=== PATIENT | female | born 1950 | race American Indian/Alaskan Native ===

== ENCOUNTER 2021-02-22 23:23 | Observation (INO) | payer MEDICARE ==
--- NOTE | 2021-02-23 00:13 | Emergency Department Report ---
ED General Adult HPI - General Chief complaint: Altered Mental Status Stated complaint: FREQUENT URINATION PUI?: No Time Seen by Provider: 02/23/21 00:01 Source: patient Mode of arrival: Stretcher Limitations: Altered Mental Status, Physical Limitation - History of Present Illness Initial comments: Patient is a 70-year-old female that presents emergency room with increased urinary frequency, altered mental status. Patient states she has a history of a stroke. Patient states her stroke left her with left-sided weakness. Patient states she not had any change in her weakness. Patient states her right side feels normal. Patient states she is having difficulties getting around due to the stroke. Patient has had multiple falls trying to get to the bathroom. Patient states for the last week she has had increased urinary frequency. Patient states she also lost her appetite and she has not eaten anything for 7 days. Patient denies pain. Patient denies chest pain. Patient denies shortness of breath. Patient denies abdominal pain. I discussed with the patient's son. Patient states his son states that she has been altered and increased urination. Patient's son states she is not eating as well. Patient denies recent travel. Patient denies recent international travel. Patient denies exposure to the novel coronavirus. Patient denies sick contacts. Patient denies fever and chills. Patient denies cough. Patient denies diarrhea. Patient denies coming in contact with anybody with symptoms of the novel coronavirus. -: Sudden - Related Data Allergies Allergy/AdvReac Type Severity Reaction Status Date / Time No Known Allergies Allergy Unverified 02/23/21 01:10 ED Review of Systems ROS: Stated complaint: FREQUENT URINATION Other details as noted in HPI Constitutional: denies: chills, fever Eyes: denies: eye pain, eye discharge, vision change ENT: denies: ear pain, throat pain Respiratory: denies: cough, shortness of breath, wheezing Cardiovascular: denies: chest pain, palpitations Endocrine: no symptoms reported Gastrointestinal: denies: abdominal pain, nausea, diarrhea Genitourinary: as per HPI, urgency, frequency. denies: dysuria, discharge Musculoskeletal: denies: back pain, joint swelling, arthralgia Skin: denies: rash, lesions Neurological: as per HPI. denies: headache, weakness, paresthesias Psychiatric: denies: anxiety, depression Hematological/Lymphatic: denies: easy bleeding, easy bruising ED Past Medical Hx - Past Medical History Previous Medical History?: Yes Hx Hypertension: Yes Hx CVA: Yes (Left-sided weakness) Hx Congestive Heart Failure: No - Surgical History Past Surgical History?: No - Family History Family history: no significant - Social History Smoking Status: Never Smoker Substance Use Type: None ED Physical Exam - General Limitations: Altered Mental Status, Physical Limitation General appearance: alert, in no apparent distress - Head Head exam: Present: atraumatic, normocephalic - Eye Eye exam: Present: normal appearance, PERRL Pupils: Present: normal accommodation - ENT ENT exam: Present: mucous membranes dry - Neck Neck exam: Present: normal inspection - Respiratory Respiratory exam: Present: normal lung sounds bilaterally. Absent: respiratory distress - Cardiovascular Cardiovascular Exam: Present: regular rate, normal rhythm. Absent: systolic murmur, diastolic murmur, rubs, gallop - GI/Abdominal GI/Abdominal exam: Present: soft, normal bowel sounds - Extremities Exam Extremities exam: Present: normal inspection - Back Exam Back exam: Present: normal inspection - Neurological Exam Neurological exam: Present: alert, altered (Patient is alert and oriented x2. Patient is oriented to self and place.) - Psychiatric Psychiatric exam: Present: normal affect, normal mood - Skin Skin exam: Present: warm, dry, intact, normal color. Absent: rash ED Course Vital Signs 02/23/21 02/23/21 01:05 02:12 Temperature 97.5 F L Pulse Rate 78 Respiratory 17 Rate Blood Pressure 194/117 [Right] O2 Sat by Pulse 99 100 Oximetry - Reevaluation(s) Reevaluation #1: I discussed all results with patient. I discussed plan of care with patient. Patient agrees with plan of care and admission. Patient to be admitted to the hospitalist service. 02/23/21 02:44 - Consultations Consultation #1: Hospitalist consulted for admission. Hospitalist to admit patient. 02/23/21 02:44 ED Medical Decision Making - Lab Data Result diagrams: 02/23/21 01:03 02/23/21 01:03 - EKG Data -: EKG Interpreted by Me EKG shows normal: sinus rhythm, axis, intervals, QRS complexes, ST-T waves Rate: normal - Radiology Data Radiology results: report reviewed, image reviewed interpreted by me: Chest x-ray: No pneumonia, no pneumothorax, no foreign body, no osseous findings, pulmonary edema noted. Cardiomegaly CHEST 1 VIEW 02/23/2021 12:16 AM INDICATION / CLINICAL INFORMATION: Altered Mental Status. COMPARISON: None available. FINDINGS: SUPPORT DEVICES: None. HEART / MEDIASTINUM: Moderate enlargement of the cardiac silhouette. LUNGS / PLEURA: There are generalized bilateral pulmonary opacities. No significant pleural effusion. No pneumothorax. ADDITIONAL FINDINGS: Moderate degenerative changes are noted along the spine and the left shoulder. IMPRESSION: Moderate cardiomegaly with probable bilateral atelectasis/edema. CT HEAD WITHOUT CONTRAST INDICATION : Altered Mental Status. TECHNIQUE: Axial, coronal and sagittal CT imaging was performed from the skull apex through the skull base without contrast. All CT scans at this location are performed using CT dose reduction for [employer] by means of automated exposure control. COMPARISON: None available. FINDINGS: Motion artifact limits portions of this study. PARENCHYMA: No mass, midline shift, hemorrhage, extraaxial collection or acute territorial infarction. There is mild generalized atrophy. Encephalomalacia is seen along the left cerebellar hemisphere. Areas of low-attenuation throughout the periventricular white matter likely represent chronic microvascular ischemic changes. VENTRICLES: Enlarged secondary to atrophy. No acute abnormality. SOFT TISSUES: No significant abnormality of the included soft tissues/orbits. BONES: No acute osseous abnormality. SINUSES: No significant abnormality. ADDITIONAL FINDINGS: None. IMPRESSION: 1. No acute intracranial abnormality. 2. Additional findings as above. - Medical Decision Making Patient is a 70-year-old female presents emergency room with complaints of urinary frequency and falls. Patient found to be altered. I discussed with the son the son confirms that the patient is altered and having urinary frequency. Patient answers most questions appropriately. Patient had a head CT which was negative for acute finding. Patient had a chest x-ray show cardiomegaly with pulmonary edema. Patient had labs done which showed renal insufficiency and a UTI. Patient given IV antibiotics. Patient admitted to the hospital service for further evaluation and treatment. Critical care time documented due to the multiple reassessments, prolonged time at the bedside, interpretation of diagnostics and labs. - Differential Diagnosis Altered mental status, dehydration, UTI, urinary frequency, Critical Care Time: Yes Critical care time in (mins) excluding proc time.: 35 Critical care attestation.: If time is entered above; I have spent that time in minutes in the direct care of this critically ill patient, excluding procedure time. Critical Care Time: 35 minutes ED Disposition Clinical Impression: Urinary frequency, Renal insufficiency, Pulmonary edema cardiac cause Altered mental state Qualifiers: Altered mental status type: unspecified Qualified Code(s): R41.82 - Altered mental status, unspecified UTI (urinary tract infection) Qualifiers: Urinary tract infection type: acute cystitis Hematuria presence: with hematuria Qualified Code(s): N30.01 - Acute cystitis with hematuria Disposition: OP ADMIT IP TO THIS HOSP Is pt being admited?: Yes Does the pt Need Aspirin: No Condition: Critical Instructions: Abdominal Pain (ED), Pulmonary Edema (ED) Time of Disposition: 03:40
--- NOTE | 2021-02-23 01:27 | XRay Report ---
CHEST 1 VIEW 02/23/2021 12:16 AM INDICATION / CLINICAL INFORMATION: Altered Mental Status. COMPARISON: None available. FINDINGS: SUPPORT DEVICES: None. HEART / MEDIASTINUM: Moderate enlargement of the cardiac silhouette. LUNGS / PLEURA: There are generalized bilateral pulmonary opacities. No significant pleural effusion. No pneumothorax. ADDITIONAL FINDINGS: Moderate degenerative changes are noted along the spine and the left shoulder. IMPRESSION: Moderate cardiomegaly with probable bilateral atelectasis/edema. Signer Name: Jabari Hernandez MD Signed: 02/23/2021 1:23 AM Workstation Name: [id number]
[2021-02-23 01:31] LABS: Hematocrit 33.6 % (30.3-42.9); Hemoglobin 11.1 gm/dl (10.1-14.3); Mean Corpuscular HGB Conc 33 % (30-34); Mean Corpuscular Volume 81 fl (79-97); Platelet Count 237 K/mm3 (140-440); Red Blood Count 4.18 M/mm3 (3.65-5.03); Red Cell Distribution Width 19.5 % (13.2-15.2)
[2021-02-23 01:35] LABS: INR 1.06 (0.87-1.13)
[2021-02-23 01:46] LABS: Albumin 3.7 g/dL (3.9-5); Calcium 9.1 mg/dL (8.4-10.2)
[2021-02-23 02:04] LABS: Band Neutrophils # (Manual) 0.2 K/mm3; Total Cells Counted 100
[2021-02-23 02:05] LABS: Anisocytosis 1+; Large Platelets Few; Platelet Estimate Consistent w Auto; Poikilocytosis 1+; Target Cells 1+
[2021-02-23 02:30] LABS: Bacteria,Urine 2+ /HPF (Negative); Bilirubin,Urine NEG (Negative); Blood,Urine LG (Negative); Color,Urine Yellow (Yellow); Mucus,Urine FEW /HPF
[2021-02-23 02:32] LABS: RBC,Urine > 182.0 /HPF (0.0-6.0)
--- NOTE | 2021-02-23 02:39 | Cat Scan Report ---
CT HEAD WITHOUT CONTRAST INDICATION : Altered Mental Status. TECHNIQUE: Axial, coronal and sagittal CT imaging was performed from the skull apex through the skul l base without contrast. All CT scans at this location are performed using CT dose reduction for ALA RA by means of automated exposure control. COMPARISON: None available. FINDINGS: Motion artifact limits portions of this study. PARENCHYMA: No mass, midline shift, hemorrhage, extraaxial collection or acute territorial infarctio n. There is mild generalized atrophy. Encephalomalacia is seen along the left cerebellar hemisphere. Areas of low-attenuation throughout the periventricular white matter likely represent chronic microv ascular ischemic changes. VENTRICLES: Enlarged secondary to atrophy. No acute abnormality. SOFT TISSUES: No significant abnormality of the included soft tissues/orbits. BONES: No acute osseous abnormality. SINUSES: No significant abnormality. ADDITIONAL FINDINGS: None. IMPRESSION: 1. No acute intracranial abnormality. 2. Additional findings as above. Signer Name: Jabari Hernandez MD Signed: 02/23/2021 2:34 AM Workstation Name: [id number]
[2021-02-23] MEDS ORDERED: cefTRIAXone/NS 2 GM/100 ML 2 GM/100 ML BAG IV ONE (02:44)
--- NOTE | 2021-02-23 07:50 | History and Physical Report ---
History of Present Illness Date of examination: 02/23/21 Date of admission: 02/23/21 03:35 Chief complaint: Could not urinate History of present illness: 70-year-old female with past medical history significant for stroke with residual left-sided weakness, hypertension, hyperlipidemia, left lymphedema presented to the emergency department with complaints of kidney infection. Patient stated she could not urinate, pain on the suprapubic area and could not characterize much. Patient denied any fever, chills, but admitted for runny nose that subsided. Patient denied any shortness of breath, orthopnea or PND. Patient denied any abdominal pain. Patient states she lives with her son and uses a walker but said her movement is limited because of the left-sided weakness. Patient said she never been to a doctor did not take any medications. It was stated that patient was confused per the chart which was reported by her son to ER physician. Patient was alert and oriented and she says she did not have any confusion. Her son was not in the room and he did not have his name or contact in the chart and I could not get in touch. In the emergency department blood pressure was very high 230/135, labs only significant for UTI. Patient started on IV Rocephin. The patient onhydralazine, clonidine and monitor her blood pressure. Patient will be admitted to the floor for further evaluation and management. REVIEW OF SYSTEMS: GENERAL: no weight change, no fatigue, no fever HEAD: no head ache EYES: no blurry vision, no acute visual loss EARS: no hearing loss, no discharge, no earache NOSE: no stuffiness, no sneezing, no discharge MOUTH, THROAT AND NECK: no bleeding gums, no sore throat, no swollen neck CARDIAC: no palpitations, no dyspnea on exertion, no orthopnea, no PND, no edema, no chest pain RESPIRATORY: no shortness of breath, no wheeze, no cough, no sputum, no hemoptysis, no asthma GI: no decreased appetite, no nausea, no vomiting, no dysphagia, no diarrhea, no constipation, no abdominal pain URINARY: As stated in the HPI MUSCULOSKELETAL: no muscle weakness, no pain, no joint stiffness NEUROLOGIC: no loss of sensation/numbness, no tingling, no tremors, no weakness/paralysis HEMATOLOGIC: no anemia, no easy bruising SKIN: no rashes ENDOCRINE: no heat/cold intolerance, no polyuria, no polydipsia, no thyroid problems, no diabetes PSYCHIATRIC: no anxiety, no depression, no suicidal ideations Past History Past Medical History: hypertension, hyperlipidemia, stroke Past Surgical History: thyroidectomy Social history: full code. denies: smoking, alcohol abuse, prescription drug abuse, IV drug use Family history: stroke (runs in the family) Medications and Allergies Allergies Allergy/AdvReac Type Severity Reaction Status Date / Time No Known Allergies Allergy Verified 02/23/21 07:42 Active Meds: Active Medications Hydralazine HCl (Hydralazine 20 Mg/1 Ml Inj) 20 mg IV Q4HR PRN PRN Reason: Hypertension Ceftriaxone Sodium (Rocephin/Ns 2 Gm/100 Ml) 2 gm in 100 mls @ 200 mls/hr IV Q24H ALEX; Protocol Sodium Chloride (Nacl 0.9% 1000 Ml) 1,000 mls @ 75 mls/hr IV DIRECT ALEX Exam - Physical Exam Narrative exam: Not in cardiopulmonary distress. The patient is morbidly obese. Vital signs as documented. Head exam is unremarkable. No scleral icterus . Neck is without jugular venous distension, thyromegaly, or carotid bruits. Lungs are clear to auscultation. Cardiac exam reveals regular rate and Rhythm. Abdominal exam reveals normal bowel sounds, nontender, no organomegaly. Extremities +2 nonpitting edema of the left lower extremity. 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 Left-sided weakness. - Constitutional Vitals: Temp Pulse Resp BP Pulse Ox 97.5 F L 78 17 194/117 100 02/23/21 02:12 02/23/21 02:12 02/23/21 02:12 02/23/21 02:12 02/23/21 02:12 HEART Score - HEART Score Troponin: Troponin T 0.018 ng/mL (0.00-0.029) 02/23/21 01:03 Results - Labs CBC & Chem 7: 02/23/21 01:03 02/23/21 01:03 Labs: Laboratory Last Values WBC 7.7 K/mm3 (4.5-11.0) 02/23/21 01:03 RBC 4.18 M/mm3 (3.65-5.03) 02/23/21 01:03 Hgb 11.1 gm/dl (10.1-14.3) 02/23/21 01:03 Hct 33.6 % (30.3-42.9) 02/23/21 01:03 MCV 81 fl (79-97) 02/23/21 01:03 MCH 27 pg (28-32) L 02/23/21 01:03 MCHC 33 % (30-34) 02/23/21 01:03 RDW 19.5 % (13.2-15.2) H 02/23/21 01:03 Plt Count 237 K/mm3 (140-440) 02/23/21 01:03 Add Manual Diff Complete 02/23/21 01:03 Total Counted 100 02/23/21 01:03 Seg Neuts % (Manual) 70.0 % (40.0-70.0) 02/23/21 01:03 Band Neutrophils % 2.0 % 02/23/21 01:03 Lymphocytes % (Manual) 19.0 % (13.4-35.0) 02/23/21 01:03 Monocytes % (Manual) 6.0 % (0.0-7.3) 02/23/21 01:03 Eosinophils % (Manual) 2.0 % (0.0-4.3) 02/23/21 01:03 Metamyelocytes % 1.0 % 02/23/21 01:03 Nucleated RBC % Not Reportable 02/23/21 01:03 Seg Neutrophils # Man 5.4 K/mm3 (1.8-7.7) 02/23/21 01:03 Band Neutrophils # 0.2 K/mm3 02/23/21 01:03 Lymphocytes # (Manual) 1.5 K/mm3 (1.2-5.4) 02/23/21 01:03 Abs React Lymphs (Man) 0.0 K/mm3 02/23/21 01:03 Monocytes # (Manual) 0.5 K/mm3 (0.0-0.8) 02/23/21 01:03 Eosinophils # (Manual) 0.2 K/mm3 (0.0-0.4) 02/23/21 01:03 Basophils # (Manual) 0.0 K/mm3 (0.0-0.1) 02/23/21 01:03 Metamyelocytes # 0.1 K/mm3 02/23/21 01:03 Myelocytes # 0.0 K/mm3 02/23/21 01:03 Promyelocytes # 0.0 K/mm3 02/23/21 01:03 Blast Cells # 0.0 K/mm3 02/23/21 01:03 WBC Morphology Not Reportable 02/23/21 01:03 Hypersegmented Neuts Not Reportable 02/23/21 01:03 Hyposegmented Neuts Not Reportable 02/23/21 01:03 Hypogranular Neuts Not Reportable 02/23/21 01:03 Smudge Cells Not Reportable 02/23/21 01:03 Toxic Granulation Not Reportable 02/23/21 01:03 Toxic Vacuolation Not Reportable 02/23/21 01:03 Dohle Bodies Not Reportable 02/23/21 01:03 Pelger-Huet Anomaly Not Reportable 02/23/21 01:03 Christiano Rods Not Reportable 02/23/21 01:03 Platelet Estimate Consistent w auto 02/23/21 01:03 Clumped Platelets Not Reportable 02/23/21 01:03 Plt Clumps, EDTA Not Reportable 02/23/21 01:03 Large Platelets Few 02/23/21 01:03 Giant Platelets Not Reportable 02/23/21 01:03 Platelet Satelliting Not Reportable 02/23/21 01:03 Plt Morphology Comment Not Reportable 02/23/21 01:03 RBC Morphology Not Reportable 02/23/21 01:03 Dimorphic RBCs Not Reportable 02/23/21 01:03 Polychromasia Not Reportable 02/23/21 01:03 Hypochromasia Not Reportable 02/23/21 01:03 Poikilocytosis 1+ 02/23/21 01:03 Anisocytosis 1+ 02/23/21 01:03 Microcytosis Not Reportable 02/23/21 01:03 Macrocytosis Not Reportable 02/23/21 01:03 Spherocytes Not Reportable 02/23/21 01:03 Pappenheimer Bodies Not Reportable 02/23/21 01:03 Sickle Cells Not Reportable 02/23/21 01:03 Target Cells 1+ 02/23/21 01:03 Tear Drop Cells Not Reportable 02/23/21 01:03 Ovalocytes Not Reportable 02/23/21 01:03 Helmet Cells Not Reportable 02/23/21 01:03 [place] Bodies Not Reportable 02/23/21 01:03 [place] Rings Not Reportable 02/23/21 01:03 [place] Cells Not Reportable 02/23/21 01:03 Bite Cells Not Reportable 02/23/21 01:03 Crenated Cell Not Reportable 02/23/21 01:03 Elliptocytes Not Reportable 02/23/21 01:03 Acanthocytes (Spur) Not Reportable 02/23/21 01:03 Rouleaux Not Reportable 02/23/21 01:03 Hemoglobin C Crystals Not Reportable 02/23/21 01:03 Schistocytes Not Reportable 02/23/21 01:03 Malaria parasites Not Reportable 02/23/21 01:03 Ruddy Bodies Not Reportable 02/23/21 01:03 Hem Pathologist Commnt No 02/23/21 01:03 PT 14.4 Sec. (12.2-14.9) 02/23/21 01:03 INR 1.06 (0.87-1.13) 02/23/21 01:03 APTT 36.0 Sec. (24.2-36.6) 02/23/21 01:03 Sodium 143 mmol/L (137-145) 02/23/21 01:03 Potassium 3.6 mmol/L (3.6-5.0) 02/23/21 01:03 Chloride 101.8 mmol/L (98-107) 02/23/21 01:03 Carbon Dioxide 27 mmol/L (22-30) 02/23/21 01:03 Anion Gap 18 mmol/L 02/23/21 01:03 BUN 32 mg/dL (7-17) H 02/23/21 01:03 Creatinine 1.4 mg/dL (0.6-1.2) H 02/23/21 01:03 Estimated GFR 37 ml/min 02/23/21 01:03 BUN/Creatinine Ratio 23 % 02/23/21 01:03 Glucose 120 mg/dL (65-100) H 02/23/21 01:03 Lactic Acid 1.30 mmol/L (0.7-2.0) 02/23/21 01:03 Calcium 9.1 mg/dL (8.4-10.2) 02/23/21 01:03 Total Bilirubin 0.80 mg/dL (0.1-1.2) 02/23/21 01:03 AST 16 units/L (5-40) 02/23/21 01:03 ALT 18 units/L (7-56) 02/23/21 01:03 Alkaline Phosphatase 87 units/L (35-129) 02/23/21 01:03 Total Creatine Kinase 59 units/L (30-135) 02/23/21 01:03 Troponin T 0.018 ng/mL (0.00-0.029) 02/23/21 01:03 Total Protein 7.3 g/dL (6.3-8.2) 02/23/21 01:03 Albumin 3.7 g/dL (3.9-5) L 02/23/21 01:03 Albumin/Globulin Ratio 1.0 % 02/23/21 01:03 Urine Color Yellow (Yellow) 02/23/21 02:12 Urine Turbidity Slightly-cloudy (Clear) 02/23/21 02:12 Urine pH 7.0 (5.0-7.0) 02/23/21 02:12 Ur Specific [place] 1.012 (1.003-1.030) 02/23/21 02:12 Urine Protein 100 mg/dl mg/dL (Negative) 02/23/21 02:12 Urine Glucose (UA) Neg mg/dL (Negative) 02/23/21 02:12 Urine Ketones Neg mg/dL (Negative) 02/23/21 02:12 Urine Blood Lg (Negative) 02/23/21 02:12 Urine Nitrite Neg (Negative) 02/23/21 02:12 Urine Bilirubin Neg (Negative) 02/23/21 02:12 Urine Urobilinogen 2.0 mg/dL (<2.0) 02/23/21 02:12 Ur Leukocyte Esterase Tr (Negative) 02/23/21 02:12 Urine WBC (Auto) 25.0 /HPF (0.0-6.0) H 02/23/21 02:12 Urine RBC (Auto) > 182.0 /HPF (0.0-6.0) 02/23/21 02:12 U Epithel Cells (Auto) 4.0 /HPF (0-13.0) 02/23/21 02:12 Urine Bacteria (Auto) 2+ /HPF (Negative) 02/23/21 02:12 Urine Mucus Few /HPF 02/23/21 02:12 Assessment and Plan Assessment and plan: UTI -On IV Rocephin -We will follow urine culture Altered mental status -Resolved at the time I evaluated her Hypertensive emergency -Blood pressure was 235 x 140 -There is JOZEF -Hydralazine, clonidine monitor and adjust as needed History of stroke with residual left-sided weakness -PT/OT evaluation -I put the patient on aspirin and statin Hyperlipidemia -Lipid panel, put her on atorvastatin JOZEF -Due to hypotension and poor oral intake -IV fluid, monitor BMP in the morning DVT prophylaxis; on heparin CODE STATUS; full Disposition; admit to medical floor Management plan was discussed with the patient. Advance Directives: Yes VTE prophylaxis?: Chemical Plan of care discussed with patient/family: Yes
[2021-02-23] MEDS: SODIUM CHLORIDE 0.9% 1000 ML 1,000 ML IV SCH (07:59)
[2021-02-23] MEDS ORDERED: hydrALAZINE 20 MG/1 ML INJ IV PRN (08:00)
[2021-02-23] MEDS ORDERED: NS IV ONE (08:02)
[2021-02-23] MEDS ORDERED: CEFTRIAXONE IV ONE (08:02)
[2021-02-23] MEDS ORDERED: FUROSEMIDE 40 MG/4 ML INJ IV SCH (08:30)
[2021-02-23 09:52] LABS: Chol/HDL Ratio 14.66 %
[2021-02-23] MEDS: cloNIDine 0.2 MG TAB PO SCH (10:09)
[2021-02-23] MEDS: hydrALAZINE 100 MG TAB PO SCH ×3 (10:09→19:50)
[2021-02-23] MEDS: ASPIRIN 81 MG TAB CHEW PO SCH (10:10)
[2021-02-23] MEDS: HEPARIN 5,000 UNIT/1 ML VIAL SUB-Q SCH ×2 (10:10→14:59)
[2021-02-23] MEDS: NIFEdipine XL 60 MG TAB PO SCH (11:39)
[2021-02-24] MEDS: cloNIDine 0.2 MG TAB PO SCH ×3 (00:11→22:04)
[2021-02-24] MEDS: HEPARIN 5,000 UNIT/1 ML VIAL SUB-Q SCH ×4 (00:12→22:04)
[2021-02-24 05:27] LABS: Calcium 9.5 mg/dL (8.4-10.2)
[2021-02-24] MEDS: hydrALAZINE 100 MG TAB PO SCH ×3 (08:03→22:04)
[2021-02-24] MEDS: cefTRIAXone/NS 2 GM/100 ML 2 GM/100 ML BAG IV SCH (08:30)
--- NOTE | 2021-02-24 09:36 | Progress Note ---
Assessment and Plan Assessment and plan: UTI -On IV Rocephin -We will follow urine culture Altered mental status -Resolved at the time I evaluated her Hypertensive emergency -Blood pressure was 235 x 140 -There is JOZEF -Hydralazine, clonidine monitor and adjust as needed History of stroke with residual left-sided weakness -PT/OT evaluation -I put the patient on aspirin and statin Hyperlipidemia -Lipid panel, put her on atorvastatin JOZEF -Due to hypotension and poor oral intake -IV fluid, monitor BMP in the morning DVT prophylaxis; on heparin CODE STATUS; full Disposition; admit to medical floor Management plan was discussed with the patient. ; patient states she is feeling well. Continue with IV Rocephin. Will follow culture result. We will follow PT OT evaluation. History Interval history: Patient was seen and evaluated this morning Patient states she is feeling better Hospitalist Physical - Physical exam Narrative exam: Not in cardiopulmonary distress. The patient is morbidly obese. Vital signs as documented. Head exam is unremarkable. No scleral icterus . Neck is without jugular venous distension, thyromegaly, or carotid bruits. Lungs are clear to auscultation. Cardiac exam reveals regular rate and Rhythm. Abdominal exam reveals normal bowel sounds, nontender, no organomegaly. Extremities +2 nonpitting edema of the left lower extremity. 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 Left-sided weakness. - Constitutional Vitals: Temp Pulse Resp BP Pulse Ox 98.9 F 82 22 165/100 98 02/24/21 08:35 02/24/21 08:35 02/24/21 08:35 02/24/21 08:35 02/24/21 08:35 HEART Score - HEART Score Troponin: Troponin T 0.018 ng/mL (0.00-0.029) 02/23/21 01:03 Results - Labs CBC & Chem 7: 02/23/21 01:03 02/24/21 04:15 Labs: Laboratory Last Values WBC 7.7 K/mm3 (4.5-11.0) 02/23/21 01:03 RBC 4.18 M/mm3 (3.65-5.03) 02/23/21 01:03 Hgb 11.1 gm/dl (10.1-14.3) 02/23/21 01:03 Hct 33.6 % (30.3-42.9) 02/23/21 01:03 MCV 81 fl (79-97) 02/23/21 01:03 MCH 27 pg (28-32) L 02/23/21 01:03 MCHC 33 % (30-34) 02/23/21 01:03 RDW 19.5 % (13.2-15.2) H 02/23/21 01:03 Plt Count 237 K/mm3 (140-440) 02/23/21 01:03 Add Manual Diff Complete 02/23/21 01:03 Total Counted 100 02/23/21 01:03 Seg Neuts % (Manual) 70.0 % (40.0-70.0) 02/23/21 01:03 Band Neutrophils % 2.0 % 02/23/21 01:03 Lymphocytes % (Manual) 19.0 % (13.4-35.0) 02/23/21 01:03 Monocytes % (Manual) 6.0 % (0.0-7.3) 02/23/21 01:03 Eosinophils % (Manual) 2.0 % (0.0-4.3) 02/23/21 01:03 Metamyelocytes % 1.0 % 02/23/21 01:03 Nucleated RBC % Not Reportable 02/23/21 01:03 Seg Neutrophils # Man 5.4 K/mm3 (1.8-7.7) 02/23/21 01:03 Band Neutrophils # 0.2 K/mm3 02/23/21 01:03 Lymphocytes # (Manual) 1.5 K/mm3 (1.2-5.4) 02/23/21 01:03 Abs React Lymphs (Man) 0.0 K/mm3 02/23/21 01:03 Monocytes # (Manual) 0.5 K/mm3 (0.0-0.8) 02/23/21 01:03 Eosinophils # (Manual) 0.2 K/mm3 (0.0-0.4) 02/23/21 01:03 Basophils # (Manual) 0.0 K/mm3 (0.0-0.1) 02/23/21 01:03 Metamyelocytes # 0.1 K/mm3 02/23/21 01:03 Myelocytes # 0.0 K/mm3 02/23/21 01:03 Promyelocytes # 0.0 K/mm3 02/23/21 01:03 Blast Cells # 0.0 K/mm3 02/23/21 01:03 WBC Morphology Not Reportable 02/23/21 01:03 Hypersegmented Neuts Not Reportable 02/23/21 01:03 Hyposegmented Neuts Not Reportable 02/23/21 01:03 Hypogranular Neuts Not Reportable 02/23/21 01:03 Smudge Cells Not Reportable 02/23/21 01:03 Toxic Granulation Not Reportable 02/23/21 01:03 Toxic Vacuolation Not Reportable 02/23/21 01:03 Dohle Bodies Not Reportable 02/23/21 01:03 Pelger-Huet Anomaly Not Reportable 02/23/21 01:03 Christiano Rods Not Reportable 02/23/21 01:03 Platelet Estimate Consistent w auto 02/23/21 01:03 Clumped Platelets Not Reportable 02/23/21 01:03 Plt Clumps, EDTA Not Reportable 02/23/21 01:03 Large Platelets Few 02/23/21 01:03 Giant Platelets Not Reportable 02/23/21 01:03 Platelet Satelliting Not Reportable 02/23/21 01:03 Plt Morphology Comment Not Reportable 02/23/21 01:03 RBC Morphology Not Reportable 02/23/21 01:03 Dimorphic RBCs Not Reportable 02/23/21 01:03 Polychromasia Not Reportable 02/23/21 01:03 Hypochromasia Not Reportable 02/23/21 01:03 Poikilocytosis 1+ 02/23/21 01:03 Anisocytosis 1+ 02/23/21 01:03 Microcytosis Not Reportable 02/23/21 01:03 Macrocytosis Not Reportable 02/23/21 01:03 Spherocytes Not Reportable 02/23/21 01:03 Pappenheimer Bodies Not Reportable 02/23/21 01:03 Sickle Cells Not Reportable 02/23/21 01:03 Target Cells 1+ 02/23/21 01:03 Tear Drop Cells Not Reportable 02/23/21 01:03 Ovalocytes Not Reportable 02/23/21 01:03 Helmet Cells Not Reportable 02/23/21 01:03 [place] Bodies Not Reportable 02/23/21 01:03 [place] Rings Not Reportable 02/23/21 01:03 [place] Cells Not Reportable 02/23/21 01:03 Bite Cells Not Reportable 02/23/21 01:03 Crenated Cell Not Reportable 02/23/21 01:03 Elliptocytes Not Reportable 02/23/21 01:03 Acanthocytes (Spur) Not Reportable 02/23/21 01:03 Rouleaux Not Reportable 02/23/21 01:03 Hemoglobin C Crystals Not Reportable 02/23/21 01:03 Schistocytes Not Reportable 02/23/21 01:03 Malaria parasites Not Reportable 02/23/21 01:03 [place]dy Bodies Not Reportable 02/23/21 01:03 Hem Pathologist Commnt No 02/23/21 01:03 PT 14.4 Sec. (12.2-14.9) 02/23/21 01:03 INR 1.06 (0.87-1.13) 02/23/21 01:03 APTT 36.0 Sec. (24.2-36.6) 02/23/21 01:03 Sodium 142 mmol/L (137-145) 02/24/21 04:15 Potassium 3.5 mmol/L (3.6-5.0) L 02/24/21 04:15 Chloride 102.3 mmol/L (98-107) 02/24/21 04:15 Carbon Dioxide 24 mmol/L (22-30) 02/24/21 04:15 Anion Gap 19 mmol/L 02/24/21 04:15 BUN 32 mg/dL (7-17) H 02/24/21 04:15 Creatinine 1.4 mg/dL (0.6-1.2) H 02/24/21 04:15 Estimated GFR 45 ml/min 02/24/21 04:15 BUN/Creatinine Ratio 23 % 02/24/21 04:15 Glucose 124 mg/dL (65-100) H 02/24/21 04:15 Lactic Acid 1.30 mmol/L (0.7-2.0) 02/23/21 01:03 Calcium 9.5 mg/dL (8.4-10.2) 02/24/21 04:15 Total Bilirubin 0.80 mg/dL (0.1-1.2) 02/23/21 01:03 AST 16 units/L (5-40) 02/23/21 01:03 ALT 18 units/L (7-56) 02/23/21 01:03 Alkaline Phosphatase 87 units/L (35-129) 02/23/21 01:03 Total Creatine Kinase 59 units/L (30-135) 02/23/21 01:03 Troponin T 0.018 ng/mL (0.00-0.029) 02/23/21 01:03 Total Protein 7.3 g/dL (6.3-8.2) 02/23/21 01:03 Albumin 3.7 g/dL (3.9-5) L 02/23/21 01:03 Albumin/Globulin Ratio 1.0 % 02/23/21 01:03 Triglycerides 351 mg/dL (2-149) H 02/23/21 01:03 Cholesterol 308 mg/dL (50-199) H 02/23/21 01:03 LDL Cholesterol Direct 196 mg/dL (50-130) H 02/23/21 01:03 HDL Cholesterol 21 mg/dL (40-59) L 02/23/21 01:03 Cholesterol/HDL Ratio 14.66 % 02/23/21 01:03 Urine Color Yellow (Yellow) 02/23/21 02:12 Urine Turbidity Slightly-cloudy (Clear) 02/23/21 02:12 Urine pH 7.0 (5.0-7.0) 02/23/21 02:12 Ur Specific [place] 1.012 (1.003-1.030) 02/23/21 02:12 Urine Protein 100 mg/dl mg/dL (Negative) 02/23/21 02:12 Urine Glucose (UA) Neg mg/dL (Negative) 02/23/21 02:12 Urine Ketones Neg mg/dL (Negative) 02/23/21 02:12 Urine Blood Lg (Negative) 02/23/21 02:12 Urine Nitrite Neg (Negative) 02/23/21 02:12 Urine Bilirubin Neg (Negative) 02/23/21 02:12 Urine Urobilinogen 2.0 mg/dL (<2.0) 02/23/21 02:12 Ur Leukocyte Esterase Tr (Negative) 02/23/21 02:12 Urine WBC (Auto) 25.0 /HPF (0.0-6.0) H 02/23/21 02:12 Urine RBC (Auto) > 182.0 /HPF (0.0-6.0) 02/23/21 02:12 U Epithel Cells (Auto) 4.0 /HPF (0-13.0) 02/23/21 02:12 Urine Bacteria (Auto) 2+ /HPF (Negative) 02/23/21 02:12 Urine Mucus Few /HPF 02/23/21 02:12 Awad/IV: Voiding Method External Female Catheter Active Medications - Current Medications Current Medications: Generic Name Dose Route Start Last Admin Trade Name Freq PRN Reason Stop Dose Admin Aspirin 81 mg 02/23/21 10:00 02/23/21 10:10 Aspirin 81 Mg Tab Chew PO 81 mg QDAY ALEX Administration Atorvastatin Calcium 40 mg 02/23/21 22:00 02/24/21 00:11 Atorvastatin 40 Mg Tab PO 40 mg QHS ALEX Administration Clonidine HCl 0.2 mg 02/23/21 09:00 02/24/21 00:11 Clonidine 0.2 Mg Tab PO 0.2 mg Q12HR ALEX Administration Heparin Sodium (Porcine) 5,000 unit 02/23/21 09:00 02/24/21 06:02 Heparin 5,000 Unit/1 Ml Vial SUB-Q 5,000 unit Q8HR ALEX Administration Hydralazine HCl 20 mg 02/23/21 08:00 02/23/21 07:59 Hydralazine 20 Mg/1 Ml Inj IV 20 mg Q4H PRN Administration Hypertension Hydralazine HCl 100 mg 02/23/21 09:00 02/24/21 08:03 Hydralazine 100 Mg Tab PO 100 mg TID ALEX Administration Ceftriaxone Sodium 2 gm in 100 mls @ 200 mls/hr 02/24/21 08:00 02/24/21 08:30 Rocephin/Ns 2 Gm/100 Ml IV 200 mls/hr Q24H ALEX Administration Protocol Sodium Chloride 1,000 mls @ 75 mls/hr 02/23/21 08:00 02/23/21 07:59 Nacl 0.9% 1000 Ml IV 75 mls/hr DIRECT ALEX Administration Nifedipine 60 mg 02/23/21 09:00 02/23/21 11:39 Nifedipine Xl 60 Mg Tab PO 60 mg QDAY ALEX Administration
[2021-02-24] MEDS: SODIUM CHLORIDE 0.9% 1000 ML 1,000 ML IV SCH ×2 (10:03→23:50)
[2021-02-24] MEDS: ASPIRIN 81 MG TAB CHEW PO SCH (10:04)
[2021-02-24] MEDS: NIFEdipine XL 60 MG TAB PO SCH (10:04)
[2021-02-24] MEDS ORDERED: POTASSIUM CHLORIDE ER 10 MEQ TAB PO ONE (13:47)
--- NOTE | 2021-02-24 17:43 | Electrocardiograph Report ---
[facility] Test Date: 2021-02-23 Test Time: 02:00:13 Pat Name: SONIA LONG Department: Room: A460 Gender: F Plumber'S Helper: DIPPER FISH : 1950 Requested By: JAYLIN GARCIA III Order Number: [id number] Reading MD: Anand Soler Measurements Intervals [place] Rate: 69 P: 51 TN: 169 QRS: -54 QRSD: 103 T: 69 QT: 433 QTc: 463 Interpretive Statements Sinus rhythm Inferior infarct, old Probable anterior infarct, age indeterminate No previous ECG available for comparison Electronically Signed On 02-24-2021 17:43:18 EDT by Anand Soler
[2021-02-25] MEDS: HEPARIN 5,000 UNIT/1 ML VIAL SUB-Q SCH ×3 (05:11→21:57)
[2021-02-25] MEDS: cloNIDine 0.2 MG TAB PO SCH ×2 (08:59→21:57)
[2021-02-25] MEDS: NIFEdipine XL 60 MG TAB PO SCH (08:59)
[2021-02-25] MEDS: hydrALAZINE 100 MG TAB PO SCH ×3 (08:59→21:57)
[2021-02-25] MEDS: ASPIRIN 81 MG TAB CHEW PO SCH (08:59)
[2021-02-25] MEDS: cefTRIAXone/NS 2 GM/100 ML 2 GM/100 ML BAG IV SCH (09:00)
--- NOTE | 2021-02-25 12:10 | Progress Note ---
Assessment and Plan - Patient Problems (1) UTI (urinary tract infection) Current Visit: Yes Status: Acute Qualifiers: Urinary tract infection type: acute cystitis Hematuria presence: with hematuria Qualified Code(s): N30.01 - Acute cystitis with hematuria Plan to address problem: IV antibiotic therapy, CBC, supportive care (2) Obesity hypoventilation syndrome Current Visit: Yes Status: Acute Plan to address problem: Balanced diet, increase physical activity at discharge, outpatient pulmonary follow-up for sleep study, outpatient bariatric surgery consult. (3) Debility Current Visit: Yes Status: Acute Plan to address problem: Case management consulted for assistance with discharge planning/placement. (4) DVT prophylaxis Current Visit: Yes Status: Acute Plan to address problem: SCD to bilateral lower extremities while in bed, prophylactic anticoagulation History Interval history: 70 YO Female with Obesity Hypoventilation Syndrome, SMO, UTI, Debility. Patient resting comfortably overnight. No reported nursing events. Patient knowledges weakness. Case management consulted for assistance with discharge planning/placement. Hospitalist Physical - Constitutional Vitals: Temp Pulse Resp BP Pulse Ox 98.3 F 61 20 144/63 95 02/25/21 12:02 02/25/21 12:02 02/25/21 12:02 02/25/21 12:02 02/25/21 12:02 General appearance: Present: mild distress, obese - EENT Eyes: Present: PERRL ENT: hearing intact - Neck Neck: Present: supple - Respiratory Respiratory effort: normal Respiratory: bilateral: diminished - Cardiovascular Rhythm: regular Heart Sounds: Present: S1 & S2 - Extremities Extremity abnormal: edema - Abdominal General gastrointestinal: soft, non-tender, non-distended - Integumentary Integumentary: Present: clear, dry - Psychiatric Psychiatric: cooperative - Neurologic Neurologic: CNII-XII intact HEART Score - HEART Score Troponin: Troponin T 0.018 ng/mL (0.00-0.029) 02/23/21 01:03 Results - Labs CBC & Chem 7: 02/23/21 01:03 02/24/21 04:15 Labs: Laboratory Last Values WBC 7.7 K/mm3 (4.5-11.0) 02/23/21 01:03 RBC 4.18 M/mm3 (3.65-5.03) 02/23/21 01:03 Hgb 11.1 gm/dl (10.1-14.3) 02/23/21 01:03 Hct 33.6 % (30.3-42.9) 02/23/21 01:03 MCV 81 fl (79-97) 02/23/21 01:03 MCH 27 pg (28-32) L 02/23/21 01:03 MCHC 33 % (30-34) 02/23/21 01:03 RDW 19.5 % (13.2-15.2) H 02/23/21 01:03 Plt Count 237 K/mm3 (140-440) 02/23/21 01:03 Add Manual Diff Complete 02/23/21 01:03 Total Counted 100 02/23/21 01:03 Seg Neuts % (Manual) 70.0 % (40.0-70.0) 02/23/21 01:03 Band Neutrophils % 2.0 % 02/23/21 01:03 Lymphocytes % (Manual) 19.0 % (13.4-35.0) 02/23/21 01:03 Monocytes % (Manual) 6.0 % (0.0-7.3) 02/23/21 01:03 Eosinophils % (Manual) 2.0 % (0.0-4.3) 02/23/21 01:03 Metamyelocytes % 1.0 % 02/23/21 01:03 Nucleated RBC % Not Reportable 02/23/21 01:03 Seg Neutrophils # Man 5.4 K/mm3 (1.8-7.7) 02/23/21 01:03 Band Neutrophils # 0.2 K/mm3 02/23/21 01:03 Lymphocytes # (Manual) 1.5 K/mm3 (1.2-5.4) 02/23/21 01:03 Abs React Lymphs (Man) 0.0 K/mm3 02/23/21 01:03 Monocytes # (Manual) 0.5 K/mm3 (0.0-0.8) 02/23/21 01:03 Eosinophils # (Manual) 0.2 K/mm3 (0.0-0.4) 02/23/21 01:03 Basophils # (Manual) 0.0 K/mm3 (0.0-0.1) 02/23/21 01:03 Metamyelocytes # 0.1 K/mm3 02/23/21 01:03 Myelocytes # 0.0 K/mm3 02/23/21 01:03 Promyelocytes # 0.0 K/mm3 02/23/21 01:03 Blast Cells # 0.0 K/mm3 02/23/21 01:03 WBC Morphology Not Reportable 02/23/21 01:03 Hypersegmented Neuts Not Reportable 02/23/21 01:03 Hyposegmented Neuts Not Reportable 02/23/21 01:03 Hypogranular Neuts Not Reportable 02/23/21 01:03 Smudge Cells Not Reportable 02/23/21 01:03 Toxic Granulation Not Reportable 02/23/21 01:03 Toxic Vacuolation Not Reportable 02/23/21 01:03 Dohle Bodies Not Reportable 02/23/21 01:03 Pelger-Huet Anomaly Not Reportable 02/23/21 01:03 Christiano Rods Not Reportable 02/23/21 01:03 Platelet Estimate Consistent w auto 02/23/21 01:03 Clumped Platelets Not Reportable 02/23/21 01:03 Plt Clumps, EDTA Not Reportable 02/23/21 01:03 Large Platelets Few 02/23/21 01:03 Giant Platelets Not Reportable 02/23/21 01:03 Platelet Satelliting Not Reportable 02/23/21 01:03 Plt Morphology Comment Not Reportable 02/23/21 01:03 RBC Morphology Not Reportable 02/23/21 01:03 Dimorphic RBCs Not Reportable 02/23/21 01:03 Polychromasia Not Reportable 02/23/21 01:03 Hypochromasia Not Reportable 02/23/21 01:03 Poikilocytosis 1+ 02/23/21 01:03 Anisocytosis 1+ 02/23/21 01:03 Microcytosis Not Reportable 02/23/21 01:03 Macrocytosis Not Reportable 02/23/21 01:03 Spherocytes Not Reportable 02/23/21 01:03 Pappenheimer Bodies Not Reportable 02/23/21 01:03 Sickle Cells Not Reportable 02/23/21 01:03 Target Cells 1+ 02/23/21 01:03 Tear Drop Cells Not Reportable 02/23/21 01:03 Ovalocytes Not Reportable 02/23/21 01:03 Helmet Cells Not Reportable 02/23/21 01:03 [place] Bodies Not Reportable 02/23/21 01:03 [place] Rings Not Reportable 02/23/21 01:03 [place] Cells Not Reportable 02/23/21 01:03 Bite Cells Not Reportable 02/23/21 01:03 Crenated Cell Not Reportable 02/23/21 01:03 Elliptocytes Not Reportable 02/23/21 01:03 Acanthocytes (Spur) Not Reportable 02/23/21 01:03 Rouleaux Not Reportable 02/23/21 01:03 Hemoglobin C Crystals Not Reportable 02/23/21 01:03 Schistocytes Not Reportable 02/23/21 01:03 Malaria parasites Not Reportable 02/23/21 01:03 [place] Bodies Not Reportable 02/23/21 01:03 Hem Pathologist Commnt No 02/23/21 01:03 PT 14.4 Sec. (12.2-14.9) 02/23/21 01:03 INR 1.06 (0.87-1.13) 02/23/21 01:03 APTT 36.0 Sec. (24.2-36.6) 02/23/21 01:03 Sodium 142 mmol/L (137-145) 02/24/21 04:15 Potassium 3.5 mmol/L (3.6-5.0) L 02/24/21 04:15 Chloride 102.3 mmol/L (98-107) 02/24/21 04:15 Carbon Dioxide 24 mmol/L (22-30) 02/24/21 04:15 Anion Gap 19 mmol/L 02/24/21 04:15 BUN 32 mg/dL (7-17) H 02/24/21 04:15 Creatinine 1.4 mg/dL (0.6-1.2) H 02/24/21 04:15 Estimated GFR 45 ml/min 02/24/21 04:15 BUN/Creatinine Ratio 23 % 02/24/21 04:15 Glucose 124 mg/dL (65-100) H 02/24/21 04:15 Lactic Acid 1.30 mmol/L (0.7-2.0) 02/23/21 01:03 Calcium 9.5 mg/dL (8.4-10.2) 02/24/21 04:15 Total Bilirubin 0.80 mg/dL (0.1-1.2) 02/23/21 01:03 AST 16 units/L (5-40) 02/23/21 01:03 ALT 18 units/L (7-56) 02/23/21 01:03 Alkaline Phosphatase 87 units/L (35-129) 02/23/21 01:03 Total Creatine Kinase 59 units/L (30-135) 02/23/21 01:03 Troponin T 0.018 ng/mL (0.00-0.029) 02/23/21 01:03 Total Protein 7.3 g/dL (6.3-8.2) 02/23/21 01:03 Albumin 3.7 g/dL (3.9-5) L 02/23/21 01:03 Albumin/Globulin Ratio 1.0 % 02/23/21 01:03 Triglycerides 351 mg/dL (2-149) H 02/23/21 01:03 Cholesterol 308 mg/dL (50-199) H 02/23/21 01:03 LDL Cholesterol Direct 196 mg/dL (50-130) H 02/23/21 01:03 HDL Cholesterol 21 mg/dL (40-59) L 02/23/21 01:03 Cholesterol/HDL Ratio 14.66 % 02/23/21 01:03 Urine Color Yellow (Yellow) 02/23/21 02:12 Urine Turbidity Slightly-cloudy (Clear) 02/23/21 02:12 Urine pH 7.0 (5.0-7.0) 02/23/21 02:12 Ur Specific [place] 1.012 (1.003-1.030) 02/23/21 02:12 Urine Protein 100 mg/dl mg/dL (Negative) 02/23/21 02:12 Urine Glucose (UA) Neg mg/dL (Negative) 02/23/21 02:12 Urine Ketones Neg mg/dL (Negative) 02/23/21 02:12 Urine Blood Lg (Negative) 02/23/21 02:12 Urine Nitrite Neg (Negative) 02/23/21 02:12 Urine Bilirubin Neg (Negative) 02/23/21 02:12 Urine Urobilinogen 2.0 mg/dL (<2.0) 02/23/21 02:12 Ur Leukocyte Esterase Tr (Negative) 02/23/21 02:12 Urine WBC (Auto) 25.0 /HPF (0.0-6.0) H 02/23/21 02:12 Urine RBC (Auto) > 182.0 /HPF (0.0-6.0) 02/23/21 02:12 U Epithel Cells (Auto) 4.0 /HPF (0-13.0) 02/23/21 02:12 Urine Bacteria (Auto) 2+ /HPF (Negative) 02/23/21 02:12 Urine Mucus Few /HPF 02/23/21 02:12 Microbiology: Microbiology 02/23/21 02:12 Urine,Clean Catch Urine Culture - Preliminary Awad/IV: Voiding Method External Female Catheter Active Medications - Current Medications Current Medications: Generic Name Dose Route Start Last Admin Trade Name Freq PRN Reason Stop Dose Admin Aspirin 81 mg 02/23/21 10:00 02/25/21 08:59 Aspirin 81 Mg Tab Chew PO 81 mg QDAY ALEX Administration Atorvastatin Calcium 40 mg 02/23/21 22:00 02/24/21 22:04 Atorvastatin 40 Mg Tab PO 40 mg QHS ALEX Administration Clonidine HCl 0.2 mg 02/23/21 09:00 02/25/21 08:59 Clonidine 0.2 Mg Tab PO 0.2 mg Q12HR ALEX Administration Heparin Sodium (Porcine) 5,000 unit 02/23/21 09:00 02/25/21 05:11 Heparin 5,000 Unit/1 Ml Vial SUB-Q 5,000 unit Q8HR ALEX Administration Hydralazine HCl 20 mg 02/23/21 08:00 02/23/21 07:59 Hydralazine 20 Mg/1 Ml Inj IV 20 mg Q4H PRN Administration Hypertension Hydralazine HCl 100 mg 02/23/21 09:00 02/25/21 08:59 Hydralazine 100 Mg Tab PO 100 mg TID ALEX Administration Ceftriaxone Sodium 2 gm in 100 mls @ 200 mls/hr 02/24/21 08:00 02/25/21 09:00 Rocephin/Ns 2 Gm/100 Ml IV 200 mls/hr Q24H ALEX Administration Protocol Sodium Chloride 1,000 mls @ 75 mls/hr 02/23/21 08:00 02/24/21 23:50 Nacl 0.9% 1000 Ml IV 75 mls/hr DIRECT ALEX Administration Nifedipine 60 mg 02/23/21 09:00 02/25/21 08:59 Nifedipine Xl 60 Mg Tab PO 60 mg QDAY ALEX Administration
[2021-02-25] MEDS: SODIUM CHLORIDE 0.9% 1000 ML 1,000 ML IV SCH (22:18)
[2021-02-26] MEDS: HEPARIN 5,000 UNIT/1 ML VIAL SUB-Q SCH ×3 (05:01→22:55)
[2021-02-26] MEDS: hydrALAZINE 100 MG TAB PO SCH ×3 (08:24→22:55)
[2021-02-26] MEDS: cefTRIAXone/NS 2 GM/100 ML 2 GM/100 ML BAG IV SCH (08:24)
[2021-02-26] MEDS ORDERED: POLYETHYLENE GLYCOL 3350 17 GM POWDER PO PRN (08:54)
[2021-02-26] MEDS: ASPIRIN 81 MG TAB CHEW PO SCH (10:18)
[2021-02-26] MEDS: NIFEdipine XL 60 MG TAB PO SCH (10:18)
[2021-02-26] MEDS: cloNIDine 0.2 MG TAB PO SCH ×2 (10:18→22:55)
[2021-02-26] MEDS: SODIUM CHLORIDE 0.9% 1000 ML 1,000 ML IV SCH (10:19)
--- NOTE | 2021-02-26 13:57 | Progress Note ---
Assessment and Plan - Patient Problems (1) UTI (urinary tract infection) Current Visit: Yes Status: Acute Qualifiers: Urinary tract infection type: acute cystitis Hematuria presence: with hematuria Qualified Code(s): N30.01 - Acute cystitis with hematuria Plan to address problem: IV antibiotic therapy, CBC, supportive care (2) Obesity hypoventilation syndrome Current Visit: Yes Status: Acute Plan to address problem: Balanced diet, increase physical activity at discharge, outpatient pulmonary follow-up for sleep study, outpatient bariatric surgery consult. (3) Debility Current Visit: Yes Status: Acute Plan to address problem: Case management consulted for assistance with discharge planning/placement. (4) DVT prophylaxis Current Visit: Yes Status: Acute Plan to address problem: SCD to bilateral lower extremities while in bed, prophylactic anticoagulation History Interval history: 70 YO Female with Obesity Hypoventilation Syndrome, SMO, UTI, Debility. Patient resting comfortably overnight. No reported nursing events. Patient knowledges weakness. Case management consulted for assistance with discharge planning/placement. Hospitalist Physical - Constitutional Vitals: Temp Pulse Resp BP Pulse Ox 98.3 F 69 22 140/78 97 02/26/21 08:07 02/26/21 08:07 02/26/21 08:07 02/26/21 08:07 02/26/21 08:07 General appearance: Present: mild distress, obese - EENT Eyes: Present: PERRL ENT: hearing intact - Neck Neck: Present: supple - Respiratory Respiratory effort: normal Respiratory: bilateral: diminished - Cardiovascular Rhythm: regular Heart Sounds: Present: S1 & S2 - Extremities Extremities: no ischemia Extremity abnormal: edema Peripheral Pulses: within normal limits - Abdominal General gastrointestinal: soft, non-tender, non-distended - Integumentary Integumentary: Present: clear, dry - Psychiatric Psychiatric: cooperative - Neurologic Neurologic: CNII-XII intact HEART Score - HEART Score Troponin: Troponin T 0.018 ng/mL (0.00-0.029) 02/23/21 01:03 Results - Labs CBC & Chem 7: 02/23/21 01:03 02/24/21 04:15 Labs: Laboratory Last Values WBC 7.7 K/mm3 (4.5-11.0) 02/23/21 01:03 RBC 4.18 M/mm3 (3.65-5.03) 02/23/21 01:03 Hgb 11.1 gm/dl (10.1-14.3) 02/23/21 01:03 Hct 33.6 % (30.3-42.9) 02/23/21 01:03 MCV 81 fl (79-97) 02/23/21 01:03 MCH 27 pg (28-32) L 02/23/21 01:03 MCHC 33 % (30-34) 02/23/21 01:03 RDW 19.5 % (13.2-15.2) H 02/23/21 01:03 Plt Count 237 K/mm3 (140-440) 02/23/21 01:03 Add Manual Diff Complete 02/23/21 01:03 Total Counted 100 02/23/21 01:03 Seg Neuts % (Manual) 70.0 % (40.0-70.0) 02/23/21 01:03 Band Neutrophils % 2.0 % 02/23/21 01:03 Lymphocytes % (Manual) 19.0 % (13.4-35.0) 02/23/21 01:03 Monocytes % (Manual) 6.0 % (0.0-7.3) 02/23/21 01:03 Eosinophils % (Manual) 2.0 % (0.0-4.3) 02/23/21 01:03 Metamyelocytes % 1.0 % 02/23/21 01:03 Nucleated RBC % Not Reportable 02/23/21 01:03 Seg Neutrophils # Man 5.4 K/mm3 (1.8-7.7) 02/23/21 01:03 Band Neutrophils # 0.2 K/mm3 02/23/21 01:03 Lymphocytes # (Manual) 1.5 K/mm3 (1.2-5.4) 02/23/21 01:03 Abs React Lymphs (Man) 0.0 K/mm3 02/23/21 01:03 Monocytes # (Manual) 0.5 K/mm3 (0.0-0.8) 02/23/21 01:03 Eosinophils # (Manual) 0.2 K/mm3 (0.0-0.4) 02/23/21 01:03 Basophils # (Manual) 0.0 K/mm3 (0.0-0.1) 02/23/21 01:03 Metamyelocytes # 0.1 K/mm3 02/23/21 01:03 Myelocytes # 0.0 K/mm3 02/23/21 01:03 Promyelocytes # 0.0 K/mm3 02/23/21 01:03 Blast Cells # 0.0 K/mm3 02/23/21 01:03 WBC Morphology Not Reportable 02/23/21 01:03 Hypersegmented Neuts Not Reportable 02/23/21 01:03 Hyposegmented Neuts Not Reportable 02/23/21 01:03 Hypogranular Neuts Not Reportable 02/23/21 01:03 Smudge Cells Not Reportable 02/23/21 01:03 Toxic Granulation Not Reportable 02/23/21 01:03 Toxic Vacuolation Not Reportable 02/23/21 01:03 Dohle Bodies Not Reportable 02/23/21 01:03 Pelger-Huet Anomaly Not Reportable 02/23/21 01:03 Christiano Rods Not Reportable 02/23/21 01:03 Platelet Estimate Consistent w auto 02/23/21 01:03 Clumped Platelets Not Reportable 02/23/21 01:03 Plt Clumps, EDTA Not Reportable 02/23/21 01:03 Large Platelets Few 02/23/21 01:03 Giant Platelets Not Reportable 02/23/21 01:03 Platelet Satelliting Not Reportable 02/23/21 01:03 Plt Morphology Comment Not Reportable 02/23/21 01:03 RBC Morphology Not Reportable 02/23/21 01:03 Dimorphic RBCs Not Reportable 02/23/21 01:03 Polychromasia Not Reportable 02/23/21 01:03 Hypochromasia Not Reportable 02/23/21 01:03 Poikilocytosis 1+ 02/23/21 01:03 Anisocytosis 1+ 02/23/21 01:03 Microcytosis Not Reportable 02/23/21 01:03 Macrocytosis Not Reportable 02/23/21 01:03 Spherocytes Not Reportable 02/23/21 01:03 Pappenheimer Bodies Not Reportable 02/23/21 01:03 Sickle Cells Not Reportable 02/23/21 01:03 Target Cells 1+ 02/23/21 01:03 Tear Drop Cells Not Reportable 02/23/21 01:03 Ovalocytes Not Reportable 02/23/21 01:03 Helmet Cells Not Reportable 02/23/21 01:03 [place] Bodies Not Reportable 02/23/21 01:03 [place] Rings Not Reportable 02/23/21 01:03 [place] Cells Not Reportable 02/23/21 01:03 Bite Cells Not Reportable 02/23/21 01:03 Crenated Cell Not Reportable 02/23/21 01:03 Elliptocytes Not Reportable 02/23/21 01:03 Acanthocytes (Spur) Not Reportable 02/23/21 01:03 Rouleaux Not Reportable 02/23/21 01:03 Hemoglobin C Crystals Not Reportable 02/23/21 01:03 Schistocytes Not Reportable 02/23/21 01:03 Malaria parasites Not Reportable 02/23/21 01:03 [place] Bodies Not Reportable 02/23/21 01:03 Hem Pathologist Commnt No 02/23/21 01:03 PT 14.4 Sec. (12.2-14.9) 02/23/21 01:03 INR 1.06 (0.87-1.13) 02/23/21 01:03 APTT 36.0 Sec. (24.2-36.6) 02/23/21 01:03 Sodium 142 mmol/L (137-145) 02/24/21 04:15 Potassium 3.5 mmol/L (3.6-5.0) L 02/24/21 04:15 Chloride 102.3 mmol/L (98-107) 02/24/21 04:15 Carbon Dioxide 24 mmol/L (22-30) 02/24/21 04:15 Anion Gap 19 mmol/L 02/24/21 04:15 BUN 32 mg/dL (7-17) H 02/24/21 04:15 Creatinine 1.4 mg/dL (0.6-1.2) H 02/24/21 04:15 Estimated GFR 45 ml/min 02/24/21 04:15 BUN/Creatinine Ratio 23 % 02/24/21 04:15 Glucose 124 mg/dL (65-100) H 02/24/21 04:15 Lactic Acid 1.30 mmol/L (0.7-2.0) 02/23/21 01:03 Calcium 9.5 mg/dL (8.4-10.2) 02/24/21 04:15 Total Bilirubin 0.80 mg/dL (0.1-1.2) 02/23/21 01:03 AST 16 units/L (5-40) 02/23/21 01:03 ALT 18 units/L (7-56) 02/23/21 01:03 Alkaline Phosphatase 87 units/L (35-129) 02/23/21 01:03 Total Creatine Kinase 59 units/L (30-135) 02/23/21 01:03 Troponin T 0.018 ng/mL (0.00-0.029) 02/23/21 01:03 Total Protein 7.3 g/dL (6.3-8.2) 02/23/21 01:03 Albumin 3.7 g/dL (3.9-5) L 02/23/21 01:03 Albumin/Globulin Ratio 1.0 % 02/23/21 01:03 Triglycerides 351 mg/dL (2-149) H 02/23/21 01:03 Cholesterol 308 mg/dL (50-199) H 02/23/21 01:03 LDL Cholesterol Direct 196 mg/dL (50-130) H 02/23/21 01:03 HDL Cholesterol 21 mg/dL (40-59) L 02/23/21 01:03 Cholesterol/HDL Ratio 14.66 % 02/23/21 01:03 Urine Color Yellow (Yellow) 02/23/21 02:12 Urine Turbidity Slightly-cloudy (Clear) 02/23/21 02:12 Urine pH 7.0 (5.0-7.0) 02/23/21 02:12 Ur Specific [place] 1.012 (1.003-1.030) 02/23/21 02:12 Urine Protein 100 mg/dl mg/dL (Negative) 02/23/21 02:12 Urine Glucose (UA) Neg mg/dL (Negative) 02/23/21 02:12 Urine Ketones Neg mg/dL (Negative) 02/23/21 02:12 Urine Blood Lg (Negative) 02/23/21 02:12 Urine Nitrite Neg (Negative) 02/23/21 02:12 Urine Bilirubin Neg (Negative) 02/23/21 02:12 Urine Urobilinogen 2.0 mg/dL (<2.0) 02/23/21 02:12 Ur Leukocyte Esterase Tr (Negative) 02/23/21 02:12 Urine WBC (Auto) 25.0 /HPF (0.0-6.0) H 02/23/21 02:12 Urine RBC (Auto) > 182.0 /HPF (0.0-6.0) 02/23/21 02:12 U Epithel Cells (Auto) 4.0 /HPF (0-13.0) 02/23/21 02:12 Urine Bacteria (Auto) 2+ /HPF (Negative) 02/23/21 02:12 Urine Mucus Few /HPF 02/23/21 02:12 Microbiology: Microbiology 02/23/21 02:12 Urine,Clean Catch Urine Culture - Final Awad/IV: Voiding Method External Female Catheter Active Medications - Current Medications Current Medications: Generic Name Dose Route Start Last Admin Trade Name Freq PRN Reason Stop Dose Admin Aspirin 81 mg 02/23/21 10:00 02/26/21 10:18 Aspirin 81 Mg Tab Chew PO 81 mg QDAY ALEX Administration Atorvastatin Calcium 40 mg 02/23/21 22:00 02/25/21 21:57 Atorvastatin 40 Mg Tab PO 40 mg QHS ALEX Administration Clonidine HCl 0.2 mg 02/23/21 09:00 02/26/21 10:18 Clonidine 0.2 Mg Tab PO 0.2 mg Q12HR ALEX Administration Heparin Sodium (Porcine) 5,000 unit 02/23/21 09:00 02/26/21 05:01 Heparin 5,000 Unit/1 Ml Vial SUB-Q 5,000 unit Q8HR ALEX Administration Hydralazine HCl 20 mg 02/23/21 08:00 02/23/21 07:59 Hydralazine 20 Mg/1 Ml Inj IV 20 mg Q4H PRN Administration Hypertension Hydralazine HCl 100 mg 02/23/21 09:00 02/26/21 08:24 Hydralazine 100 Mg Tab PO 100 mg TID ALEX Administration Ceftriaxone Sodium 2 gm in 100 mls @ 200 mls/hr 02/24/21 08:00 02/26/21 08:24 Rocephin/Ns 2 Gm/100 Ml IV 200 mls/hr Q24H ALEX Administration Protocol Sodium Chloride 1,000 mls @ 75 mls/hr 02/23/21 08:00 02/26/21 10:19 Nacl 0.9% 1000 Ml IV 75 mls/hr DIRECT ALEX Administration Nifedipine 60 mg 02/23/21 09:00 02/26/21 10:18 Nifedipine Xl 60 Mg Tab PO 60 mg QDAY ALEX Administration Polyethylene Glycol 17 gm 02/26/21 08:54 02/26/21 10:18 Polyethylene Glycol 3350 17 Gm Powder PO 17 gm QDAY PRN Administration Constipation
[2021-02-27] MEDS: HEPARIN 5,000 UNIT/1 ML VIAL SUB-Q SCH ×3 (06:06→22:45)
[2021-02-27] MEDS: SODIUM CHLORIDE 0.9% 1000 ML 1,000 ML IV SCH ×2 (06:07→16:05)
[2021-02-27] MEDS: cefTRIAXone/NS 2 GM/100 ML 2 GM/100 ML BAG IV SCH (08:47)
[2021-02-27] MEDS: hydrALAZINE 100 MG TAB PO SCH ×3 (08:51→21:30)
[2021-02-27] MEDS: cloNIDine 0.2 MG TAB PO SCH ×2 (09:00→22:45)
[2021-02-27] MEDS: ASPIRIN 81 MG TAB CHEW PO SCH (09:00)
[2021-02-27] MEDS: NIFEdipine XL 60 MG TAB PO SCH (09:00)
--- NOTE | 2021-02-27 10:47 | Progress Note ---
Assessment and Plan Assessment and plan: (1) UTI (urinary tract infection) IV antibiotic therapy, CBC, supportive care (2) Obesity hypoventilation syndrome Balanced diet, increase physical activity at discharge, outpatient pulmonary follow-up for sleep study, outpatient bariatric surgery consult. (3) Debility Case management consulted for assistance with discharge planning/placement. Await physical therapy recommendations with discharge planning (4) DVT prophylaxis SCD to bilateral lower extremities while in bed, prophylactic anticoagulation History Interval history: No new issues overnight. Hospitalist Physical - Constitutional Vitals: Temp Pulse Resp BP Pulse Ox 96.2 F L 86 17 121/89 96 02/27/21 08:47 02/27/21 09:00 02/27/21 08:47 02/27/21 09:00 02/27/21 08:47 General appearance: Present: mild distress, obese - EENT Eyes: Present: PERRL, EOM intact ENT: hearing intact, clear oral mucosa, dentition normal - Neck Neck: Present: supple, normal ROM - Respiratory Respiratory effort: normal Respiratory: bilateral: CTA - Cardiovascular Rhythm: regular Heart Sounds: Present: S1 & S2. Absent: gallop, rub - Extremities Extremities: no ischemia, No edema, Full ROM - Abdominal General gastrointestinal: soft, non-tender, non-distended, normal bowel sounds - Integumentary Integumentary: Present: clear, warm, dry - Neurologic Neurologic: CNII-XII intact, moves all extremities HEART Score - HEART Score Troponin: Troponin T 0.018 ng/mL (0.00-0.029) 02/23/21 01:03 Results - Labs CBC & Chem 7: 02/23/21 01:03 02/24/21 04:15 Labs: Laboratory Last Values WBC 7.7 K/mm3 (4.5-11.0) 02/23/21 01:03 RBC 4.18 M/mm3 (3.65-5.03) 02/23/21 01:03 Hgb 11.1 gm/dl (10.1-14.3) 02/23/21 01:03 Hct 33.6 % (30.3-42.9) 02/23/21 01:03 MCV 81 fl (79-97) 02/23/21 01:03 MCH 27 pg (28-32) L 02/23/21 01:03 MCHC 33 % (30-34) 02/23/21 01:03 RDW 19.5 % (13.2-15.2) H 02/23/21 01:03 Plt Count 237 K/mm3 (140-440) 02/23/21 01:03 Add Manual Diff Complete 02/23/21 01:03 Total Counted 100 02/23/21 01:03 Seg Neuts % (Manual) 70.0 % (40.0-70.0) 02/23/21 01:03 Band Neutrophils % 2.0 % 02/23/21 01:03 Lymphocytes % (Manual) 19.0 % (13.4-35.0) 02/23/21 01:03 Monocytes % (Manual) 6.0 % (0.0-7.3) 02/23/21 01:03 Eosinophils % (Manual) 2.0 % (0.0-4.3) 02/23/21 01:03 Metamyelocytes % 1.0 % 02/23/21 01:03 Nucleated RBC % Not Reportable 02/23/21 01:03 Seg Neutrophils # Man 5.4 K/mm3 (1.8-7.7) 02/23/21 01:03 Band Neutrophils # 0.2 K/mm3 02/23/21 01:03 Lymphocytes # (Manual) 1.5 K/mm3 (1.2-5.4) 02/23/21 01:03 Abs React Lymphs (Man) 0.0 K/mm3 02/23/21 01:03 Monocytes # (Manual) 0.5 K/mm3 (0.0-0.8) 02/23/21 01:03 Eosinophils # (Manual) 0.2 K/mm3 (0.0-0.4) 02/23/21 01:03 Basophils # (Manual) 0.0 K/mm3 (0.0-0.1) 02/23/21 01:03 Metamyelocytes # 0.1 K/mm3 02/23/21 01:03 Myelocytes # 0.0 K/mm3 02/23/21 01:03 Promyelocytes # 0.0 K/mm3 02/23/21 01:03 Blast Cells # 0.0 K/mm3 02/23/21 01:03 WBC Morphology Not Reportable 02/23/21 01:03 Hypersegmented Neuts Not Reportable 02/23/21 01:03 Hyposegmented Neuts Not Reportable 02/23/21 01:03 Hypogranular Neuts Not Reportable 02/23/21 01:03 Smudge Cells Not Reportable 02/23/21 01:03 Toxic Granulation Not Reportable 02/23/21 01:03 Toxic Vacuolation Not Reportable 02/23/21 01:03 Dohle Bodies Not Reportable 02/23/21 01:03 Pelger-Huet Anomaly Not Reportable 02/23/21 01:03 Christiano Rods Not Reportable 02/23/21 01:03 Platelet Estimate Consistent w auto 02/23/21 01:03 Clumped Platelets Not Reportable 02/23/21 01:03 Plt Clumps, EDTA Not Reportable 02/23/21 01:03 Large Platelets Few 02/23/21 01:03 Giant Platelets Not Reportable 02/23/21 01:03 Platelet Satelliting Not Reportable 02/23/21 01:03 Plt Morphology Comment Not Reportable 02/23/21 01:03 RBC Morphology Not Reportable 02/23/21 01:03 Dimorphic RBCs Not Reportable 02/23/21 01:03 Polychromasia Not Reportable 02/23/21 01:03 Hypochromasia Not Reportable 02/23/21 01:03 Poikilocytosis 1+ 02/23/21 01:03 Anisocytosis 1+ 02/23/21 01:03 Microcytosis Not Reportable 02/23/21 01:03 Macrocytosis Not Reportable 02/23/21 01:03 Spherocytes Not Reportable 02/23/21 01:03 Pappenheimer Bodies Not Reportable 02/23/21 01:03 Sickle Cells Not Reportable 02/23/21 01:03 Target Cells 1+ 02/23/21 01:03 Tear Drop Cells Not Reportable 02/23/21 01:03 Ovalocytes Not Reportable 02/23/21 01:03 Helmet Cells Not Reportable 02/23/21 01:03 [place] Bodies Not Reportable 02/23/21 01:03 [place] Rings Not Reportable 02/23/21 01:03 [place] Cells Not Reportable 02/23/21 01:03 Bite Cells Not Reportable 02/23/21 01:03 Crenated Cell Not Reportable 02/23/21 01:03 Elliptocytes Not Reportable 02/23/21 01:03 Acanthocytes (Spur) Not Reportable 02/23/21 01:03 Rouleaux Not Reportable 02/23/21 01:03 Hemoglobin C Crystals Not Reportable 02/23/21 01:03 Schistocytes Not Reportable 02/23/21 01:03 Malaria parasites Not Reportable 02/23/21 01:03 [place] Bodies Not Reportable 02/23/21 01:03 Hem Pathologist Commnt No 02/23/21 01:03 PT 14.4 Sec. (12.2-14.9) 02/23/21 01:03 INR 1.06 (0.87-1.13) 02/23/21 01:03 APTT 36.0 Sec. (24.2-36.6) 02/23/21 01:03 Sodium 142 mmol/L (137-145) 02/24/21 04:15 Potassium 3.5 mmol/L (3.6-5.0) L 02/24/21 04:15 Chloride 102.3 mmol/L (98-107) 02/24/21 04:15 Carbon Dioxide 24 mmol/L (22-30) 02/24/21 04:15 Anion Gap 19 mmol/L 02/24/21 04:15 BUN 32 mg/dL (7-17) H 02/24/21 04:15 Creatinine 1.4 mg/dL (0.6-1.2) H 02/24/21 04:15 Estimated GFR 45 ml/min 02/24/21 04:15 BUN/Creatinine Ratio 23 % 02/24/21 04:15 Glucose 124 mg/dL (65-100) H 02/24/21 04:15 Lactic Acid 1.30 mmol/L (0.7-2.0) 02/23/21 01:03 Calcium 9.5 mg/dL (8.4-10.2) 02/24/21 04:15 Total Bilirubin 0.80 mg/dL (0.1-1.2) 02/23/21 01:03 AST 16 units/L (5-40) 02/23/21 01:03 ALT 18 units/L (7-56) 02/23/21 01:03 Alkaline Phosphatase 87 units/L (35-129) 02/23/21 01:03 Total Creatine Kinase 59 units/L (30-135) 02/23/21 01:03 Troponin T 0.018 ng/mL (0.00-0.029) 02/23/21 01:03 Total Protein 7.3 g/dL (6.3-8.2) 02/23/21 01:03 Albumin 3.7 g/dL (3.9-5) L 02/23/21 01:03 Albumin/Globulin Ratio 1.0 % 02/23/21 01:03 Triglycerides 351 mg/dL (2-149) H 02/23/21 01:03 Cholesterol 308 mg/dL (50-199) H 02/23/21 01:03 LDL Cholesterol Direct 196 mg/dL (50-130) H 02/23/21 01:03 HDL Cholesterol 21 mg/dL (40-59) L 02/23/21 01:03 Cholesterol/HDL Ratio 14.66 % 02/23/21 01:03 Urine Color Yellow (Yellow) 02/23/21 02:12 Urine Turbidity Slightly-cloudy (Clear) 02/23/21 02:12 Urine pH 7.0 (5.0-7.0) 02/23/21 02:12 Ur Specific [place] 1.012 (1.003-1.030) 02/23/21 02:12 Urine Protein 100 mg/dl mg/dL (Negative) 02/23/21 02:12 Urine Glucose (UA) Neg mg/dL (Negative) 02/23/21 02:12 Urine Ketones Neg mg/dL (Negative) 02/23/21 02:12 Urine Blood Lg (Negative) 02/23/21 02:12 Urine Nitrite Neg (Negative) 02/23/21 02:12 Urine Bilirubin Neg (Negative) 02/23/21 02:12 Urine Urobilinogen 2.0 mg/dL (<2.0) 02/23/21 02:12 Ur Leukocyte Esterase Tr (Negative) 02/23/21 02:12 Urine WBC (Auto) 25.0 /HPF (0.0-6.0) H 02/23/21 02:12 Urine RBC (Auto) > 182.0 /HPF (0.0-6.0) 02/23/21 02:12 U Epithel Cells (Auto) 4.0 /HPF (0-13.0) 02/23/21 02:12 Urine Bacteria (Auto) 2+ /HPF (Negative) 02/23/21 02:12 Urine Mucus Few /HPF 02/23/21 02:12 Awad/IV: Voiding Method External Female Catheter Active Medications - Current Medications Current Medications: Generic Name Dose Route Start Last Admin Trade Name Freq PRN Reason Stop Dose Admin Aspirin 81 mg 02/23/21 10:00 02/27/21 09:00 Aspirin 81 Mg Tab Chew PO 81 mg QDAY ALEX Administration Atorvastatin Calcium 40 mg 02/23/21 22:00 02/26/21 22:55 Atorvastatin 40 Mg Tab PO 40 mg QHS ALEX Administration Clonidine HCl 0.2 mg 02/23/21 09:00 02/27/21 09:00 Clonidine 0.2 Mg Tab PO 0.2 mg Q12HR ALEX Administration Heparin Sodium (Porcine) 5,000 unit 02/23/21 09:00 02/27/21 06:06 Heparin 5,000 Unit/1 Ml Vial SUB-Q 5,000 unit Q8HR ALEX Administration Hydralazine HCl 20 mg 02/23/21 08:00 02/23/21 07:59 Hydralazine 20 Mg/1 Ml Inj IV 20 mg Q4H PRN Administration Hypertension Hydralazine HCl 100 mg 02/23/21 09:00 02/27/21 08:51 Hydralazine 100 Mg Tab PO 100 mg TID ALEX Administration Ceftriaxone Sodium 2 gm in 100 mls @ 200 mls/hr 02/24/21 08:00 02/27/21 08:47 Rocephin/Ns 2 Gm/100 Ml IV 200 mls/hr Q24H ALEX Administration Protocol Sodium Chloride 1,000 mls @ 75 mls/hr 02/23/21 08:00 02/27/21 06:07 Nacl 0.9% 1000 Ml IV 75 mls/hr DIRECT ALEX Administration Nifedipine 60 mg 02/23/21 09:00 02/27/21 09:00 Nifedipine Xl 60 Mg Tab PO 60 mg QDAY ALEX Administration Polyethylene Glycol 17 gm 02/26/21 08:54 02/26/21 10:18 Polyethylene Glycol 3350 17 Gm Powder PO 17 gm QDAY PRN Administration Constipation
[2021-02-28 05:57] LABS: Hematocrit 35.8 % (30.3-42.9); Hemoglobin 11.3 gm/dl (10.1-14.3); Mean Corpuscular HGB Conc 32 % (30-34); Mean Corpuscular Volume 85 fl (79-97); Platelet Count 255 K/mm3 (140-440); Red Blood Count 4.22 M/mm3 (3.65-5.03)
[2021-02-28 06:10] LABS: Calcium 9.2 mg/dL (8.4-10.2)
[2021-02-28] MEDS: HEPARIN 5,000 UNIT/1 ML VIAL SUB-Q SCH ×2 (06:50→13:47)
[2021-02-28] MEDS: cefTRIAXone/NS 2 GM/100 ML 2 GM/100 ML BAG IV SCH (08:40)
[2021-02-28] MEDS: hydrALAZINE 100 MG TAB PO SCH ×2 (08:40→13:49)
[2021-02-28] MEDS: ASPIRIN 81 MG TAB CHEW PO SCH (09:00)
[2021-02-28] MEDS: NIFEdipine XL 60 MG TAB PO SCH (09:00)
[2021-02-28] MEDS: cloNIDine 0.2 MG TAB PO SCH (09:00)
--- NOTE | 2021-02-28 13:28 | Discharge Summary ---
Providers - Providers Date of Admission: 02/23/21 03:35 Date of discharge: 02/28/21 Attending physician: NAIDA PANDEY 02/23/21 07:47 Speech Therapy Evaluation and Treat [CONS] Routine Reason For Exam: AMS 02/23/21 07:48 Physical Therapy Evaluation and Treat [CONS] Routine Comment: Reason For Exam: Evaluate and treat 02/24/21 11:27 Consult to PICC Line RN [CONS] Urgent Reason For Exam: Difficult IV access Type Line:: Midline 02/26/21 13:54 Consult to Case Management [CONS] Routine Services Needed at Discharge: Other Notified:: in am Additional Physician Instructions: Discharge planning to snf facility/assisted living facility. 02/27/21 07:24 Consult to Dietitian/Nutrition [CONS] Routine Physician Instructions: Reason For Exam: Reason for Consult: Poor oral intake Primary care physician: [facility]HANGER APPRENTICE Hospitalization Condition: Critical Hospital course: UTI -Patient with Rocephin afebrile will discharge home on 3 more days of Levaquin p.o. -Urine cultures were unremarkable. Altered mental status-secondary to UTI has since resolved patient alert oriented back at baseline. Hypertensive emergency -Blood pressure was 235 x 140 -Blood pressure is also resolved. Patient is on optimal control with hydralazine and clonidine. Acute kidney injury-resolved secondary to prerenal azotemia. History of stroke with residual left-sided weakness -PT/OT evaluation -I put the patient on aspirin and statin -Patient stable and been accepted to [facility]. Spoke with case management will take a long time for transition to [facility] therefore patient will go home and then make adjustments to [facility]. Hyperlipidemia -Lipid panel, put her on atorvastatin JOZEF -Due to hypotension and poor oral intake -IV fluid, monitor BMP in the morning Disposition: DC-01 TO HOME OR SELFCARE Final Discharge Diagnosis (Prints w/discharge instructions): Urinary tract infection #2 debility - Discharge Diagnoses (1) Altered mental state Status: Acute Qualifiers: Altered mental status type: unspecified Qualified Code(s): R41.82 - Altered mental status, unspecified (2) Debility Status: Acute (3) Obesity hypoventilation syndrome Status: Acute (4) Pulmonary edema cardiac cause Status: Acute (5) Renal insufficiency Status: Acute (6) UTI (urinary tract infection) Status: Acute Qualifiers: Urinary tract infection type: acute cystitis Hematuria presence: with hematuria Qualified Code(s): N30.01 - Acute cystitis with hematuria Core Measure Documentation - Palliative Care Palliative Care/ Comfort Measures: Not Applicable - Core Measures Any of the following diagnoses?: none Exam - Constitutional Vitals: Temp Pulse Resp BP Pulse Ox 98.0 F 60 18 148/72 98 02/28/21 08:14 02/28/21 10:00 02/28/21 08:33 02/28/21 09:00 02/28/21 08:33 General appearance: Present: no acute distress, well-nourished - EENT Eyes: Present: PERRL ENT: hearing intact, clear oral mucosa - Neck Neck: Present: supple, normal ROM - Respiratory Respiratory effort: normal Respiratory: bilateral: CTA - Cardiovascular Heart Sounds: Present: S1 & S2. Absent: rub, click - Extremities Extremities: pulses symmetrical, No edema Peripheral Pulses: within normal limits - Abdominal General gastrointestinal: Present: soft, non-tender, non-distended, normal bowel sounds Female genitourinary: Present: normal - Integumentary Integumentary: Present: clear, warm, dry - Musculoskeletal Musculoskeletal: generalized weakness - Psychiatric Psychiatric: appropriate mood/affect, intact judgment & insight - Neurologic Neurologic: CNII-XII intact, moves all extremities Plan Activity: fall precautions Weight Bearing Status: Weight Bear as Tolerated Diet: low fat Follow up with: PRIMARY CARE, [Primary Care Provider] - 7 Days Prescriptions: hydrALAZINE [Apresoline TAB] 100 mg PO TID #90 tab cloNIDine [Catapres] 0.2 mg PO Q12HR #60 tablet AtorvaSTATin [Lipitor] 40 mg PO QHS #30 tablet NIFEdipine XL [Procardia Xl] 60 mg PO QDAY #30 tablet
[2021-02-28 13:47] VITALS: BP 137/77
[2021-02-28 17:25] LABS: Anisocytosis 1+; Large Platelets Few; Total Cells Counted 100
[2021-02-28 17:26] LABS: Ovalocytes Few; Platelet Estimate Consistent w Auto
== END 2021-02-28 19:39 | disposition home or self-care (01) ==
LOC: ED 23:23 → 4A 02-23 03:35
PROVIDERS: ADMIT Hospitalist; ATTEND Internal Medicine
DX: I16.1 Hypertensive emergency (principal); Z20.822 Contact with and (suspected) exposure to COVID-19; N17.9 Acute kidney failure, unspecified; N30.01 Acute cystitis with hematuria; R41.82 Altered mental status, unspecified; J81.1 Chronic pulmonary edema; M62.81 Muscle weakness (generalized); N28.9 Disorder of kidney and ureter, unspecified; E78.5 Hyperlipidemia, unspecified; R53.81 Other malaise; E66.2 Morbid (severe) obesity with alveolar hypoventilation; Z79.899 Other long term (current) drug therapy; Z98.890 Other specified postprocedural states; Z68.42 Body mass index [BMI] 45.0-49.9, adult; Z79.82 Long term (current) use of aspirin
CPT/HCPCS: 36415; 70450; 71045; 80048; 80053; 80061; 81001; 82140; 82550; 84484; 85025; 85610; 85730; 87086; 92610; 93005; 96361; 96365; 96366; 96372; 96375; 97110; 97163; 97530; 99291; A9270; G0378; J0360; J0696; J1644; J7030; U0003; 85007

== ENCOUNTER 2021-05-14 10:13 | Inpatient (IN) | payer MEDICARE ==
[2021-05-14] MEDS ORDERED: SODIUM CHLORIDE 0.9% 1000 ML IV SOLN IV ONE (10:49)
[2021-05-14 11:09] LABS: Hematocrit 24.1 % (30.3-42.9); Hemoglobin 7.9 gm/dl (10.1-14.3); Mean Corpuscular HGB Conc 33 % (30-34); Mean Corpuscular Volume 83 fl (79-97); Platelet Count 47 K/mm3 (140-440); Red Cell Distribution Width 19.6 % (13.2-15.2)
[2021-05-14 11:21] LABS: Albumin 4.4 g/dL (3.9-5); Calcium 10.9 mg/dL (8.4-10.2)
[2021-05-14 11:41] LABS: Free T4 (Free Thyroxine) 0.1 ng/dL (0.76-1.46)
[2021-05-14 11:42] LABS: Total Cells Counted 100
[2021-05-14 11:43] LABS: Anisocytosis 1+; Large Platelets Rare; Ovalocytes Few; Platelet Estimate Consistent w Auto; Poikilocytosis 1+
[2021-05-14 12:02] LABS: Chol/HDL Ratio 2.52 %
--- NOTE | 2021-05-14 12:15 | Emergency Department Report ---
ED Altered Mental Status HPI - General Chief Complaint: Altered Mental Status Stated Complaint: ALTERED MENTAL STATUS Time Seen by Provider: 05/14/21 10:48 Source: EMS Mode of arrival: Stretcher Limitations: Altered Mental Status - History of Present Illness Initial Comments: 70-year-old female with a past medical history of hypertension and CVA with le ft-sided deficits presents to the hospital with complaints of alteration of status x10 days. Patient is unable to provide any history of present illness due to alteration mental status. EMS states that son provide a history at the scene. States that patient at her baseline is able to have a conversation but for the last 10 days she has been altered with decreased p.o. intake. Patient talks intermittently making incomprehensible sounds and responds to painful stimuli on the right side of her body. Left side is paralyzed. Patient found to be hypotensive and hypothermic upon arrival. - Related Data Previous Rx's Medication Instructions Recorded Last Taken Type Aspirin [Aspirin BABY CHEW TAB] 81 mg PO QDAY tab.chew 02/28/21 05/13/21 08:00 Rx AtorvaSTATin [Lipitor] 40 mg PO QHS #30 tablet 02/28/21 05/13/21 21:00 Rx NIFEdipine XL [Procardia Xl] 60 mg PO QDAY #30 tablet 02/28/21 05/13/21 08:00 Rx cloNIDine [Catapres] 0.2 mg PO Q12HR #60 tablet 02/28/21 05/13/21 19:00 Rx hydrALAZINE [Apresoline TAB] 100 mg PO TID #90 tab 02/28/21 05/13/21 18:00 Rx polyethylene glycoL 3350 [Miralax 17 gm PO QDAY PRN powd.pack 02/28/21 Unknown Rx 3350] Allergies Allergy/AdvReac Type Severity Reaction Status Date / Time No Known Allergies Allergy Verified 02/23/21 07:42 ED Review of Systems ROS: Stated complaint: ALTERED MENTAL STATUS Other details as noted in HPI Comment: Unobtainable due to pts medical conditions ED Past Medical Hx - Past Medical History Hx Hypertension: Yes Hx CVA: Yes (Left-sided weakness) Hx Congestive Heart Failure: No Hx Diabetes: No Hx Deep Vein Thrombosis: No Hx Liver Disease: No Hx Renal Disease: No Hx Sickle Cell Disease: No Hx Arthritis: No Hx Seizures: No Hx Kidney Stones: No Hx Dementia: No Hx HIV: No - Surgical History Hx Open Heart Surgery: No Hx Pacemaker: No Hx Internal Defibrillator: No Hx Cholecystectomy: No Hx Appendectomy: No Hx Breast Surgery: No - Social History Smoking Status: Never Smoker - Medications Home Medications: Home Medications Medication Instructions Recorded Confirmed Last Taken Type Aspirin [Aspirin BABY CHEW TAB] 81 mg PO QDAY tab.chew 02/28/21 05/14/21 05/13/21 08:00 Rx AtorvaSTATin [Lipitor] 40 mg PO QHS #30 tablet 02/28/21 05/14/21 05/13/21 21:00 Rx NIFEdipine XL [Procardia Xl] 60 mg PO QDAY #30 tablet 02/28/21 05/14/21 05/13/21 08:00 Rx cloNIDine [Catapres] 0.2 mg PO Q12HR #60 tablet 02/28/21 05/14/21 05/13/21 19:00 Rx hydrALAZINE [Apresoline TAB] 100 mg PO TID #90 tab 02/28/21 05/14/21 05/13/21 18:00 Rx polyethylene glycoL 3350 [Miralax 17 gm PO QDAY PRN powd.pack 02/28/21 Unknown Rx 3350] ED Physical Exam - General Limitations: Altered Mental Status - Other Other exam information: General: No acute distress Head: Atraumatic Eyes: normal appearance, pupils equal reactive to light ENT: Dry mucous membrane Neck: Normal appearance, no midline tenderness Chest: Clear to auscultation bilaterally CV: Regular rate and rhythm Abdomen: Soft, normal bowel sounds, no grimace with palpation Rectal: Guaiac positive brown stool Back: Normal inspection Extremity: Normal inspection, full range of motion Neuro: Lethargic, responds to painful stimuli, speaking intermittently, would not follow commands, incomprehensible speech, left upper and lower extremity paralysis with contraction of left hand. With stage V right upper extremity strength. Some right lower extremity movement. Skin: Inner thighs some mild skin breakdown also in the buttock area ED Course Vital Signs 05/14/21 05/14/21 05/14/21 10:35 10:41 10:45 Temperature 90 F L Pulse Rate Respiratory 22 Rate Blood Pressure 66/34 O2 Sat by Pulse 100 95 100 Oximetry 05/14/21 05/14/21 05/14/21 11:01 11:12 11:15 Temperature 90 F L Pulse Rate Respiratory 21 Rate Blood Pressure 66/34 132/80 O2 Sat by Pulse 100 100 Oximetry 05/14/21 05/14/21 05/14/21 11:30 12:03 12:15 Temperature Pulse Rate Respiratory 18 15 17 Rate Blood Pressure 132/80 137/84 137/84 O2 Sat by Pulse 100 100 100 Oximetry 05/14/21 05/14/21 05/14/21 12:31 12:45 13:01 Temperature Pulse Rate 54 L 111 H Respiratory 12 13 13 Rate Blood Pressure 161/77 126/71 145/73 O2 Sat by Pulse 100 100 100 Oximetry 05/14/21 05/14/21 05/14/21 13:31 14:01 14:15 Temperature Pulse Rate 71 60 58 L Respiratory 10 L 13 11 L Rate Blood Pressure 127/77 131/68 131/68 O2 Sat by Pulse 100 99 100 Oximetry 05/14/21 05/14/21 05/14/21 15:01 15:15 15:31 Temperature Pulse Rate 128 H 69 64 Respiratory 17 15 Rate Blood Pressure 109/61 131/68 O2 Sat by Pulse 100 100 100 Oximetry 05/14/21 05/14/21 05/14/21 15:45 15:56 16:01 Temperature Pulse Rate 64 69 63 Respiratory 14 17 Rate Blood Pressure 100/61 111/69 O2 Sat by Pulse 100 100 Oximetry 05/14/21 05/14/21 05/14/21 16:15 16:31 16:45 Temperature Pulse Rate 72 73 76 Respiratory 14 7 L 15 Rate Blood Pressure 90/52 107/54 107/62 O2 Sat by Pulse 100 100 100 Oximetry 05/14/21 05/14/21 05/14/21 17:01 17:15 17:31 Temperature Pulse Rate 82 75 76 Respiratory 12 15 12 Rate Blood Pressure 117/60 120/55 116/57 O2 Sat by Pulse 100 100 100 Oximetry 05/14/21 05/14/21 05/14/21 17:45 18:01 18:15 Temperature Pulse Rate 72 82 71 Respiratory 11 L 18 8 L Rate Blood Pressure 136/67 121/57 113/63 O2 Sat by Pulse 100 100 100 Oximetry 05/14/21 05/14/21 05/14/21 19:31 19:45 20:01 Temperature Pulse Rate 89 96 H 88 Respiratory 11 L 11 L 8 L Rate Blood Pressure 104/57 95/58 96/68 O2 Sat by Pulse 99 100 99 Oximetry 05/14/21 05/14/21 05/14/21 20:15 20:31 20:45 Temperature Pulse Rate 95 H 96 H 92 H Respiratory 17 12 18 Rate Blood Pressure 110/51 97/57 90/60 O2 Sat by Pulse 98 96 98 Oximetry 05/14/21 05/14/21 05/14/21 21:01 21:15 21:31 Temperature Pulse Rate 98 H 96 H 99 H Respiratory 19 20 14 Rate Blood Pressure 95/54 95/53 108/48 O2 Sat by Pulse 98 96 98 Oximetry 05/14/21 05/14/21 05/14/21 21:45 22:01 22:15 Temperature Pulse Rate 94 H 99 H 95 H Respiratory 13 10 L 16 Rate Blood Pressure 112/53 102/46 104/53 O2 Sat by Pulse 95 94 93 Oximetry 05/14/21 05/14/21 05/14/21 22:31 22:45 23:01 Temperature Pulse Rate 104 H 97 H 104 H Respiratory 24 12 15 Rate Blood Pressure 97/61 106/57 105/53 O2 Sat by Pulse 95 96 Oximetry 05/14/21 05/14/21 05/14/21 23:15 23:31 23:45 Temperature Pulse Rate 94 H 101 H 102 H Respiratory 21 15 14 Rate Blood Pressure 99/51 97/50 116/48 O2 Sat by Pulse 100 100 Oximetry 05/15/21 05/15/21 05/15/21 00:01 00:15 00:31 Temperature Pulse Rate 96 H 102 H 101 H Respiratory 16 30 H 11 L Rate Blood Pressure 99/51 111/49 99/47 O2 Sat by Pulse 99 99 99 Oximetry 05/15/21 05/15/21 05/15/21 00:45 01:01 01:15 Temperature Pulse Rate 103 H 102 H 101 H Respiratory 15 21 19 Rate Blood Pressure 98/57 96/40 98/57 O2 Sat by Pulse 99 99 99 Oximetry 05/15/21 05/15/21 05/15/21 01:31 01:45 02:01 Temperature Pulse Rate 97 H 99 H 100 H Respiratory 19 15 24 Rate Blood Pressure 102/46 96/40 102/50 O2 Sat by Pulse 99 99 100 Oximetry 05/15/21 05/15/21 05/15/21 02:15 02:31 02:45 Temperature Pulse Rate 95 H 91 H 96 H Respiratory 23 25 H 14 Rate Blood Pressure 110/53 115/62 101/48 O2 Sat by Pulse 100 100 100 Oximetry 05/15/21 05/15/21 05/15/21 03:01 03:15 03:28 Temperature 98.3 F Pulse Rate 90 91 H Respiratory 14 19 Rate Blood Pressure 106/52 93/54 O2 Sat by Pulse 100 100 Oximetry 05/15/21 05/15/21 05/15/21 03:31 03:45 04:01 Temperature Pulse Rate 89 91 H 90 Respiratory 19 Rate Blood Pressure 116/67 137/62 136/66 O2 Sat by Pulse 100 100 100 Oximetry 05/15/21 05/15/21 05/15/21 04:15 04:31 04:45 Temperature Pulse Rate 85 87 82 Respiratory 19 18 20 Rate Blood Pressure 136/67 131/56 136/66 O2 Sat by Pulse 100 100 100 Oximetry 05/15/21 05/15/21 05/15/21 05:01 05:15 05:31 Temperature Pulse Rate 76 83 81 Respiratory 18 19 23 Rate Blood Pressure 123/59 133/65 131/61 O2 Sat by Pulse 100 100 100 Oximetry 05/15/21 05/15/21 05/15/21 05:45 06:01 06:15 Temperature Pulse Rate 81 80 77 Respiratory 19 20 16 Rate Blood Pressure 128/59 146/62 144/65 O2 Sat by Pulse 100 100 100 Oximetry 05/15/21 05/15/21 05/15/21 06:31 06:45 07:01 Temperature Pulse Rate 75 77 76 Respiratory 13 15 17 Rate Blood Pressure 151/61 142/62 154/64 O2 Sat by Pulse 100 100 100 Oximetry 05/15/21 05/15/21 05/15/21 07:15 07:31 07:45 Temperature Pulse Rate 83 82 82 Respiratory 17 15 14 Rate Blood Pressure 142/64 133/65 148/78 O2 Sat by Pulse 100 100 100 Oximetry 05/15/21 05/15/21 05/15/21 08:00 08:01 08:15 Temperature Pulse Rate 75 74 Respiratory 15 15 Rate Blood Pressure 146/66 140/64 O2 Sat by Pulse 99 100 100 Oximetry 05/15/21 05/15/21 05/15/21 08:31 08:45 09:01 Temperature Pulse Rate 83 72 81 Respiratory 18 14 16 Rate Blood Pressure 153/70 141/65 151/61 O2 Sat by Pulse 100 100 100 Oximetry 05/15/21 05/15/21 05/15/21 09:15 09:31 09:45 Temperature Pulse Rate 73 81 75 Respiratory 13 18 16 Rate Blood Pressure 136/64 140/66 145/63 O2 Sat by Pulse 100 100 100 Oximetry 05/15/21 05/15/21 05/15/21 10:01 10:15 10:31 Temperature Pulse Rate 82 79 77 Respiratory 18 16 16 Rate Blood Pressure 140/66 148/72 145/63 O2 Sat by Pulse 100 100 100 Oximetry 05/15/21 05/15/21 05/15/21 10:45 11:01 11:15 Temperature Pulse Rate 79 76 81 Respiratory 15 13 16 Rate Blood Pressure 144/65 141/67 138/65 O2 Sat by Pulse 100 100 100 Oximetry 05/15/21 05/15/21 05/15/21 11:31 11:45 12:01 Temperature Pulse Rate 83 81 85 Respiratory 14 19 14 Rate Blood Pressure 140/69 133/65 141/55 O2 Sat by Pulse 100 100 99 Oximetry 05/15/21 05/15/21 05/15/21 12:15 12:31 12:45 Temperature Pulse Rate 83 81 82 Respiratory 17 14 21 Rate Blood Pressure 144/63 138/70 132/65 O2 Sat by Pulse 99 98 99 Oximetry 05/15/21 05/15/21 05/15/21 13:01 13:15 13:31 Temperature Pulse Rate 79 82 79 Respiratory 16 18 18 Rate Blood Pressure 149/61 140/62 149/61 O2 Sat by Pulse 99 100 99 Oximetry 05/15/21 05/15/21 05/15/21 13:45 14:00 14:15 Temperature Pulse Rate 80 79 80 Respiratory 15 23 15 Rate Blood Pressure 155/64 155/64 O2 Sat by Pulse 99 99 100 Oximetry 05/15/21 05/15/21 05/15/21 14:31 14:45 15:01 Temperature Pulse Rate 80 71 79 Respiratory 21 10 L 12 Rate Blood Pressure 135/61 138/61 137/66 O2 Sat by Pulse 99 97 98 Oximetry 05/15/21 05/15/21 05/15/21 15:15 15:31 15:45 Temperature Pulse Rate 82 79 80 Respiratory 21 13 20 Rate Blood Pressure 152/64 148/54 141/68 O2 Sat by Pulse 98 98 98 Oximetry 05/15/21 05/15/21 05/15/21 16:01 16:15 16:31 Temperature Pulse Rate 80 83 85 Respiratory 17 18 15 Rate Blood Pressure 145/76 145/76 145/76 O2 Sat by Pulse Oximetry 05/15/21 05/15/21 05/15/21 16:45 17:01 17:15 Temperature Pulse Rate 78 78 76 Respiratory 15 20 16 Rate Blood Pressure 145/76 121/56 121/56 O2 Sat by Pulse 99 97 Oximetry 05/15/21 05/15/21 05/15/21 17:31 17:45 18:01 Temperature Pulse Rate 64 68 76 Respiratory 15 14 20 Rate Blood Pressure 121/56 121/56 121/56 O2 Sat by Pulse 97 97 97 Oximetry 05/15/21 05/15/21 05/15/21 18:15 18:31 18:45 Temperature Pulse Rate 73 75 76 Respiratory 16 16 15 Rate Blood Pressure 121/56 121/56 121/56 O2 Sat by Pulse 97 97 97 Oximetry 05/15/21 05/15/21 05/15/21 19:01 19:15 19:31 Temperature Pulse Rate 59 L 61 77 Respiratory 12 18 16 Rate Blood Pressure 146/60 146/60 146/60 O2 Sat by Pulse 96 98 99 Oximetry 05/15/21 05/15/21 05/15/21 19:45 20:01 20:15 Temperature Pulse Rate 74 78 78 Respiratory 13 13 17 Rate Blood Pressure 146/60 146/74 146/74 O2 Sat by Pulse 95 99 100 Oximetry 05/15/21 05/15/21 05/15/21 20:31 20:45 21:01 Temperature Pulse Rate 74 73 75 Respiratory 16 13 15 Rate Blood Pressure 146/74 146/74 143/79 O2 Sat by Pulse 99 96 98 Oximetry 05/15/21 05/15/21 05/15/21 21:15 21:31 21:45 Temperature Pulse Rate 72 76 73 Respiratory 14 9 L 18 Rate Blood Pressure 143/79 143/79 143/79 O2 Sat by Pulse 99 99 100 Oximetry 05/15/21 05/15/21 05/15/21 22:01 22:15 22:31 Temperature Pulse Rate 74 76 73 Respiratory 18 15 18 Rate Blood Pressure 151/81 151/81 151/81 O2 Sat by Pulse 99 98 97 Oximetry 05/15/21 05/15/21 05/15/21 22:32 22:45 23:01 Temperature Pulse Rate 70 72 73 Respiratory 20 19 Rate Blood Pressure 151/81 151/81 157/74 O2 Sat by Pulse 98 99 Oximetry 05/15/21 05/15/21 05/15/21 23:15 23:31 23:39 Temperature Pulse Rate 73 72 74 Respiratory 13 8 L 18 Rate Blood Pressure 157/74 157/74 157/74 O2 Sat by Pulse 98 99 100 Oximetry 05/15/21 05/16/21 05/16/21 23:45 00:01 00:15 Temperature Pulse Rate 72 56 L 65 Respiratory 19 17 21 Rate Blood Pressure 157/74 95/46 95/46 O2 Sat by Pulse 99 100 100 Oximetry 05/16/21 05/16/21 05/16/21 00:31 01:01 01:15 Temperature Pulse Rate 68 64 66 Respiratory 21 15 23 Rate Blood Pressure 95/46 89/49 99/44 O2 Sat by Pulse 100 100 99 Oximetry 05/16/21 05/16/21 05/16/21 01:31 02:01 02:30 Temperature Pulse Rate 68 81 62 Respiratory 12 29 H 19 Rate Blood Pressure 99/44 95/54 88/53 O2 Sat by Pulse 98 97 98 Oximetry 05/16/21 05/16/21 05/16/21 02:40 03:00 03:10 Temperature Pulse Rate 69 63 Respiratory 14 13 18 Rate Blood Pressure 72/45 86/42 82/44 O2 Sat by Pulse 99 96 97 Oximetry 05/16/21 03:30 Temperature Pulse Rate 68 Respiratory 22 Rate Blood Pressure 104/52 O2 Sat by Pulse 99 Oximetry - Consultations Consultation #1: 05/14/21 15:20 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 tach witnessed by nurse (attempting to have rhythm strip printed) no intervention or medication recommendations at this time. Recommend continue medical management. - Central Line Placement Right Femoral Consent Obtained: emergent situation Time Out Performed: Yes Patient Placed on Monitor/Pulse Ox: Yes MD Prep: mask, gown, gloves Central Line Prep: Chlorhexidine scrub Local Anesthesia Used: Lidocaine 1% Amount of Anesthesia Used (mls): 5 Ultrasound Used for Placement: No Central Line Lumen Inserted: triple Reason for Insertion: Emergency Venous Access Bloods Obtained for Lab: No Central Line Position: good blood return, sutured in place with nyl Patient Tolerated Procedure: well Complications: none - Lab Data Result diagrams: 05/15/21 04:50 05/15/21 04:50 Lab Results 05/14/21 05/14/21 05/14/21 Range/Units 10:53 10:53 10:53 WBC 7.2 (4.5-11.0) K/mm3 RBC 2.90 L (3.65-5.03) M/mm3 Hgb 7.9 L (10.1-14.3) gm/dl Hct 24.1 L (30.3-42.9) % MCV 83 (79-97) fl MCH 27 L (28-32) pg MCHC 33 (30-34) % RDW 19.6 H (13.2-15.2) % Plt Count 47 L (140-440) K/mm3 Add Manual Diff Complete Total Counted 100 Seg Neuts % (Manual) 70.0 (40.0-70.0) % Lymphocytes % (Manual) 25.0 (13.4-35.0) % Monocytes % (Manual) 3.0 (0.0-7.3) % Eosinophils % (Manual) 1.0 (0.0-4.3) % Basophils % (Manual) 1.0 (0.0-1.8) % Nucleated RBC % 1.0 H (0.0-0.9) % Seg Neutrophils # Man 5.0 (1.8-7.7) K/mm3 Band Neutrophils # 0.0 K/mm3 Lymphocytes # (Manual) 1.8 (1.2-5.4) K/mm3 Abs React Lymphs (Man) 0.0 K/mm3 Monocytes # (Manual) 0.2 (0.0-0.8) K/mm3 Eosinophils # (Manual) 0.1 (0.0-0.4) K/mm3 Basophils # (Manual) 0.1 (0.0-0.1) K/mm3 Metamyelocytes # 0.0 K/mm3 Myelocytes # 0.0 K/mm3 Promyelocytes # 0.0 K/mm3 Blast Cells # 0.0 K/mm3 WBC Morphology Not Reportable Hypersegmented Neuts Not Reportable Hyposegmented Neuts Not Reportable Hypogranular Neuts Not Reportable Smudge Cells Not Reportable Toxic Granulation Not Reportable Toxic Vacuolation Not Reportable Dohle Bodies Not Reportable Pelger-Huet Anomaly Not Reportable Christiano Rods Not Reportable Platelet Estimate Consistent w auto Clumped Platelets Not Reportable Plt Clumps, EDTA Not Reportable Large Platelets Rare Giant Platelets Not Reportable Platelet Satelliting Not Reportable Plt Morphology Comment Not Reportable RBC Morphology Not Reportable Dimorphic RBCs Not Reportable Polychromasia Not Reportable Hypochromasia Not Reportable Poikilocytosis 1+ Anisocytosis 1+ Microcytosis Not Reportable Macrocytosis Not Reportable Spherocytes Not Reportable Pappenheimer Bodies Not Reportable Sickle Cells Not Reportable Target Cells Not Reportable Tear Drop Cells Not Reportable Ovalocytes Few Helmet Cells Not Reportable [place] Bodies Not Reportable [place] Rings Not Reportable [place] Cells Not Reportable Bite Cells Not Reportable Crenated Cell Not Reportable Elliptocytes Few Acanthocytes (Spur) Not Reportable Rouleaux Not Reportable Hemoglobin C Crystals Not Reportable Schistocytes Not Reportable Malaria parasites Not Reportable Ruddy Bodies Not Reportable Hem Pathologist Commnt No PT (12.2-14.9) Sec. INR (0.87-1.13) APTT (24.2-36.6) Sec. ABG pH (7.320-7.450) POC ABG pCO2 (32.0-48.0) mmHg POC ABG pO2 (83-108) mmHg POC ABG HCO3 ABG O2 Saturation (0-100) POC ABG Base Excess ABG Hemoglobin (12.0-17.5) ABG Oxyhemoglobin (94-98) ABG Methemoglobin (0.0-1.5) ABG Sodium (136.0-145.0) mmol/L ABG Potassium (3.40-4.50) mmol/L ABG Chloride (98-107) mmol/L ABG Glucose (65-95) mg/dL Carboxyhemoglobin (0.5-1.5) FiO2 % Sodium 154 H (137-145) mmol/L Potassium 3.3 L (3.6-5.0) mmol/L Chloride 109.0 H (98-107) mmol/L Carbon Dioxide 24 (22-30) mmol/L Anion Gap 24 mmol/L BUN 54 H (7-17) mg/dL Creatinine 1.4 H (0.6-1.2) mg/dL Estimated GFR 45 ml/min BUN/Creatinine Ratio 39 % Glucose 136 H (65-100) mg/dL POC Glucose (70-105) mg/dL Lactic Acid 2.00 (0.7-2.0) mmol/L Calcium 10.9 H (8.4-10.2) mg/dL Magnesium (1.7-2.3) mg/dL Total Bilirubin 0.70 (0.1-1.2) mg/dL AST 22 (5-40) units/L ALT 17 (7-56) units/L Alkaline Phosphatase 94 (35-129) units/L Total Creatine Kinase (30-135) units/L Troponin T (0.00-0.029) ng/mL Total Protein 8.5 H (6.3-8.2) g/dL Albumin 4.4 (3.9-5) g/dL Albumin/Globulin Ratio 1.1 % Triglycerides (2-149) mg/dL Cholesterol (50-199) mg/dL LDL Cholesterol Direct (50-130) mg/dL HDL Cholesterol (40-59) mg/dL Cholesterol/HDL Ratio % TSH (0.270-4.200) mlU/mL Free T4 (0.76-1.46) ng/dL Arterial Blood Glucose (65-95) mg/dL 05/14/21 05/14/21 05/14/21 Range/Units 10:53 10:53 10:53 WBC (4.5-11.0) K/mm3 RBC (3.65-5.03) M/mm3 Hgb (10.1-14.3) gm/dl Hct (30.3-42.9) % MCV (79-97) fl MCH (28-32) pg MCHC (30-34) % RDW (13.2-15.2) % Plt Count (140-440) K/mm3 Add Manual Diff Total Counted Seg Neuts % (Manual) (40.0-70.0) % Lymphocytes % (Manual) (13.4-35.0) % Monocytes % (Manual) (0.0-7.3) % Eosinophils % (Manual) (0.0-4.3) % Basophils % (Manual) (0.0-1.8) % Nucleated RBC % (0.0-0.9) % Seg Neutrophils # Man (1.8-7.7) K/mm3 Band Neutrophils # K/mm3 Lymphocytes # (Manual) (1.2-5.4) K/mm3 Abs React Lymphs (Man) K/mm3 Monocytes # (Manual) (0.0-0.8) K/mm3 Eosinophils # (Manual) (0.0-0.4) K/mm3 Basophils # (Manual) (0.0-0.1) K/mm3 Metamyelocytes # K/mm3 Myelocytes # K/mm3 Promyelocytes # K/mm3 Blast Cells # K/mm3 WBC Morphology Hypersegmented Neuts Hyposegmented Neuts Hypogranular Neuts Smudge Cells Toxic Granulation Toxic Vacuolation Dohle Bodies Pelger-Huet Anomaly Christiano Rods Platelet Estimate Clumped Platelets Plt Clumps, EDTA Large Platelets Giant Platelets Platelet Satelliting Plt Morphology Comment RBC Morphology Dimorphic RBCs Polychromasia Hypochromasia Poikilocytosis Anisocytosis Microcytosis Macrocytosis Spherocytes Pappenheimer Bodies Sickle Cells Target Cells Tear Drop Cells Ovalocytes Helmet Cells [place] Bodies [place] Rings [place] Cells Bite Cells Crenated Cell Elliptocytes Acanthocytes (Spur) Rouleaux Hemoglobin C Crystals Schistocytes Malaria parasites Ruddy Bodies Hem Pathologist Commnt PT (12.2-14.9) Sec. INR (0.87-1.13) APTT (24.2-36.6) Sec. ABG pH (7.320-7.450) POC ABG pCO2 (32.0-48.0) mmHg POC ABG pO2 (83-108) mmHg POC ABG HCO3 ABG O2 Saturation (0-100) POC ABG Base Excess ABG Hemoglobin (12.0-17.5) ABG Oxyhemoglobin (94-98) ABG Methemoglobin (0.0-1.5) ABG Sodium (136.0-145.0) mmol/L ABG Potassium (3.40-4.50) mmol/L ABG Chloride (98-107) mmol/L ABG Glucose (65-95) mg/dL Carboxyhemoglobin (0.5-1.5) FiO2 % Sodium (137-145) mmol/L Potassium (3.6-5.0) mmol/L Chloride (98-107) mmol/L Carbon Dioxide (22-30) mmol/L Anion Gap mmol/L BUN (7-17) mg/dL Creatinine (0.6-1.2) mg/dL Estimated GFR ml/min BUN/Creatinine Ratio % Glucose (65-100) mg/dL POC Glucose (70-105) mg/dL Lactic Acid (0.7-2.0) mmol/L Calcium (8.4-10.2) mg/dL Magnesium 2.80 H (1.7-2.3) mg/dL Total Bilirubin (0.1-1.2) mg/dL AST (5-40) units/L ALT (7-56) units/L Alkaline Phosphatase (35-129) units/L Total Creatine Kinase (30-135) units/L Troponin T 0.128 H* (0.00-0.029) ng/mL Total Protein (6.3-8.2) g/dL Albumin (3.9-5) g/dL Albumin/Globulin Ratio % Triglycerides 190 H (2-149) mg/dL Cholesterol 139 (50-199) mg/dL LDL Cholesterol Direct 40 L (50-130) mg/dL HDL Cholesterol 55 (40-59) mg/dL Cholesterol/HDL Ratio 2.52 % TSH 100.000 H (0.270-4.200) mlU/mL Free T4 0.10 L (0.76-1.46) ng/dL Arterial Blood Glucose (65-95) mg/dL 05/14/21 05/14/21 05/14/21 Range/Units 10:53 11:15 11:40 WBC (4.5-11.0) K/mm3 RBC (3.65-5.03) M/mm3 Hgb (10.1-14.3) gm/dl Hct (30.3-42.9) % MCV (79-97) fl MCH (28-32) pg MCHC (30-34) % RDW (13.2-15.2) % Plt Count (140-440) K/mm3 Add Manual Diff Total Counted Seg Neuts % (Manual) (40.0-70.0) % Lymphocytes % (Manual) (13.4-35.0) % Monocytes % (Manual) (0.0-7.3) % Eosinophils % (Manual) (0.0-4.3) % Basophils % (Manual) (0.0-1.8) % Nucleated RBC % (0.0-0.9) % Seg Neutrophils # Man (1.8-7.7) K/mm3 Band Neutrophils # K/mm3 Lymphocytes # (Manual) (1.2-5.4) K/mm3 Abs React Lymphs (Man) K/mm3 Monocytes # (Manual) (0.0-0.8) K/mm3 Eosinophils # (Manual) (0.0-0.4) K/mm3 Basophils # (Manual) (0.0-0.1) K/mm3 Metamyelocytes # K/mm3 Myelocytes # K/mm3 Promyelocytes # K/mm3 Blast Cells # K/mm3 WBC Morphology Hypersegmented Neuts Hyposegmented Neuts Hypogranular Neuts Smudge Cells Toxic Granulation Toxic Vacuolation Dohle Bodies Pelger-Huet Anomaly Christiano Rods Platelet Estimate Clumped Platelets Plt Clumps, EDTA Large Platelets Giant Platelets Platelet Satelliting Plt Morphology Comment RBC Morphology Dimorphic RBCs Polychromasia Hypochromasia Poikilocytosis Anisocytosis Microcytosis Macrocytosis Spherocytes Pappenheimer Bodies Sickle Cells Target Cells Tear Drop Cells Ovalocytes Helmet Cells [place] Bodies [place] Rings Kenneth Cells Bite Cells Crenated Cell Elliptocytes Acanthocytes (Spur) Rouleaux Hemoglobin C Crystals Schistocytes Malaria parasites Ruddy Bodies Hem Pathologist Commnt PT 13.9 (12.2-14.9) Sec. INR 0.96 (0.87-1.13) APTT 28.5 (24.2-36.6) Sec. ABG pH 7.493 H (7.320-7.450) POC ABG pCO2 32.3 (32.0-48.0) mmHg POC ABG pO2 194.1 H (83-108) mmHg POC ABG HCO3 24.2 ABG O2 Saturation 99.4 (0-100) POC ABG Base Excess 1.0 ABG Hemoglobin 7.3 L (12.0-17.5) ABG Oxyhemoglobin 98.3 H (94-98) ABG Methemoglobin 0.3 (0.0-1.5) ABG Sodium 151.0 H (136.0-145.0) mmol/L ABG Potassium 2.8 L (3.40-4.50) mmol/L ABG Chloride 111.0 H (98-107) mmol/L ABG Glucose 141 H (65-95) mg/dL Carboxyhemoglobin 0.8 (0.5-1.5) FiO2 % 40.0 Sodium (137-145) mmol/L Potassium (3.6-5.0) mmol/L Chloride (98-107) mmol/L Carbon Dioxide (22-30) mmol/L Anion Gap mmol/L BUN (7-17) mg/dL Creatinine (0.6-1.2) mg/dL Estimated GFR ml/min BUN/Creatinine Ratio % Glucose (65-100) mg/dL POC Glucose 116 H (70-105) mg/dL Lactic Acid (0.7-2.0) mmol/L Calcium (8.4-10.2) mg/dL Magnesium (1.7-2.3) mg/dL Total Bilirubin (0.1-1.2) mg/dL AST (5-40) units/L ALT (7-56) units/L Alkaline Phosphatase (35-129) units/L Total Creatine Kinase (30-135) units/L Troponin T (0.00-0.029) ng/mL Total Protein (6.3-8.2) g/dL Albumin (3.9-5) g/dL Albumin/Globulin Ratio % Triglycerides (2-149) mg/dL Cholesterol (50-199) mg/dL LDL Cholesterol Direct (50-130) mg/dL HDL Cholesterol (40-59) mg/dL Cholesterol/HDL Ratio % TSH (0.270-4.200) mlU/mL Free T4 (0.76-1.46) ng/dL Arterial Blood Glucose 141 H (65-95) mg/dL 05/14/21 05/14/21 05/14/21 Range/Units 12:22 13:19 14:35 WBC (4.5-11.0) K/mm3 RBC (3.65-5.03) M/mm3 Hgb (10.1-14.3) gm/dl Hct (30.3-42.9) % MCV (79-97) fl MCH (28-32) pg MCHC (30-34) % RDW (13.2-15.2) % Plt Count (140-440) K/mm3 Add Manual Diff Total Counted Seg Neuts % (Manual) (40.0-70.0) % Lymphocytes % (Manual) (13.4-35.0) % Monocytes % (Manual) (0.0-7.3) % Eosinophils % (Manual) (0.0-4.3) % Basophils % (Manual) (0.0-1.8) % Nucleated RBC % (0.0-0.9) % Seg Neutrophils # Man (1.8-7.7) K/mm3 Band Neutrophils # K/mm3 Lymphocytes # (Manual) (1.2-5.4) K/mm3 Abs React Lymphs (Man) K/mm3 Monocytes # (Manual) (0.0-0.8) K/mm3 Eosinophils # (Manual) (0.0-0.4) K/mm3 Basophils # (Manual) (0.0-0.1) K/mm3 Metamyelocytes # K/mm3 Myelocytes # K/mm3 Promyelocytes # K/mm3 Blast Cells # K/mm3 WBC Morphology Hypersegmented Neuts Hyposegmented Neuts Hypogranular Neuts Smudge Cells Toxic Granulation Toxic Vacuolation Dohle Bodies Pelger-Huet Anomaly Christiano Rods Platelet Estimate Clumped Platelets Plt Clumps, EDTA Large Platelets Giant Platelets Platelet Satelliting Plt Morphology Comment RBC Morphology Dimorphic RBCs Polychromasia Hypochromasia Poikilocytosis Anisocytosis Microcytosis Macrocytosis Spherocytes Pappenheimer Bodies Sickle Cells Target Cells Tear Drop Cells Ovalocytes Helmet Cells [place] Bodies [place] Rings Kenneth Cells Bite Cells Crenated Cell Elliptocytes Acanthocytes (Spur) Rouleaux Hemoglobin C Crystals Schistocytes Malaria parasites Ruddy Bodies Hem Pathologist Commnt PT (12.2-14.9) Sec. INR (0.87-1.13) APTT (24.2-36.6) Sec. ABG pH (7.320-7.450) POC ABG pCO2 (32.0-48.0) mmHg POC ABG pO2 (83-108) mmHg POC ABG HCO3 ABG O2 Saturation (0-100) POC ABG Base Excess ABG Hemoglobin (12.0-17.5) ABG Oxyhemoglobin (94-98) ABG Methemoglobin (0.0-1.5) ABG Sodium (136.0-145.0) mmol/L ABG Potassium (3.40-4.50) mmol/L ABG Chloride (98-107) mmol/L ABG Glucose (65-95) mg/dL Carboxyhemoglobin (0.5-1.5) FiO2 % Sodium (137-145) mmol/L Potassium (3.6-5.0) mmol/L Chloride (98-107) mmol/L Carbon Dioxide (22-30) mmol/L Anion Gap mmol/L BUN (7-17) mg/dL Creatinine (0.6-1.2) mg/dL Estimated GFR ml/min BUN/Creatinine Ratio % Glucose (65-100) mg/dL POC Glucose (70-105) mg/dL Lactic Acid 1.40 (0.7-2.0) mmol/L Calcium (8.4-10.2) mg/dL Magnesium (1.7-2.3) mg/dL Total Bilirubin (0.1-1.2) mg/dL AST (5-40) units/L ALT (7-56) units/L Alkaline Phosphatase (35-129) units/L Total Creatine Kinase 103 (30-135) units/L Troponin T 0.121 H* (0.00-0.029) ng/mL Total Protein (6.3-8.2) g/dL Albumin (3.9-5) g/dL Albumin/Globulin Ratio % Triglycerides (2-149) mg/dL Cholesterol (50-199) mg/dL LDL Cholesterol Direct (50-130) mg/dL HDL Cholesterol (40-59) mg/dL Cholesterol/HDL Ratio % TSH (0.270-4.200) mlU/mL Free T4 (0.76-1.46) ng/dL Arterial Blood Glucose (65-95) mg/dL - EKG Data -: EKG Interpreted by Me (artifact) EKG shows normal: sinus rhythm, ST-T waves (no stemi) - Radiology Data Radiology results: report reviewed CHEST 1 VIEW 05/14/2021 12:15 PM INDICATION / CLINICAL INFORMATION: sepsis, hypothermia. COMPARISON: 02/23/2021 FINDINGS: SUPPORT DEVICES: None. HEART / MEDIASTINUM: Stable cardiomegaly. LUNGS / PLEURA: No significant pulmonary or pleural abnormality. No pneumothorax. ADDITIONAL FINDINGS: No significant additional findings. IMPRESSION: 1. Cardiomegaly without focal lung consolidation. CT HEAD WITHOUT CONTRAST INDICATION / CLINICAL INFORMATION: Altered Mental Status. TECHNIQUE: All CT scans at this location are performed using CT dose reduction for ALARA by means of automated exposure control. COMPARISON: CT head dated 02/23/2021 FINDINGS: There is no acute interval hemorrhage. No mass effect. There is stable dilation of the ventricles measuring approximately 4.4 cm at the frontal horns. This is relatively at a proportion to degree of cerebral atrophy. Stable encephalomalacia in the left cerebellar hemisphere. Stable periventricular white matter hypoattenuation which likely represents a combination of microangiopathic changes and periventricular edema due to dilated ventricles. IMPRESSION: 1. No acute CT abnormality. 2. Stable dilation of ventricles, as can be seen with normal pressure hydrocephalus. Recommend clinical correlation. - Medical Decision Making 70-year-old female presents to the hospital with alteration mental status x10 days as per EMS history obtained from family at the scene. At baseline patient does have left-sided deficits but can have a conversation. She is completely altered here. Lab suggestive of myxedema coma. Initial hypotension resolved fairly quickly with IV fluids therefore discontinued after 1 L and patient did not receive the full 30 mL/kg bolus. Patient does not meet criteria for severe sepsis or septic shock. No source of infection identified. Chest x-ray CT head without acute abnormality. Cortisol test pending. ABG shows a by respiratory alkalosis without CO2 retention. Patient received active warming for hypothermi a. Cultures pending. Mild troponin elevation noted (repeat pendign at dispo) with chronic renal sufficiency. Labs suggestive of dehydration. IV fluids continued after fluid bolus of 1 L. IV potassium ordered for mild hyperkalemia. Delay in EKG EKG because could not flower buncher or picker rhythm despite multiple machines and attempts. Pt had a central line placed. patient has new anemia with guaiac positive stools however, brown in color without gross blood or melena. New thrombocytopenia also noted. patient will be admitted to the hospital service for further treatment Critical Care Time: Yes Critical care time in (mins) excluding proc time.: 35 Critical care attestation.: If time is entered above; I have spent that time in minutes in the direct care of this critically ill patient, excluding procedure time. ED Disposition Clinical Impression: Myxedema coma, CRI (chronic renal insufficiency), Dehydration, Hypokalemia, Anemia, Thrombocytopenia Disposition: ADMITTED INPATIENT Is pt being admited?: Yes Condition: Stable Time of Disposition: 15:01
[2021-05-14 12:21] LABS: INR 0.96 (0.87-1.13)
[2021-05-14 12:22] LABS: Partial Thromboplastin Time 28.5 Sec. (24.2-36.6)
--- NOTE | 2021-05-14 12:54 | XRay Report ---
CHEST 1 VIEW 05/14/2021 12:15 PM INDICATION / CLINICAL INFORMATION: sepsis, hypothermia. COMPARISON: 02/23/2021 FINDINGS: SUPPORT DEVICES: None. HEART / MEDIASTINUM: Stable cardiomegaly. LUNGS / PLEURA: No significant pulmonary or pleural abnormality. No pneumothorax. ADDITIONAL FINDINGS: No significant additional findings. IMPRESSION: 1. Cardiomegaly without focal lung consolidation. Signer Name: Torito Moore MD Signed: 05/14/2021 12:50 PM Workstation Name: [id number]
[2021-05-14] MEDS ORDERED: POTASSIUM CHLORIDE 20 MEQ 20 MEQ/100 ML BAG IV ONE (13:31)
[2021-05-14 13:43] LABS: Bilirubin,Urine NEG (Negative); Blood,Urine SM (Negative); Color,Urine Yellow (Yellow); Mucus,Urine FEW /HPF
[2021-05-14] MEDS ORDERED: SODIUM CHLORIDE 0.9% 1000 ML 1,000 ML IV ONE (14:12)
--- NOTE | 2021-05-14 14:49 | Cat Scan Report ---
CT HEAD WITHOUT CONTRAST INDICATION / CLINICAL INFORMATION: Altered Mental Status. TECHNIQUE: All CT scans at this location are performed using CT dose reduction for ALARA by means of automated exposure control. COMPARISON: CT head dated 02/23/2021 FINDINGS: There is no acute interval hemorrhage. No mass effect. There is stable dilation of the ventricles chelsea suring approximately 4.4 cm at the frontal horns. This is relatively at a proportion to degree of cer ebral atrophy. Stable encephalomalacia in the left cerebellar hemisphere. Stable periventricular whit e matter hypoattenuation which likely represents a combination of microangiopathic changes and perive ntricular edema due to dilated ventricles. IMPRESSION: 1. No acute CT abnormality. 2. Stable dilation of ventricles, as can be seen with normal pressure hydrocephalus. Recommend clinic al correlation. Signer Name: Torito Moore MD Signed: 05/14/2021 2:44 PM Workstation Name: [id number]
--- NOTE | 2021-05-14 14:58 | History and Physical Report ---
History of Present Illness Chief complaint: She is not talking History of present illness: 70 YO Female with CVA with LHP, HTN, HLD, Lymphedema, Obesity Hypoventilation Syndrome, Hypothyroidism S/P Thyroidectomy, Vascular Dementia, Cerebral Atherosclerosis presents to ED for evaluation. Patient is stuporous with dimi nished cognition and is unable to provide history. Patient history taken from EMS staff, ED staff, as well as the patient's son who was made available by telephone for interview. As per son the patient has experienced increased confusion, increased weakness, and decreased oral intake over the past 10 days with persistent and worsening symptoms over the same timeframe. Patient was found to be more confused today making incomprehensible sounds. EMS was notified and upon arrival the patient was found to be in distress and subsequently transported to [facility] for further care and evaluation of the aforementioned symptoms. The patient was seen and evaluated in the emergency department. All lab and imaging studies reviewed. Patient found to have body core temperature of 90 F, blood pressure of 66/34, and heart rate of 54. Patient symptoms consistent with myxedema coma, as well as metabolic encephalopathy, and acute kidney injury. Patient initiated on IV Synthroid therapy and admitted to ICU due to increased risk of worsening symptoms. No reports of fever, chills, chest pain, palpitation, productive cough, skin rash, recent ill contact, or known exposure to COVID-19. Prior admission on 02/23/2021 reviewed. All medication listed at time of admission has been reconciled. Advanced care planning conducted in ED. Patient has diminished cognition but has a positive gag reflex and is currently able to protect her airway without difficulty at the time of my evaluation. Critical care team consulted. Past History Past Medical History: hypertension, hyperlipidemia, hypothyroidism, stroke Past Surgical History: thyroidectomy Social history: single. denies: smoking, alcohol abuse Family history: diabetes, hypertension Medications and Allergies Allergies Allergy/AdvReac Type Severity Reaction Status Date / Time No Known Allergies Allergy Verified 02/23/21 07:42 Home Medications Medication Instructions Recorded Confirmed Last Taken Type Aspirin [Aspirin BABY CHEW TAB] 81 mg PO QDAY tab.chew 02/28/21 05/14/21 05/13/21 08:00 Rx AtorvaSTATin [Lipitor] 40 mg PO QHS #30 tablet 02/28/21 05/14/21 05/13/21 21:00 Rx NIFEdipine XL [Procardia Xl] 60 mg PO QDAY #30 tablet 02/28/21 05/14/21 05/13/21 08:00 Rx cloNIDine [Catapres] 0.2 mg PO Q12HR #60 tablet 02/28/21 05/14/21 05/13/21 19:00 Rx hydrALAZINE [Apresoline TAB] 100 mg PO TID #90 tab 02/28/21 05/14/21 05/13/21 18:00 Rx polyethylene glycoL 3350 [Miralax 17 gm PO QDAY PRN powd.pack 02/28/21 Unknown Rx 3350] Active Meds: Active Medications Sodium Chloride (Nacl 0.9% 1000 Ml) 1,000 mls @ 125 mls/hr IV ONCE ONE Stop: 05/14/21 22:11 Review of Systems ROS unobtainable: due to mental status Exam - Constitutional Vitals: Temp Pulse Resp BP Pulse Ox 90 F L 58 L 11 L 131/68 100 05/14/21 11:12 05/14/21 14:15 05/14/21 14:15 05/14/21 14:15 05/14/21 14:15 General appearance: Present: mild distress, obese - EENT Eyes: Present: PERRL ENT: hearing decreased - Neck Neck: Present: supple, normal ROM - Respiratory Respiratory effort: labored Respiratory: bilateral: diminished - Cardiovascular Rhythm: other (Bradycardia) Heart Sounds: Present: S1 & S2. Absent: rub, click - Extremities Extremities: pulses symmetrical Extremity abnormal: edema Peripheral Pulses: abnormal - Abdominal General gastrointestinal: Present: soft, non-tender, non-distended, normal bowel sounds Female genitourinary: Present: normal - Integumentary Integumentary: Present: clear, dry, clammy, decreased turgor - Musculoskeletal Musculoskeletal: generalized weakness - Psychiatric Psychiatric: no appropriate mood/affect, no intact judgment & insight, no memory intact - Neurologic Neurologic: focal deficits, moves all extremities, no gait normal HEART Score - HEART Score Troponin: Troponin T 0.128 ng/mL (0.00-0.029) H* 05/14/21 10:53 Results - Labs CBC & Chem 7: 05/14/21 10:53 05/14/21 10:53 Labs: Abnormal lab results 05/14/21 05/14/21 05/14/21 Range/Units 10:53 10:53 10:53 RBC 2.90 L (3.65-5.03) M/mm3 Hgb 7.9 L (10.1-14.3) gm/dl Hct 24.1 L (30.3-42.9) % MCH 27 L (28-32) pg RDW 19.6 H (13.2-15.2) % Plt Count 47 L (140-440) K/mm3 Nucleated RBC % 1.0 H (0.0-0.9) % ABG pH (7.320-7.450) POC ABG pO2 (83-108) mmHg ABG Hemoglobin (12.0-17.5) ABG Oxyhemoglobin (94-98) ABG Sodium (136.0-145.0) mmol/L ABG Potassium (3.40-4.50) mmol/L ABG Chloride (98-107) mmol/L ABG Glucose (65-95) mg/dL Sodium 154 H (137-145) mmol/L Potassium 3.3 L (3.6-5.0) mmol/L Chloride 109.0 H (98-107) mmol/L BUN 54 H (7-17) mg/dL Creatinine 1.4 H (0.6-1.2) mg/dL Glucose 136 H (65-100) mg/dL POC Glucose (70-105) mg/dL Calcium 10.9 H (8.4-10.2) mg/dL Magnesium (1.7-2.3) mg/dL Troponin T (0.00-0.029) ng/mL Total Protein 8.5 H (6.3-8.2) g/dL Triglycerides (2-149) mg/dL LDL Cholesterol Direct (50-130) mg/dL TSH 100.000 H (0.270-4.200) mlU/mL Free T4 0.10 L (0.76-1.46) ng/dL Arterial Blood Glucose (65-95) mg/dL 05/14/21 05/14/21 05/14/21 Range/Units 10:53 10:53 11:15 RBC (3.65-5.03) M/mm3 Hgb (10.1-14.3) gm/dl Hct (30.3-42.9) % MCH (28-32) pg RDW (13.2-15.2) % Plt Count (140-440) K/mm3 Nucleated RBC % (0.0-0.9) % ABG pH (7.320-7.450) POC ABG pO2 (83-108) mmHg ABG Hemoglobin (12.0-17.5) ABG Oxyhemoglobin (94-98) ABG Sodium (136.0-145.0) mmol/L ABG Potassium (3.40-4.50) mmol/L ABG Chloride (98-107) mmol/L ABG Glucose (65-95) mg/dL Sodium (137-145) mmol/L Potassium (3.6-5.0) mmol/L Chloride (98-107) mmol/L BUN (7-17) mg/dL Creatinine (0.6-1.2) mg/dL Glucose (65-100) mg/dL POC Glucose 116 H (70-105) mg/dL Calcium (8.4-10.2) mg/dL Magnesium 2.80 H (1.7-2.3) mg/dL Troponin T 0.128 H* (0.00-0.029) ng/mL Total Protein (6.3-8.2) g/dL Triglycerides 190 H (2-149) mg/dL LDL Cholesterol Direct 40 L (50-130) mg/dL TSH (0.270-4.200) mlU/mL Free T4 (0.76-1.46) ng/dL Arterial Blood Glucose (65-95) mg/dL 05/14/21 Range/Units 11:40 RBC (3.65-5.03) M/mm3 Hgb (10.1-14.3) gm/dl Hct (30.3-42.9) % MCH (28-32) pg RDW (13.2-15.2) % Plt Count (140-440) K/mm3 Nucleated RBC % (0.0-0.9) % ABG pH 7.493 H (7.320-7.450) POC ABG pO2 194.1 H (83-108) mmHg ABG Hemoglobin 7.3 L (12.0-17.5) ABG Oxyhemoglobin 98.3 H (94-98) ABG Sodium 151.0 H (136.0-145.0) mmol/L ABG Potassium 2.8 L (3.40-4.50) mmol/L ABG Chloride 111.0 H (98-107) mmol/L ABG Glucose 141 H (65-95) mg/dL Sodium (137-145) mmol/L Potassium (3.6-5.0) mmol/L Chloride (98-107) mmol/L BUN (7-17) mg/dL Creatinine (0.6-1.2) mg/dL Glucose (65-100) mg/dL POC Glucose (70-105) mg/dL Calcium (8.4-10.2) mg/dL Magnesium (1.7-2.3) mg/dL Troponin T (0.00-0.029) ng/mL Total Protein (6.3-8.2) g/dL Triglycerides (2-149) mg/dL LDL Cholesterol Direct (50-130) mg/dL TSH (0.270-4.200) mlU/mL Free T4 (0.76-1.46) ng/dL Arterial Blood Glucose 141 H (65-95) mg/dL Assessment and Plan - Patient Problems (1) Myxedema coma Current Visit: Yes Status: Acute Plan to address problem: IV Synthroid therapy, IV fluid resuscitation therapy, neuro check, seizure precautions, aspiration precautions, thyroid panel, free T4 level. The high probability of a clinically significant, sudden or life threatening deterioration of the [neuro, renal, endocrine] system(s) required my full and direct attention, intervention and personal management. The aggregate critical care time was [90] minutes. This time is in addition to time spent performing reported procedures but includes the following: [x] Data Review and interpretation [x] Patient assessment and monitoring of vital signs [x] Documentation [xx] Medication orders and management (2) Metabolic encephalopathy Current Visit: Yes Status: Acute Plan to address problem: CT scan head, neuro check, seizure precautions, aspiration precautions, IV fluid resuscitation therapy (3) Hypernatremia Current Visit: Yes Status: Acute Plan to address problem: IV fluid resuscitation therapy with lactated Ringer's, repeat BMP in a.m., monitor fluid balance. (4) Acute kidney injury (JOZEF) with acute tubular necrosis (ATN) Current Visit: Yes Status: Acute Plan to address problem: IV fluid resuscitation therapy, BMP, repeat BMP in a.m. to monitor serum creatinine as well as GFR. (5) Obesity hypoventilation syndrome Current Visit: Yes Status: Acute Plan to address problem: Balanced diet, increase physical activity at discharge (6) DVT prophylaxis Current Visit: Yes Status: Acute Plan to address problem: SCDs bilateral lower extremities while in bed, prophylactic anticoagulation (7) Advance care planning Current Visit: Yes Status: Acute Plan to address problem: Disease education conducted, care plan discussed, diagnoses discussed, prognosis discussed, patient is full code, patient family knowledge understanding agree with care plan, +30 minutes.
[2021-05-14] MEDS ORDERED: POLYETHYLENE GLYCOL 3350 17 GM POWDER PO PRN (15:06)
[2021-05-14] MEDS ORDERED: ALBUTEROL 2.5 MG/3 ML NEBU IH PRN (15:07)
[2021-05-14] MEDS ORDERED: oxyCODONE /ACETAMINOPHEN 5-325MG TAB PO PRN (15:07)
[2021-05-14] MEDS ORDERED: HYDROmorphone 1 MG/1 ML INJ IV PRN (15:07)
[2021-05-14] MEDS ORDERED: ACETAMINOPHEN 325 MG TAB PO PRN (15:07)
[2021-05-14] MEDS ORDERED: LACTATED RINGERS 1,000 ML IV ONE (15:17)
[2021-05-14] MEDS ORDERED: ATROPINE 1 MG/ML VIAL IV PRN (15:20)
[2021-05-14] MEDS ORDERED: LACTATED RINGERS 1,000 ML IV SCH (15:30)
[2021-05-14] MEDS ORDERED: LEVOTHYROXINE 100 MCG INJ IV ONE (16:00)
[2021-05-14] MEDS ORDERED: HYDROCORTISONE SOD SUCC 100 MG/2 ML VIAL IV ONE (18:00)
[2021-05-14] MEDS: hydrALAZINE 100 MG TAB PO SCH (23:54)
[2021-05-14] MEDS: cloNIDine 0.2 MG TAB PO SCH (23:54)
[2021-05-15 05:43] LABS: Basophils % (Auto) 0.2 % (0.0-1.8); Eosinophils % (Auto) 0.2 % (0.0-4.3); Hemoglobin 7.2 gm/dl (10.1-14.3); Lymphocytes # (Auto) 1.3 K/mm3 (1.2-5.4); Lymphocytes % (Auto) 18.4 % (13.4-35.0); Mean Corpuscular HGB Conc 34 % (30-34); Mean Corpuscular Volume 83 fl (79-97); Monocytes # (Auto) 0.4 K/mm3 (0.0-0.8); Monocytes % (Auto) 6.3 % (0.0-7.3); Red Blood Count 2.53 M/mm3 (3.65-5.03); Red Cell Distribution Width 19.6 % (13.2-15.2)
[2021-05-15 05:49] LABS: Platelet Count 34 K/mm3 (140-440)
[2021-05-15 05:56] LABS: Albumin 4.2 g/dL (3.9-5); Calcium 10.2 mg/dL (8.4-10.2)
[2021-05-15] MEDS: LEVOTHYROXINE 100 MCG INJ IV SCH (06:45)
--- NOTE | 2021-05-15 07:04 | Consultation ---
History of Present Illness Consult date: 05/15/21 Requesting physician: MARTY OSORIO Reason for consult: other (critical care, myxedema coma) History of present illness: HISTORY PER MEDICAL RECORDS 70 YO Female with CVA with LHP, HTN, HLD, Lymphedema, Obesity Hypoventilation Syndrome, Hypothyroidism S/P Thyroidectomy, Vascular Dementia, Cerebral Atherosclerosis presents to ED for evaluation. Patient is stuporous with diminished cognition and is unable to provide history. Patient history taken from EMS staff, ED staff, as well as the patient's son who was made available by telephone for interview. As per son the patient has experienced increased confusion, increased weakness, and decreased oral intake over the past 10 days with persistent and worsening symptoms over the same timeframe. Patient was found to be more confused today making incomprehensible sounds. EMS was notified and upon arrival the patient was found to be in distress and subsequently transported to [facility] for further care and evaluation of the aforementioned symptoms. The patient was seen and evaluated in the emergency department. All lab and imaging studies reviewed. Patient found to have body core temperature of 90 F, blood pressure of 66/34, and heart rate of 54. Patient symptoms consistent with myxedema coma, as well as metabolic encephalopathy, and acute kidney injury. Patient initiated on IV Synthroid therapy and admitted to ICU due to increased risk of worsening symptoms. No reports of fever, chills, chest pain, palpitation, productive cough, skin rash, recent ill contact, or known exposure to COVID-19. Prior admission on 02/23/2021 reviewed. All medication listed at time of admission has been reconciled. Advanced care planning conducted in ED. Patient has diminished cognition but has a positive gag reflex and is currently able to protect her airway without difficulty at the time of my evaluation. Critical care team consulted. Patient seen and examined. Vitals, labs, medications, chart and imaging reviewed. - Past Medical History Hx Hypertension: Yes Hx CVA: Yes (Left-sided weakness) Hx Congestive Heart Failure: No Hx Diabetes: No Hx Deep Vein Thrombosis: No Hx Liver Disease: No Hx Renal Disease: No Hx Sickle Cell Disease: No Hx Arthritis: No Hx Seizures: No Hx Kidney Stones: No Hx Dementia: No Hx HIV: No - Surgical History Hx Open Heart Surgery: No Hx Pacemaker: No Hx Internal Defibrillator: No Hx Cholecystectomy: No Hx Appendectomy: No Hx Breast Surgery: No - Social History Smoking Status: Never Smoker per documentation Past History Past Medical History: hypertension, hyperlipidemia, hypothyroidism, stroke Past Surgical History: thyroidectomy Social history: single. denies: smoking, alcohol abuse Family history: diabetes, hypertension Medications and Allergies Allergies Allergy/AdvReac Type Severity Reaction Status Date / Time No Known Allergies Allergy Verified 02/23/21 07:42 Home Medications Medication Instructions Recorded Confirmed Last Taken Type Aspirin [Aspirin BABY CHEW TAB] 81 mg PO QDAY tab.chew 02/28/21 05/14/21 05/13/21 08:00 Rx AtorvaSTATin [Lipitor] 40 mg PO QHS #30 tablet 02/28/21 05/14/21 05/13/21 21:00 Rx NIFEdipine XL [Procardia Xl] 60 mg PO QDAY #30 tablet 02/28/21 05/14/21 05/13/21 08:00 Rx cloNIDine [Catapres] 0.2 mg PO Q12HR #60 tablet 02/28/21 05/14/21 05/13/21 19:00 Rx hydrALAZINE [Apresoline TAB] 100 mg PO TID #90 tab 02/28/21 05/14/21 05/13/21 18:00 Rx polyethylene glycoL 3350 [Miralax 17 gm PO QDAY PRN powd.pack 02/28/21 Unknown Rx 3350] Active Meds: Active Medications Acetaminophen (Acetaminophen 325 Mg Tab) 650 mg PO Q6H PRN PRN Reason: Pain MILD(1-3)/Fever >100.5/CORTES Albuterol (Albuterol 2.5 Mg/3 Ml Nebu) 2.5 mg IH Q3HRT PRN PRN Reason: Shortness Of Breath Aspirin (Aspirin 81 Mg Tab Chew) 81 mg PO QDAY [facility] Atorvastatin Calcium (Atorvastatin 40 Mg Tab) 40 mg PO QHS [facility] Last Admin: 05/14/21 23:54 Dose: Not Given Documented by: Atropine Sulfate (Atropine 1 Mg/Ml Vial) 1 mg IV ONCE PRN PRN Reason: Bradycardia Clonidine HCl (Clonidine 0.2 Mg Tab) 0.2 mg PO Q12HR [facility] Last Admin: 05/14/21 23:54 Dose: Not Given Documented by: Hydralazine HCl (Hydralazine 100 Mg Tab) 100 mg PO TID [facility] Last Admin: 05/14/21 23:54 Dose: Not Given Documented by: Hydromorphone HCl (Hydromorphone 1 Mg/1 Ml Inj) 0.5 mg IV Q23H PRN PRN Reason: Pain , Severe (7-10) Lactated Ringer's (Lactated Ringers) 1,000 mls @ 125 mls/hr IV DIRECT [facility] Dextrose/Sodium Chloride (D5ns 0.2%) 1,000 mls @ 75 mls/hr IV DIRECT [facility] Levothyroxine Sodium (Levothyroxine 100 Mcg Inj) 100 mcg IV DAILY@0600 [facility] Last Admin: 05/15/21 06:45 Dose: 100 mcg Documented by: Nifedipine (Nifedipine Xl 60 Mg Tab) 60 mg PO QDAY [facility] Oxycodone/Acetaminophen (Oxycodone /Acetaminophen 5-325mg Tab) 1 tab PO Q16H PRN PRN Reason: Pain, Moderate (4-6) Polyethylene Glycol (Polyethylene Glycol 3350 17 Gm Powder) 17 gm PO QDAY PRN PRN Reason: Constipation Sodium Chloride (Sodium Chloride 0.9% 10 Ml Flush Syringe) 10 ml IV BID [facility] Last Admin: 05/15/21 06:49 Dose: 10 ml Documented by: Sodium Chloride (Sodium Chloride 0.9% 10 Ml Flush Syringe) 10 ml IV PRN PRN PRN Reason: LINE FLUSH Review of Systems ROS unobtainable: due to mental status Physical Examination Vital signs: Vital Signs Pulse Ox 100 05/14/21 10:35 General: No acute distress, hypothermic,obese External warming device on patient Head: Atraumatic, normocephalic, Eyes: normal appearance, pupils equal reactive to light ENT: Dry mucous membrane Neck: Normal appearance, no midline tenderness, supple, no meningeal signs Chest: Clear to auscultation bilaterally CV: Regular rate and rhythm Abdomen: Soft, normal bowel sounds, no grimace with palpation Rectal: Guaiac positive brown stool Back: Normal inspection Extremity: Normal inspection, full range of motion, passive Neuro: Lethargic, responds to painful stimuli,mumbling, left upper and lower extremity paralysis with contraction of left hand. With stage V right upper extremity strength. Some right lower extremity movement. Skin: Inner thighs some mild skin breakdown also in the buttock are Results - Laboratory Findings CBC and BMP: 05/16/21 04:00 05/16/21 04:00 ABG ABG pH 7.493 (7.320-7.450) H 05/14/21 11:40 POC ABG pCO2 32.3 mmHg (32.0-48.0) 05/14/21 11:40 POC ABG pO2 194.1 mmHg (83-108) H 05/14/21 11:40 POC ABG HCO3 24.2 05/14/21 11:40 ABG O2 Saturation 99.4 (0-100) 05/14/21 11:40 PT/INR, D-dimer PT 13.9 Sec. (12.2-14.9) 05/14/21 10:53 INR 0.96 (0.87-1.13) 05/14/21 10:53 Abnormal lab findings: Abnormal Labs 05/14/21 05/14/21 05/14/21 10:53 10:53 10:53 RBC 2.90 L Hgb 7.9 L Hct 24.1 L MCH 27 L RDW 19.6 H Plt Count 47 L Seg Neutrophils % Nucleated RBC % 1.0 H ABG pH POC ABG pO2 ABG Hemoglobin ABG Oxyhemoglobin ABG Sodium ABG Potassium ABG Chloride ABG Glucose Sodium 154 H Potassium 3.3 L Chloride 109.0 H BUN 54 H Creatinine 1.4 H Glucose 136 H POC Glucose Calcium 10.9 H Magnesium Troponin T Total Protein 8.5 H Triglycerides LDL Cholesterol Direct TSH 100.000 H Free T4 0.10 L Arterial Blood Glucose 05/14/21 05/14/21 05/14/21 10:53 10:53 11:15 RBC Hgb Hct MCH RDW Plt Count Seg Neutrophils % Nucleated RBC % ABG pH POC ABG pO2 ABG Hemoglobin ABG Oxyhemoglobin ABG Sodium ABG Potassium ABG Chloride ABG Glucose Sodium Potassium Chloride BUN Creatinine Glucose POC Glucose 116 H Calcium Magnesium 2.80 H Troponin T 0.128 H* Total Protein Triglycerides 190 H LDL Cholesterol Direct 40 L TSH Free T4 Arterial Blood Glucose 05/14/21 05/14/21 05/14/21 11:40 14:35 17:06 RBC Hgb Hct MCH RDW Plt Count Seg Neutrophils % Nucleated RBC % ABG pH 7.493 H POC ABG pO2 194.1 H ABG Hemoglobin 7.3 L ABG Oxyhemoglobin 98.3 H ABG Sodium 151.0 H ABG Potassium 2.8 L ABG Chloride 111.0 H ABG Glucose 141 H Sodium Potassium Chloride BUN Creatinine Glucose POC Glucose Calcium Magnesium Troponin T 0.121 H* Total Protein Triglycerides LDL Cholesterol Direct TSH Free T4 0.10 L Arterial Blood Glucose 141 H 05/15/21 05/15/21 04:50 04:50 RBC 2.53 L Hgb 7.2 L Hct 21.0 L MCH RDW 19.6 H Plt Count 34 L Seg Neutrophils % 74.9 H Nucleated RBC % ABG pH POC ABG pO2 ABG Hemoglobin ABG Oxyhemoglobin ABG Sodium ABG Potassium ABG Chloride ABG Glucose Sodium 155 H Potassium Chloride 111.0 H BUN 58 H Creatinine 1.9 H Glucose 127 H POC Glucose Calcium Magnesium Troponin T Total Protein Triglycerides LDL Cholesterol Direct TSH Free T4 Arterial Blood Glucose - Diagnostic Findings Chest x-ray: image reviewed Additional studies: CHEST 1 VIEW 05/14/2021 12:15 PM INDICATION / CLINICAL INFORMATION: sepsis, hypothermia. COMPARISON: 02/23/2021 FINDINGS: SUPPORT DEVICES: None. HEART / MEDIASTINUM: Stable cardiomegaly. LUNGS / PLEURA: No significant pulmonary or pleural abnormality. No pneumothorax. ADDITIONAL FINDINGS: No significant additional findings. IMPRESSION: 1. Cardiomegaly without focal lung consolidation. CT HEAD WITHOUT CONTRAST INDICATION / CLINICAL INFORMATION: Altered Mental Status. TECHNIQUE: All CT scans at this location are performed using CT dose reduction for ALARA by means of automated exposure control. COMPARISON: CT head dated 02/23/2021 FINDINGS: There is no acute interval hemorrhage. No mass effect. There is stable dilation of the ventricles measuring approximately 4.4 cm at the frontal horns. This is relatively at a proportion to degree of cerebral atrophy. Stable encephalomalacia in the left cerebellar hemisphere. Stable periventricular white matter hypoattenuation which likely represents a combination of microangiopathic changes and periventricular edema due to dilated ventricles. IMPRESSION: 1. No acute CT abnormality. 2. Stable dilation of ventricles, as can be seen with normal pressure hydrocephalus. Recommend clinical correlation. Assessment and Plan Myxedema coma Hypothermia Acute Metabolic encephalopathy Hypernatremia Acute kidney injury (JOZEF) with acute tubular necrosis (ATN) Hypokalemia Thrombocytopenia -Get cultures, no need for antibiotics at this time. No clinical evidence of infection Trend CBC and temperature -Cortisol levels drawn, will give one dose of hydrocortisone -Thyroid function panel ordered -Continue with IV synthroid -Place small bowel feeding tube for free water flushes and enteric nutritional support -High risk for aspiration, maintain NPO and monitor closely -Judicious replacement of potassium -Avoid nephrotoxins, renally dose all medications -SCDs for VTE prophylaxis at this time. Patient has thrombocytopenia -Trend platelets, if it drops<20, transfuse -External warming, if she becomes hypotensive/hemodynamically unstable will empirically start antibiotics while waiting culture data report -Accucheck with glycemic control. Target blood glucose <180mg/dL. Avoid hypoglycemia -Mobility, frequent turning per hospital protocol to prevent pressure ulcers -wound care consult -Transfuse as clinically indicated to keep HgB >7g/dL -Supplemental oxygen, titrate to keep SpO2 89-92% CONDITION: CRITICAL CONDITION: GUARDED CODE STATUS: FULL CODE The high probability of a clinically significant, sudden or life threatening deterioration of the [neuro, renal, endocrine] system(s) required my full and direct attention, intervention and personal management. The aggregate critical care time was [45] minutes. This time is in addition to time spent performing reported procedures but includes the following: [x] Data Review and interpretation [x] Patient assessment and monitoring of vital signs [x] Documentation [xx] Medication orders and management
[2021-05-15] MEDS: ASPIRIN 81 MG TAB CHEW PO SCH (10:26)
[2021-05-15] MEDS: hydrALAZINE 100 MG TAB PO SCH ×3 (10:26→22:32)
[2021-05-15] MEDS: cloNIDine 0.2 MG TAB PO SCH ×2 (10:26→22:32)
[2021-05-15] MEDS: NIFEdipine XL 60 MG TAB PO SCH (10:26)
--- NOTE | 2021-05-15 14:06 | Progress Note ---
Assessment and Plan Assessment and plan: 70 YO Female with CVA with LHP, HTN, HLD, Lymphedema, Obesity Hypoventilation Syndrome, Hypothyroidism S/P Thyroidectomy, Vascular Dementia, Cerebral Atherosclerosis presents to ED for evaluation. Patient is stuporous with diminished cognition and is unable to provide history. Patient history taken from EMS staff, ED staff, as well as the patient's son who was made available by telephone for interview. As per son the patient has experienced increased confusion, increased weakness, and decreased oral intake over the past 10 days with persistent and worsening symptoms over the same timeframe. Patient was found to be more confused today making incomprehensible sounds. EMS was notified and upon arrival the patient was found to be in distress and subsequently transported to [facility] for further care and evaluation of the aforementioned symptoms. The patient was seen and evaluated in the emergency department. All lab and imaging studies reviewed. Patient found to have body core temperature of 90 F, blood pressure of 66/34, and heart rate of 54. Patient symptoms consistent with myxedema coma, as well as metabolic encephalopathy, and acute kidney injury. Patient initiated on IV Synthroid therapy and admitted to ICU due to increased risk of worsening symptoms. No reports of fever, chills, chest pain, palpitation, productive cough, skin rash, recent ill contact, or known exposure to COVID-19. Prior admission on 02/23/2021 reviewed. All medication listed at time of admission has been reconciled. Advanced care planning conducted in ED. Patient has diminished cognition but has a positive gag reflex and is currently able to protect her airway without difficulty at the time of my evaluation. Critical care team consulted. Patient seen and examined today, while BP and HR are improved along with Temperature, the patient remains stuporous, although opens eyes some. Will check ammonia level, Start on CPAP/BiPAP at night time. Adjust synthroid based on treatment protocol. She is maintaining her airway (1) Myxedema coma Current Visit: Yes Status: Acute Plan to address problem: IV Synthroid therapy, IV fluid resuscitation therapy, neuro check, seizure precautions, aspiration precautions, thyroid panel, free T4 level. (2) Metabolic encephalopathy Current Visit: Yes Status: Acute Plan to address problem: CT scan head, neuro check, seizure precautions, aspiration precautions, IV fluid resuscitation therapy (3) Hypernatremia Current Visit: Yes Status: Acute Plan to address problem: IV fluid resuscitation therapy with lactated Ringer's, repeat BMP in a.m., monitor fluid balance. (4) Acute kidney injury (JOZEF) with acute tubular necrosis (ATN) Current Visit: Yes Status: Acute Plan to address problem: IV fluid resuscitation therapy, BMP, repeat BMP in a.m. to monitor serum c reatinine as well as GFR. (5) Obesity hypoventilation syndrome Current Visit: Yes Status: Acute Plan to address problem: Balanced diet, increase physical activity at discharge (6) Anemia of chronic disease (7) DVT prophylaxis Current Visit: Yes Status: Acute Plan to address problem: SCDs bilateral lower extremities while in bed, prophylactic anticoagulation (8) Advance care planning Current Visit: Yes Status: Acute Plan to address problem: Disease education conducted, care plan discussed, diagnoses discussed, prognosis discussed, patient is full code, patient family knowledge understanding agree with care plan, +30 minutes. History Interval history: Patient seen and examined, remains lethargic, but per team improved compared to yesterday. HR and BP much better Hospitalist Physical - Physical exam Narrative exam: General appearance: Present: mild distress, obese, remain stuporous - EENT Eyes: Present: PERRL ENT: hearing decreased - Neck Neck: Present: supple, normal ROM - Respiratory Respiratory effort: labored Respiratory: bilateral: diminished - Cardiovascular Rhythm: other (Bradycardia) Heart Sounds: Present: S1 & S2. Absent: rub, click - Extremities Extremities: pulses symmetrical Extremity abnormal: edema Peripheral Pulses: abnormal - Abdominal General gastrointestinal: Present: soft, non-tender, non-distended, normal bowel sounds Female genitourinary: Present: normal - Integumentary Integumentary: Present: clear, dry, clammy, decreased turgor - Musculoskeletal Musculoskeletal: generalized weakness - Psychiatric Psychiatric: no appropriate mood/affect, no intact judgment & insight, no memory intact - Neurologic Neurologic: focal deficits, moves all extremities, no gait normal - Constitutional Vitals: Temp Pulse Resp BP Pulse Ox 98.3 F 75 16 145/63 100 05/15/21 03:28 05/15/21 09:45 05/15/21 09:45 05/15/21 09:45 05/15/21 09:45 General appearance: Present: mild distress, obese HEART Score - HEART Score Troponin: Troponin T 0.121 ng/mL (0.00-0.029) H* 05/14/21 14:35 Results - Labs CBC & Chem 7: 05/15/21 04:50 05/15/21 04:50 Labs: Laboratory Last Values WBC 7.0 K/mm3 (4.5-11.0) 05/15/21 04:50 RBC 2.53 M/mm3 (3.65-5.03) L 05/15/21 04:50 Hgb 7.2 gm/dl (10.1-14.3) L 05/15/21 04:50 Hct 21.0 % (30.3-42.9) L 05/15/21 04:50 MCV 83 fl (79-97) 05/15/21 04:50 MCH 28 pg (28-32) 05/15/21 04:50 MCHC 34 % (30-34) 05/15/21 04:50 RDW 19.6 % (13.2-15.2) H 05/15/21 04:50 Plt Count 34 K/mm3 (140-440) L 05/15/21 04:50 Lymph % (Auto) 18.4 % (13.4-35.0) 05/15/21 04:50 Weston % (Auto) 6.3 % (0.0-7.3) 05/15/21 04:50 Eos % (Auto) 0.2 % (0.0-4.3) 05/15/21 04:50 Baso % (Auto) 0.2 % (0.0-1.8) 05/15/21 04:50 Lymph # (Auto) 1.3 K/mm3 (1.2-5.4) 05/15/21 04:50 Weston # (Auto) 0.4 K/mm3 (0.0-0.8) 05/15/21 04:50 Eos # (Auto) 0.0 K/mm3 (0.0-0.4) 05/15/21 04:50 Baso # (Auto) 0.0 K/mm3 (0.0-0.1) 05/15/21 04:50 Add Manual Diff Complete 05/14/21 10:53 Total Counted 100 05/14/21 10:53 Seg Neutrophils % 74.9 % (40.0-70.0) H 05/15/21 04:50 Seg Neuts % (Manual) 70.0 % (40.0-70.0) 05/14/21 10:53 Lymphocytes % (Manual) 25.0 % (13.4-35.0) 05/14/21 10:53 Monocytes % (Manual) 3.0 % (0.0-7.3) 05/14/21 10:53 Eosinophils % (Manual) 1.0 % (0.0-4.3) 05/14/21 10:53 Basophils % (Manual) 1.0 % (0.0-1.8) 05/14/21 10:53 Nucleated RBC % 1.0 % (0.0-0.9) H 05/14/21 10:53 Seg Neutrophils # 5.2 K/mm3 (1.8-7.7) 05/15/21 04:50 Seg Neutrophils # Man 5.0 K/mm3 (1.8-7.7) 05/14/21 10:53 Band Neutrophils # 0.0 K/mm3 05/14/21 10:53 Lymphocytes # (Manual) 1.8 K/mm3 (1.2-5.4) 05/14/21 10:53 Abs React Lymphs (Man) 0.0 K/mm3 05/14/21 10:53 Monocytes # (Manual) 0.2 K/mm3 (0.0-0.8) 05/14/21 10:53 Eosinophils # (Manual) 0.1 K/mm3 (0.0-0.4) 05/14/21 10:53 Basophils # (Manual) 0.1 K/mm3 (0.0-0.1) 05/14/21 10:53 Metamyelocytes # 0.0 K/mm3 05/14/21 10:53 Myelocytes # 0.0 K/mm3 05/14/21 10:53 Promyelocytes # 0.0 K/mm3 05/14/21 10:53 Blast Cells # 0.0 K/mm3 05/14/21 10:53 WBC Morphology Not Reportable 05/14/21 10:53 Hypersegmented Neuts Not Reportable 05/14/21 10:53 Hyposegmented Neuts Not Reportable 05/14/21 10:53 Hypogranular Neuts Not Reportable 05/14/21 10:53 Smudge Cells Not Reportable 05/14/21 10:53 Toxic Granulation Not Reportable 05/14/21 10:53 Toxic Vacuolation Not Reportable 05/14/21 10:53 Dohle Bodies Not Reportable 05/14/21 10:53 Pelger-Huet Anomaly Not Reportable 05/14/21 10:53 Christiano Rods Not Reportable 05/14/21 10:53 Platelet Estimate Consistent w auto 05/14/21 10:53 Clumped Platelets Not Reportable 05/14/21 10:53 Plt Clumps, EDTA Not Reportable 05/14/21 10:53 Large Platelets Rare 05/14/21 10:53 Giant Platelets Not Reportable 05/14/21 10:53 Platelet Satelliting Not Reportable 05/14/21 10:53 Plt Morphology Comment Not Reportable 05/14/21 10:53 RBC Morphology Not Reportable 05/14/21 10:53 Dimorphic RBCs Not Reportable 05/14/21 10:53 Polychromasia Not Reportable 05/14/21 10:53 Hypochromasia Not Reportable 05/14/21 10:53 Poikilocytosis 1+ 05/14/21 10:53 Anisocytosis 1+ 05/14/21 10:53 Microcytosis Not Reportable 05/14/21 10:53 Macrocytosis Not Reportable 05/14/21 10:53 Spherocytes Not Reportable 05/14/21 10:53 Pappenheimer Bodies Not Reportable 05/14/21 10:53 Sickle Cells Not Reportable 05/14/21 10:53 Target Cells Not Reportable 05/14/21 10:53 Tear Drop Cells Not Reportable 05/14/21 10:53 Ovalocytes Few 05/14/21 10:53 Helmet Cells Not Reportable 05/14/21 10:53 Winchester-Preakness Bodies Not Reportable 05/14/21 10:53 Hammond Rings Not Reportable 05/14/21 10:53 Kenneth Cells Not Reportable 05/14/21 10:53 Bite Cells Not Reportable 05/14/21 10:53 Crenated Cell Not Reportable 05/14/21 10:53 Elliptocytes Few 05/14/21 10:53 Acanthocytes (Spur) Not Reportable 05/14/21 10:53 Rouleaux Not Reportable 05/14/21 10:53 Hemoglobin C Crystals Not Reportable 05/14/21 10:53 Schistocytes Not Reportable 05/14/21 10:53 Malaria parasites Not Reportable 05/14/21 10:53 Ruddy Bodies Not Reportable 05/14/21 10:53 Hem Pathologist Commnt No 05/14/21 10:53 PT 13.9 Sec. (12.2-14.9) 05/14/21 10:53 INR 0.96 (0.87-1.13) 05/14/21 10:53 APTT 28.5 Sec. (24.2-36.6) 05/14/21 10:53 ABG pH 7.493 (7.320-7.450) H 05/14/21 11:40 POC ABG pCO2 32.3 mmHg (32.0-48.0) 05/14/21 11:40 POC ABG pO2 194.1 mmHg (83-108) H 05/14/21 11:40 POC ABG HCO3 24.2 05/14/21 11:40 ABG O2 Saturation 99.4 (0-100) 05/14/21 11:40 POC ABG Base Excess 1.0 05/14/21 11:40 ABG Hemoglobin 7.3 (12.0-17.5) L 05/14/21 11:40 ABG Oxyhemoglobin 98.3 (94-98) H 05/14/21 11:40 ABG Methemoglobin 0.3 (0.0-1.5) 05/14/21 11:40 ABG Sodium 151.0 mmol/L (136.0-145.0) H 05/14/21 11:40 ABG Potassium 2.8 mmol/L (3.40-4.50) L 05/14/21 11:40 ABG Chloride 111.0 mmol/L (98-107) H 05/14/21 11:40 ABG Glucose 141 mg/dL (65-95) H 05/14/21 11:40 Carboxyhemoglobin 0.8 (0.5-1.5) 05/14/21 11:40 FiO2 % 40.0 05/14/21 11:40 Sodium 155 mmol/L (137-145) H 05/15/21 04:50 Potassium 3.7 mmol/L (3.6-5.0) 05/15/21 04:50 Chloride 111.0 mmol/L (98-107) H 05/15/21 04:50 Carbon Dioxide 24 mmol/L (22-30) 05/15/21 04:50 Anion Gap 24 mmol/L 05/15/21 04:50 BUN 58 mg/dL (7-17) H 05/15/21 04:50 Creatinine 1.9 mg/dL (0.6-1.2) H 05/15/21 04:50 Estimated GFR 32 ml/min 05/15/21 04:50 BUN/Creatinine Ratio 31 % 05/15/21 04:50 Glucose 127 mg/dL (65-100) H 05/15/21 04:50 POC Glucose 116 mg/dL (70-105) H 05/14/21 11:15 Lactic Acid 1.40 mmol/L (0.7-2.0) 05/14/21 13:19 Calcium 10.2 mg/dL (8.4-10.2) 05/15/21 04:50 Magnesium 2.80 mg/dL (1.7-2.3) H 05/14/21 10:53 Total Bilirubin 0.70 mg/dL (0.1-1.2) 05/15/21 04:50 AST 29 units/L (5-40) 05/15/21 04:50 ALT 20 units/L (7-56) 05/15/21 04:50 Alkaline Phosphatase 94 units/L (35-129) 05/15/21 04:50 Total Creatine Kinase 103 units/L (30-135) 05/14/21 12:22 Troponin T 0.121 ng/mL (0.00-0.029) H* 05/14/21 14:35 Total Protein 7.6 g/dL (6.3-8.2) 05/15/21 04:50 Albumin 4.2 g/dL (3.9-5) 05/15/21 04:50 Albumin/Globulin Ratio 1.2 % 05/15/21 04:50 Triglycerides 190 mg/dL (2-149) H 05/14/21 10:53 Cholesterol 139 mg/dL (50-199) 05/14/21 10:53 LDL Cholesterol Direct 40 mg/dL (50-130) L 05/14/21 10:53 HDL Cholesterol 55 mg/dL (40-59) 05/14/21 10:53 Cholesterol/HDL Ratio 2.52 % 05/14/21 10:53 TSH 100.000 mlU/mL (0.270-4.200) H 05/14/21 10:53 Free T4 0.10 ng/dL (0.76-1.46) L 05/14/21 17:06 Arterial Blood Glucose 141 mg/dL (65-95) H 05/14/21 11:40 Urine Color Yellow (Yellow) 05/14/21 Unknown Urine Turbidity Clear (Clear) 05/14/21 Unknown Urine pH 5.0 (5.0-7.0) 05/14/21 Unknown Ur Specific Millsap 1.016 (1.003-1.030) 05/14/21 Unknown Urine Protein 100 mg/dl mg/dL (Negative) 05/14/21 Unknown Urine Glucose (UA) Neg mg/dL (Negative) 05/14/21 Unknown Urine Ketones Neg mg/dL (Negative) 05/14/21 Unknown Urine Blood Sm (Negative) 05/14/21 Unknown Urine Nitrite Neg (Negative) 05/14/21 Unknown Urine Bilirubin Neg (Negative) 05/14/21 Unknown Urine Urobilinogen 2.0 mg/dL (<2.0) 05/14/21 Unknown Ur Leukocyte Esterase Neg (Negative) 05/14/21 Unknown Urine WBC (Auto) 2.0 /HPF (0.0-6.0) 05/14/21 Unknown Urine RBC (Auto) 1.0 /HPF (0.0-6.0) 05/14/21 Unknown U Epithel Cells (Auto) 3.0 /HPF (0-13.0) 05/14/21 Unknown Urine Mucus Few /HPF 05/14/21 Unknown Microbiology: Microbiology 05/14/21 10:53 Peripheral/Venous Blood Culture - Preliminary NO GROWTH AFTER 24 HOURS 05/14/21 10:53 Peripheral/Venous Blood Culture - Preliminary NO GROWTH AFTER 24 HOURS 05/14/21 12:03 Stool Stool Occult Blood (EMILY) - Final Active Medications - Current Medications Current Medications: Generic Name Dose Route Start Last Admin Trade Name Freq PRN Reason Stop Dose Admin Acetaminophen 650 mg 05/14/21 15:07 Acetaminophen 325 Mg Tab PO Q6H PRN Pain MILD(1-3)/Fever >100.5/CORTES Albuterol 2.5 mg 05/14/21 15:07 Albuterol 2.5 Mg/3 Ml Nebu IH Q3HRT PRN Shortness Of Breath Aspirin 81 mg 05/15/21 10:00 Aspirin 81 Mg Tab Chew PO QDAY [facility] Atorvastatin Calcium 40 mg 05/14/21 22:00 05/14/21 23:54 Atorvastatin 40 Mg Tab PO Not Given QHS [facility] Atropine Sulfate 1 mg 05/14/21 15:20 Atropine 1 Mg/Ml Vial IV ONCE PRN Bradycardia Clonidine HCl 0.2 mg 05/14/21 22:00 05/14/21 23:54 Clonidine 0.2 Mg Tab PO Not Given Q12HR [facility] Hydralazine HCl 100 mg 05/14/21 20:00 05/14/21 23:54 Hydralazine 100 Mg Tab PO Not Given TID [facility] Hydromorphone HCl 0.5 mg 05/14/21 15:07 Hydromorphone 1 Mg/1 Ml Inj IV Q23H PRN Pain , Severe (7-10) Dextrose/Sodium Chloride 1,000 mls @ 100 mls/hr 05/14/21 18:00 D5ns 0.2% IV DIRECT [facility] Levothyroxine Sodium 100 mcg 05/15/21 06:00 05/15/21 06:45 Levothyroxine 100 Mcg Inj IV 100 mcg DAILY@0600 [facility] Administration Nifedipine 60 mg 05/15/21 10:00 Nifedipine Xl 60 Mg Tab PO QDAY [facility] Oxycodone/Acetaminophen 1 tab 05/14/21 15:07 Oxycodone /Acetaminophen 5-325mg Tab PO Q16H PRN Pain, Moderate (4-6) Polyethylene Glycol 17 gm 05/14/21 15:06 Polyethylene Glycol 3350 17 Gm Powder PO QDAY PRN Constipation Sodium Chloride 10 ml 05/14/21 22:00 05/15/21 06:49 Sodium Chloride 0.9% 10 Ml Flush Syringe IV 10 ml BID ALEX Administration Sodium Chloride 10 ml 05/14/21 15:07 Sodium Chloride 0.9% 10 Ml Flush Syringe IV PRN PRN LINE FLUSH
[2021-05-15] MEDS: D5W/0.2% NACL 1,000 ML IV SCH ×2 (14:10→23:04)
--- NOTE | 2021-05-15 15:29 | Consultation ---
History of Present Illness Consult date: 05/15/21 Requesting physician: CECILY BENTON Consult reason: arrhythmia (NSVT) History of present illness: Patient is a 70-year-old female with a PMHx CVA with LHP, HTN, HLD, Lymphedema, Obesity Hypoventilation Syndrome, Hypothyroidism S/P Thyroidectomy, Vascular Dementia, Cerebral Atherosclerosis presents to the ED for worsening confusion, weakness, and decreased intake x 10 days. History is taken from documentation and discussion with the ED staff due to patient's altered mental status at time of interview. ED work-up and patient symptoms were consistent with myxedema coma and JOZEF. The patient is previously unknown to our practice. Cardiology is being consulted for NSVT rhythm strip available to show NSVT. At time of interview patient was sinus on monitor and EKG showed sinus rhythm. Past History Past Medical History: hypertension, hyperlipidemia, hypothyroidism, stroke Past Surgical History: thyroidectomy Social history: single. denies: smoking, alcohol abuse Family history: diabetes, hypertension Medications and Allergies Allergies Allergy/AdvReac Type Severity Reaction Status Date / Time No Known Allergies Allergy Verified 02/23/21 07:42 Home Medications Medication Instructions Recorded Confirmed Last Taken Type Aspirin [Aspirin BABY CHEW TAB] 81 mg PO QDAY tab.chew 02/28/21 05/14/21 05/13/21 08:00 Rx AtorvaSTATin [Lipitor] 40 mg PO QHS #30 tablet 02/28/21 05/14/21 05/13/21 21:00 Rx NIFEdipine XL [Procardia Xl] 60 mg PO QDAY #30 tablet 02/28/21 05/14/21 05/13/21 08:00 Rx cloNIDine [Catapres] 0.2 mg PO Q12HR #60 tablet 02/28/21 05/14/21 05/13/21 19:00 Rx hydrALAZINE [Apresoline TAB] 100 mg PO TID #90 tab 02/28/21 05/14/21 05/13/21 18:00 Rx polyethylene glycoL 3350 [Miralax 17 gm PO QDAY PRN powd.pack 02/28/21 Unknown Rx 3350] Active Meds: Active Medications Acetaminophen (Acetaminophen 325 Mg Tab) 650 mg PO Q6H PRN PRN Reason: Pain MILD(1-3)/Fever >100.5/CORTES Albuterol (Albuterol 2.5 Mg/3 Ml Nebu) 2.5 mg IH Q3HRT PRN PRN Reason: Shortness Of Breath Aspirin (Aspirin 81 Mg Tab Chew) 81 mg PO QDAY [facility] Last Admin: 05/15/21 10:26 Dose: Not Given Documented by: Atorvastatin Calcium (Atorvastatin 40 Mg Tab) 40 mg PO QHS [facility] Last Admin: 05/14/21 23:54 Dose: Not Given Documented by: Atropine Sulfate (Atropine 1 Mg/Ml Vial) 1 mg IV ONCE PRN PRN Reason: Bradycardia Clonidine HCl (Clonidine 0.2 Mg Tab) 0.2 mg PO Q12HR [facility] Last Admin: 05/15/21 10:26 Dose: Not Given Documented by: Hydralazine HCl (Hydralazine 100 Mg Tab) 100 mg PO TID [facility] Last Admin: 05/15/21 10:26 Dose: Not Given Documented by: Hydromorphone HCl (Hydromorphone 1 Mg/1 Ml Inj) 0.5 mg IV Q23H PRN PRN Reason: Pain , Severe (7-10) Dextrose/Sodium Chloride (D5ns 0.2%) 1,000 mls @ 100 mls/hr IV DIRECT [facility] Last Admin: 05/15/21 14:10 Dose: 100 mls/hr Documented by: Levothyroxine Sodium (Levothyroxine 100 Mcg Inj) 100 mcg IV DAILY@0600 [facility] Last Admin: 05/15/21 06:45 Dose: 100 mcg Documented by: Nifedipine (Nifedipine Xl 60 Mg Tab) 60 mg PO QDAY [facility] Last Admin: 05/15/21 10:26 Dose: Not Given Documented by: Oxycodone/Acetaminophen (Oxycodone /Acetaminophen 5-325mg Tab) 1 tab PO Q16H PRN PRN Reason: Pain, Moderate (4-6) Polyethylene Glycol (Polyethylene Glycol 3350 17 Gm Powder) 17 gm PO QDAY PRN PRN Reason: Constipation Sodium Chloride (Sodium Chloride 0.9% 10 Ml Flush Syringe) 10 ml IV BID [facility] Last Admin: 05/15/21 10:18 Dose: 10 ml Documented by: Sodium Chloride (Sodium Chloride 0.9% 10 Ml Flush Syringe) 10 ml IV PRN PRN PRN Reason: LINE FLUSH Review of Systems ROS unobtainable: due to mental status Physical Examination Vital Signs Pulse Ox 100 05/14/21 10:35 General appearance: other (altered mental status) HEENT: Positive: Normocephaly Neck: Positive: trachea midline Cardiac: Positive: Reg Rate and Rhythm Lungs: Positive: Decreased Breath Sounds Neuro: Positive: Other (unable to assess) Abdomen: Positive: Soft Skin: Negative: Rash, Suspicious Lesions Extremities: Present: upper extr. pulses, lower extr. pulses Results 05/15/21 04:50 05/15/21 04:50 Cardiac Enzymes 05/15/21 Range/Units 04:50 AST 29 (5-40) units/L CBC 05/15/21 Range/Units 04:50 WBC 7.0 (4.5-11.0) K/mm3 RBC 2.53 L (3.65-5.03) M/mm3 Hgb 7.2 L (10.1-14.3) gm/dl Hct 21.0 L (30.3-42.9) % Plt Count 34 L (140-440) K/mm3 Lymph # (Auto) 1.3 (1.2-5.4) K/mm3 Taylor # (Auto) 0.4 (0.0-0.8) K/mm3 Eos # (Auto) 0.0 (0.0-0.4) K/mm3 Baso # (Auto) 0.0 (0.0-0.1) K/mm3 Comprehensive Metabolic Panel 05/15/21 Range/Units 04:50 Sodium 155 H (137-145) mmol/L Potassium 3.7 (3.6-5.0) mmol/L Chloride 111.0 H (98-107) mmol/L Carbon Dioxide 24 (22-30) mmol/L BUN 58 H (7-17) mg/dL Creatinine 1.9 H (0.6-1.2) mg/dL Glucose 127 H (65-100) mg/dL Calcium 10.2 (8.4-10.2) mg/dL AST 29 (5-40) units/L ALT 20 (7-56) units/L Alkaline Phosphatase 94 (35-129) units/L Total Protein 7.6 (6.3-8.2) g/dL Albumin 4.2 (3.9-5) g/dL - Imaging and Cardiology Echo: pending EKG interpretations - Telemetry EKG Rhythm: Sinus Rhythm - EKG Sinus rhythms and dysrhythmias: sinus rhythm Repolarization changes or abnormalities: nonspecific abnormality, ST segment, and/or T wave Assessment and Plan Myxedema coma Management per primary team NSVT HTN NSTEMI suspect type 2 * EKG shows sinus rhythm rate of 72, nonspecific T abnormalities, no acute ischemic changes * Troponin is noted to be elevated in setting of myxedema coma Hypernatremia JOZEF * nephrology consulted Plan: Echo pending Agree with holding p.o. meds due to patient's mental status Hold anticoagulation due to thrombocytopenia Patient seen in conjunction with Dr. Soler who agreed with this plan of care. We will continue to - Patient Problems (1) Acute kidney injury (JOZEF) with acute tubular necrosis (ATN) Current Visit: Yes Status: Acute (2) Hypernatremia Current Visit: Yes Status: Acute (3) Metabolic encephalopathy Current Visit: Yes Status: Acute (4) Myxedema coma Current Visit: Yes Status: Acute (5) Obesity hypoventilation syndrome Current Visit: Yes Status: Acute (6) Thrombocytopenia Current Visit: Yes Status: Acute
--- NOTE | 2021-05-15 17:11 | XRay Report ---
ABDOMEN 1 VIEW(S) INDICATION / CLINICAL INFORMATION: tube placement. COMPARISON: None available. FINDINGS: TUBES / LINES: Feeding tube enters the stomach and is doubled back on itself with tip at the fundus. BOWEL GAS PATTERN: No significant abnormality. FREE AIR / EXTRALUMINAL GAS: None seen. ADDITIONAL FINDINGS: No significant additional findings. IMPRESSION: 1. Feeding tube tip is in the gastric fundus as above. Signer Name: Preet Wesley MD Signed: 05/15/2021 5:07 PM Workstation Name: [employer] [facility]
[2021-05-16] MEDS ORDERED: SODIUM CHLORIDE 0.9% 1000 ML 1,000 ML IV ONE (02:52)
[2021-05-16 04:43] LABS: Mean Corpuscular HGB Conc 33 % (30-34); Mean Corpuscular Volume 84 fl (79-97); Red Blood Count 2.13 M/mm3 (3.65-5.03); Red Cell Distribution Width 19.7 % (13.2-15.2)
[2021-05-16 04:48] LABS: Platelet Count 24 K/mm3 (140-440)
[2021-05-16 04:50] LABS: Hematocrit 17.8 % (30.3-42.9); Hemoglobin 5.9 gm/dl (10.1-14.3)
[2021-05-16] MEDS ORDERED: SODIUM CHLORIDE 0.9% 500 ML 500 ML IV ONE (05:00)
[2021-05-16 05:05] LABS: Albumin 3.8 g/dL (3.9-5); Calcium 9.3 mg/dL (8.4-10.2)
[2021-05-16] MEDS ORDERED: DEXTROSE 50% IN WATER (25GM) 50 ML SYRINGE IV PRN (05:34)
[2021-05-16] MEDS: LEVOTHYROXINE 100 MCG INJ IV SCH (07:27)
[2021-05-16] MEDS: D5W/0.2% NACL 1,000 ML IV SCH (07:38)
[2021-05-16] MEDS: INSULIN LISPRO 100 UNIT/ML SUB-Q SCH ×3 (07:38→18:49)
[2021-05-16] MEDS: hydrALAZINE 100 MG TAB PO SCH ×2 (08:04→15:48)
[2021-05-16] MEDS ORDERED: POTASSIUM CHLORIDE 20 MEQ 20 MEQ/100 ML BAG IV SCH (08:15)
[2021-05-16] MEDS ORDERED: SODIUM CHLORIDE 0.9% 500 ML 500 ML IV NR (08:32)
--- NOTE | 2021-05-16 09:45 | Consultation ---
History of Present Illness - Reason for Consult Consult date: 05/16/21 acute renal failure, hypernatremia, hypokalemia Requesting physician: ZAN SIMPSON - History of Present Illness This is a 70 yo F with past medical history of CVA with LHP, HTN, HLD, Lymphedema, Obesity Hypoventilation Syndrome, Hypothyroidism S/P Thyroidectomy, Vascular Dementia, Cerebral Atherosclerosis who presents to ED with complaints of stupor, diminished cognition. Pt is unable to provide history. Patient history taken from EMS/ED chart and from family. As per son the patient has exp erienced increased confusion, increased weakness, and decreased oral intake over the past 10 days with persistent and worsening symptoms. Patient was found to be more confused today making incomprehensible sounds. EMS was notified and upon arrival the patient was found to be in distress and subsequently transported to [facility] for further care and evaluation of the aforementioned symptoms. In ER Patient was found to be hypothermic with body core temperature of 90 F, BP as low as 66/34, and heart rate of 54. labs showed TSH > 100, Patient symptoms consistent with myxedema coma, as well as metabolic encephalopathy. Patient initiated on IV hydrocortisone and IV Synthroid therapy and admitted to ICU due to increased risk of worsening symptoms. Patient has diminished cognition but has a positive gag reflex and is currently able to protect her airway without difficulty at the time of my evaluation. Critical care team was consulted. Labs also showed hypernatremia with Na > 155, elevated BUN/Cr at 58/1.9 mg/dl and worsening hypokalemia with K as low as 2.8 for which renal consult is requested. Past History Past Medical History: hypertension, hyperlipidemia, hypothyroidism, stroke Past Surgical History: thyroidectomy Social history: single. denies: smoking, alcohol abuse Family history: diabetes, hypertension Medications and Allergies Allergies Allergy/AdvReac Type Severity Reaction Status Date / Time No Known Allergies Allergy Verified 02/23/21 07:42 Home Medications Medication Instructions Recorded Confirmed Last Taken Type Aspirin [Aspirin BABY CHEW TAB] 81 mg PO QDAY tab.chew 02/28/21 05/14/21 05/13/21 08:00 Rx AtorvaSTATin [Lipitor] 40 mg PO QHS #30 tablet 02/28/21 05/14/21 05/13/21 21:00 Rx NIFEdipine XL [Procardia Xl] 60 mg PO QDAY #30 tablet 02/28/21 05/14/21 05/13/21 08:00 Rx cloNIDine [Catapres] 0.2 mg PO Q12HR #60 tablet 02/28/21 05/14/21 05/13/21 19:00 Rx hydrALAZINE [Apresoline TAB] 100 mg PO TID #90 tab 02/28/21 05/14/21 05/13/21 18:00 Rx polyethylene glycoL 3350 [Miralax 17 gm PO QDAY PRN powd.pack 02/28/21 Unknown Rx 3350] Active Meds: Active Medications Acetaminophen (Acetaminophen 325 Mg Tab) 650 mg PO Q6H PRN PRN Reason: Pain MILD(1-3)/Fever >100.5/CORTES Albuterol (Albuterol 2.5 Mg/3 Ml Nebu) 2.5 mg IH Q3HRT PRN PRN Reason: Shortness Of Breath Aspirin (Aspirin 81 Mg Tab Chew) 81 mg PO QDAY [facility] Last Admin: 05/15/21 10:26 Dose: Not Given Documented by: Atorvastatin Calcium (Atorvastatin 40 Mg Tab) 40 mg PO QHS [facility] Last Admin: 05/15/21 22:32 Dose: 40 mg Documented by: Atropine Sulfate (Atropine 1 Mg/Ml Vial) 1 mg IV ONCE PRN PRN Reason: Bradycardia Clonidine HCl (Clonidine 0.2 Mg Tab) 0.2 mg PO Q12HR [facility] Last Admin: 05/15/21 22:32 Dose: 0.2 mg Documented by: Dextrose (Dextrose 50% In Water (25gm) 50 Ml Syringe) 0 ml IV Q30MIN PRN; Protocol PRN Reason: Hypoglycemia Hydralazine HCl (Hydralazine 100 Mg Tab) 100 mg PO TID [facility] Last Admin: 05/16/21 08:04 Dose: Not Given Documented by: Hydromorphone HCl (Hydromorphone 1 Mg/1 Ml Inj) 0.5 mg IV Q23H PRN PRN Reason: Pain , Severe (7-10) Dextrose/Sodium Chloride (D5ns 0.2%) 1,000 mls @ 100 mls/hr IV DIRECT [facility] Last Admin: 05/16/21 07:38 Dose: 100 mls/hr Documented by: Potassium Chloride (Kcl 20meq/100ml) 20 meq in 100 mls @ 100 mls/hr IV ONCE@0815 [facility] Stop: 05/16/21 12:15 Last Admin: 05/16/21 09:00 Dose: 100 mls/hr Documented by: Sodium Chloride (Nacl 0.9% 500 Ml) 500 mls @ 0 mls/hr IV ONCE NR Stop: 05/16/21 23:59 Insulin Human Lispro (Insulin Lispro 100 Unit/Ml) 0 unit SUB-Q Q6HR ALEX; Protoc ol Last Admin: 05/16/21 07:38 Dose: 2 unit Documented by: Levothyroxine Sodium (Levothyroxine 100 Mcg Inj) 100 mcg IV DAILY@0600 [facility] Last Admin: 05/16/21 07:27 Dose: 100 mcg Documented by: Nifedipine (Nifedipine Xl 60 Mg Tab) 60 mg PO QDAY [facility] Last Admin: 05/15/21 10:26 Dose: Not Given Documented by: Oxycodone/Acetaminophen (Oxycodone /Acetaminophen 5-325mg Tab) 1 tab PO Q16H PRN PRN Reason: Pain, Moderate (4-6) Polyethylene Glycol (Polyethylene Glycol 3350 17 Gm Powder) 17 gm PO QDAY PRN PRN Reason: Constipation Sodium Chloride (Sodium Chloride 0.9% 10 Ml Flush Syringe) 10 ml IV BID [facility] Last Admin: 05/15/21 22:33 Dose: 10 ml Documented by: Sodium Chloride (Sodium Chloride 0.9% 10 Ml Flush Syringe) 10 ml IV PRN PRN PRN Reason: LINE FLUSH Review of Systems ROS unobtainable: due to mental status Exam - Vital Signs Vital signs: Vital Signs Pulse Ox 100 05/14/21 10:35 - General Appearance General appearance: well-developed, comatose EENT: ATNC, mucous membranes moist Neck: Present: neck supple Respiratory: Decreased Breath Sounds Heart: regular Gastrointestinal: Present: normal, obese Integumentary: no rash Neurologic: confused, disoriented Results - Lab Results 05/16/21 04:00 05/16/21 04:00 Most recent lab results ABG pH 7.493 (7.320-7.450) H 05/14/21 11:40 ABG O2 Saturation 99.4 (0-100) 05/14/21 11:40 Calcium 9.3 mg/dL (8.4-10.2) 05/16/21 04:00 Magnesium 2.80 mg/dL (1.7-2.3) H 05/14/21 10:53 Assessment and Plan - Patient Problems (1) Myxedema coma Current Visit: Yes Status: Acute Plan to address problem: Cont IV synthroid as per primary attending. pt was treated with hydrocortisone prior to treatment with synthroid, cortisol level pending (2) Acute kidney injury (JOZEF) with acute tubular necrosis (ATN) Current Visit: Yes Status: Acute Plan to address problem: Acute kidney injury most likely secondary to prerenal azotemia in the setting of myxedema coma, volume depletion. check urine lytes, urine P/Cr ratio. Cont IVF with hypotonic saline to correct free water deficit. Maintain MAP > 65mmHg, avoid nephrotoxins. Will monitor lytes, renal parameters closely and make fur ther recommendations. (3) Metabolic encephalopathy Current Visit: Yes Status: Acute Plan to address problem: Likely secondary to myxedema coma, CT head was negative (4) Hypernatremia Current Visit: Yes Status: Acute Plan to address problem: Free water deficit > 5L, cont free water flushes via OGT along with D5/0.2% saline to target Na correction at < 8meq/24h (5) Hypokalemia Current Visit: Yes Status: Acute Plan to address problem: likely due to decreased oral intake, now worsening hypokalemia after treatment with hydrocortisone. cont aggressive supplementation with KCl to target K > 4. will check TTKG to assess renal K wasting (6) Anemia in chronic illness Current Visit: Yes Status: Acute Plan to address problem: transfuse with PRBC prn to target hb > 7
[2021-05-16] MEDS ORDERED: ACETAMINOPHEN 650 MG RECT SUPP PR ONE (09:51)
[2021-05-16] MEDS ORDERED: CEFEPIME/NS 2 GM/100 ML 2 GM/100 ML BAG IV SCH (10:20)
[2021-05-16] MEDS ORDERED: SIMPLE SYRUP 15 ML FEEDTUBE PRN ×2 (10:23)
[2021-05-16] MEDS ORDERED: LIPASE 10,500/PROTEASE 25,000/AMYLASE 43,750 (UNITS) DR CAP FEEDTUBE PRN (10:23)
[2021-05-16] MEDS ORDERED: SODIUM BICARBONATE 325 MG TAB FEEDTUBE PRN (10:23)
[2021-05-16] MEDS: cloNIDine 0.2 MG TAB PO SCH (11:00)
[2021-05-16] MEDS ORDERED: VANCOMYCIN 2,000 MG in SODIUM CHLORIDE 0.9% 500 ML 500 ML IV SCH (11:00)
[2021-05-16] MEDS: ASPIRIN 81 MG TAB CHEW PO SCH (11:42)
[2021-05-16] MEDS ORDERED: POTASSIUM CHLORIDE ER 20 MEQ TAB PO SCH (11:48)
[2021-05-16] MEDS: POTASSIUM CHLORIDE 10 MEQ 10 MEQ/100 ML BAG IV SCH ×5 (12:44→18:55)
--- NOTE | 2021-05-16 14:11 | Progress Note ---
Assessment and Plan Myxedema coma Management per primary team NSVT HTN NSTEMI suspect type 2 * EKG shows sinus rhythm rate of 72, nonspecific T abnormalities, no acute ischemic changes * Troponin is noted to be elevated in setting of myxedema coma Hypernatremia JOZEF * Nephrology following Thrombocytopenia Anemia * Patient to have blood tranfusion * Management per primary team Plan: Echo pending Agree with holding p.o. meds due to patient's mental status Hold anticoagulation due to thrombocytopenia Patient seen in conjunction with Dr. Soler who agreed with this plan of care. We will continue to follow - Patient Problems (1) Acute kidney injury (JOZEF) with acute tubular necrosis (ATN) Current Visit: Yes Status: Acute (2) Hypernatremia Current Visit: Yes Status: Acute (3) Metabolic encephalopathy Current Visit: Yes Status: Acute (4) Myxedema coma Current Visit: Yes Status: Acute (5) Obesity hypoventilation syndrome Current Visit: Yes Status: Acute (6) Thrombocytopenia Current Visit: Yes Status: Acute Subjective Date of service: 05/16/21 Principal diagnosis: myxedema coma Interval history: Patient remains altered Sinus 69 on monitor Objective Vital Signs Temp Pulse Resp BP BP Pulse Ox 05/16/21 14:07 92.2 F L 76 19 134/80 98 05/16/21 12:20 64 11 L 130/74 100 05/16/21 12:10 66 19 130/74 100 05/16/21 12:00 60 24 137/69 100 05/16/21 11:50 57 L 9 L 137/69 100 05/16/21 11:44 93.4 F L 05/16/21 11:41 66 16 129/69 98 05/16/21 11:30 68 26 H 129/69 100 05/16/21 11:00 61 23 117/69 100 05/16/21 10:30 62 15 119/64 100 05/16/21 10:00 64 15 122/71 100 05/16/21 09:30 67 13 117/63 99 05/16/21 09:00 59 L 19 116/71 100 05/16/21 08:45 91.4 F L 05/16/21 08:30 53 L 14 110/68 100 05/16/21 08:00 62 16 114/66 100 05/16/21 07:43 60 15 114/67 100 05/16/21 07:30 49 L 16 114/67 100 05/16/21 07:00 54 L 15 104/61 100 05/16/21 06:30 67 17 103/62 100 05/16/21 06:00 70 11 L 112/59 100 05/16/21 05:39 14 97 05/16/21 05:30 67 11 L 109/54 97 05/16/21 05:00 59 L 14 111/57 97 05/16/21 04:30 70 14 112/43 98 05/16/21 04:00 61 15 110/52 100 05/16/21 03:30 68 22 104/52 99 05/16/21 03:10 18 82/44 97 05/16/21 03:00 63 13 86/42 96 05/16/21 02:40 69 14 72/45 99 05/16/21 02:30 62 19 88/53 98 05/16/21 02:01 81 29 H 95/54 97 05/16/21 01:31 68 12 99/44 98 05/16/21 01:15 66 23 99/44 99 05/16/21 01:01 64 15 89/49 100 05/16/21 00:31 68 21 95/46 100 05/16/21 00:15 65 21 95/46 100 05/16/21 00:01 56 L 17 95/46 100 05/15/21 23:45 72 19 157/74 99 05/15/21 23:39 74 18 157/74 100 05/15/21 23:31 72 8 L 157/74 99 05/15/21 23:15 73 13 157/74 98 05/15/21 23:01 73 19 157/74 99 05/15/21 22:45 72 20 151/81 98 05/15/21 22:32 70 151/81 05/15/21 22:31 73 18 151/81 97 05/15/21 22:15 76 15 151/81 98 05/15/21 22:01 74 18 151/81 99 05/15/21 21:45 73 18 143/79 100 05/15/21 21:31 76 9 L 143/79 99 05/15/21 21:15 72 14 143/79 99 05/15/21 21:01 75 15 143/79 98 05/15/21 20:45 73 13 146/74 96 05/15/21 20:31 74 16 146/74 99 05/15/21 20:15 78 17 146/74 100 05/15/21 20:01 78 13 146/74 99 05/15/21 19:45 74 13 146/60 95 05/15/21 19:31 77 16 146/60 99 05/15/21 19:15 61 18 146/60 98 05/15/21 19:01 59 L 12 146/60 96 05/15/21 18:45 76 15 121/56 97 05/15/21 18:31 75 16 121/56 97 05/15/21 18:15 73 16 121/56 97 05/15/21 18:01 76 20 121/56 97 05/15/21 17:45 68 14 121/56 97 05/15/21 17:31 64 15 121/56 97 05/15/21 17:15 76 16 121/56 97 05/15/21 17:01 78 20 121/56 99 05/15/21 16:45 78 15 145/76 05/15/21 16:31 85 15 145/76 05/15/21 16:15 83 18 145/76 05/15/21 16:01 80 17 145/76 05/15/21 15:45 80 20 141/68 98 05/15/21 15:31 79 13 148/54 98 05/15/21 15:15 82 21 152/64 98 05/15/21 15:01 79 12 137/66 98 05/15/21 14:45 71 10 L 138/61 97 05/15/21 14:31 80 21 135/61 99 05/15/21 14:15 80 15 100 - Physical Examination General: Other (altered mental status) HEENT: Positive: Normocephaly Neck: Positive: trachea midline Cardiac: Positive: Reg Rate and Rhythm Lungs: Positive: Decreased Breath Sounds Neuro: Positive: Other (unable to assess) Abdomen: Positive: Soft Skin: Negative: Rash, Suspicious Lesions Extremities: Present: upper extr. pulses, lower extr. pulses - Labs and Meds Cardiac Enzymes 05/16/21 Range/Units 04:00 AST 25 (5-40) units/L CBC 05/16/21 Range/Units 04:00 WBC 7.0 (4.5-11.0) K/mm3 RBC 2.13 L (3.65-5.03) M/mm3 Hgb 5.9 L* (10.1-14.3) gm/dl Hct 17.8 L* (30.3-42.9) % Plt Count 24 L (140-440) K/mm3 Comprehensive Metabolic Panel 05/16/21 Range/Units 04:00 Sodium 150 H (137-145) mmol/L Potassium 2.8 L* D (3.6-5.0) mmol/L Chloride 110.0 H (98-107) mmol/L Carbon Dioxide 24 (22-30) mmol/L BUN 61 H (7-17) mg/dL Creatinine 1.9 H (0.6-1.2) mg/dL Glucose 234 H (65-100) mg/dL Calcium 9.3 (8.4-10.2) mg/dL AST 25 (5-40) units/L ALT 17 (7-56) units/L Alkaline Phosphatase 79 (35-129) units/L Total Protein 6.6 (6.3-8.2) g/dL Albumin 3.8 L (3.9-5) g/dL - Imaging and Cardiology Echo: pending - EKG Sinus rhythms and dysrhythmias: sinus rhythm Repolarization changes or abnormalities: nonspecific abnormality, ST segment, and/or T wave
--- NOTE | 2021-05-16 15:11 | Progress Note ---
Assessment and Plan Assessment and plan: 70 YO Female with CVA with LHP, HTN, HLD, Lymphedema, Obesity Hypoventilation Syndrome, Hypothyroidism S/P Thyroidectomy, Vascular Dementia, Cerebral Atherosclerosis presents to ED for evaluation. Patient is stuporous with diminished cognition and is unable to provide history. Patient history taken fr EMS staff, ED staff, as well as the patient's son who was made available by telephone for interview. As per son the patient has experienced increased confusion, increased weakness, and decreased oral intake over the past 10 days with persistent and worsening symptoms over the same timeframe. Patient was found to be more confused today making incomprehensible sounds. EMS was notified and upon arrival the patient was found to be in distress and subsequently transported to [facility] for further care and evaluation of the aforementioned symptoms. The patient was seen and evaluated in the emergency department. All lab and imaging studies reviewed. Patient found to have body core temperature of 90 F, blood pressure of 66/34, and heart rate of 54. Patient symptoms consistent with myxedema coma, as well as metabolic encephalopathy, and acute kidney injury. Patient initiated on IV Synthroid therapy and admitted to ICU due to increased risk of worsening symptoms. No reports of fever, chills, chest pain, palpitation, productive cough, skin rash, recent ill contact, or known exposure to COVID-19. Prior admission on 02/23/2021 reviewed. All medication listed at time of admission has been reconciled. Advanced care planning conducted in ED. Patient has diminished cognition but has a positive gag reflex and is currently able to protect her airway without difficulty at the time of my evaluation. Critical care team consulted. Patient seen and examined today, while BP and HR are improved along with Temperature, the patient remains stuporous, although opens eyes some. Will check ammonia level, Start on CPAP/BiPAP at night time. Adjust synthroid based on treatment protocol. She is maintaining her airway #Myxedema coma -Continue IV Synthroid therapy, IV fluid resuscitation -Ordering TSH and free T4 -Continue neurochecks, seizure precautions, and aspiration precaution -If no clinical improvement by tomorrow, consider endocrine consult #Metabolic encephalopathy -Likely secondary to myxedema coma -CT head Noncon negative. If encephalopathy continues after myxedema coma resolves, consider neurology consult and further metabolic work-up. #Hypernatremia -Sodium 150 -Status post lactated ringer administration on 05/15/2021. -Ordering NG tube placement with free water 300 cc every 4 hours to prevent worsening of hypernatremia. Patient unable to consume fluids given medical condition. -We will repeat BMP in the morning #Acute kidney injury (JOZEF) with acute tubular necrosis (ATN) -Baseline creatinine unknown -Creatinine 1.9 -We will continue to monitor with further fluid resuscitation #Obesity hypoventilation syndrome -We will likely need further evaluation upon discharge #Anemia of chronic disease #Acute blood loss -Hemoglobin 5.9 -Transfuse 2 units packed RBCs; pending repeat hemoglobin. -Transfuse if hemoglobin <7 or patient becomes symptomatic #Hypokalemia -Potassium 2.8 -Aggressive repletion. Pending repeat BMP #Thrombocytopenia -Platelets 24 -Unknown etiology for thrombocytopenia. We will continue to monitor. Transfuse if platelets less than 20. #DVT prophylaxis -Continue SCDs of bilateral lower extremities; holding off on prophylactic anticoagulation in the setting of thrombocytopenia SCDs bilateral lower extremities while in bed, prophylactic anticoagulation #Advance care planning -Disease education conducted, care plan discussed, diagnoses discussed, prognosis discussed, patient is full code, patient family knowledge understanding agree with care plan, +30 minutes. Disposition Plan: Continue medical management Total Time Spent with Patient (Minutes): 40 History Interval history: The patient spiked a fever; however, it was not documented in the chart. Hospitalist Physical - Constitutional Vitals: Temp Pulse Resp BP Pulse Ox 92.2 F L 71 18 139/91 99 05/16/21 14:07 05/16/21 14:30 05/16/21 14:30 05/16/21 14:30 05/16/21 14:30 General appearance: Present: no acute distress, obese, disheveled, other (altered mental status) - EENT Eyes: Present: PERRL, EOM intact ENT: clear oral mucosa, dentition normal - Neck Neck: Present: supple, normal ROM - Respiratory Respiratory effort: normal - Cardiovascular Rhythm: regular Heart Sounds: Present: S1 & S2 - Extremities Extremities: no ischemia, pulses intact, pulses symmetrical, No edema, normal temperature, normal color Peripheral Pulses: within normal limits - Abdominal General gastrointestinal: soft, non-tender, non-distended, normal bowel sounds - Integumentary Integumentary: Present: clear, warm, dry - Psychiatric Psychiatric: other (Unable to assess given medical condition.) - Neurologic Neurologic: other (Alert and oriented x0) - Allied Health Allied health notes reviewed: nursing HEART Score - HEART Score Troponin: Troponin T 0.121 ng/mL (0.00-0.029) H* 05/14/21 14:35 Results - Labs CBC & Chem 7: 05/16/21 04:00 05/16/21 04:00 Labs: Laboratory Last Values WBC 7.0 K/mm3 (4.5-11.0) 05/16/21 04:00 RBC 2.13 M/mm3 (3.65-5.03) L 05/16/21 04:00 Hgb 5.9 gm/dl (10.1-14.3) L* 05/16/21 04:00 Hct 17.8 % (30.3-42.9) L* 05/16/21 04:00 MCV 84 fl (79-97) 05/16/21 04:00 MCH 28 pg (28-32) 05/16/21 04:00 MCHC 33 % (30-34) 05/16/21 04:00 RDW 19.7 % (13.2-15.2) H 05/16/21 04:00 Plt Count 24 K/mm3 (140-440) L 05/16/21 04:00 Lymph % (Auto) 18.4 % (13.4-35.0) 05/15/21 04:50 [place] % (Auto) 6.3 % (0.0-7.3) 05/15/21 04:50 Eos % (Auto) 0.2 % (0.0-4.3) 05/15/21 04:50 Baso % (Auto) 0.2 % (0.0-1.8) 05/15/21 04:50 Lymph # (Auto) 1.3 K/mm3 (1.2-5.4) 05/15/21 04:50 [place] # (Auto) 0.4 K/mm3 (0.0-0.8) 05/15/21 04:50 Eos # (Auto) 0.0 K/mm3 (0.0-0.4) 05/15/21 04:50 Baso # (Auto) 0.0 K/mm3 (0.0-0.1) 05/15/21 04:50 Add Manual Diff Complete 05/14/21 10:53 Total Counted 100 05/14/21 10:53 Seg Neutrophils % 74.9 % (40.0-70.0) H 05/15/21 04:50 Seg Neuts % (Manual) 70.0 % (40.0-70.0) 05/14/21 10:53 Lymphocytes % (Manual) 25.0 % (13.4-35.0) 05/14/21 10:53 Monocytes % (Manual) 3.0 % (0.0-7.3) 05/14/21 10:53 Eosinophils % (Manual) 1.0 % (0.0-4.3) 05/14/21 10:53 Basophils % (Manual) 1.0 % (0.0-1.8) 05/14/21 10:53 Nucleated RBC % 1.0 % (0.0-0.9) H 05/14/21 10:53 Seg Neutrophils # 5.2 K/mm3 (1.8-7.7) 05/15/21 04:50 Seg Neutrophils # Man 5.0 K/mm3 (1.8-7.7) 05/14/21 10:53 Band Neutrophils # 0.0 K/mm3 05/14/21 10:53 Lymphocytes # (Manual) 1.8 K/mm3 (1.2-5.4) 05/14/21 10:53 Abs React Lymphs (Man) 0.0 K/mm3 05/14/21 10:53 Monocytes # (Manual) 0.2 K/mm3 (0.0-0.8) 05/14/21 10:53 Eosinophils # (Manual) 0.1 K/mm3 (0.0-0.4) 05/14/21 10:53 Basophils # (Manual) 0.1 K/mm3 (0.0-0.1) 05/14/21 10:53 Metamyelocytes # 0.0 K/mm3 05/14/21 10:53 Myelocytes # 0.0 K/mm3 05/14/21 10:53 Promyelocytes # 0.0 K/mm3 05/14/21 10:53 Blast Cells # 0.0 K/mm3 05/14/21 10:53 WBC Morphology Not Reportable 05/14/21 10:53 Hypersegmented Neuts Not Reportable 05/14/21 10:53 Hyposegmented Neuts Not Reportable 05/14/21 10:53 Hypogranular Neuts Not Reportable 05/14/21 10:53 Smudge Cells Not Reportable 05/14/21 10:53 Toxic Granulation Not Reportable 05/14/21 10:53 Toxic Vacuolation Not Reportable 05/14/21 10:53 Dohle Bodies Not Reportable 05/14/21 10:53 Pelger-Huet Anomaly Not Reportable 05/14/21 10:53 Christiano Rods Not Reportable 05/14/21 10:53 Platelet Estimate Consistent w auto 05/14/21 10:53 Clumped Platelets Not Reportable 05/14/21 10:53 Plt Clumps, EDTA Not Reportable 05/14/21 10:53 Large Platelets Rare 05/14/21 10:53 Giant Platelets Not Reportable 05/14/21 10:53 Platelet Satelliting Not Reportable 05/14/21 10:53 Plt Morphology Comment Not Reportable 05/14/21 10:53 RBC Morphology Not Reportable 05/14/21 10:53 Dimorphic RBCs Not Reportable 05/14/21 10:53 Polychromasia Not Reportable 05/14/21 10:53 Hypochromasia Not Reportable 05/14/21 10:53 Poikilocytosis 1+ 05/14/21 10:53 Anisocytosis 1+ 05/14/21 10:53 Microcytosis Not Reportable 05/14/21 10:53 Macrocytosis Not Reportable 05/14/21 10:53 Spherocytes Not Reportable 05/14/21 10:53 Pappenheimer Bodies Not Reportable 05/14/21 10:53 Sickle Cells Not Reportable 05/14/21 10:53 Target Cells Not Reportable 05/14/21 10:53 Tear Drop Cells Not Reportable 05/14/21 10:53 Ovalocytes Few 05/14/21 10:53 Helmet Cells Not Reportable 05/14/21 10:53 [place]ra Bodies Not Reportable 05/14/21 10:53 [place] Rings Not Reportable 05/14/21 10:53 Kenneth Cells Not Reportable 05/14/21 10:53 Bite Cells Not Reportable 05/14/21 10:53 Crenated Cell Not Reportable 05/14/21 10:53 Elliptocytes Few 05/14/21 10:53 Acanthocytes (Spur) Not Reportable 05/14/21 10:53 Rouleaux Not Reportable 05/14/21 10:53 Hemoglobin C Crystals Not Reportable 05/14/21 10:53 Schistocytes Not Reportable 05/14/21 10:53 Malaria parasites Not Reportable 05/14/21 10:53 Ruddy Bodies Not Reportable 05/14/21 10:53 Hem Pathologist Commnt No 05/14/21 10:53 PT 13.9 Sec. (12.2-14.9) 05/14/21 10:53 INR 0.96 (0.87-1.13) 05/14/21 10:53 APTT 28.5 Sec. (24.2-36.6) 05/14/21 10:53 ABG pH 7.493 (7.320-7.450) H 05/14/21 11:40 POC ABG pCO2 32.3 mmHg (32.0-48.0) 05/14/21 11:40 POC ABG pO2 194.1 mmHg (83-108) H 05/14/21 11:40 POC ABG HCO3 24.2 05/14/21 11:40 ABG O2 Saturation 99.4 (0-100) 05/14/21 11:40 POC ABG Base Excess 1.0 05/14/21 11:40 ABG Hemoglobin 7.3 (12.0-17.5) L 05/14/21 11:40 ABG Oxyhemoglobin 98.3 (94-98) H 05/14/21 11:40 ABG Methemoglobin 0.3 (0.0-1.5) 05/14/21 11:40 ABG Sodium 151.0 mmol/L (136.0-145.0) H 05/14/21 11:40 ABG Potassium 2.8 mmol/L (3.40-4.50) L 05/14/21 11:40 ABG Chloride 111.0 mmol/L (98-107) H 05/14/21 11:40 ABG Glucose 141 mg/dL (65-95) H 05/14/21 11:40 Carboxyhemoglobin 0.8 (0.5-1.5) 05/14/21 11:40 FiO2 % 40.0 05/14/21 11:40 Sodium 150 mmol/L (137-145) H 05/16/21 04:00 Potassium 2.8 mmol/L (3.6-5.0) L* D 05/16/21 04:00 Chloride 110.0 mmol/L (98-107) H 05/16/21 04:00 Carbon Dioxide 24 mmol/L (22-30) 05/16/21 04:00 Anion Gap 19 mmol/L 05/16/21 04:00 BUN 61 mg/dL (7-17) H 05/16/21 04:00 Creatinine 1.9 mg/dL (0.6-1.2) H 05/16/21 04:00 Estimated GFR 32 ml/min 05/16/21 04:00 BUN/Creatinine Ratio 32 % 05/16/21 04:00 Glucose 234 mg/dL (65-100) H 05/16/21 04:00 POC Glucose 238 mg/dL (70-105) H 05/16/21 13:02 Lactic Acid 1.40 mmol/L (0.7-2.0) 05/14/21 13:19 Calcium 9.3 mg/dL (8.4-10.2) 05/16/21 04:00 Magnesium 2.80 mg/dL (1.7-2.3) H 05/14/21 10:53 Total Bilirubin 0.50 mg/dL (0.1-1.2) 05/16/21 04:00 AST 25 units/L (5-40) 05/16/21 04:00 ALT 17 units/L (7-56) 05/16/21 04:00 Alkaline Phosphatase 79 units/L (35-129) 05/16/21 04:00 Ammonia 20.0 umol/L (25-60) L 05/15/21 16:30 Total Creatine Kinase 103 units/L (30-135) 05/14/21 12:22 Troponin T 0.121 ng/mL (0.00-0.029) H* 05/14/21 14:35 Total Protein 6.6 g/dL (6.3-8.2) 05/16/21 04:00 Albumin 3.8 g/dL (3.9-5) L 05/16/21 04:00 Albumin/Globulin Ratio 1.4 % 05/16/21 04:00 Triglycerides 190 mg/dL (2-149) H 05/14/21 10:53 Cholesterol 139 mg/dL (50-199) 05/14/21 10:53 LDL Cholesterol Direct 40 mg/dL (50-130) L 05/14/21 10:53 HDL Cholesterol 55 mg/dL (40-59) 05/14/21 10:53 Cholesterol/HDL Ratio 2.52 % 05/14/21 10:53 TSH 100.000 mlU/mL (0.270-4.200) H 05/14/21 10:53 Free T4 0.10 ng/dL (0.76-1.46) L 05/14/21 17:06 Arterial Blood Glucose 141 mg/dL (65-95) H 05/14/21 11:40 Urine Color Yellow (Yellow) 05/14/21 Unknown Urine Turbidity Clear (Clear) 05/14/21 Unknown Urine pH 5.0 (5.0-7.0) 05/14/21 Unknown Ur Specific [place] 1.016 (1.003-1.030) 05/14/21 Unknown Urine Protein 100 mg/dl mg/dL (Negative) 05/14/21 Unknown Urine Glucose (UA) Neg mg/dL (Negative) 05/14/21 Unknown Urine Ketones Neg mg/dL (Negative) 05/14/21 Unknown Urine Blood Sm (Negative) 05/14/21 Unknown Urine Nitrite Neg (Negative) 05/14/21 Unknown Urine Bilirubin Neg (Negative) 05/14/21 Unknown Urine Urobilinogen 2.0 mg/dL (<2.0) 05/14/21 Unknown Ur Leukocyte Esterase Neg (Negative) 05/14/21 Unknown Urine WBC (Auto) 2.0 /HPF (0.0-6.0) 05/14/21 Unknown Urine RBC (Auto) 1.0 /HPF (0.0-6.0) 05/14/21 Unknown U Epithel Cells (Auto) 3.0 /HPF (0-13.0) 05/14/21 Unknown Urine Mucus Few /HPF 05/14/21 Unknown Blood Type B NEGATIVE 05/16/21 05:50 Antibody Screen Negative 05/16/21 05:50 Crossmatch See Detail 05/16/21 05:50 Microbiology: Microbiology 05/14/21 10:53 Peripheral/Venous Blood Culture - Preliminary NO GROWTH AFTER 48 HOURS 05/14/21 10:53 Peripheral/Venous Blood Culture - Preliminary NO GROWTH AFTER 48 HOURS Active Medications - Current Medications Current Medications: Generic Name Dose Route Start Last Admin Trade Name Freq PRN Reason Stop Dose Admin Acetaminophen 650 mg 05/14/21 15:07 Acetaminophen 325 Mg Tab PO Q6H PRN Pain MILD(1-3)/Fever >100.5/CORTES Acetaminophen 650 mg 05/17/21 10:20 Acetaminophen 650 Mg Rect Supp MD 05/17/21 10:21 ONCE@1020 ONE Albuterol 2.5 mg 05/14/21 15:07 Albuterol 2.5 Mg/3 Ml Nebu IH Q3HRT PRN Shortness Of Breath Lipase/Protease/Amylase 1 each 05/16/21 10:23 Lipase 10,500/Protease 25,000/Amylase 43,750 (Units) Dr Arauz FEEDTUBE PRN PRN For Clogged Feeding Tube Aspirin 81 mg 05/15/21 10:00 05/16/21 11:42 Aspirin 81 Mg Tab Chew PO 81 mg QDAY ALEX Administration Atorvastatin Calcium 40 mg 05/14/21 22:00 05/15/21 22:32 Atorvastatin 40 Mg Tab PO 40 mg QHS ALEX Administration Atropine Sulfate 1 mg 05/14/21 15:20 Atropine 1 Mg/Ml Vial IV ONCE PRN Bradycardia Clonidine HCl 0.2 mg 05/14/21 22:00 05/16/21 11:00 Clonidine 0.2 Mg Tab PO Not Given Q12HR ALEX Dextrose 0 ml 05/16/21 05:34 Dextrose 50% In Water (25gm) 50 Ml Syringe IV Q30MIN PRN Hypoglycemia Protocol Hydralazine HCl 100 mg 05/14/21 20:00 05/16/21 08:04 Hydralazine 100 Mg Tab PO Not Given TID ALEX Hydromorphone HCl 0.5 mg 05/14/21 15:07 Hydromorphone 1 Mg/1 Ml Inj IV Q23H PRN Pain , Severe (7-10) Dextrose/Sodium Chloride 1,000 mls @ 100 mls/hr 05/14/21 18:00 05/16/21 07:38 D5ns 0.2% IV 100 mls/hr DIRECT ALEX Administration Sodium Chloride 500 mls @ 0 mls/hr 05/16/21 08:32 Nacl 0.9% 500 Ml IV 05/16/21 23:59 ONCE NR As Directed Potassium Chloride 10 meq in 100 mls @ 100 mls/hr 05/16/21 11:48 05/16/21 12:44 Kcl 10meq/100ml IV 05/16/21 15:47 100 mls/hr Q1H ALEX Administration Potassium Chloride 10 meq in 100 mls @ 100 mls/hr 05/16/21 11:48 05/16/21 14:47 Kcl 10meq/100ml IV 05/16/21 15:47 100 mls/hr Q1H ALEX Administration Insulin Human Lispro 0 unit 05/16/21 06:00 05/16/21 13:12 Insulin Lispro 100 Unit/Ml SUB-Q 2 unit Q6HR ALEX Administration Protocol Levothyroxine Sodium 100 mcg 05/15/21 06:00 05/16/21 07:27 Levothyroxine 100 Mcg Inj IV 100 mcg DAILY@0600 ALEX Administration Nifedipine 60 mg 05/15/21 10:00 05/15/21 10:26 Nifedipine Xl 60 Mg Tab PO Not Given QDAY ALEX Oxycodone/Acetaminophen 1 tab 05/14/21 15:07 Oxycodone /Acetaminophen 5-325mg Tab PO Q16H PRN Pain, Moderate (4-6) Polyethylene Glycol 17 gm 05/14/21 15:06 Polyethylene Glycol 3350 17 Gm Powder PO QDAY PRN Constipation Simple Syrup 15 ml 05/16/21 10:23 Simple Syrup 15 Ml FEEDTUBE PRN PRN Hypoglycemia Simple Syrup 30 ml 05/16/21 10:23 Simple Syrup 15 Ml FEEDTUBE PRN PRN Hypoglycemia Sodium Bicarbonate 325 mg 05/16/21 10:23 Sodium Bicarbonate 325 Mg Tab FEEDTUBE PRN PRN For Clogged Feeding Tube Sodium Chloride 10 ml 05/14/21 22:00 05/16/21 11:42 Sodium Chloride 0.9% 10 Ml Flush Syringe IV 10 ml BID ALEX Administration Sodium Chloride 10 ml 05/14/21 15:07 Sodium Chloride 0.9% 10 Ml Flush Syringe IV PRN PRN LINE FLUSH Nutrition/Malnutrition Assess - Dietary Evaluation Nutrition/Malnutrition Findings: Nutrition Notes Start: 05/16/21 10:00 Freq: Status: Active Protocol: Document 05/16/21 10:00 GB (Rec: 05/16/21 10:23 GB [id number]) Nutrition Notes Need for Assessment generated from: MD Order,Education Initial or Follow up Assessment Current Diagnosis Hypertension,Stroke Other Pertinent Diagnosis obesity hypovent syndrome, dementia Current Diet NPO Labs/Tests 05/16: Na 150, K 2.8, BUN 61, creatinine 1.9, glucose 234 Pertinent Medications D5ns @100ml/hr (408kcal), KCl, vancomycin Height 5 ft 3 in Weight 127.006 kg [place] Body Weight (kg) 52.27 BMI 49.6 Intake Prior to Admission Poor Weight change and time frame admit weight Weight Status Morbidly Obese Subjective/Other Information H&P: son reported poor po, increased confusion & weakness over past 10 days prior to admit. Diminished cognition per MD note. Feeding tube placed - in fundus, double backed on self per xray eval. MD consult for nutrition education. RD to place TF orders: start when medically feasible Percent of energy/protein needs met: 0% - NPO Burn Absent Trauma Absent GI Symptoms None Food Allergy No Current % PO Other Minimum of two criteria No #1 Nutrition Diagnosis Swallowing difficulty,Altered nutrition-related laboratory values Comments: Feeding tube placed, diminished cognition, lethargic Etiology Change in behavior As Evidenced by Signs and Symptoms reported increased confusion/ weakness, decrease in po intake, altered renal related labs BUN/creatinine/glucose Is patient on ventilator? No Is Patient Ambulatory and/or Out of Bed No REE-([facility]-confined to bed) 2121.116 Kcal/Kg value to use for calculation 12 Approximate Energy Requirements Using 1524 kcal/Kg Calculation Used for Recommendations Kcal/kg Additional Notes Protein 0.6-0.8g/kg @ 127k-101g Fluid: 1 ml/kcal or per MD Nutrition Intervention Change Diet Order: Continue NPO Nutrition Support: nepro @ 40ml/hr flush @ 150ml/4hr Total fluids: TF at goal + flush = 1598ml Kcal 1,728 Protein (gm) 78 Carbohydrates (gm) 155 Fat (gm) 92 Fluid (mL) 698 Education Handouts Provided Not a candidate for nutrition education. Documented diminished cognition, dementia . Goal #1 TF started, tolerated, at goal by f/u (nepro @40ml/hr) Follow-Up By: 05/19/21 Additional Comments F/U: TF status, Diet advancement, Swallow eval
[2021-05-16] MEDS ORDERED: LACTATED RINGERS 1,000 ML IV ONE (15:22)
[2021-05-16] MEDS: NIFEdipine XL 60 MG TAB PO SCH (15:48)
[2021-05-16] MEDS ORDERED: HYDROCORTISONE SOD SUCC 100 MG/2 ML VIAL IV SCH (16:00)
[2021-05-16 17:50] LABS: Calcium 9.1 mg/dL (8.4-10.2)
[2021-05-16 17:58] LABS: Hematocrit 27.7 % (30.3-42.9); Hemoglobin 8.9 gm/dl (10.1-14.3)
[2021-05-16 18:23] LABS: Creatinine,Urine 173.4 mg/dL (0.1-20.0)
[2021-05-16 18:33] LABS: Calcium 9.4 mg/dL (8.4-10.2)
--- NOTE | 2021-05-16 21:06 | Progress Note ---
Assessment and Plan 70 YO Female with CVA with LHP, HTN, HLD, Lymphedema, Obesity Hypoventilation Syndrome, Hypothyroidism S/P Thyroidectomy, Vascular Dementia, Cerebral Atherosclerosis presents to ED for evaluation. Patient is stuporous with diminished cognition and is unable to provide history. Patient history taken from EMS staff, ED staff, as well as the patient's son who was made available by telephone . As per son the patient has experienced increased confusion, increased weakness, and decreased oral intake over the past 10 days with persistent and worsening symptoms over the same timeframe. Patient was found to be more confused today making incomprehensible sounds. EMS was notified and upon arrival the patient was found to be in distress and subsequently transported to [facility] for further care and evaluation of the aforementioned symptoms. The patient was seen and evaluated in the emergency department. All lab and imaging studies reviewed. Patient found to have body core temperature of 90 F, blood pressure of 66/34, and heart rate of 54. Patient symptoms consistent with myxedema coma, as well as metabolic encephalopathy, and acute kidney injury. Patient initiated on IV Synthroid therapy and admitted to ICU due to increased risk of worsening symptoms. No reports of fever, chills, chest pain, palpitation, productive cough, skin rash, recent ill contact, or known exposure to COVID-19. Prior admission on 02/23/2021 reviewed. All medication listed at time of admission has been reconciled. Advanced care planning conducted in ED. Patient has diminished cognition but has a positive gag reflex and is currently able to protect her airway without difficulty at this time. Patient sleepy. Weak. resting on room air . O2 saturation running 100%. Patient goes on BIPAP during night time. No acute respiratory distress. Patient Hypothermic. Trmp 94. No leukocytosis. Patient anemic. Patient received blood transfusion. Blood pressure 119/67, Pulse 77. Chest xray done 05/14/21 reported Cardiomegaly without focal lung consolidation. Patient presently on Levothyroxine and albuterol aerosol treatments. I spent critical care time of 40 minutes, reviewing the chart, examine the patient, review chest xray and lab results, talking to the nursing and respiratory therapy and work up plan of treatment in this critically ill pa tient. - Patient Problems (1) Myxedema coma Current Visit: Yes Status: Acute Plan to address problem: Patient is on Levothyroxine. Management as per primary care. (2) Acute kidney injury (JOZEF) with acute tubular necrosis (ATN) Current Visit: Yes Status: Acute Plan to address problem: Management as per nephrology. (3) Anemia Current Visit: Yes Status: Acute Plan to address problem: Patient received blood transfusion. management as per primary care and hematology. (4) Metabolic encephalopathy Current Visit: Yes Status: Acute Plan to address problem: Management as per primary care. (5) Thrombocytopenia Current Visit: Yes Status: Acute Plan to address problem: To days platelet count 24,000. Recommend to stop aspirin. Consult hematology. (6) Morbid obesity with BMI of 45.0-49.9, adult Current Visit: Yes Status: Acute Plan to address problem: Weight loss Weight reduction diet. (7) Sleep apnea Current Visit: Yes Status: Acute Plan to address problem: Patient is on BIPAP during night time. Subjective Date of service: 05/16/21 Principal diagnosis: myxedema coma Interval history: 70 YO Female with CVA with LHP, HTN, HLD, Lymphedema, Obesity Hypoventilation Syndrome, Hypothyroidism S/P Thyroidectomy, Vascular Dementia, Cerebral Atherosclerosis presents to ED for evaluation. Patient is stuporous with dimin ished cognition and is unable to provide history. Patient history taken from EMS staff, ED staff, as well as the patient's son who was made available by telephone . As per son the patient has experienced increased confusion, increased weakness, and decreased oral intake over the past 10 days with persistent and worsening symptoms over the same timeframe. Patient was found to be more confused today making incomprehensible sounds. EMS was notified and upon arrival the patient was found to be in distress and subsequently transported to [facility] for further care and evaluation of the aforementioned symptoms. The patient was seen and evaluated in the emergency department. All lab and imaging studies reviewed. Patient found to have body core temperature of 90 F, blood pressure of 66/34, and heart rate of 54. Patient symptoms consistent with myxedema coma, as well as metabolic encephalopathy, and acute kidney injury. Patient initiated on IV Synthroid therapy and admitted to ICU due to increased risk of worsening symptoms. No reports of fever, chills, chest pain, palpitation, productive cough, skin rash, recent ill contact, or known exposure to COVID-19. Prior admission on 02/23/2021 reviewed. All medication listed at time of admission has been reconciled. Advanced care planning conducted in ED. Patient has diminished cognition but has a positive gag reflex and is currently able to protect her airway without difficulty at this time. Patient sleepy. Weak. resting on room air . O2 saturation running 100%. Patient goes on BIPAP during night time. No acute respiratory distress. Patient Hypothermic. Trmp 94. No leukocytosis. Patient anemic. Patient received blood transfusion. Blood pressure 119/67, Pulse 77. Chest xray done 05/14/21 reported Cardiomegaly without focal lung consolidation. Patient presently on Levothyroxine and albuterol aerosol treatments. Objective Vital Signs - 12hr 05/16/21 05/16/21 05/16/21 09:30 10:00 10:30 Temperature Pulse Rate 67 64 62 Respiratory 13 15 15 Rate Blood Pressure 117/63 122/71 119/64 O2 Sat by Pulse 99 100 100 Oximetry 05/16/21 05/16/21 05/16/21 11:00 11:30 11:41 Temperature Pulse Rate 61 68 66 Respiratory 23 26 H 16 Rate Blood Pressure 117/69 129/69 129/69 O2 Sat by Pulse 100 100 98 Oximetry 05/16/21 05/16/21 05/16/21 11:44 11:50 12:00 Temperature 93.4 F L Pulse Rate 57 L 60 Respiratory 9 L 24 Rate Blood Pressure 137/69 137/69 O2 Sat by Pulse 100 100 Oximetry 05/16/21 05/16/21 05/16/21 12:10 12:20 12:30 Temperature Pulse Rate 66 64 61 Respiratory 19 11 L 15 Rate Blood Pressure 130/74 130/74 134/82 O2 Sat by Pulse 100 100 100 Oximetry 05/16/21 05/16/21 05/16/21 13:00 13:30 14:00 Temperature Pulse Rate 65 70 68 Respiratory 19 20 17 Rate Blood Pressure 137/69 139/81 134/80 O2 Sat by Pulse 100 100 99 Oximetry 05/16/21 05/16/21 05/16/21 14:07 14:30 14:50 Temperature 92.2 F L Pulse Rate 76 71 111 H Respiratory 19 18 27 H Rate Blood Pressure 134/80 139/91 137/83 O2 Sat by Pulse 98 99 99 Oximetry 05/16/21 05/16/21 05/16/21 15:00 15:10 15:20 Temperature Pulse Rate 138 H 91 H 119 H Respiratory 31 H 16 28 H Rate Blood Pressure 137/83 142/88 142/88 O2 Sat by Pulse 100 100 100 Oximetry 05/16/21 05/16/21 05/16/21 15:30 15:40 16:00 Temperature Pulse Rate 72 63 Respiratory 33 H 15 21 Rate Blood Pressure 159/99 159/99 151/97 O2 Sat by Pulse 100 100 100 Oximetry 05/16/21 05/16/21 05/16/21 16:28 16:30 17:00 Temperature 94.0 F L Pulse Rate 72 62 81 Respiratory 24 13 22 Rate Blood Pressure 144/68 151/97 154/98 O2 Sat by Pulse 99 100 100 Oximetry 05/16/21 05/16/21 05/16/21 17:30 18:00 18:30 Temperature Pulse Rate 207 H 74 Respiratory 20 16 Rate Blood Pressure 154/98 154/98 154/98 O2 Sat by Pulse 97 99 100 Oximetry 05/16/21 05/16/21 05/16/21 19:00 19:30 20:00 Temperature Pulse Rate 80 79 77 Respiratory 20 35 H 26 H Rate Blood Pressure 134/66 141/68 119/67 O2 Sat by Pulse 100 100 98 Oximetry Constitutional: lethargic, appears uncomfortable Eyes: non-icteric Neck: supple, no lymphadenopathy Effort: mildly labored Ascultation: Bilateral: diminished breath sounds, rales Cardiovascular: regular rate and rhythm Gastrointestinal: hypoactive bowel sounds, soft, non-tender Integumentary: other (Stasis dermatitis.) Extremities: no cyanosis, edema Neurologic: pupils equal and round, unable to assess Psychiatric: other (Patient sleepy and lethergic.) CBC and BMP: 05/16/21 17:11 05/16/21 17:11 ABG, PT/INR, D-dimer: ABG ABG pH 7.493 (7.320-7.450) H 05/14/21 11:40 POC ABG pCO2 32.3 mmHg (32.0-48.0) 05/14/21 11:40 POC ABG pO2 194.1 mmHg (83-108) H 05/14/21 11:40 POC ABG HCO3 24.2 05/14/21 11:40 ABG O2 Saturation 99.4 (0-100) 05/14/21 11:40 PT/INR, D-dimer PT 13.9 Sec. (12.2-14.9) 05/14/21 10:53 INR 0.96 (0.87-1.13) 05/14/21 10:53 Abnormal lab findings: Abnormal Labs 05/14/21 05/14/21 05/14/21 10:53 10:53 10:53 RBC 2.90 L Hgb 7.9 L Hct 24.1 L MCH 27 L RDW 19.6 H Plt Count 47 L Seg Neutrophils % Nucleated RBC % 1.0 H ABG pH POC ABG pO2 ABG Hemoglobin ABG Oxyhemoglobin ABG Sodium ABG Potassium ABG Chloride ABG Glucose Sodium 154 H Potassium 3.3 L Chloride 109.0 H Carbon Dioxide BUN 54 H Creatinine 1.4 H Glucose 136 H POC Glucose Calcium 10.9 H Magnesium Ammonia Troponin T Total Protein 8.5 H Albumin Triglycerides LDL Cholesterol Direct TSH 100.000 H Free T4 0.10 L Arterial Blood Glucose Urine Creatinine Urine Total Protein Crossmatch 05/14/21 05/14/21 05/14/21 10:53 10:53 11:15 RBC Hgb Hct MCH RDW Plt Count Seg Neutrophils % Nucleated RBC % ABG pH POC ABG pO2 ABG Hemoglobin ABG Oxyhemoglobin ABG Sodium ABG Potassium ABG Chloride ABG Glucose Sodium Potassium Chloride Carbon Dioxide BUN Creatinine Glucose POC Glucose 116 H Calcium Magnesium 2.80 H Ammonia Troponin T 0.128 H* Total Protein Albumin Triglycerides 190 H LDL Cholesterol Direct 40 L TSH Free T4 Arterial Blood Glucose Urine Creatinine Urine Total Protein Crossmatch 05/14/21 05/14/21 05/14/21 11:40 14:35 17:06 RBC Hgb Hct MCH RDW Plt Count Seg Neutrophils % Nucleated RBC % ABG pH 7.493 H POC ABG pO2 194.1 H ABG Hemoglobin 7.3 L ABG Oxyhemoglobin 98.3 H ABG Sodium 151.0 H ABG Potassium 2.8 L ABG Chloride 111.0 H ABG Glucose 141 H Sodium Potassium Chloride Carbon Dioxide BUN Creatinine Glucose POC Glucose Calcium Magnesium Ammonia Troponin T 0.121 H* Total Protein Albumin Triglycerides LDL Cholesterol Direct TSH Free T4 0.10 L Arterial Blood Glucose 141 H Urine Creatinine Urine Total Protein Crossmatch 05/15/21 05/15/21 05/15/21 04:50 04:50 16:30 RBC 2.53 L Hgb 7.2 L Hct 21.0 L MCH RDW 19.6 H Plt Count 34 L Seg Neutrophils % 74.9 H Nucleated RBC % ABG pH POC ABG pO2 ABG Hemoglobin ABG Oxyhemoglobin ABG Sodium ABG Potassium ABG Chloride ABG Glucose Sodium 155 H Potassium Chloride 111.0 H Carbon Dioxide BUN 58 H Creatinine 1.9 H Glucose 127 H POC Glucose Calcium Magnesium Ammonia 20.0 L Troponin T Total Protein Albumin Triglycerides LDL Cholesterol Direct TSH Free T4 Arterial Blood Glucose Urine Creatinine Urine Total Protein Crossmatch 05/16/21 05/16/21 05/16/21 04:00 04:00 05:50 RBC 2.13 L Hgb 5.9 L* Hct 17.8 L* MCH RDW 19.7 H Plt Count 24 L Seg Neutrophils % Nucleated RBC % ABG pH POC ABG pO2 ABG Hemoglobin ABG Oxyhemoglobin ABG Sodium ABG Potassium ABG Chloride ABG Glucose Sodium 150 H Potassium 2.8 L* D Chloride 110.0 H Carbon Dioxide BUN 61 H Creatinine 1.9 H Glucose 234 H POC Glucose Calcium Magnesium Ammonia Troponin T Total Protein Albumin 3.8 L Triglycerides LDL Cholesterol Direct TSH Free T4 Arterial Blood Glucose Urine Creatinine Urine Total Protein Crossmatch See Detail 05/16/21 05/16/21 05/16/21 07:34 13:02 15:35 RBC Hgb Hct MCH RDW Plt Count Seg Neutrophils % Nucleated RBC % ABG pH POC ABG pO2 ABG Hemoglobin ABG Oxyhemoglobin ABG Sodium ABG Potassium ABG Chloride ABG Glucose Sodium Potassium Chloride Carbon Dioxide BUN Creatinine Glucose POC Glucose 222 H 238 H Calcium Magnesium Ammonia Troponin T Total Protein Albumin Triglycerides LDL Cholesterol Direct TSH Free T4 Arterial Blood Glucose Urine Creatinine 173.4 H Urine Total Protein 146 H Crossmatch 05/16/21 05/16/21 05/16/21 17:11 17:11 17:11 RBC Hgb 8.9 L D Hct 27.7 L D MCH RDW Plt Count Seg Neutrophils % Nucleated RBC % ABG pH POC ABG pO2 ABG Hemoglobin ABG Oxyhemoglobin ABG Sodium ABG Potassium ABG Chloride ABG Glucose Sodium 148 H Potassium Chloride 110.6 H Carbon Dioxide 20 L 17 L BUN 58 H 60 H Creatinine 1.6 H 1.7 H Glucose 227 H 228 H POC Glucose Calcium Magnesium Ammonia Troponin T Total Protein Albumin Triglycerides LDL Cholesterol Direct TSH Free T4 Arterial Blood Glucose Urine Creatinine Urine Total Protein Crossmatch 05/16/21 17:11 RBC Hgb Hct MCH RDW Plt Count Seg Neutrophils % Nucleated RBC % ABG pH POC ABG pO2 ABG Hemoglobin ABG Oxyhemoglobin ABG Sodium ABG Potassium ABG Chloride ABG Glucose Sodium Potassium Chloride Carbon Dioxide BUN Creatinine Glucose POC Glucose Calcium Magnesium Ammonia Troponin T Total Protein Albumin Triglycerides LDL Cholesterol Direct TSH 43.740 H Free T4 Arterial Blood Glucose Urine Creatinine Urine Total Protein Crossmatch Chest x-ray: report reviewed, image reviewed Additional Studies: CHEST 1 VIEW 05/14/2021 12:15 PM INDICATION / CLINICAL INFORMATION: sepsis, hypothermia. COMPARISON: 02/23/2021 FINDINGS: SUPPORT DEVICES: None. HEART / MEDIASTINUM: Stable cardiomegaly. LUNGS / PLEURA: No significant pulmonary or pleural abnormality. No pneumothorax. ADDITIONAL FINDINGS: No significant additional findings. IMPRESSION: 1. Cardiomegaly without focal lung consolidation.
[2021-05-17] MEDS: INSULIN LISPRO 100 UNIT/ML SUB-Q SCH ×4 (01:00→18:25)
[2021-05-17] MEDS: cloNIDine 0.2 MG TAB PO SCH ×2 (03:04→10:18)
[2021-05-17] MEDS: hydrALAZINE 100 MG TAB PO SCH ×3 (03:04→14:00)
[2021-05-17] MEDS: D5W/0.2% NACL 1,000 ML IV SCH (04:20)
[2021-05-17 04:42] LABS: Albumin 3.6 g/dL (3.9-5)
--- NOTE | 2021-05-17 05:43 | XRay Report ---
ABDOMEN 1 VIEW 05/17/2021 INDICATION / CLINICAL INFORMATION: confirm placement. COMPARISON: 05/15/2021 FINDINGS: TUBES / LINES: There is an enteric tube which terminates in the proximal stomach. BOWEL GAS PATTERN: Multiple prominent gas-filled loops of bowel throughout the abdomen. FREE AIR / EXTRALUMINAL GAS: None seen. ADDITIONAL FINDINGS: No significant additional findings. IMPRESSION: 1. Enteric tube terminating in the proximal stomach Signer Name: Daljit Vazquez DO Signed: 05/17/2021 5:39 AM Workstation Name: [id number]
[2021-05-17] MEDS: LEVOTHYROXINE 100 MCG INJ IV SCH (06:24)
[2021-05-17] MEDS ORDERED: LACTATED RINGERS 1,000 ML IV ONE ×2 (09:00→11:14)
[2021-05-17] MEDS ORDERED: amLODIPine 5 MG TAB PO SCH (10:00)
[2021-05-17] MEDS ORDERED: ACETAMINOPHEN 650 MG RECT SUPP PR ONE (10:20)
--- NOTE | 2021-05-17 12:10 | Progress Note ---
Assessment and Plan - Patient Problems (1) Acute kidney injury (JOZEF) with acute tubular necrosis (ATN) Current Visit: Yes Status: Acute Plan to address problem: Acute kidney injury most likely secondary to prerenal azotemia in the setting of myxedema coma, volume depletion, Urine Na was low at 15. Cont IVF with hypotonic saline to correct free water deficit. renal function stabilizing. Maintain MAP > 65mmHg, avoid nephrotoxins. Will monitor lytes, renal parameters closely and make further recommendations. (2) Myxedema coma Current Visit: Yes Status: Acute Plan to address problem: Cont IV synthroid as per primary attending. pt was treated with hydrocortisone prior to treatment with synthroid, initial cortisol level was > 35. (3) Metabolic encephalopathy Current Visit: Yes Status: Acute Plan to address problem: Likely secondary to myxedema coma, CT head was negative (4) Hypernatremia Current Visit: Yes Status: Acute Plan to address problem: improved on hypotonic IVF (5) Hypokalemia Current Visit: Yes Status: Acute Plan to address problem: likely due to decreased oral intake. Supplement with KCl to target K > 4. (6) Anemia in chronic illness Current Visit: Yes Status: Acute Plan to address problem: transfuse with PRBC prn to target hb > 7 Subjective Date of service: 05/17/21 Principal diagnosis: myxedema coma Interval history: Pt remains confused, disoriented, in no acute respiratory distress Objective - Vital Signs Vital signs: Vital Signs - 12hr 05/17/21 05/17/21 05/17/21 00:08 00:30 01:00 Temperature Pulse Rate 80 75 75 Respiratory 18 26 H 21 Rate Blood Pressure 138/69 152/83 152/83 O2 Sat by Pulse 99 98 97 Oximetry 05/17/21 05/17/21 05/17/21 01:31 02:01 02:31 Temperature Pulse Rate 79 90 76 Respiratory 18 20 18 Rate Blood Pressure 129/83 123/77 129/71 O2 Sat by Pulse 99 99 99 Oximetry 05/17/21 05/17/21 05/17/21 03:01 03:31 04:01 Temperature Pulse Rate 73 81 83 Respiratory 15 26 H 22 Rate Blood Pressure 140/78 133/80 125/69 O2 Sat by Pulse 97 98 97 Oximetry 05/17/21 05/17/21 05/17/21 04:31 04:55 05:01 Temperature 96.0 F L Pulse Rate 195 H 88 Respiratory 29 H 24 Rate Blood Pressure 115/71 125/69 O2 Sat by Pulse 95 97 Oximetry 05/17/21 05/17/21 05/17/21 05:31 06:01 06:31 Temperature Pulse Rate 81 88 81 Respiratory 26 H 18 25 H Rate Blood Pressure 115/71 119/66 95/33 O2 Sat by Pulse 98 97 98 Oximetry 05/17/21 05/17/21 05/17/21 07:01 07:30 08:00 Temperature Pulse Rate 80 83 78 Respiratory 21 25 H 22 Rate Blood Pressure 99/51 114/47 102/51 O2 Sat by Pulse 98 97 99 Oximetry 05/17/21 05/17/21 05/17/21 08:30 09:00 09:30 Temperature Pulse Rate 86 86 80 Respiratory 27 H 20 20 Rate Blood Pressure 109/69 115/53 125/61 O2 Sat by Pulse 98 99 99 Oximetry 05/17/21 05/17/21 05/17/21 10:00 10:23 10:30 Temperature 98.1 F Pulse Rate 77 92 H Respiratory 15 23 Rate Blood Pressure 129/64 137/69 O2 Sat by Pulse 98 97 Oximetry 05/17/21 05/17/21 11:00 11:30 Temperature Pulse Rate 87 92 H Respiratory 19 16 Rate Blood Pressure 97/54 103/40 O2 Sat by Pulse 98 99 Oximetry - General Appearance General appearance: well-developed, well-nourished, appears stated age, obese EENT: ATNC, PERRL, mucous membranes moist Neck: no JVD Respiratory: Present: Decreased Breath Sounds Cardiology: regular, S1S2 Gastrointestinal: normoactive bowel sounds, obese Integumentary: no rash, other (+ edema ) Neurologic: confused, disoriented - Lab 05/16/21 17:11 05/17/21 04:08 Most recent lab results ABG pH 7.493 (7.320-7.450) H 05/14/21 11:40 ABG O2 Saturation 99.4 (0-100) 05/14/21 11:40 Calcium 9.0 mg/dL (8.4-10.2) 05/17/21 04:08 Magnesium 2.80 mg/dL (1.7-2.3) H 05/14/21 10:53 Urine Creatinine 173.4 mg/dL (0.1-20.0) H 05/16/21 15:35 Urine Sodium 15 mmol/L 05/16/21 15:35 Urine Total Protein 146 mg/dL (5-11.8) H 05/16/21 15:35 Medications & Allergies - Medications Allergies/Adverse Reactions: Allergies No Known Allergies Allergy (Verified 05/17/21 09:35) Home Medications: Home Medications Medication Instructions Recorded Confirmed Last Taken Type Aspirin [Aspirin BABY CHEW TAB] 81 mg PO QDAY tab.chew 02/28/21 05/14/21 05/13/21 08:00 Rx AtorvaSTATin [Lipitor] 40 mg PO QHS #30 tablet 02/28/21 05/14/21 05/13/21 21:00 Rx NIFEdipine XL [Procardia Xl] 60 mg PO QDAY #30 tablet 02/28/21 05/14/21 05/13/21 08:00 Rx cloNIDine [Catapres] 0.2 mg PO Q12HR #60 tablet 02/28/21 05/14/21 05/13/21 19:00 Rx hydrALAZINE [Apresoline TAB] 100 mg PO TID #90 tab 02/28/21 05/14/21 05/13/21 18:00 Rx polyethylene glycoL 3350 [Miralax 17 gm PO QDAY PRN powd.pack 02/28/21 Unknown Rx 3350] Active Medications: Generic Name Dose Route Start Last Admin Trade Name Freq PRN Reason Stop Dose Admin Acetaminophen 650 mg 05/14/21 15:07 Acetaminophen 325 Mg Tab PO Q6H PRN Pain MILD(1-3)/Fever >100.5/CORTES Albuterol 2.5 mg 05/14/21 15:07 Albuterol 2.5 Mg/3 Ml Nebu IH Q3HRT PRN Shortness Of Breath Amlodipine Besylate 5 mg 05/17/21 10:00 05/17/21 10:17 Amlodipine 5 Mg Tab PO 5 mg QDAY ALEX Administration Lipase/Protease/Amylase 1 each 05/16/21 10:23 05/17/21 04:20 Lipase 10,500/Protease 25,000/Amylase 43,750 (Units) Dr Arauz FEEDTUBE 1 each PRN PRN Administration For Clogged Feeding Tube Atorvastatin Calcium 40 mg 05/14/21 22:00 05/17/21 05:17 Atorvastatin 40 Mg Tab PO Not Given QHS ALEX Atropine Sulfate 1 mg 05/14/21 15:20 Atropine 1 Mg/Ml Vial IV ONCE PRN Bradycardia Clonidine HCl 0.2 mg 05/14/21 22:00 05/17/21 10:18 Clonidine 0.2 Mg Tab PO 0.2 mg Q12HR ALEX Administration Dextrose 0 ml 05/16/21 05:34 Dextrose 50% In Water (25gm) 50 Ml Syringe IV Q30MIN PRN Hypoglycemia Protocol Hydralazine HCl 100 mg 05/14/21 20:00 05/17/21 08:00 Hydralazine 100 Mg Tab PO Not Given TID ALEX Hydromorphone HCl 0.5 mg 05/14/21 15:07 Hydromorphone 1 Mg/1 Ml Inj IV Q23H PRN Pain , Severe (7-10) Dextrose/Sodium Chloride 1,000 mls @ 100 mls/hr 05/14/21 18:00 05/17/21 04:20 D5ns 0.2% IV 100 mls/hr DIRECT ALEX Administration Lactated Ringer's 1,000 mls @ 999 mls/hr 05/17/21 11:14 05/17/21 11:27 Lactated Ringers IV 05/17/21 12:14 999 mls/hr BOLUS ONE Administration Insulin Human Lispro 0 unit 05/16/21 06:00 05/17/21 06:24 Insulin Lispro 100 Unit/Ml SUB-Q 1 unit Q6HR ALEX Administration Protocol Levothyroxine Sodium 100 mcg 05/15/21 06:00 05/17/21 06:24 Levothyroxine 100 Mcg Inj IV 100 mcg DAILY@0600 ALEX Administration Oxycodone/Acetaminophen 1 tab 05/14/21 15:07 Oxycodone /Acetaminophen 5-325mg Tab PO Q16H PRN Pain, Moderate (4-6) Polyethylene Glycol 17 gm 05/14/21 15:06 Polyethylene Glycol 3350 17 Gm Powder PO QDAY PRN Constipation Simple Syrup 15 ml 05/16/21 10:23 Simple Syrup 15 Ml FEEDTUBE PRN PRN Hypoglycemia Simple Syrup 30 ml 05/16/21 10:23 Simple Syrup 15 Ml FEEDTUBE PRN PRN Hypoglycemia Sodium Bicarbonate 325 mg 05/16/21 10:23 05/17/21 04:20 Sodium Bicarbonate 325 Mg Tab FEEDTUBE 325 mg PRN PRN Administration For Clogged Feeding Tube Sodium Chloride 10 ml 05/14/21 22:00 05/17/21 10:18 Sodium Chloride 0.9% 10 Ml Flush Syringe IV 10 ml BID ALEX Administration Sodium Chloride 10 ml 05/14/21 15:07 Sodium Chloride 0.9% 10 Ml Flush Syringe IV PRN PRN LINE FLUSH
--- NOTE | 2021-05-17 13:41 | Progress Note ---
Assessment and Plan 70 YO Female with CVA with LHP, HTN, HLD, Lymphedema, Obesity Hypoventilation Syndrome, Hypothyroidism S/P Thyroidectomy, Vascular Dementia, Cerebral Atherosclerosis presents to ED for evaluation. Patient is stuporous with diminished cognition and is unable to provide history. Patient history taken from EMS staff, ED staff, as well as the patient's son who was made available by telephone . As per son the patient has experienced increased confusion, increased weakness, and decreased oral intake over the past 10 days with persistent and worsening symptoms over the same timeframe. Patient was found to be more confused today making incomprehensible sounds. EMS was notified and upon arrival the patient was found to be in distress and subsequently transported to [facility] for further care and evaluation of the aforementioned symptoms. The patient was seen and evaluated in the emergency department. All lab and imaging studies reviewed. Patient found to have body core temperature of 90 F, blood pressure of 66/34, and heart rate of 54. Patient symptoms consistent with myxedema coma, as well as metabolic encephalopathy, and acute kidney injury. Patient initiated on IV Synthroid therapy and admitted to ICU due to increased risk of worsening symptoms. No reports of fever, chills, chest pain, palpitation, productive cough, skin rash, recent ill contact, or known exposure to COVID-19. Prior admission on 02/23/2021 reviewed. All medication listed at time of admission has been reconciled. Advanced care planning conducted in ED. Patient has diminished cognition but has a positive gag reflex and is currently able to protect her airway without difficulty at this time. Patient sleepy. Weak. Lethergic. resting on room air . O2 saturation running 98%. Patient goes on BIPAP during night time. No acute respiratory distress. Patient afebrile. No leukocytosis. Blood pressure 109/70, Pulse 79. Patient is on Levophed. Chest xray done 05/14/21 reported Cardiomegaly without focal lung consolidation. Patient presently on Nor epinephrine, Levothyroxine and albuterol aerosol treatments. I spent critical care time of 40 minutes, reviewing the chart, examine the patient, review chest xray and lab results, talking to the nursing and respiratory therapy and work up plan of treatment in this critically ill patient. - Patient Problems (1) Myxedema coma Current Visit: Yes Status: Acute Plan to address problem: Patient is on Levothyroxine. Management as per primary care. (2) Acute kidney injury (JOZEF) with acute tubular necrosis (ATN) Current Visit: Yes Status: Acute Plan to address problem: Management as per nephrology. (3) Anemia Current Visit: Yes Status: Acute Plan to address problem: Patient received blood transfusion. management as per primary care and hematology. (4) Metabolic encephalopathy Current Visit: Yes Status: Acute Plan to address problem: Management as per primary care. (5) Thrombocytopenia Current Visit: Yes Status: Acute Plan to address problem: To days platelet count 24,000. Recommend to stop aspirin. Consult hematology. (6) Morbid obesity with BMI of 45.0-49.9, adult Current Visit: Yes Status: Acute Plan to address problem: Weight loss Weight reduction diet. (7) Sleep apnea Current Visit: Yes Status: Acute Plan to address problem: Patient is on BIPAP during night time. (8) Hypotension Current Visit: Yes Status: Acute Plan to address problem: Patient is on Levophed. Subjective Date of service: 05/17/21 Principal diagnosis: myxedema coma Interval history: 70 YO Female with CVA with LHP, HTN, HLD, Lymphedema, Obesity Hypoventilation Syndrome, Hypothyroidism S/P Thyroidectomy, Vascular Dementia, Cerebral Atherosclerosis presents to ED for evaluation. Patient is stuporous with diminished cognition and is unable to provide history. Patient history taken from EMS staff, ED staff, as well as the patient's son who was made available by telephone . As per son the patient has experienced increased confusion, increased weakness, and decreased oral intake over the past 10 days with persistent and worsening symptoms over the same timeframe. Patient was found to be more confused today making incomprehensible sounds. EMS was notified and upon arrival the patient was found to be in distress and subsequently transported to [facility] for further care and evaluation of the aforementioned symptoms. The patient was seen and evaluated in the emergency department. All lab and imaging studies reviewed. Patient found to have body core temperature of 90 F, blood pressure of 66/34, and heart rate of 54. Patient symptoms consistent with myxedema coma, as well as metabolic encephalopathy, and acute kidney injury. Patient initiated on IV Synthroid therapy and admitted to ICU due to increased risk of worsening symptoms. No reports of fever, chills, chest pain, palpitation, productive cough, skin rash, recent ill contact, or known exposure to COVID-19. Prior admission on 02/23/2021 reviewed. All medication listed at time of admission has been reconciled. Advanced care planning conducted in ED. Patient has diminished cognition but has a positive gag reflex and is currently able to protect her airway without difficulty at this time. Patient sleepy. Weak. Lethergic. resting on room air . O2 saturation running 98%. Patient goes on BIPAP during night time. No acute respiratory distress. Patient afebrile. No leukocytosis. Blood pressure 109/70, Pulse 79. Patient is on Levophed. Chest xray done 05/14/21 reported Cardiomegaly without focal lung consolidation. Patient presently on Nor epinephrine, Levothyroxine and albuterol aerosol treatments. Objective Vital Signs - 12hr 05/17/21 05/17/21 05/17/21 02:01 02:31 03:01 Temperature Pulse Rate 90 76 73 Respiratory 20 18 15 Rate Blood Pressure 123/77 129/71 140/78 O2 Sat by Pulse 99 99 97 Oximetry 05/17/21 05/17/21 05/17/21 03:31 04:01 04:31 Temperature Pulse Rate 81 83 195 H Respiratory 26 H 22 29 H Rate Blood Pressure 133/80 125/69 115/71 O2 Sat by Pulse 98 97 95 Oximetry 05/17/21 05/17/21 05/17/21 04:55 05:01 05:31 Temperature 96.0 F L Pulse Rate 88 81 Respiratory 24 26 H Rate Blood Pressure 125/69 115/71 O2 Sat by Pulse 97 98 Oximetry 05/17/21 05/17/21 05/17/21 06:01 06:31 07:01 Temperature Pulse Rate 88 81 80 Respiratory 18 25 H 21 Rate Blood Pressure 119/66 95/33 99/51 O2 Sat by Pulse 97 98 98 Oximetry 05/17/21 05/17/21 05/17/21 07:30 08:00 08:30 Temperature Pulse Rate 83 78 86 Respiratory 25 H 22 27 H Rate Blood Pressure 114/47 102/51 109/69 O2 Sat by Pulse 97 99 98 Oximetry 05/17/21 05/17/21 05/17/21 09:00 09:30 10:00 Temperature Pulse Rate 86 80 77 Respiratory 20 20 15 Rate Blood Pressure 115/53 125/61 129/64 O2 Sat by Pulse 99 99 98 Oximetry 05/17/21 05/17/21 05/17/21 10:23 10:30 11:00 Temperature 98.1 F Pulse Rate 92 H 87 Respiratory 23 19 Rate Blood Pressure 137/69 97/54 O2 Sat by Pulse 97 98 Oximetry 05/17/21 05/17/21 05/17/21 11:30 12:00 12:30 Temperature Pulse Rate 92 H 86 80 Respiratory 16 18 13 Rate Blood Pressure 103/40 107/50 112/60 O2 Sat by Pulse 99 98 98 Oximetry 05/17/21 13:00 Temperature Pulse Rate 79 Respiratory 15 Rate Blood Pressure 109/70 O2 Sat by Pulse 99 Oximetry Constitutional: lethargic, appears uncomfortable Eyes: non-icteric Neck: supple, no lymphadenopathy Effort: mildly labored Ascultation: Bilateral: diminished breath sounds, rales Cardiovascular: regular rate and rhythm Gastrointestinal: hypoactive bowel sounds, soft, non-tender Integumentary: other (Stasis dermatitis.) Extremities: no cyanosis, edema Neurologic: pupils equal and round, unable to assess Psychiatric: other (Patient sleepy and lethergic.) CBC and BMP: 05/16/21 17:11 05/17/21 04:08 ABG, PT/INR, D-dimer: ABG ABG pH 7.493 (7.320-7.450) H 05/14/21 11:40 POC ABG pCO2 32.3 mmHg (32.0-48.0) 05/14/21 11:40 POC ABG pO2 194.1 mmHg (83-108) H 05/14/21 11:40 POC ABG HCO3 24.2 05/14/21 11:40 ABG O2 Saturation 99.4 (0-100) 05/14/21 11:40 PT/INR, D-dimer PT 13.9 Sec. (12.2-14.9) 05/14/21 10:53 INR 0.96 (0.87-1.13) 05/14/21 10:53 Abnormal lab findings: Abnormal Labs 05/14/21 05/14/21 05/14/21 10:53 10:53 10:53 RBC 2.90 L Hgb 7.9 L Hct 24.1 L MCH 27 L RDW 19.6 H Plt Count 47 L Seg Neutrophils % Nucleated RBC % 1.0 H ABG pH POC ABG pO2 ABG Hemoglobin ABG Oxyhemoglobin ABG Sodium ABG Potassium ABG Chloride ABG Glucose Sodium 154 H Potassium 3.3 L Chloride 109.0 H Carbon Dioxide BUN 54 H Creatinine 1.4 H Glucose 136 H POC Glucose Calcium 10.9 H Magnesium Ammonia Troponin T Total Protein 8.5 H Albumin Triglycerides LDL Cholesterol Direct TSH 100.000 H Free T4 0.10 L T3 (RAINA) Free T3 Index Arterial Blood Glucose Urine Creatinine Urine Total Protein Crossmatch 05/14/21 05/14/21 05/14/21 10:53 10:53 11:15 RBC Hgb Hct MCH RDW Plt Count Seg Neutrophils % Nucleated RBC % ABG pH POC ABG pO2 ABG Hemoglobin ABG Oxyhemoglobin ABG Sodium ABG Potassium ABG Chloride ABG Glucose Sodium Potassium Chloride Carbon Dioxide BUN Creatinine Glucose POC Glucose 116 H Calcium Magnesium 2.80 H Ammonia Troponin T 0.128 H* Total Protein Albumin Triglycerides 190 H LDL Cholesterol Direct 40 L TSH Free T4 T3 (RAINA) Free T3 Index Arterial Blood Glucose Urine Creatinine Urine Total Protein Crossmatch 05/14/21 05/14/21 05/14/21 11:40 13:19 13:19 RBC Hgb Hct MCH RDW Plt Count Seg Neutrophils % Nucleated RBC % ABG pH 7.493 H POC ABG pO2 194.1 H ABG Hemoglobin 7.3 L ABG Oxyhemoglobin 98.3 H ABG Sodium 151.0 H ABG Potassium 2.8 L ABG Chloride 111.0 H ABG Glucose 141 H Sodium Potassium Chloride Carbon Dioxide BUN Creatinine Glucose POC Glucose Calcium Magnesium Ammonia Troponin T Total Protein Albumin Triglycerides LDL Cholesterol Direct TSH Free T4 T3 (RAINA) <25 L Free T3 Index 0.8 L Arterial Blood Glucose 141 H Urine Creatinine Urine Total Protein Crossmatch 05/14/21 05/14/21 05/15/21 14:35 17:06 04:50 RBC 2.53 L Hgb 7.2 L Hct 21.0 L MCH RDW 19.6 H Plt Count 34 L Seg Neutrophils % 74.9 H Nucleated RBC % ABG pH POC ABG pO2 ABG Hemoglobin ABG Oxyhemoglobin ABG Sodium ABG Potassium ABG Chloride ABG Glucose Sodium Potassium Chloride Carbon Dioxide BUN Creatinine Glucose POC Glucose Calcium Magnesium Ammonia Troponin T 0.121 H* Total Protein Albumin Triglycerides LDL Cholesterol Direct TSH Free T4 0.10 L T3 (RA[place]) Free T3 Index Arterial Blood Glucose Urine Creatinine Urine Total Protein Crossmatch 05/15/21 05/15/21 05/16/21 04:50 16:30 04:00 RBC 2.13 L Hgb 5.9 L* Hct 17.8 L* MCH RDW 19.7 H Plt Count 24 L Seg Neutrophils % Nucleated RBC % ABG pH POC ABG pO2 ABG Hemoglobin ABG Oxyhemoglobin ABG Sodium ABG Potassium ABG Chloride ABG Glucose Sodium 155 H Potassium Chloride 111.0 H Carbon Dioxide BUN 58 H Creatinine 1.9 H Glucose 127 H POC Glucose Calcium Magnesium Ammonia 20.0 L Troponin T Total Protein Albumin Triglycerides LDL Cholesterol Direct TSH Free T4 T3 (RAINA) Free T3 Index Arterial Blood Glucose Urine Creatinine Urine Total Protein Crossmatch 05/16/21 05/16/21 05/16/21 04:00 05:50 07:34 RBC Hgb Hct MCH RDW Plt Count Seg Neutrophils % Nucleated RBC % ABG pH POC ABG pO2 ABG Hemoglobin ABG Oxyhemoglobin ABG Sodium ABG Potassium ABG Chloride ABG Glucose Sodium 150 H Potassium 2.8 L* D Chloride 110.0 H Carbon Dioxide BUN 61 H Creatinine 1.9 H Glucose 234 H POC Glucose 222 H Calcium Magnesium Ammonia Troponin T Total Protein Albumin 3.8 L Triglycerides LDL Cholesterol Direct TSH Free T4 T3 (RAINA) Free T3 Index Arterial Blood Glucose Urine Creatinine Urine Total Protein Crossmatch See Detail 05/16/21 05/16/21 05/16/21 13:02 15:35 17:11 RBC Hgb 8.9 L D Hct 27.7 L D MCH RDW Plt Count Seg Neutrophils % Nucleated RBC % ABG pH POC ABG pO2 ABG Hemoglobin ABG Oxyhemoglobin ABG Sodium ABG Potassium ABG Chloride ABG Glucose Sodium Potassium Chloride Carbon Dioxide BUN Creatinine Glucose POC Glucose 238 H Calcium Magnesium Ammonia Troponin T Total Protein Albumin Triglycerides LDL Cholesterol Direct TSH Free T4 T3 (RA[place]) Free T3 Index Arterial Blood Glucose Urine Creatinine 173.4 H Urine Total Protein 146 H Crossmatch 05/16/21 05/16/21 05/16/21 17:11 17:11 17:11 RBC Hgb Hct MCH RDW Plt Count Seg Neutrophils % Nucleated RBC % ABG pH POC ABG pO2 ABG Hemoglobin ABG Oxyhemoglobin ABG Sodium ABG Potassium ABG Chloride ABG Glucose Sodium 148 H Potassium Chloride 110.6 H Carbon Dioxide 20 L 17 L BUN 58 H 60 H Creatinine 1.6 H 1.7 H Glucose 227 H 228 H POC Glucose Calcium Magnesium Ammonia Troponin T Total Protein Albumin Triglycerides LDL Cholesterol Direct TSH 43.740 H Free T4 T3 (RAINA) Free T3 Index Arterial Blood Glucose Urine Creatinine Urine Total Protein Crossmatch 05/17/21 05/17/21 05/17/21 01:54 04:08 06:01 RBC Hgb Hct MCH RDW Plt Count Seg Neutrophils % Nucleated RBC % ABG pH POC ABG pO2 ABG Hemoglobin ABG Oxyhemoglobin ABG Sodium ABG Potassium ABG Chloride ABG Glucose Sodium Potassium 3.5 L Chloride 107.3 H Carbon Dioxide 20 L BUN 55 H Creatinine 1.5 H Glucose 209 H POC Glucose 170 H 191 H Calcium Magnesium Ammonia Troponin T Total Protein Albumin 3.6 L Triglycerides LDL Cholesterol Direct TSH Free T4 T3 (RA[place]) Free T3 Index Arterial Blood Glucose Urine Creatinine Urine Total Protein Crossmatch 05/17/21 11:53 RBC Hgb Hct MCH RDW Plt Count Seg Neutrophils % Nucleated RBC % ABG pH POC ABG pO2 ABG Hemoglobin ABG Oxyhemoglobin ABG Sodium ABG Potassium ABG Chloride ABG Glucose Sodium Potassium Chloride Carbon Dioxide BUN Creatinine Glucose POC Glucose 191 H Calcium Magnesium Ammonia Troponin T Total Protein Albumin Triglycerides LDL Cholesterol Direct TSH Free T4 T3 (RAINA) Free T3 Index Arterial Blood Glucose Urine Creatinine Urine Total Protein Crossmatch
--- NOTE | 2021-05-17 14:33 | Progress Note ---
Assessment and Plan Myxedema coma Management per primary team NSVT HTN NSTEMI suspect type 2 * EKG shows sinus rhythm rate of 72, nonspecific T abnormalities, no acute ischemic changes * Troponin is noted to be elevated in setting of myxedema coma Hypernatremia JOZEF * Nephrology following Thrombocytopenia Anemia * Patient to have blood tranfusion * Management per primary team Plan: Echo 05/16/2021-EF 60 to 65%, right ventricular systolic function is normal, left and right atrium are normal in size, trace pericardial effusion. Hold anticoagulation due to thrombocytopenia Continue amlodipine, clonidine, hydralizine Patient seen in conjunction with Dr. Soler who agreed with this plan of care. We will continue to follow - Patient Problems (1) Acute kidney injury (JOZEF) with acute tubular necrosis (ATN) Current Visit: Yes Status: Acute (2) Hypernatremia Current Visit: Yes Status: Acute (3) Metabolic encephalopathy Current Visit: Yes Status: Acute (4) Myxedema coma Current Visit: Yes Status: Acute (5) Thrombocytopenia Current Visit: Yes Status: Acute Subjective Date of service: 05/17/21 Principal diagnosis: myxedema coma Interval history: Patient remains nonverbal Sinus 70s on monitor Objective Vital Signs Temp Pulse Resp BP Pulse Ox 05/17/21 14:00 78 20 77/31 98 05/17/21 13:30 84 23 97/47 98 05/17/21 13:00 79 15 109/70 99 05/17/21 12:30 80 13 112/60 98 05/17/21 12:00 86 18 107/50 98 05/17/21 11:30 92 H 16 103/40 99 05/17/21 11:00 87 19 97/54 98 05/17/21 10:30 92 H 23 137/69 97 05/17/21 10:23 98.1 F 05/17/21 10:00 77 15 129/64 98 05/17/21 09:30 80 20 125/61 99 05/17/21 09:00 86 20 115/53 99 05/17/21 08:30 86 27 H 109/69 98 05/17/21 08:00 78 22 102/51 99 05/17/21 07:30 83 25 H 114/47 97 05/17/21 07:01 80 21 99/51 98 05/17/21 06:31 81 25 H 95/33 98 05/17/21 06:01 88 18 119/66 97 05/17/21 05:31 81 26 H 115/71 98 05/17/21 05:01 88 24 125/69 97 05/17/21 04:55 96.0 F L 05/17/21 04:31 195 H 29 H 115/71 95 05/17/21 04:01 83 22 125/69 97 05/17/21 03:31 81 26 H 133/80 98 05/17/21 03:01 73 15 140/78 97 05/17/21 02:31 76 18 129/71 99 05/17/21 02:01 90 20 123/77 99 05/17/21 01:31 79 18 129/83 99 05/17/21 01:00 75 21 152/83 97 05/17/21 00:30 75 26 H 152/83 98 05/17/21 00:08 80 18 138/69 99 05/17/21 00:00 82 22 138/69 98 05/16/21 23:30 65 16 144/75 98 05/16/21 23:00 78 20 141/80 99 05/16/21 22:30 71 22 128/85 99 05/16/21 22:26 22 05/16/21 22:18 94.5 F L 05/16/21 22:00 127/76 99 05/16/21 21:30 81 17 117/76 99 05/16/21 21:00 81 23 125/66 99 05/16/21 20:30 82 21 120/74 100 05/16/21 20:00 77 26 H 119/67 98 05/16/21 19:30 79 35 H 141/68 100 05/16/21 19:00 80 20 134/66 100 05/16/21 18:30 154/98 100 05/16/21 18:00 74 16 154/98 99 05/16/21 17:30 207 H 20 154/98 97 05/16/21 17:00 81 22 154/98 100 05/16/21 16:30 62 13 151/97 100 05/16/21 16:28 94.0 F L 72 24 144/68 99 05/16/21 16:00 63 21 151/97 100 05/16/21 15:40 72 15 159/99 100 05/16/21 15:30 33 H 159/99 100 10/19/21 15:20 119 H 28 H 142/88 100 05/16/21 15:10 91 H 16 142/88 100 05/16/21 15:00 138 H 31 H 137/83 100 05/16/21 14:50 111 H 27 H 137/83 99 - Physical Examination General: Other (altered mental status) HEENT: Positive: Normocephaly Neck: Positive: neck supple Cardiac: Positive: Reg Rate and Rhythm Lungs: Positive: Decreased Breath Sounds Neuro: Positive: Other (unable to assess) Abdomen: Positive: Soft Skin: Negative: Rash, Suspicious Lesions Extremities: Present: upper extr. pulses, lower extr. pulses - Labs and Meds Cardiac Enzymes 05/17/21 Range/Units 04:08 AST 29 (5-40) units/L CBC 05/16/21 Range/Units 17:11 Hgb 8.9 L D (10.1-14.3) gm/dl Hct 27.7 L D (30.3-42.9) % Comprehensive Metabolic Panel 05/16/21 05/16/21 05/17/21 Range/Units 17:11 17:11 04:08 Sodium 145 148 H 144 (137-145) mmol/L Potassium 3.7 D 4.0 3.5 L (3.6-5.0) mmol/L Chloride 106.5 110.6 H 107.3 H (98-107) mmol/L Carbon Dioxide 20 L 17 L 20 L (22-30) mmol/L BUN 58 H 60 H 55 H (7-17) mg/dL Creatinine 1.6 H 1.7 H 1.5 H (0.6-1.2) mg/dL Glucose 227 H 228 H 209 H (65-100) mg/dL Calcium 9.1 9.4 9.0 (8.4-10.2) mg/dL AST 29 (5-40) units/L ALT 19 (7-56) units/L Alkaline Phosphatase 83 (35-129) units/L Total Protein 6.8 (6.3-8.2) g/dL Albumin 3.6 L (3.9-5) g/dL - Imaging and Cardiology Echo: report reviewed - Telemetry EKG Rhythm: Sinus Rhythm - EKG Sinus rhythms and dysrhythmias: sinus rhythm Repolarization changes or abnormalities: nonspecific abnormality, ST segment, and/or T wave
[2021-05-17] MEDS ORDERED: NORepinephrine/NS 8 MG-250 ML 8 MG/250 ML INFUS..BTL IV SCH (16:00)
--- NOTE | 2021-05-17 16:57 | Progress Note ---
Assessment and Plan Assessment and plan: 70 YO Female with CVA with LHP, HTN, HLD, Lymphedema, Obesity Hypoventilation Syndrome, Hypothyroidism S/P Thyroidectomy, Vascular Dementia, Cerebral Atherosclerosis presents to ED for evaluation. Patient is stuporous with diminished cognition and is unable to provide history. Patient history taken fr EMS staff, ED staff, as well as the patient's son who was made available by telephone for interview. As per son the patient has experienced increased confusion, increased weakness, and decreased oral intake over the past 10 days with persistent and worsening symptoms over the same timeframe. Patient was found to be more confused today making incomprehensible sounds. EMS was notified and upon arrival the patient was found to be in distress and subsequently transported to [facility] for further care and evaluation of the aforementioned symptoms. The patient was seen and evaluated in the emergency department. All lab and imaging studies reviewed. Patient found to have body core temperature of 90 F, blood pressure of 66/34, and heart rate of 54. Patient symptoms consistent with myxedema coma, as well as metabolic encephalopathy, and acute kidney injury. Patient initiated on IV Synthroid therapy and admitted to ICU due to increased risk of worsening symptoms. No reports of fever, chills, chest pain, palpitation, productive cough, skin rash, recent ill contact, or known exposure to COVID-19. Prior admission on 02/23/2021 reviewed. All medication listed at time of admission has been reconciled. Advanced care planning conducted in ED. Patient has diminished cognition but has a positive gag reflex and is currently able to protect her airway without difficulty at the time of my evaluation. Critical care team consulted. Patient seen and examined today, while BP and HR are improved along with Temperature, the patient remains stuporous, although opens eyes some. Will check ammonia level, Start on CPAP/BiPAP at night time. Adjust synthroid based on treatment protocol. She is maintaining her airway #Myxedema coma -Continue IV Synthroid therapy, IV fluid resuscitation -Ordering TSH and free T4 -Continue neurochecks, seizure precautions, and aspiration precaution -If no clinical improvement by tomorrow, consider endocrine consult #Distributive shock -Likely in the setting of myxedema coma -Discontinuing home antihypertensives: Amlodipine 5 mg, clonidine, and hydralazine -Status post bolus of 2 L lactated ringer with little improvement in blood pressure -Initiating Levophed with map goal of >65. Should see improvement when antihypertensives are out of system. -We will continue to monitor #Metabolic encephalopathy -Likely secondary to myxedema coma -CT head Noncon negative. If encephalopathy continues after myxedema coma resolves, consider neurology consult and further metabolic work-up. #Hypernatremia-resolved -Sodium 144 -Status post lactated ringer administration on 05/15/2021. -Continue to follow #Acute kidney injury (JOZEF) with acute tubular necrosis (ATN)-improving -Baseline creatinine unknown -Creatinine 1.5 -We will continue to monitor with further fluid resuscitation #Obesity hypoventilation syndrome -We will likely need further evaluation upon discharge -Continue BiPAP at night #Anemia of chronic disease #Acute blood loss -Hemoglobin 8.9 -S/p transfusion of 2 units packed RBCs -Transfuse if hemoglobin <7 or patient becomes symptomatic #Hypokalemia-resolved -Potassium 3.5 -Aggressive repletion. Pending repeat BMP #Thrombocytopenia -Platelets 24 -Unknown etiology for thrombocytopenia. We will continue to monitor. Transfuse if platelets less than 20. #DVT prophylaxis -Continue SCDs of bilateral lower extremities; holding off on prophylactic anticoagulation in the setting of thrombocytopenia SCDs bilateral lower extremities while in bed, prophylactic anticoagulation #Advance care planning -Disease education conducted, care plan discussed, diagnoses discussed, prognosis discussed, patient is full code, patient family knowledge und erstanding agree with care plan, +30 minutes. Disposition Plan: Continue medical management Total Time Spent with Patient (Minutes): 45 History Interval history: No acute events overnight. Hospitalist Physical - Constitutional Vitals: Temp Pulse Resp BP Pulse Ox 98.1 F 75 19 96/53 98 05/17/21 10:23 05/17/21 15:30 05/17/21 15:30 05/17/21 15:30 05/17/21 15:30 General appearance: Present: no acute distress, obese, disheveled, other (altered mental status) HEART Score - HEART Score Troponin: Troponin T 0.121 ng/mL (0.00-0.029) H* 05/14/21 14:35 Results - Labs CBC & Chem 7: 05/16/21 17:11 05/17/21 04:08 Labs: Laboratory Last Values WBC 7.0 K/mm3 (4.5-11.0) 05/16/21 04:00 RBC 2.13 M/mm3 (3.65-5.03) L 05/16/21 04:00 Hgb 8.9 gm/dl (10.1-14.3) L D 05/16/21 17:11 Hct 27.7 % (30.3-42.9) L D 05/16/21 17:11 MCV 84 fl (79-97) 05/16/21 04:00 MCH 28 pg (28-32) 05/16/21 04:00 MCHC 33 % (30-34) 05/16/21 04:00 RDW 19.7 % (13.2-15.2) H 05/16/21 04:00 Plt Count 24 K/mm3 (140-440) L 05/16/21 04:00 Lymph % (Auto) 18.4 % (13.4-35.0) 05/15/21 04:50 [place] % (Auto) 6.3 % (0.0-7.3) 05/15/21 04:50 Eos % (Auto) 0.2 % (0.0-4.3) 05/15/21 04:50 Baso % (Auto) 0.2 % (0.0-1.8) 05/15/21 04:50 Lymph # (Auto) 1.3 K/mm3 (1.2-5.4) 05/15/21 04:50 Bates # (Auto) 0.4 K/mm3 (0.0-0.8) 05/15/21 04:50 Eos # (Auto) 0.0 K/mm3 (0.0-0.4) 05/15/21 04:50 Baso # (Auto) 0.0 K/mm3 (0.0-0.1) 05/15/21 04:50 Add Manual Diff Complete 05/14/21 10:53 Total Counted 100 05/14/21 10:53 Seg Neutrophils % 74.9 % (40.0-70.0) H 05/15/21 04:50 Seg Neuts % (Manual) 70.0 % (40.0-70.0) 05/14/21 10:53 Lymphocytes % (Manual) 25.0 % (13.4-35.0) 05/14/21 10:53 Monocytes % (Manual) 3.0 % (0.0-7.3) 05/14/21 10:53 Eosinophils % (Manual) 1.0 % (0.0-4.3) 05/14/21 10:53 Basophils % (Manual) 1.0 % (0.0-1.8) 05/14/21 10:53 Nucleated RBC % 1.0 % (0.0-0.9) H 05/14/21 10:53 Seg Neutrophils # 5.2 K/mm3 (1.8-7.7) 05/15/21 04:50 Seg Neutrophils # Man 5.0 K/mm3 (1.8-7.7) 05/14/21 10:53 Band Neutrophils # 0.0 K/mm3 05/14/21 10:53 Lymphocytes # (Manual) 1.8 K/mm3 (1.2-5.4) 05/14/21 10:53 Abs React Lymphs (Man) 0.0 K/mm3 05/14/21 10:53 Monocytes # (Manual) 0.2 K/mm3 (0.0-0.8) 05/14/21 10:53 Eosinophils # (Manual) 0.1 K/mm3 (0.0-0.4) 05/14/21 10:53 Basophils # (Manual) 0.1 K/mm3 (0.0-0.1) 05/14/21 10:53 Metamyelocytes # 0.0 K/mm3 05/14/21 10:53 Myelocytes # 0.0 K/mm3 05/14/21 10:53 Promyelocytes # 0.0 K/mm3 05/14/21 10:53 Blast Cells # 0.0 K/mm3 05/14/21 10:53 WBC Morphology Not Reportable 05/14/21 10:53 Hypersegmented Neuts Not Reportable 05/14/21 10:53 Hyposegmented Neuts Not Reportable 05/14/21 10:53 Hypogranular Neuts Not Reportable 05/14/21 10:53 Smudge Cells Not Reportable 05/14/21 10:53 Toxic Granulation Not Reportable 05/14/21 10:53 Toxic Vacuolation Not Reportable 05/14/21 10:53 Dohle Bodies Not Reportable 05/14/21 10:53 Pelger-Huet Anomaly Not Reportable 05/14/21 10:53 Christiano Rods Not Reportable 05/14/21 10:53 Platelet Estimate Consistent w auto 05/14/21 10:53 Clumped Platelets Not Reportable 05/14/21 10:53 Plt Clumps, EDTA Not Reportable 05/14/21 10:53 Large Platelets Rare 05/14/21 10:53 Giant Platelets Not Reportable 05/14/21 10:53 Platelet Satelliting Not Reportable 05/14/21 10:53 Plt Morphology Comment Not Reportable 05/14/21 10:53 RBC Morphology Not Reportable 05/14/21 10:53 Dimorphic RBCs Not Reportable 05/14/21 10:53 Polychromasia Not Reportable 05/14/21 10:53 Hypochromasia Not Reportable 05/14/21 10:53 Poikilocytosis 1+ 05/14/21 10:53 Anisocytosis 1+ 05/14/21 10:53 Microcytosis Not Reportable 05/14/21 10:53 Macrocytosis Not Reportable 05/14/21 10:53 Spherocytes Not Reportable 05/14/21 10:53 Pappenheimer Bodies Not Reportable 05/14/21 10:53 Sickle Cells Not Reportable 05/14/21 10:53 Target Cells Not Reportable 05/14/21 10:53 Tear Drop Cells Not Reportable 05/14/21 10:53 Ovalocytes Few 05/14/21 10:53 Helmet Cells Not Reportable 05/14/21 10:53 [place] Bodies Not Reportable 05/14/21 10:53 [place] Rings Not Reportable 05/14/21 10:53 Kenneth Cells Not Reportable 05/14/21 10:53 Bite Cells Not Reportable 05/14/21 10:53 Crenated Cell Not Reportable 05/14/21 10:53 Elliptocytes Few 05/14/21 10:53 Acanthocytes (Spur) Not Reportable 05/14/21 10:53 Rouleaux Not Reportable 05/14/21 10:53 Hemoglobin C Crystals Not Reportable 05/14/21 10:53 Schistocytes Not Reportable 05/14/21 10:53 Malaria parasites Not Reportable 05/14/21 10:53 Ruddy Bodies Not Reportable 05/14/21 10:53 Hem Pathologist Commnt No 05/14/21 10:53 PT 13.9 Sec. (12.2-14.9) 05/14/21 10:53 INR 0.96 (0.87-1.13) 05/14/21 10:53 APTT 28.5 Sec. (24.2-36.6) 05/14/21 10:53 ABG pH 7.493 (7.320-7.450) H 05/14/21 11:40 POC ABG pCO2 32.3 mmHg (32.0-48.0) 05/14/21 11:40 POC ABG pO2 194.1 mmHg (83-108) H 05/14/21 11:40 POC ABG HCO3 24.2 05/14/21 11:40 ABG O2 Saturation 99.4 (0-100) 05/14/21 11:40 POC ABG Base Excess 1.0 05/14/21 11:40 ABG Hemoglobin 7.3 (12.0-17.5) L 05/14/21 11:40 ABG Oxyhemoglobin 98.3 (94-98) H 05/14/21 11:40 ABG Methemoglobin 0.3 (0.0-1.5) 05/14/21 11:40 ABG Sodium 151.0 mmol/L (136.0-145.0) H 05/14/21 11:40 ABG Potassium 2.8 mmol/L (3.40-4.50) L 05/14/21 11:40 ABG Chloride 111.0 mmol/L (98-107) H 05/14/21 11:40 ABG Glucose 141 mg/dL (65-95) H 05/14/21 11:40 Carboxyhemoglobin 0.8 (0.5-1.5) 05/14/21 11:40 FiO2 % 40.0 05/14/21 11:40 Sodium 144 mmol/L (137-145) 05/17/21 04:08 Potassium 3.5 mmol/L (3.6-5.0) L 05/17/21 04:08 Chloride 107.3 mmol/L (98-107) H 05/17/21 04:08 Carbon Dioxide 20 mmol/L (22-30) L 05/17/21 04:08 Anion Gap 20 mmol/L 05/17/21 04:08 BUN 55 mg/dL (7-17) H 05/17/21 04:08 Creatinine 1.5 mg/dL (0.6-1.2) H 05/17/21 04:08 Estimated GFR 42 ml/min 05/17/21 04:08 BUN/Creatinine Ratio 37 % 05/17/21 04:08 Glucose 209 mg/dL (65-100) H 05/17/21 04:08 POC Glucose 191 mg/dL (70-105) H 05/17/21 11:53 Osmolality 324 Mosm/kg 05/17/21 04:08 Lactic Acid 1.40 mmol/L (0.7-2.0) 05/14/21 13:19 Calcium 9.0 mg/dL (8.4-10.2) 05/17/21 04:08 Magnesium 2.80 mg/dL (1.7-2.3) H 05/14/21 10:53 Total Bilirubin 0.80 mg/dL (0.1-1.2) 05/17/21 04:08 AST 29 units/L (5-40) 05/17/21 04:08 ALT 19 units/L (7-56) 05/17/21 04:08 Alkaline Phosphatase 83 units/L (35-129) 05/17/21 04:08 Ammonia 20.0 umol/L (25-60) L 05/15/21 16:30 Total Creatine Kinase 103 units/L (30-135) 05/14/21 12:22 Troponin T 0.121 ng/mL (0.00-0.029) H* 05/14/21 14:35 Total Protein 6.8 g/dL (6.3-8.2) 05/17/21 04:08 Albumin 3.6 g/dL (3.9-5) L 05/17/21 04:08 Albumin/Globulin Ratio 1.1 % 05/17/21 04:08 Triglycerides 190 mg/dL (2-149) H 05/14/21 10:53 Cholesterol 139 mg/dL (50-199) 05/14/21 10:53 LDL Cholesterol Direct 40 mg/dL (50-130) L 05/14/21 10:53 HDL Cholesterol 55 mg/dL (40-59) 05/14/21 10:53 Cholesterol/HDL Ratio 2.52 % 05/14/21 10:53 TSH 43.740 mlU/mL (0.270-4.200) H 05/16/21 17:11 Free T4 0.78 ng/dL (0.76-1.46) 05/16/21 17:11 T3 (RAINA) <25 ng/dL (76-181) L 05/14/21 13:19 Free T3 Index 0.8 pg/mL (2.3-4.2) L 05/14/21 13:19 Total Cortisol 32.0 mcg/dL () 05/14/21 13:19 Arterial Blood Glucose 141 mg/dL (65-95) H 05/14/21 11:40 Urine Color Yellow (Yellow) 05/14/21 Unknown Urine Turbidity Clear (Clear) 05/14/21 Unknown Urine pH 5.0 (5.0-7.0) 05/14/21 Unknown Ur Specific [place] 1.016 (1.003-1.030) 05/14/21 Unknown Urine Protein 100 mg/dl mg/dL (Negative) 05/14/21 Unknown Urine Glucose (UA) Neg mg/dL (Negative) 05/14/21 Unknown Urine Ketones Neg mg/dL (Negative) 05/14/21 Unknown Urine Blood Sm (Negative) 05/14/21 Unknown Urine Nitrite Neg (Negative) 05/14/21 Unknown Urine Bilirubin Neg (Negative) 05/14/21 Unknown Urine Urobilinogen 2.0 mg/dL (<2.0) 05/14/21 Unknown Ur Leukocyte Esterase Neg (Negative) 05/14/21 Unknown Urine WBC (Auto) 2.0 /HPF (0.0-6.0) 05/14/21 Unknown Urine RBC (Auto) 1.0 /HPF (0.0-6.0) 05/14/21 Unknown U Epithel Cells (Auto) 3.0 /HPF (0-13.0) 05/14/21 Unknown Urine Mucus Few /HPF 05/14/21 Unknown Urine Osmolality 455 Mosm/kg 05/16/21 15:35 Urine Creatinine 173.4 mg/dL (0.1-20.0) H 05/16/21 15:35 Urine Sodium 15 mmol/L 05/16/21 15:35 Urine Potassium 27.12 mmol/L 05/16/21 15:35 Urine Total Protein 146 mg/dL (5-11.8) H 05/16/21 15:35 Blood Type B NEGATIVE 05/16/21 05:50 Antibody Screen Negative 05/16/21 05:50 Crossmatch See Detail 05/16/21 05:50 Microbiology: Microbiology 05/14/21 10:53 Peripheral/Venous Blood Culture - Preliminary NO GROWTH AFTER 72 HOURS 05/14/21 10:53 Peripheral/Venous Blood Culture - Preliminary NO GROWTH AFTER 72 HOURS Active Medications - Current Medications Current Medications: Generic Name Dose Route Start Last Admin Trade Name Freq PRN Reason Stop Dose Admin Acetaminophen 650 mg 05/14/21 15:07 Acetaminophen 325 Mg Tab PO Q6H PRN Pain MILD(1-3)/Fever >100.5/CORTES Albuterol 2.5 mg 05/14/21 15:07 Albuterol 2.5 Mg/3 Ml Nebu IH Q3HRT PRN Shortness Of Breath Lipase/Protease/Amylase 1 each 05/16/21 10:23 05/17/21 04:20 Lipase 10,500/Protease 25,000/Amylase 43,750 (Units) Dr Arauz FEEDTUBE 1 each PRN PRN Administration For Clogged Feeding Tube Atorvastatin Calcium 40 mg 05/14/21 22:00 05/17/21 05:17 Atorvastatin 40 Mg Tab PO Not Given QHS ALEX Atropine Sulfate 1 mg 05/14/21 15:20 Atropine 1 Mg/Ml Vial IV ONCE PRN Bradycardia Dextrose 0 ml 05/16/21 05:34 Dextrose 50% In Water (25gm) 50 Ml Syringe IV Q30MIN PRN Hypoglycemia Protocol Hydromorphone HCl 0.5 mg 05/14/21 15:07 Hydromorphone 1 Mg/1 Ml Inj IV Q23H PRN Pain , Severe (7-10) Dextrose/Sodium Chloride 1,000 mls @ 100 mls/hr 05/14/21 18:00 05/17/21 04:20 D5ns 0.2% IV 100 mls/hr DIRECT ALEX Administration NORepinephrine/NS 8 MG-250 ML 8 mg in 250 mls @ 3.75 mls/hr 05/17/21 16:00 Norepinephrine/Ns 8 Mg-250 Ml (Double Conc) IV TITRATE ALEX Protocol 2 MCG/MIN Insulin Human Lispro 0 unit 05/16/21 06:00 05/17/21 12:32 Insulin Lispro 100 Unit/Ml SUB-Q 1 unit Q6HR ALEX Administration Protocol Levothyroxine Sodium 100 mcg 05/15/21 06:00 05/17/21 06:24 Levothyroxine 100 Mcg Inj IV 100 mcg DAILY@0600 ALEX Administration Oxycodone/Acetaminophen 1 tab 05/14/21 15:07 Oxycodone /Acetaminophen 5-325mg Tab PO Q16H PRN Pain, Moderate (4-6) Polyethylene Glycol 17 gm 05/14/21 15:06 Polyethylene Glycol 3350 17 Gm Powder PO QDAY PRN Constipation Simple Syrup 15 ml 05/16/21 10:23 Simple Syrup 15 Ml FEEDTUBE PRN PRN Hypoglycemia Simple Syrup 30 ml 05/16/21 10:23 Simple Syrup 15 Ml FEEDTUBE PRN PRN Hypoglycemia Sodium Bicarbonate 325 mg 05/16/21 10:23 05/17/21 04:20 Sodium Bicarbonate 325 Mg Tab FEEDTUBE 325 mg PRN PRN Administration For Clogged Feeding Tube Sodium Chloride 10 ml 05/14/21 22:00 05/17/21 10:18 Sodium Chloride 0.9% 10 Ml Flush Syringe IV 10 ml BID ALEX Administration Sodium Chloride 10 ml 05/14/21 15:07 Sodium Chloride 0.9% 10 Ml Flush Syringe IV PRN PRN LINE FLUSH Nutrition/Malnutrition Assess - Dietary Evaluation Nutrition/Malnutrition Findings: Nutrition Notes Start: 05/16/21 10:00 Freq: Status: Active Protocol: Document 05/16/21 10:00 GB (Rec: 05/16/21 10:23 GB [id number]) Nutrition Notes Need for Assessment generated from: MD Order,Education Initial or Follow up Assessment Current Diagnosis Hypertension,Stroke Other Pertinent Diagnosis obesity hypovent syndrome, dementia Current Diet NPO Labs/Tests 05/16: Na 150, K 2.8, BUN 61, creatinine 1.9, glucose 234 Pertinent Medications D5ns @100ml/hr (408kcal), KCl, vancomycin Height 5 ft 3 in Weight 127.006 kg [place] Body Weight (kg) 52.27 BMI 49.6 Intake Prior to Admission Poor Weight change and time frame admit weight Weight Status Morbidly Obese Subjective/Other Information H&P: son reported poor po, increased confusion & weakness over past 10 days prior to admit. Diminished cognition per MD note. Feeding tube placed - in fundus, double backed on self per xray eval. MD consult for nutrition education. RD to place TF orders: start when medically feasible Percent of energy/protein needs met: 0% - NPO Burn Absent Trauma Absent GI Symptoms None Food Allergy No Current % PO Other Minimum of two criteria No #1 Nutrition Diagnosis Swallowing difficulty,Altered nutrition-related laboratory values Comments: Feeding tube placed, diminished cognition, lethargic Etiology Change in behavior As Evidenced by Signs and Symptoms reported increased confusion/ weakness, decrease in po intake, altered renal related labs BUN/creatinine/glucose Is patient on ventilator? No Is Patient Ambulatory and/or Out of Bed No REE-([place]-confined to bed) 2122.116 Kcal/Kg value to use for calculation 12 Approximate Energy Requirements Using 1524 kcal/Kg Calculation Used for Recommendations Kcal/kg Additional Notes Protein 0.6-0.8g/kg @ 127k-101g Fluid: 1 ml/kcal or per MD Nutrition Intervention Change Diet Order: Continue NPO Nutrition Support: nepro @ 40ml/hr flush @ 150ml/4hr Total fluids: TF at goal + flush = 1598ml Kcal 1,728 Protein (gm) 78 Carbohydrates (gm) 155 Fat (gm) 92 Fluid (mL) 698 Education Handouts Provided Not a candidate for nutrition education. Documented diminished cognition, dementia . Goal #1 TF started, tolerated, at goal by f/u (nepro @40ml/hr) Follow-Up By: 05/19/21 Additional Comments F/U: TF status, Diet advancement, Swallow eval - Attestation Statement I have reviewed and agreed w/ Malnutrition eval & tx plan: Yes
[2021-05-18] MEDS: INSULIN LISPRO 100 UNIT/ML SUB-Q SCH ×4 (01:35→18:09)
[2021-05-18] MEDS: D5W/0.2% NACL 1,000 ML IV SCH ×3 (02:22→23:03)
[2021-05-18 06:01] LABS: Calcium 8.8 mg/dL (8.4-10.2)
[2021-05-18] MEDS: LEVOTHYROXINE 100 MCG INJ IV SCH ×2 (07:02→18:09)
--- NOTE | 2021-05-18 10:11 | Electrocardiograph Report ---
[facility] Test Date: 2021-05-14 Test Time: 14:55:57 Pat Name: SONIA LONG Department: Room: A266 Gender: F [employer]: DAVE : 1950 Requested By: CECILY BENTON Order Number: [id number] Reading MD: Emiliano Kelley Measurements Intervals [place] Rate: 73 P: 71 MI: 210 QRS: -64 QRSD: 108 T: 106 QT: 485 QTc: 536 Interpretive Statements Very poor quality ECG Normal sinus rhythm Compared to ECG 02/23/2021 02:00:13 No significant change Electronically Signed On 05-18-2021 10:11:37 EDT by Emiliano Kelley
--- NOTE | 2021-05-18 10:12 | Electrocardiograph Report ---
[facility] Test Date: 2021-05-14 Test Time: 14:57:03 Pat Name: SONIA LONG Department: Room: A266 Gender: F [employer]: DAVE : 1950 Requested By: MARTY OSORIO Order Number: [id number] Reading MD: Emiliano Kelley Measurements Intervals [place] Rate: 72 P: 80 VA: 215 QRS: -55 QRSD: 111 T: 86 QT: 483 QTc: 530 Interpretive Statements Very poor quality ECG Normal sinus rhythm Nonspecific T abnormalities, lateral leads Prolonged QT interval Compared to ECG 05/14/2021 14:55:57 No significant change Electronically Signed On 05-18-2021 10:11:57 EDT by Emiliano Kelley
[2021-05-18] MEDS: PHOS-NAK POWDER PACKET PO SCH ×3 (10:21→23:05)
[2021-05-18 12:15] LABS: Eosinophils % (Auto) 0.3 % (0.0-4.3); Hematocrit 24.6 % (30.3-42.9); Mean Corpuscular HGB Conc 33 % (30-34); Mean Corpuscular Volume 85 fl (79-97); Monocytes # (Auto) 0.4 K/mm3 (0.0-0.8); Monocytes % (Auto) 3.5 % (0.0-7.3); Red Blood Count 2.88 M/mm3 (3.65-5.03); Red Cell Distribution Width 17.7 % (13.2-15.2)
--- NOTE | 2021-05-18 12:52 | Progress Note ---
Assessment and Plan - Patient Problems (1) Acute kidney injury (JOZEF) with acute tubular necrosis (ATN) Current Visit: Yes Status: Acute Plan to address problem: Acute kidney injury most likely secondary to prerenal azotemia in the setting of myxedema coma, volume depletion, Urine Na was low at 15. renal function stabilizing on IVF, Na corrected with hypotonic saline. Maintain MAP > 65mmHg, avoid nephrotoxins. Will monitor lytes, renal parameters closely and make further recommendations. (2) Myxedema coma Current Visit: Yes Status: Acute Plan to address problem: Cont IV synthroid as per primary attending. pt was treated with hydrocortisone prior to treatment with synthroid, initial cortisol level was > 35. (3) Metabolic encephalopathy Current Visit: Yes Status: Acute Plan to address problem: Likely secondary to myxedema coma, CT head was negative (4) Hypernatremia Current Visit: Yes Status: Acute Plan to address problem: improved on hypotonic IVF (5) Hypokalemia Current Visit: Yes Status: Acute Plan to address problem: likely due to decreased oral intake. Supplement with KCl to target K > 4. (6) Anemia in chronic illness Current Visit: Yes Status: Acute Plan to address problem: transfuse with PRBC prn to target hb > 7 Subjective Date of service: 05/18/21 Principal diagnosis: myxedema coma Interval history: Pt remains confused, disoriented, in no acute respiratory distress Objective - Vital Signs Vital signs: Vital Signs - 12hr 05/18/21 05/18/21 05/18/21 01:00 01:05 01:30 Temperature Pulse Rate 72 71 Respiratory 16 23 Rate Blood Pressure 122/67 122/67 O2 Sat by Pulse 99 100 100 Oximetry 05/18/21 05/18/21 05/18/21 02:00 02:30 03:00 Temperature Pulse Rate 64 73 69 Respiratory 20 12 16 Rate Blood Pressure 96/52 96/52 112/59 O2 Sat by Pulse 100 98 99 Oximetry 05/18/21 05/18/21 05/18/21 03:30 04:00 04:30 Temperature 96.8 F L Pulse Rate 67 66 63 Respiratory 14 14 19 Rate Blood Pressure 112/59 103/63 103/63 O2 Sat by Pulse 100 100 100 Oximetry 05/18/21 05/18/21 05/18/21 05:30 05:46 06:00 Temperature Pulse Rate 68 66 Respiratory 12 14 18 Rate Blood Pressure 110/68 132/69 O2 Sat by Pulse 100 100 100 Oximetry 05/18/21 07:21 Temperature 98.1 F Pulse Rate Respiratory Rate Blood Pressure O2 Sat by Pulse Oximetry - General Appearance General appearance: well-developed, well-nourished, appears stated age, obese EENT: ATNC, PERRL, mucous membranes moist Neck: no JVD Respiratory: Present: Clear to Ascultation Cardiology: regular Gastrointestinal: obese Integumentary: no rash Neurologic: confused, disoriented - Lab 05/18/21 05:00 05/18/21 05:00 Most recent lab results ABG pH 7.493 (7.320-7.450) H 05/14/21 11:40 ABG O2 Saturation 99.4 (0-100) 05/14/21 11:40 Calcium 8.8 mg/dL (8.4-10.2) 05/18/21 05:00 Phosphorus 1.30 mg/dL (2.5-4.5) L 05/18/21 05:00 Magnesium 1.90 mg/dL (1.7-2.3) 05/18/21 05:00 Urine Creatinine 173.4 mg/dL (0.1-20.0) H 05/16/21 15:35 Urine Sodium 15 mmol/L 05/16/21 15:35 Urine Total Protein 146 mg/dL (5-11.8) H 05/16/21 15:35 Medications & Allergies - Medications Allergies/Adverse Reactions: Allergies No Known Allergies Allergy (Verified 05/17/21 09:35) Home Medications: Home Medications Medication Instructions Recorded Confirmed Last Taken Type Aspirin [Aspirin BABY CHEW TAB] 81 mg PO QDAY tab.chew 02/28/21 05/14/21 05/13/21 08:00 Rx AtorvaSTATin [Lipitor] 40 mg PO QHS #30 tablet 02/28/21 05/14/21 05/13/21 21:00 Rx NIFEdipine XL [Procardia Xl] 60 mg PO QDAY #30 tablet 02/28/21 05/14/21 05/13/21 08:00 Rx cloNIDine [Catapres] 0.2 mg PO Q12HR #60 tablet 02/28/21 05/14/21 05/13/21 19:00 Rx hydrALAZINE [Apresoline TAB] 100 mg PO TID #90 tab 02/28/21 05/14/21 05/13/21 18:00 Rx polyethylene glycoL 3350 [Miralax 17 gm PO QDAY PRN powd.pack 02/28/21 Unknown Rx 3350] Active Medications: Generic Name Dose Route Start Last Admin Trade Name Freq PRN Reason Stop Dose Admin Acetaminophen 650 mg 05/14/21 15:07 Acetaminophen 325 Mg Tab PO Q6H PRN Pain MILD(1-3)/Fever >100.5/CORTES Albuterol 2.5 mg 05/14/21 15:07 Albuterol 2.5 Mg/3 Ml Nebu IH Q3HRT PRN Shortness Of Breath Lipase/Protease/Amylase 1 each 05/16/21 10:23 05/17/21 04:20 Lipase 10,500/Protease 25,000/Amylase 43,750 (Units) Dr Arauz FEEDTUBE 1 each PRN PRN Administration For Clogged Feeding Tube Atorvastatin Calcium 40 mg 05/14/21 22:00 05/17/21 22:19 Atorvastatin 40 Mg Tab PO 40 mg QHS ALEX Administration Atropine Sulfate 1 mg 05/14/21 15:20 Atropine 1 Mg/Ml Vial IV ONCE PRN Bradycardia Dextrose 0 ml 05/16/21 05:34 Dextrose 50% In Water (25gm) 50 Ml Syringe IV Q30MIN PRN Hypoglycemia Protocol Hydromorphone HCl 0.5 mg 05/14/21 15:07 Hydromorphone 1 Mg/1 Ml Inj IV Q23H PRN Pain , Severe (7-10) Dextrose/Sodium Chloride 1,000 mls @ 100 mls/hr 05/14/21 18:00 05/18/21 12:39 D5ns 0.2% IV 100 mls/hr DIRECT ALEX Administration NORepinephrine/NS 8 MG-250 ML 8 mg in 250 mls @ 3.75 mls/hr 05/17/21 16:00 Norepinephrine/Ns 8 Mg-250 Ml (Double Conc) IV TITRATE ALEX Protocol 2 MCG/MIN Insulin Human Lispro 0 unit 05/16/21 06:00 05/18/21 12:33 Insulin Lispro 100 Unit/Ml SUB-Q 3 unit Q6HR ALEX Administration Protocol Levothyroxine Sodium 100 mcg 05/15/21 06:00 05/18/21 07:02 Levothyroxine 100 Mcg Inj IV 100 mcg DAILY@0600 ALEX Administration Oxycodone/Acetaminophen 1 tab 05/14/21 15:07 Oxycodone /Acetaminophen 5-325mg Tab PO Q16H PRN Pain, Moderate (4-6) Polyethylene Glycol 17 gm 05/14/21 15:06 Polyethylene Glycol 3350 17 Gm Powder PO QDAY PRN Constipation Potassium Phos/Sodium Phos 1 each 05/18/21 09:00 05/18/21 10:21 Phos-Nak Powder Packet PO 05/18/21 22:01 1 each Q8HR ALEX Administration Simple Syrup 15 ml 05/16/21 10:23 Simple Syrup 15 Ml FEEDTUBE PRN PRN Hypoglycemia Simple Syrup 30 ml 05/16/21 10:23 Simple Syrup 15 Ml FEEDTUBE PRN PRN Hypoglycemia Sodium Bicarbonate 325 mg 05/16/21 10:23 05/17/21 04:20 Sodium Bicarbonate 325 Mg Tab FEEDTUBE 325 mg PRN PRN Administration For Clogged Feeding Tube Sodium Chloride 10 ml 05/14/21 22:00 05/18/21 10:21 Sodium Chloride 0.9% 10 Ml Flush Syringe IV 10 ml BID ALEX Administration Sodium Chloride 10 ml 05/14/21 15:07 Sodium Chloride 0.9% 10 Ml Flush Syringe IV PRN PRN LINE FLUSH
--- NOTE | 2021-05-18 14:07 | Progress Note ---
Assessment and Plan Myxedema coma Hypothermia Acute Metabolic encephalopathy Hypernatremia Acute kidney injury (JOZEF) with acute tubular necrosis (ATN) Hypokalemia Thrombocytopenia - continue thyroid replacement with Levoxyl - continue warming blanket - wean Levophed for target MAP > 65 mmHg - continue accuchecks with glycemic control per SSI (While critically ill target blood glucose of 140-180 mg/dL; avoid hypoglycemia) - supplemental oxygen for target O2 sat's > 90% acutely - aspiration precautions - prn bronchodilators with pulmonary hygiene per RT - avoid nephrotoxins, renally dose all medications - continue to avoid benzodiazepine's, reduce the possibility of delirium - follow clinically off AB's - prn analgesia per CPOT score - Maintenance of sleep-wake cycle, avoid delirium - enteral nutritional support at goal rate as tolerated - G.I. & VTE prophylaxis - PT/OT/ROM exercises - continue mobility protocols for pressure ulcer prophylaxis - Monitor hemodynamics closely - continue other care per attending / other consultants - discharge planning ongoing concurrently COVID SPECIFIC INTERVENTIONS - not tested .... Re-evaluate in am & prn Subjective Date of service: 05/18/21 Principal diagnosis: Myxedema coma; Hypothermia; Ac encephalopathy; JOZEF; Thrombocytopenia Interval history: Patient is seen today for: Myxedema coma; Hypothermia; Acute Metabolic encephalopathy; Hypernatremia; JOZEF; Thrombocytopenia Seen and examined at bedside; 24hour events reviewed; nursing and respiratory care staff consulted; no adverse overnight events reported to me; resting in bed; on room air; remains encephalopathic and hypothermic; on warming blanket; no emesis or overt aspiration Objective Vital Signs - 12hr 05/18/21 05/18/21 05/18/21 02:30 03:00 03:30 Temperature Pulse Rate 73 69 67 Respiratory 12 16 14 Rate Blood Pressure 96/52 112/59 112/59 O2 Sat by Pulse 98 99 100 Oximetry 05/18/21 05/18/21 05/18/21 04:00 04:30 05:30 Temperature 96.8 F L Pulse Rate 66 63 68 Respiratory 14 19 12 Rate Blood Pressure 103/63 103/63 110/68 O2 Sat by Pulse 100 100 100 Oximetry 05/18/21 05/18/21 05/18/21 05:46 06:00 06:30 Temperature Pulse Rate 66 76 Respiratory 14 18 20 Rate Blood Pressure 132/69 100/58 O2 Sat by Pulse 100 100 100 Oximetry 05/18/21 05/18/21 05/18/21 07:00 07:21 07:30 Temperature 98.1 F Pulse Rate 61 69 Respiratory 16 15 Rate Blood Pressure 100/52 100/52 O2 Sat by Pulse 100 100 Oximetry 05/18/21 05/18/21 05/18/21 08:00 08:30 09:00 Temperature Pulse Rate 71 70 72 Respiratory 20 12 19 Rate Blood Pressure 111/66 111/66 112/50 O2 Sat by Pulse 99 100 98 Oximetry 05/18/21 05/18/21 05/18/21 09:30 10:00 10:30 Temperature Pulse Rate 66 74 79 Respiratory 16 21 19 Rate Blood Pressure 112/50 100/52 100/52 O2 Sat by Pulse 99 99 100 Oximetry 05/18/21 05/18/21 05/18/21 11:00 11:30 12:00 Temperature Pulse Rate 84 115 H 98 H Respiratory 26 H 21 25 H Rate Blood Pressure 103/46 103/46 96/41 O2 Sat by Pulse 98 100 98 Oximetry 05/18/21 05/18/21 05/18/21 12:30 13:00 13:30 Temperature Pulse Rate 78 83 98 H Respiratory 30 H 29 H 25 H Rate Blood Pressure 96/41 87/43 87/43 O2 Sat by Pulse 99 98 100 Oximetry Constitutional: no acute distress, lethargic Eyes: non-icteric ENT: oropharynx moist Neck: supple, no lymphadenopathy, other (large circumference) Effort: mildly labored Ascultation: Bilateral: clear, diminished breath sounds Percussion: Bilateral: not dull Cardiovascular: regular rate and rhythm Gastrointestinal: hypoactive bowel sounds, soft, non-tender, non-distended (protuberant) Integumentary: other (Stasis dermatitis.) Extremities: no cyanosis, edema (myxedema) Neurologic: non-focal exam (grossly), pupils equal and round, unable to assess Psychiatric: other (lethargic.) CBC and BMP: 05/19/21 08:03 05/19/21 04:00 ABG, PT/INR, D-dimer: ABG ABG pH 7.493 (7.320-7.450) H 05/14/21 11:40 POC ABG pCO2 32.3 mmHg (32.0-48.0) 05/14/21 11:40 POC ABG pO2 194.1 mmHg (83-108) H 05/14/21 11:40 POC ABG HCO3 24.2 05/14/21 11:40 ABG O2 Saturation 99.4 (0-100) 05/14/21 11:40 PT/INR, D-dimer PT 13.9 Sec. (12.2-14.9) 05/14/21 10:53 INR 0.96 (0.87-1.13) 05/14/21 10:53 Abnormal lab findings: Abnormal Labs 05/14/21 05/14/21 05/14/21 10:53 10:53 10:53 RBC 2.90 L Hgb 7.9 L Hct 24.1 L MCH 27 L RDW 19.6 H Plt Count 47 L Seg Neutrophils % Nucleated RBC % 1.0 H Seg Neutrophils # ABG pH POC ABG pO2 ABG Hemoglobin ABG Oxyhemoglobin ABG Sodium ABG Potassium ABG Chloride ABG Glucose Sodium 154 H Potassium 3.3 L Chloride 109.0 H Carbon Dioxide BUN 54 H Creatinine 1.4 H Glucose 136 H POC Glucose Calcium 10.9 H Phosphorus Magnesium Ammonia Troponin T Total Protein 8.5 H Albumin Triglycerides LDL Cholesterol Direct TSH 100.000 H Free T4 0.10 L T3 (RA[place]) Free T3 Index Arterial Blood Glucose Urine Creatinine Urine Total Protein Crossmatch 05/14/21 05/14/21 05/14/21 10:53 10:53 11:15 RBC Hgb Hct MCH RDW Plt Count Seg Neutrophils % Nucleated RBC % Seg Neutrophils # ABG pH POC ABG pO2 ABG Hemoglobin ABG Oxyhemoglobin ABG Sodium ABG Potassium ABG Chloride ABG Glucose Sodium Potassium Chloride Carbon Dioxide BUN Creatinine Glucose POC Glucose 116 H Calcium Phosphorus Magnesium 2.80 H Ammonia Troponin T 0.128 H* Total Protein Albumin Triglycerides 190 H LDL Cholesterol Direct 40 L TSH Free T4 T3 ([place]) Free T3 Index Arterial Blood Glucose Urine Creatinine Urine Total Protein Crossmatch 05/14/21 05/14/21 05/14/21 11:40 13:19 13:19 RBC Hgb Hct MCH RDW Plt Count Seg Neutrophils % Nucleated RBC % Seg Neutrophils # ABG pH 7.493 H POC ABG pO2 194.1 H ABG Hemoglobin 7.3 L ABG Oxyhemoglobin 98.3 H ABG Sodium 151.0 H ABG Potassium 2.8 L ABG Chloride 111.0 H ABG Glucose 141 H Sodium Potassium Chloride Carbon Dioxide BUN Creatinine Glucose POC Glucose Calcium Phosphorus Magnesium Ammonia Troponin T Total Protein Albumin Triglycerides LDL Cholesterol Direct TSH Free T4 T3 (RA[place]) <25 L Free T3 Index 0.8 L Arterial Blood Glucose 141 H Urine Creatinine Urine Total Protein Crossmatch 05/14/21 05/14/21 05/15/21 14:35 17:06 04:50 RBC 2.53 L Hgb 7.2 L Hct 21.0 L MCH RDW 19.6 H Plt Count 34 L Seg Neutrophils % 74.9 H Nucleated RBC % Seg Neutrophils # ABG pH POC ABG pO2 ABG Hemoglobin ABG Oxyhemoglobin ABG Sodium ABG Potassium ABG Chloride ABG Glucose Sodium Potassium Chloride Carbon Dioxide BUN Creatinine Glucose POC Glucose Calcium Phosphorus Magnesium Ammonia Troponin T 0.121 H* Total Protein Albumin Triglycerides LDL Cholesterol Direct TSH Free T4 0.10 L T3 ([place]) Free T3 Index Arterial Blood Glucose Urine Creatinine Urine Total Protein Crossmatch 05/15/21 05/15/21 05/16/21 04:50 16:30 04:00 RBC 2.13 L Hgb 5.9 L* Hct 17.8 L* MCH RDW 19.7 H Plt Count 24 L Seg Neutrophils % Nucleated RBC % Seg Neutrophils # ABG pH POC ABG pO2 ABG Hemoglobin ABG Oxyhemoglobin ABG Sodium ABG Potassium ABG Chloride ABG Glucose Sodium 155 H Potassium Chloride 111.0 H Carbon Dioxide BUN 58 H Creatinine 1.9 H Glucose 127 H POC Glucose Calcium Phosphorus Magnesium Ammonia 20.0 L Troponin T Total Protein Albumin Triglycerides LDL Cholesterol Direct TSH Free T4 T3 ([place]) Free T3 Index Arterial Blood Glucose Urine Creatinine Urine Total Protein Crossmatch 05/16/21 05/16/21 05/16/21 04:00 05:50 07:34 RBC Hgb Hct MCH RDW Plt Count Seg Neutrophils % Nucleated RBC % Seg Neutrophils # ABG pH POC ABG pO2 ABG Hemoglobin ABG Oxyhemoglobin ABG Sodium ABG Potassium ABG Chloride ABG Glucose Sodium 150 H Potassium 2.8 L* D Chloride 110.0 H Carbon Dioxide BUN 61 H Creatinine 1.9 H Glucose 234 H POC Glucose 222 H Calcium Phosphorus Magnesium Ammonia Troponin T Total Protein Albumin 3.8 L Triglycerides LDL Cholesterol Direct TSH Free T4 T3 ([place]) Free T3 Index Arterial Blood Glucose Urine Creatinine Urine Total Protein Crossmatch See Detail 05/16/21 05/16/21 05/16/21 13:02 15:35 17:11 RBC Hgb 8.9 L D Hct 27.7 L D MCH RDW Plt Count Seg Neutrophils % Nucleated RBC % Seg Neutrophils # ABG pH POC ABG pO2 ABG Hemoglobin ABG Oxyhemoglobin ABG Sodium ABG Potassium ABG Chloride ABG Glucose Sodium Potassium Chloride Carbon Dioxide BUN Creatinine Glucose POC Glucose 238 H Calcium Phosphorus Magnesium Ammonia Troponin T Total Protein Albumin Triglycerides LDL Cholesterol Direct TSH Free T4 T3 ([place]) Free T3 Index Arterial Blood Glucose Urine Creatinine 173.4 H Urine Total Protein 146 H Crossmatch 05/16/21 05/16/21 05/16/21 17:11 17:11 17:11 RBC Hgb Hct MCH RDW Plt Count Seg Neutrophils % Nucleated RBC % Seg Neutrophils # ABG pH POC ABG pO2 ABG Hemoglobin ABG Oxyhemoglobin ABG Sodium ABG Potassium ABG Chloride ABG Glucose Sodium 148 H Potassium Chloride 110.6 H Carbon Dioxide 20 L 17 L BUN 58 H 60 H Creatinine 1.6 H 1.7 H Glucose 227 H 228 H POC Glucose Calcium Phosphorus Magnesium Ammonia Troponin T Total Protein Albumin Triglycerides LDL Cholesterol Direct TSH 43.740 H Free T4 T3 ([place]) Free T3 Index Arterial Blood Glucose Urine Creatinine Urine Total Protein Crossmatch 05/17/21 05/17/21 05/17/21 01:54 04:08 06:01 RBC Hgb Hct MCH RDW Plt Count Seg Neutrophils % Nucleated RBC % Seg Neutrophils # ABG pH POC ABG pO2 ABG Hemoglobin ABG Oxyhemoglobin ABG Sodium ABG Potassium ABG Chloride ABG Glucose Sodium Potassium 3.5 L Chloride 107.3 H Carbon Dioxide 20 L BUN 55 H Creatinine 1.5 H Glucose 209 H POC Glucose 170 H 191 H Calcium Phosphorus Magnesium Ammonia Troponin T Total Protein Albumin 3.6 L Triglycerides LDL Cholesterol Direct TSH Free T4 T3 ([place]) Free T3 Index Arterial Blood Glucose Urine Creatinine Urine Total Protein Crossmatch 05/17/21 05/17/21 05/18/21 11:53 18:08 00:18 RBC Hgb Hct MCH RDW Plt Count Seg Neutrophils % Nucleated RBC % Seg Neutrophils # ABG pH POC ABG pO2 ABG Hemoglobin ABG Oxyhemoglobin ABG Sodium ABG Potassium ABG Chloride ABG Glucose Sodium Potassium Chloride Carbon Dioxide BUN Creatinine Glucose POC Glucose 191 H 228 H 265 H Calcium Phosphorus Magnesium Ammonia Troponin T Total Protein Albumin Triglycerides LDL Cholesterol Direct TSH Free T4 T3 ([place]) Free T3 Index Arterial Blood Glucose Urine Creatinine Urine Total Protein Crossmatch 05/18/21 05/18/21 05/18/21 05:00 05:00 05:53 RBC 2.88 L Hgb 8.0 L Hct 24.6 L MCH RDW 17.7 H Plt Count Seg Neutrophils % 83.3 H Nucleated RBC % Seg Neutrophils # 8.7 H ABG pH POC ABG pO2 ABG Hemoglobin ABG Oxyhemoglobin ABG Sodium ABG Potassium ABG Chloride ABG Glucose Sodium Potassium Chloride Carbon Dioxide 16 L BUN 56 H Creatinine 1.4 H Glucose 287 H POC Glucose 278 H Calcium Phosphorus 1.30 L Magnesium Ammonia Troponin T Total Protein Albumin Triglycerides LDL Cholesterol Direct TSH Free T4 T3 ([place]) Free T3 Index Arterial Blood Glucose Urine Creatinine Urine Total Protein Crossmatch 05/18/21 11:42 RBC Hgb Hct MCH RDW Plt Count Seg Neutrophils % Nucleated RBC % Seg Neutrophils # ABG pH POC ABG pO2 ABG Hemoglobin ABG Oxyhemoglobin ABG Sodium ABG Potassium ABG Chloride ABG Glucose Sodium Potassium Chloride Carbon Dioxide BUN Creatinine Glucose POC Glucose 263 H Calcium Phosphorus Magnesium Ammonia Troponin T Total Protein Albumin Triglycerides LDL Cholesterol Direct TSH Free T4 T3 ([place]) Free T3 Index Arterial Blood Glucose Urine Creatinine Urine Total Protein Crossmatch Allied health notes reviewed: nursing
--- NOTE | 2021-05-18 14:29 | Progress Note ---
Assessment and Plan Assessment and plan: Assessment and plan: 70 YO Female with CVA with LHP, HTN, HLD, Lymphedema, Obesity Hypoventilation Syndrome, Hypothyroidism S/P Thyroidectomy, Vascular Dementia, Cerebral Athero sclerosis presents to ED for evaluation. Patient is stuporous with diminished cognition and is unable to provide history. Patient history taken from EMS staff, ED staff, as well as the patient's son who was made available by telephone for interview. As per son the patient has experienced increased confusion, increased weakness, and decreased oral intake over the past 10 days with persistent and worsening symptoms over the same timeframe. Patient was found to be more confused today making incomprehensible sounds. EMS was notified and upon arrival the patient was found to be in distress and subsequently transported to [facility] for further care and evaluation of the aforementioned symptoms. The patient was seen and evaluated in the emergency department. All lab and imaging studies reviewed. Patient found to have body core temperature of 90 F, blood pressure of 66/34, and heart rate of 54. Patient symptoms consistent with myxedema coma, as well as metabolic encephalopathy, and acute kidney injury. Patient initiated on IV Synthroid therapy and admitted to ICU due to increased risk of worsening symptoms. No reports of fever, chills, chest pain, palpitation, productive cough, skin rash, recent ill contact, or known exposure to COVID-19. Prior admission on 02/23/2021 reviewed. All medication listed at time of admission has been reconciled. Advanced care planning conducted in ED. Patient has diminished cognition but has a positive gag reflex and is currently able to protect her airway without difficulty at the time of my evaluation. Critical care team consulted. Patient seen and examined today, while BP and HR are improved along with Temperature, the patient remains stuporous, although opens eyes some. Will check ammonia level, Start on CPAP/BiPAP at night time. Adjust synthroid based on treatment protocol. She is maintaining her airway #Myxedema coma -Continue IV Synthroid therapy, IV fluid resuscitation -Ordering TSH and free T4 -Continue neurochecks, seizure precautions, and aspiration precaution -If no clinical improvement by tomorrow, consider endocrine consult #Distributive shock -Likely in the setting of myxedema coma -Discontinuing home antihypertensives: Amlodipine 5 mg, clonidine, and hydralazine -Status post bolus of 2 L lactated ringer with little improvement in blood pressure -Initiating Levophed with map goal of >65. Should see improvement when antihypertensives are out of system. -We will continue to monitor #Metabolic encephalopathy -Likely secondary to myxedema coma -CT head Noncon negative. If encephalopathy continues after myxedema coma r esolves, consider neurology consult and further metabolic work-up. #Hypernatremia-resolved -Sodium 144 -Status post lactated ringer administration on 05/15/2021. -Continue to follow #Acute kidney injury (JOZEF) with acute tubular necrosis (ATN)-improving -Baseline creatinine unknown -Creatinine 1.4 -We will continue to monitor with further fluid resuscitation #Obesity hypoventilation syndrome -We will likely need further evaluation upon discharge -Continue BiPAP at night #Anemia of chronic disease #Acute blood loss -Hemoglobin 8.9 -S/p transfusion of 2 units packed RBCs -Transfuse if hemoglobin <7 or patient becomes symptomatic #Hypokalemia-resolved -Potassium 3.5 -Aggressive repletion. Pending repeat BMP #Thrombocytopenia -Platelets 24 -Unknown etiology for thrombocytopenia. We will continue to monitor. Transfuse if platelets less than 20. #DVT prophylaxis -Continue SCDs of bilateral lower extremities; holding off on prophylactic anticoagulation in the setting of thrombocytopenia SCDs bilateral lower extremities while in bed, prophylactic anticoagulation #Advance care planning -Disease education conducted, care plan discussed, diagnoses discussed, prognosis discussed, patient is full code, patient family knowledge understanding agree with care plan, +30 minutes. #Social -Discussed with son (Wilfredo Sharma) about the current status of the patient and little to no improvement that is occurred since hospitalization. Son explained that prior to hospitalization the patient had agreed to home hospice; however, he would like a little more time before making a final decision given the acute clinical status. The son is the MPOA. If he decides to have the patient go hospice, he would prefer home hospice. The son would appreciate updates in ord er to determine how to move forward. Disposition Plan: Continue medical management Total Time Spent with Patient (Minutes): 40 History Interval history: No acute events overnight. Hospitalist Physical - Constitutional Vitals: Temp Pulse Resp BP Pulse Ox 98.1 F 98 H 25 H 87/43 100 05/18/21 07:21 05/18/21 13:30 05/18/21 13:30 05/18/21 13:30 05/18/21 13:30 General appearance: Present: no acute distress, obese, disheveled, other (altered mental status) - EENT Eyes: Present: PERRL, EOM intact ENT: clear oral mucosa, dentition normal, other (NG tube in place) - Neck Neck: Present: supple, normal ROM - Respiratory Respiratory effort: normal - Cardiovascular Rhythm: regular Heart Sounds: Present: S1 & S2 - Extremities Extremities: no ischemia, pulses intact, pulses symmetrical, No edema, normal temperature, normal color Peripheral Pulses: within normal limits - Abdominal General gastrointestinal: soft, non-tender, non-distended, normal bowel sounds - Integumentary Integumentary: Present: clear, warm, dry - Psychiatric Psychiatric: other (Unable to assess given clinical condition) - Neurologic Neurologic: moves all extremities, other (Lethargic yet slightly arousable; responsive to painful stimuli) - Allied Health Allied health notes reviewed: nursing HEART Score - HEART Score Troponin: Troponin T 0.121 ng/mL (0.00-0.029) H* 05/14/21 14:35 Results - Labs CBC & Chem 7: 05/18/21 05:00 05/18/21 05:00 Labs: Laboratory Last Values WBC 10.4 K/mm3 (4.5-11.0) 05/18/21 05:00 RBC 2.88 M/mm3 (3.65-5.03) L 05/18/21 05:00 Hgb 8.0 gm/dl (10.1-14.3) L 05/18/21 05:00 Hct 24.6 % (30.3-42.9) L 05/18/21 05:00 MCV 85 fl (79-97) 05/18/21 05:00 MCH 28 pg (28-32) 05/18/21 05:00 MCHC 33 % (30-34) 05/18/21 05:00 RDW 17.7 % (13.2-15.2) H 05/18/21 05:00 Plt Count 24 K/mm3 (140-440) L 05/16/21 04:00 Lymph % (Auto) 18.4 % (13.4-35.0) 05/15/21 04:50 [place] % (Auto) 3.5 % (0.0-7.3) 05/18/21 05:00 Eos % (Auto) 0.3 % (0.0-4.3) 05/18/21 05:00 Baso % (Auto) 0.2 % (0.0-1.8) 05/15/21 04:50 Lymph # (Auto) 1.3 K/mm3 (1.2-5.4) 05/15/21 04:50 [place] # (Auto) 0.4 K/mm3 (0.0-0.8) 05/18/21 05:00 Eos # (Auto) 0.0 K/mm3 (0.0-0.4) 05/15/21 04:50 Baso # (Auto) 0.0 K/mm3 (0.0-0.1) 05/15/21 04:50 Add Manual Diff Complete 05/14/21 10:53 Total Counted 100 05/14/21 10:53 Seg Neutrophils % 83.3 % (40.0-70.0) H 05/18/21 05:00 Seg Neuts % (Manual) 70.0 % (40.0-70.0) 05/14/21 10:53 Lymphocytes % (Manual) 25.0 % (13.4-35.0) 05/14/21 10:53 Monocytes % (Manual) 3.0 % (0.0-7.3) 05/14/21 10:53 Eosinophils % (Manual) 1.0 % (0.0-4.3) 05/14/21 10:53 Basophils % (Manual) 1.0 % (0.0-1.8) 05/14/21 10:53 Nucleated RBC % 1.0 % (0.0-0.9) H 05/14/21 10:53 Seg Neutrophils # 8.7 K/mm3 (1.8-7.7) H 05/18/21 05:00 Seg Neutrophils # Man 5.0 K/mm3 (1.8-7.7) 05/14/21 10:53 Band Neutrophils # 0.0 K/mm3 05/14/21 10:53 Lymphocytes # (Manual) 1.8 K/mm3 (1.2-5.4) 05/14/21 10:53 Abs React Lymphs (Man) 0.0 K/mm3 05/14/21 10:53 Monocytes # (Manual) 0.2 K/mm3 (0.0-0.8) 05/14/21 10:53 Eosinophils # (Manual) 0.1 K/mm3 (0.0-0.4) 05/14/21 10:53 Basophils # (Manual) 0.1 K/mm3 (0.0-0.1) 05/14/21 10:53 Metamyelocytes # 0.0 K/mm3 05/14/21 10:53 Myelocytes # 0.0 K/mm3 05/14/21 10:53 Promyelocytes # 0.0 K/mm3 05/14/21 10:53 Blast Cells # 0.0 K/mm3 05/14/21 10:53 WBC Morphology Not Reportable 05/14/21 10:53 Hypersegmented Neuts Not Reportable 05/14/21 10:53 Hyposegmented Neuts Not Reportable 05/14/21 10:53 Hypogranular Neuts Not Reportable 05/14/21 10:53 Smudge Cells Not Reportable 05/14/21 10:53 Toxic Granulation Not Reportable 05/14/21 10:53 Toxic Vacuolation Not Reportable 05/14/21 10:53 Dohle Bodies Not Reportable 05/14/21 10:53 Pelger-Huet Anomaly Not Reportable 05/14/21 10:53 Christiano Rods Not Reportable 05/14/21 10:53 Platelet Estimate Consistent w auto 05/14/21 10:53 Clumped Platelets Not Reportable 05/14/21 10:53 Plt Clumps, EDTA Not Reportable 05/14/21 10:53 Large Platelets Rare 05/14/21 10:53 Giant Platelets Not Reportable 05/14/21 10:53 Platelet Satelliting Not Reportable 05/14/21 10:53 Plt Morphology Comment Not Reportable 05/14/21 10:53 RBC Morphology Not Reportable 05/14/21 10:53 Dimorphic RBCs Not Reportable 05/14/21 10:53 Polychromasia Not Reportable 05/14/21 10:53 Hypochromasia Not Reportable 05/14/21 10:53 Poikilocytosis 1+ 05/14/21 10:53 Anisocytosis 1+ 05/14/21 10:53 Microcytosis Not Reportable 05/14/21 10:53 Macrocytosis Not Reportable 05/14/21 10:53 Spherocytes Not Reportable 05/14/21 10:53 Pappenheimer Bodies Not Reportable 05/14/21 10:53 Sickle Cells Not Reportable 05/14/21 10:53 Target Cells Not Reportable 05/14/21 10:53 Tear Drop Cells Not Reportable 05/14/21 10:53 Ovalocytes Few 05/14/21 10:53 Helmet Cells Not Reportable 05/14/21 10:53 [place] Bodies Not Reportable 05/14/21 10:53 Isabella Rings Not Reportable 05/14/21 10:53 [place] Cells Not Reportable 05/14/21 10:53 Bite Cells Not Reportable 05/14/21 10:53 Crenated Cell Not Reportable 05/14/21 10:53 Elliptocytes Few 05/14/21 10:53 Acanthocytes (Spur) Not Reportable 05/14/21 10:53 Rouleaux Not Reportable 05/14/21 10:53 Hemoglobin C Crystals Not Reportable 05/14/21 10:53 Schistocytes Not Reportable 05/14/21 10:53 Malaria parasites Not Reportable 05/14/21 10:53 Ruddy Bodies Not Reportable 05/14/21 10:53 Hem Pathologist Commnt No 05/14/21 10:53 PT 13.9 Sec. (12.2-14.9) 05/14/21 10:53 INR 0.96 (0.87-1.13) 05/14/21 10:53 APTT 28.5 Sec. (24.2-36.6) 05/14/21 10:53 ABG pH 7.493 (7.320-7.450) H 05/14/21 11:40 POC ABG pCO2 32.3 mmHg (32.0-48.0) 05/14/21 11:40 POC ABG pO2 194.1 mmHg (83-108) H 05/14/21 11:40 POC ABG HCO3 24.2 05/14/21 11:40 ABG O2 Saturation 99.4 (0-100) 05/14/21 11:40 POC ABG Base Excess 1.0 05/14/21 11:40 ABG Hemoglobin 7.3 (12.0-17.5) L 05/14/21 11:40 ABG Oxyhemoglobin 98.3 (94-98) H 05/14/21 11:40 ABG Methemoglobin 0.3 (0.0-1.5) 05/14/21 11:40 ABG Sodium 151.0 mmol/L (136.0-145.0) H 05/14/21 11:40 ABG Potassium 2.8 mmol/L (3.40-4.50) L 05/14/21 11:40 ABG Chloride 111.0 mmol/L (98-107) H 05/14/21 11:40 ABG Glucose 141 mg/dL (65-95) H 05/14/21 11:40 Carboxyhemoglobin 0.8 (0.5-1.5) 05/14/21 11:40 FiO2 % 40.0 05/14/21 11:40 Sodium 138 mmol/L (137-145) 05/18/21 05:00 Potassium 3.7 mmol/L (3.6-5.0) 05/18/21 05:00 Chloride 103.9 mmol/L (98-107) 05/18/21 05:00 Carbon Dioxide 16 mmol/L (22-30) L 05/18/21 05:00 Anion Gap 22 mmol/L 05/18/21 05:00 BUN 56 mg/dL (7-17) H 05/18/21 05:00 Creatinine 1.4 mg/dL (0.6-1.2) H 05/18/21 05:00 Estimated GFR 45 ml/min 05/18/21 05:00 BUN/Creatinine Ratio 40 % 05/18/21 05:00 Glucose 287 mg/dL (65-100) H 05/18/21 05:00 POC Glucose 263 mg/dL (70-105) H 05/18/21 11:42 Osmolality 324 Mosm/kg 05/17/21 04:08 Lactic Acid 1.40 mmol/L (0.7-2.0) 05/14/21 13:19 Calcium 8.8 mg/dL (8.4-10.2) 05/18/21 05:00 Phosphorus 1.30 mg/dL (2.5-4.5) L 05/18/21 05:00 Magnesium 1.90 mg/dL (1.7-2.3) 05/18/21 05:00 Total Bilirubin 0.80 mg/dL (0.1-1.2) 05/17/21 04:08 AST 29 units/L (5-40) 05/17/21 04:08 ALT 19 units/L (7-56) 05/17/21 04:08 Alkaline Phosphatase 83 units/L (35-129) 05/17/21 04:08 Ammonia 20.0 umol/L (25-60) L 05/15/21 16:30 Total Creatine Kinase 103 units/L (30-135) 05/14/21 12:22 Troponin T 0.121 ng/mL (0.00-0.029) H* 05/14/21 14:35 Total Protein 6.8 g/dL (6.3-8.2) 05/17/21 04:08 Albumin 3.6 g/dL (3.9-5) L 05/17/21 04:08 Albumin/Globulin Ratio 1.1 % 05/17/21 04:08 Triglycerides 190 mg/dL (2-149) H 05/14/21 10:53 Cholesterol 139 mg/dL (50-199) 05/14/21 10:53 LDL Cholesterol Direct 40 mg/dL (50-130) L 05/14/21 10:53 HDL Cholesterol 55 mg/dL (40-59) 05/14/21 10:53 Cholesterol/HDL Ratio 2.52 % 05/14/21 10:53 TSH 43.740 mlU/mL (0.270-4.200) H 05/16/21 17:11 Free T4 0.78 ng/dL (0.76-1.46) 05/16/21 17:11 T3 (RAINA) <25 ng/dL (76-181) L 05/14/21 13:19 Free T3 Index 0.8 pg/mL (2.3-4.2) L 05/14/21 13:19 Total Cortisol 32.0 mcg/dL () 05/14/21 13:19 Arterial Blood Glucose 141 mg/dL (65-95) H 05/14/21 11:40 Urine Color Yellow (Yellow) 05/14/21 Unknown Urine Turbidity Clear (Clear) 05/14/21 Unknown Urine pH 5.0 (5.0-7.0) 05/14/21 Unknown Ur Specific [place] 1.016 (1.003-1.030) 05/14/21 Unknown Urine Protein 100 mg/dl mg/dL (Negative) 05/14/21 Unknown Urine Glucose (UA) Neg mg/dL (Negative) 05/14/21 Unknown Urine Ketones Neg mg/dL (Negative) 05/14/21 Unknown Urine Blood Sm (Negative) 05/14/21 Unknown Urine Nitrite Neg (Negative) 05/14/21 Unknown Urine Bilirubin Neg (Negative) 05/14/21 Unknown Urine Urobilinogen 2.0 mg/dL (<2.0) 05/14/21 Unknown Ur Leukocyte Esterase Neg (Negative) 05/14/21 Unknown Urine WBC (Auto) 2.0 /HPF (0.0-6.0) 05/14/21 Unknown Urine RBC (Auto) 1.0 /HPF (0.0-6.0) 05/14/21 Unknown U Epithel Cells (Auto) 3.0 /HPF (0-13.0) 05/14/21 Unknown Urine Mucus Few /HPF 05/14/21 Unknown Urine Osmolality 455 Mosm/kg 05/16/21 15:35 Urine Creatinine 173.4 mg/dL (0.1-20.0) H 05/16/21 15:35 Urine Sodium 15 mmol/L 05/16/21 15:35 Urine Potassium 27.12 mmol/L 05/16/21 15:35 Urine Total Protein 146 mg/dL (5-11.8) H 05/16/21 15:35 Blood Type B NEGATIVE 05/16/21 05:50 Antibody Screen Negative 05/16/21 05:50 Crossmatch See Detail 05/16/21 05:50 Microbiology: Microbiology 05/14/21 10:53 Peripheral/Venous Blood Culture - Preliminary NO GROWTH AFTER 4 DAYS 05/14/21 10:53 Peripheral/Venous Blood Culture - Preliminary NO GROWTH AFTER 4 DAYS Awad/IV: Voiding Method Indwelling Catheter Active Medications - Current Medications Current Medications: Generic Name Dose Route Start Last Admin Trade Name Freq PRN Reason Stop Dose Admin Acetaminophen 650 mg 05/14/21 15:07 Acetaminophen 325 Mg Tab PO Q6H PRN Pain MILD(1-3)/Fever >100.5/CORTES Albuterol 2.5 mg 05/14/21 15:07 Albuterol 2.5 Mg/3 Ml Nebu IH Q3HRT PRN Shortness Of Breath Lipase/Protease/Amylase 1 each 05/16/21 10:23 05/17/21 04:20 Lipase 10,500/Protease 25,000/Amylase 43,750 (Units) Dr Arauz FEEDTUBE 1 each PRN PRN Administration For Clogged Feeding Tube Atorvastatin Calcium 40 mg 05/14/21 22:00 05/17/21 22:19 Atorvastatin 40 Mg Tab PO 40 mg QHS ALEX Administration Atropine Sulfate 1 mg 05/14/21 15:20 Atropine 1 Mg/Ml Vial IV ONCE PRN Bradycardia Dextrose 0 ml 05/16/21 05:34 Dextrose 50% In Water (25gm) 50 Ml Syringe IV Q30MIN PRN Hypoglycemia Protocol Hydromorphone HCl 0.5 mg 05/14/21 15:07 Hydromorphone 1 Mg/1 Ml Inj IV Q23H PRN Pain , Severe (7-10) Dextrose/Sodium Chloride 1,000 mls @ 100 mls/hr 05/14/21 18:00 05/18/21 12:39 D5ns 0.2% IV 100 mls/hr DIRECT ALEX Administration NORepinephrine/NS 8 MG-250 ML 8 mg in 250 mls @ 3.75 mls/hr 05/17/21 16:00 Norepinephrine/Ns 8 Mg-250 Ml (Double Conc) IV TITRATE ALEX Protocol 2 MCG/MIN Insulin Human Lispro 0 unit 05/16/21 06:00 05/18/21 12:33 Insulin Lispro 100 Unit/Ml SUB-Q 3 unit Q6HR ALEX Administration Protocol Levothyroxine Sodium 100 mcg 05/15/21 06:00 05/18/21 07:02 Levothyroxine 100 Mcg Inj IV 100 mcg DAILY@0600 ALEX Administration Oxycodone/Acetaminophen 1 tab 05/14/21 15:07 Oxycodone /Acetaminophen 5-325mg Tab PO Q16H PRN Pain, Moderate (4-6) Polyethylene Glycol 17 gm 05/14/21 15:06 Polyethylene Glycol 3350 17 Gm Powder PO QDAY PRN Constipation Potassium Phos/Sodium Phos 1 each 05/18/21 09:00 05/18/21 10:21 Phos-Nak Powder Packet PO 05/18/21 22:01 1 each Q8HR ALEX Administration Simple Syrup 15 ml 05/16/21 10:23 Simple Syrup 15 Ml FEEDTUBE PRN PRN Hypoglycemia Simple Syrup 30 ml 05/16/21 10:23 Simple Syrup 15 Ml FEEDTUBE PRN PRN Hypoglycemia Sodium Bicarbonate 325 mg 05/16/21 10:23 05/17/21 04:20 Sodium Bicarbonate 325 Mg Tab FEEDTUBE 325 mg PRN PRN Administration For Clogged Feeding Tube Sodium Chloride 10 ml 05/14/21 22:00 05/18/21 10:21 Sodium Chloride 0.9% 10 Ml Flush Syringe IV 10 ml BID ALEX Administration Sodium Chloride 10 ml 05/14/21 15:07 Sodium Chloride 0.9% 10 Ml Flush Syringe IV PRN PRN LINE FLUSH Nutrition/Malnutrition Assess - Dietary Evaluation Nutrition/Malnutrition Findings: Nutrition Notes Start: 05/16/21 10:00 Freq: Status: Active Protocol: Document 05/16/21 10:00 GB (Rec: 05/16/21 10:23 GB [id number]) Nutrition Notes Need for Assessment generated from: MD Order,Education Initial or Follow up Assessment Current Diagnosis Hypertension,Stroke Other Pertinent Diagnosis obesity hypovent syndrome, dementia Current Diet NPO Labs/Tests 05/16: Na 150, K 2.8, BUN 61, creatinine 1.9, glucose 234 Pertinent Medications D5ns @100ml/hr (408kcal), KCl, vancomycin Height 5 ft 3 in Weight 127.006 kg [place] Body Weight (kg) 52.27 BMI 49.6 Intake Prior to Admission Poor Weight change and time frame admit weight Weight Status Morbidly Obese Subjective/Other Information H&P: son reported poor po, increased confusion & weakness over past 10 days prior to admit. Diminished cognition per MD note. Feeding tube placed - in fundus, double backed on self per xrjm evnancy. MD consult for nutrition education. RD to place TF orders: start when medically feasible Percent of energy/protein needs met: 0% - NPO Burn Absent Trauma Absent GI Symptoms None Food Allergy No Current % PO Other Minimum of two criteria No #1 Nutrition Diagnosis Swallowing difficulty,Altered nutrition-related laboratory values Comments: Feeding tube placed, diminished cognition, lethargic Etiology Change in behavior As Evidenced by Signs and Symptoms reported increased confusion/ weakness, decrease in po intake, altered renal related labs BUN/creatinine/glucose Is patient on ventilator? No Is Patient Ambulatory and/or Out of Bed No REE-([facility]-confined to bed) 2122.116 Kcal/Kg value to use for calculation 12 Approximate Energy Requirements Using 1524 kcal/Kg Calculation Used for Recommendations Kcal/kg Additional Notes Protein 0.6-0.8g/kg @ 127k-101g Fluid: 1 ml/kcal or per MD Nutrition Intervention Change Diet Order: Continue NPO Nutrition Support: nepro @ 40ml/hr flush @ 150ml/4hr Total fluids: TF at goal + flush = 1598ml Kcal 1,728 Protein (gm) 78 Carbohydrates (gm) 155 Fat (gm) 92 Fluid (mL) 698 Education Handouts Provided Not a candidate for nutrition education. Documented diminished cognition, dementia . Goal #1 TF started, tolerated, at goal by f/u (nepro @40ml/hr) Follow-Up By: 05/19/21 Additional Comments F/U: TF status, Diet advancement, Swallow eval
--- NOTE | 2021-05-18 14:55 | Progress Note ---
Assessment and Plan Antihypertensives discontinued secondary to hypotension. May resume Clonidine if needed. Awaiting further recs regarding goals of care. Pt/family were previously planning for home hospice per documentation. Pt seen in conjunction with Dr. James, who agrees with the assessment and plan of care. - Patient Problems (1) Myxedema coma Current Visit: Yes Status: Acute (2) NSTEMI (non-ST elevated myocardial infarction) Current Visit: Yes Status: Acute Plan to address problem: Type 2 (3) NSVT (nonsustained ventricular tachycardia) Current Visit: Yes Status: Acute (4) JOZEF (acute kidney injury) Current Visit: Yes Status: Acute (5) Anemia Current Visit: Yes Status: Acute (6) Thrombocytopenia Current Visit: Yes Status: Acute (7) Obstructive sleep apnea Current Visit: Yes Status: Chronic (8) Obesity hypoventilation syndrome Current Visit: Yes Status: Chronic (9) HTN (hypertension) Current Visit: Yes Status: Chronic Qualifiers: Hypertension type: primary hypertension Qualified Code(s): I10 - Essential (primary) hypertension (10) HLD (hyperlipidemia) Current Visit: Yes Status: Chronic Qualifiers: Hyperlipidemia type: mixed hyperlipidemia Qualified Code(s): E78.2 - Mixed hyperlipidemia (11) History of CVA (cerebrovascular accident) Current Visit: Yes Status: Chronic (12) Vascular dementia Current Visit: Yes Status: Chronic Subjective Date of service: 05/18/21 Principal diagnosis: Myxedema Coma Interval history: Remains non-communicative. Tele reviewed - SR 70s, no events overnight. Objective Last Vital Signs Temp 98.1 F 05/18/21 07:21 Pulse 79 05/18/21 14:00 Resp 27 H 05/18/21 14:00 BP 94/42 05/18/21 14:00 Pulse Ox 97 05/18/21 14:00 - Physical Examination General: No Apparent Distress HEENT: Positive: Normocephaly Neck: Positive: neck supple, trachea midline. Negative: JVD/HJR Cardiac: Positive: Reg Rate and Rhythm, S1/S2 Lungs: Positive: clear to auscultation Neuro: Positive: Other (unresponsive) Abdomen: Positive: Soft Skin: Negative: Rash Extremities: Present: lower extr. pulses. Absent: edema - Labs and Meds CBC 05/18/21 Range/Units 05:00 WBC 10.4 (4.5-11.0) K/mm3 RBC 2.88 L (3.65-5.03) M/mm3 Hgb 8.0 L (10.1-14.3) gm/dl Hct 24.6 L (30.3-42.9) % [place] # (Auto) 0.4 (0.0-0.8) K/mm3 Comprehensive Metabolic Panel 05/18/21 Range/Units 05:00 Sodium 138 (137-145) mmol/L Potassium 3.7 (3.6-5.0) mmol/L Chloride 103.9 (98-107) mmol/L Carbon Dioxide 16 L (22-30) mmol/L BUN 56 H (7-17) mg/dL Creatinine 1.4 H (0.6-1.2) mg/dL Glucose 287 H (65-100) mg/dL Calcium 8.8 (8.4-10.2) mg/dL - Imaging and Cardiology EKG: report reviewed, image reviewed Echo: report reviewed (05/16/2021 - EF 60-65%, mild diastolic dysfxn, mild LVH, trace AR, trace pericardial effusion) - Telemetry EKG Rhythm: Sinus Rhythm - EKG Sinus rhythms and dysrhythmias: sinus rhythm Repolarization changes or abnormalities: nonspecific abnormality, ST segment, and/or T wave, Q-T interval prolongation - Allied health notes Allied health notes reviewed: nursing
[2021-05-18 18:28] LABS: Band Neutrophils # (Manual) 2.1 K/mm3; Myelocytes # (Manual) 4.4 K/mm3; Platelet Count 28 K/mm3 (140-440); Total Cells Counted 100
[2021-05-19] MEDS: INSULIN LISPRO 100 UNIT/ML SUB-Q SCH ×4 (01:00→17:57)
[2021-05-19] MEDS: LEVOTHYROXINE 100 MCG INJ IV SCH (06:37)
[2021-05-19 06:52] LABS: Calcium 8.2 mg/dL (8.4-10.2)
[2021-05-19 08:37] LABS: Hematocrit 22.5 % (30.3-42.9); Hemoglobin 7.5 gm/dl (10.1-14.3); Mean Corpuscular HGB Conc 33 % (30-34); Mean Corpuscular Volume 84 fl (79-97); Red Cell Distribution Width 17.9 % (13.2-15.2)
[2021-05-19] MEDS ORDERED: CALCIUM GLUCONATE 2,000 MG in SODIUM CHLORIDE 0.9% 100 ML IV SCH (08:45)
[2021-05-19] MEDS: D5W/0.2% NACL 1,000 ML IV SCH ×2 (09:24→22:10)
[2021-05-19] MEDS: K-PHOS NEUTRAL 250 MG TAB PO SCH ×4 (09:25→22:10)
--- NOTE | 2021-05-19 11:30 | Progress Note ---
Assessment and Plan - Patient Problems (1) Acute kidney injury (JOZEF) with acute tubular necrosis (ATN) Current Visit: Yes Status: Acute Plan to address problem: Acute kidney injury most likely secondary to prerenal azotemia in the setting of myxedema coma, volume depletion, Urine Na was low at 15. renal function stabilizing on IVF, Na corrected with hypotonic saline. Maintain MAP > 65mmHg, avoid nephrotoxins. Will monitor lytes, renal parameters closely and make further recommendations. (2) Myxedema coma Current Visit: Yes Status: Acute Plan to address problem: Cont IV synthroid as per primary attending. pt was treated with hydrocortisone prior to treatment with synthroid, initial cortisol level was > 35. (3) Metabolic encephalopathy Current Visit: Yes Status: Acute Plan to address problem: Likely secondary to myxedema coma, CT head was negative (4) Hypernatremia Current Visit: Yes Status: Acute Plan to address problem: improved on hypotonic IVF (5) Hypokalemia Current Visit: Yes Status: Acute Plan to address problem: likely due to decreased oral intake. Supplement with KCl to target K > 4. (6) Anemia in chronic illness Current Visit: Yes Status: Acute Plan to address problem: transfuse with PRBC prn to target hb > 7 Subjective Date of service: 05/19/21 Principal diagnosis: Myxedema Coma Interval history: Pt remains confused, disoriented, in no acute respiratory distress Objective - Vital Signs Vital signs: Vital Signs - 12hr 05/19/21 05/19/21 05/19/21 00:00 00:05 00:45 Temperature 98.7 F Pulse Rate 80 79 79 Respiratory 20 18 Rate Blood Pressure 99/47 99/47 O2 Sat by Pulse 99 99 Oximetry 05/19/21 05/19/21 05/19/21 01:00 01:15 01:31 Temperature Pulse Rate 81 81 78 Respiratory 19 17 17 Rate Blood Pressure 97/57 97/57 97/57 O2 Sat by Pulse 99 98 Oximetry 05/19/21 05/19/21 05/19/21 02:00 02:31 03:00 Temperature Pulse Rate 85 83 85 Respiratory 25 H 23 18 Rate Blood Pressure 113/64 113/64 102/62 O2 Sat by Pulse 98 97 99 Oximetry 05/19/21 05/19/21 05/19/21 03:28 03:31 04:00 Temperature 98.8 F Pulse Rate 80 87 Respiratory 20 25 H Rate Blood Pressure 102/62 118/68 O2 Sat by Pulse 98 98 Oximetry 05/19/21 05/19/21 05/19/21 04:30 04:31 05:01 Temperature Pulse Rate 84 83 83 Respiratory 24 17 Rate Blood Pressure 118/68 95/51 O2 Sat by Pulse 98 98 Oximetry 05/19/21 05/19/21 05/19/21 06:00 07:00 07:01 Temperature 97.6 F Pulse Rate 81 89 Respiratory 24 21 Rate Blood Pressure 109/59 146/74 O2 Sat by Pulse 99 97 Oximetry 05/19/21 05/19/21 05/19/21 08:01 08:26 09:01 Temperature Pulse Rate 85 77 Respiratory 19 16 Rate Blood Pressure 138/66 88/51 O2 Sat by Pulse 99 100 98 Oximetry - General Appearance General appearance: well-developed, well-nourished, appears stated age, obese EENT: ATNC, PERRL, mucous membranes moist Neck: no JVD Respiratory: Present: Clear to Ascultation Cardiology: regular Gastrointestinal: normoactive bowel sounds, obese Integumentary: no rash Neurologic: confused, disoriented - Lab 05/19/21 08:03 05/19/21 04:00 Most recent lab results ABG pH 7.493 (7.320-7.450) H 05/14/21 11:40 ABG O2 Saturation 99.4 (0-100) 05/14/21 11:40 Calcium 8.2 mg/dL (8.4-10.2) L 05/19/21 04:00 Phosphorus 1.40 mg/dL (2.5-4.5) L 05/19/21 04:00 Magnesium 1.90 mg/dL (1.7-2.3) 05/19/21 04:00 Urine Creatinine 173.4 mg/dL (0.1-20.0) H 05/16/21 15:35 Urine Sodium 15 mmol/L 05/16/21 15:35 Urine Total Protein 146 mg/dL (5-11.8) H 05/16/21 15:35 Medications & Allergies - Medications Allergies/Adverse Reactions: Allergies No Known Allergies Allergy (Verified 05/17/21 09:35) Home Medications: Home Medications Medication Instructions Recorded Confirmed Last Taken Type Aspirin [Aspirin BABY CHEW TAB] 81 mg PO QDAY tab.chew 02/28/21 05/14/21 05/13/21 08:00 Rx AtorvaSTATin [Lipitor] 40 mg PO QHS #30 tablet 02/28/21 05/14/21 05/13/21 21:00 Rx NIFEdipine XL [Procardia Xl] 60 mg PO QDAY #30 tablet 02/28/21 05/14/21 05/13/21 08:00 Rx cloNIDine [Catapres] 0.2 mg PO Q12HR #60 tablet 02/28/21 05/14/21 05/13/21 19:00 Rx hydrALAZINE [Apresoline TAB] 100 mg PO TID #90 tab 02/28/21 05/14/21 05/13/21 18:00 Rx polyethylene glycoL 3350 [Miralax 17 gm PO QDAY PRN powd.pack 02/28/21 Unknown Rx 3350] Active Medications: Generic Name Dose Route Start Last Admin Trade Name Freq PRN Reason Stop Dose Admin Acetaminophen 650 mg 05/14/21 15:07 Acetaminophen 325 Mg Tab PO Q6H PRN Pain MILD(1-3)/Fever >100.5/CORTES Albuterol 2.5 mg 05/14/21 15:07 Albuterol 2.5 Mg/3 Ml Nebu IH Q3HRT PRN Shortness Of Breath Lipase/Protease/Amylase 1 each 05/16/21 10:23 05/17/21 04:20 Lipase 10,500/Protease 25,000/Amylase 43,750 (Units) Dr Arauz FEEDTUBE 1 each PRN PRN Administration For Clogged Feeding Tube Atorvastatin Calcium 40 mg 05/14/21 22:00 05/18/21 23:04 Atorvastatin 40 Mg Tab PO 40 mg QHS ALEX Administration Atropine Sulfate 1 mg 05/14/21 15:20 Atropine 1 Mg/Ml Vial IV ONCE PRN Bradycardia Dextrose 0 ml 05/16/21 05:34 Dextrose 50% In Water (25gm) 50 Ml Syringe IV Q30MIN PRN Hypoglycemia Protocol Hydromorphone HCl 0.5 mg 05/14/21 15:07 Hydromorphone 1 Mg/1 Ml Inj IV Q23H PRN Pain , Severe (7-10) Dextrose/Sodium Chloride 1,000 mls @ 100 mls/hr 05/14/21 18:00 05/19/21 09:24 D5ns 0.2% IV 100 mls/hr DIRECT ALEX Administration NORepinephrine/NS 8 MG-250 ML 8 mg in 250 mls @ 3.75 mls/hr 05/17/21 16:00 Norepinephrine/Ns 8 Mg-250 Ml (Double Conc) IV TITRATE LAEX Protocol 2 MCG/MIN Calcium Gluconate 2,000 mg/ 120 mls @ 660 mls/hr 05/19/21 08:45 05/19/21 09:25 Sodium Chloride IV 05/19/21 12:45 660 mls/hr ONCE@0845 ALEX Administration Insulin Human Lispro 0 unit 05/16/21 06:00 05/19/21 06:39 Insulin Lispro 100 Unit/Ml SUB-Q 2 unit Q6HR ALEX Administration Protocol Levothyroxine Sodium 200 mcg 05/18/21 18:00 05/19/21 06:37 Levothyroxine 100 Mcg Inj IV 200 mcg DAILY@0600 ALEX Administration Oxycodone/Acetaminophen 1 tab 05/14/21 15:07 Oxycodone /Acetaminophen 5-325mg Tab PO Q16H PRN Pain, Moderate (4-6) Polyethylene Glycol 17 gm 05/14/21 15:06 Polyethylene Glycol 3350 17 Gm Powder PO QDAY PRN Constipation Potassium Chloride 40 meq 05/19/21 12:00 Potassium Chloride 20 Meq Packet FEEDTUBE 05/19/21 12:01 ONCE ONE Simple Syrup 15 ml 05/16/21 10:23 Simple Syrup 15 Ml FEEDTUBE PRN PRN Hypoglycemia Simple Syrup 30 ml 05/16/21 10:23 Simple Syrup 15 Ml FEEDTUBE PRN PRN Hypoglycemia Sodium Bicarbonate 325 mg 05/16/21 10:23 05/17/21 04:20 Sodium Bicarbonate 325 Mg Tab FEEDTUBE 325 mg PRN PRN Administration For Clogged Feeding Tube Sodium Chloride 10 ml 05/14/21 22:00 05/19/21 09:25 Sodium Chloride 0.9% 10 Ml Flush Syringe IV 10 ml BID ALEX Administration Sodium Chloride 10 ml 05/14/21 15:07 Sodium Chloride 0.9% 10 Ml Flush Syringe IV PRN PRN LINE FLUSH Sodium Phosphate 250 mg 05/19/21 10:00 05/19/21 09:25 K-Phos Neutral 250 Mg Tab PO 05/20/21 20:00 250 mg QID ALEX Administration
[2021-05-19] MEDS ORDERED: POTASSIUM CHLORIDE 20 MEQ PACKET FEEDTUBE ONE (12:00)
--- NOTE | 2021-05-19 12:06 | Progress Note ---
Assessment and Plan Myxedema coma Hypothermia Acute Metabolic encephalopathy Hypernatremia Acute kidney injury (JOZEF) with acute tubular necrosis (ATN) Hypokalemia Thrombocytopenia - replace potassium per protocol - hematology consult re: thrombocytopenia (transfusion for < 20K appropriate) - continue care as below; - continue thyroid replacement with Levoxyl - continue warming blanket - wean Levophed for target MAP > 65 mmHg - continue accuchecks with glycemic control per SSI (While critically ill target blood glucose of 140-180 mg/dL; avoid hypoglycemia) - supplemental oxygen for target O2 sat's > 90% acutely - aspiration precautions - prn bronchodilators with pulmonary hygiene per RT - avoid nephrotoxins, renally dose all medications - continue to avoid benzodiazepine's, reduce the possibility of delirium - follow clinically off AB's - prn analgesia per CPOT score - Maintenance of sleep-wake cycle, avoid delirium - enteral nutritional support at goal rate as tolerated - G.I. & VTE prophylaxis - PT/OT/ROM exercises - continue mobility protocols for pressure ulcer prophylaxis - Monitor hemodynamics closely - continue other care per attending / other consultants - discharge planning ongoing concurrently COVID SPECIFIC INTERVENTIONS - not tested .... Re-evaluate in am & prn Subjective Date of service: 05/19/21 Principal diagnosis: Myxedema coma; Hypothermia; Ac encephalopathy; JOZEF; Thrombocytopenia Interval history: Patient is seen today for: Myxedema coma; Hypothermia; Acute Metabolic encephalopathy; Hypernatremia; JOZEF; Thrombocytopenia Seen and examined at bedside; 24hour events reviewed; nursing and respiratory care staff consulted; no adverse overnight events reported to me; resting in bed; remains off oxygen; thrombocytopenia worse today without gross bleeding; no emesis or overt aspiration reported Objective Vital Signs - 12hr 05/19/21 05/19/21 05/19/21 00:45 01:00 01:15 Temperature Pulse Rate 79 81 81 Respiratory 18 19 17 Rate Blood Pressure 99/47 97/57 97/57 O2 Sat by Pulse 99 99 Oximetry 05/19/21 05/19/21 05/19/21 01:31 02:00 02:31 Temperature Pulse Rate 78 85 83 Respiratory 17 25 H 23 Rate Blood Pressure 97/57 113/64 113/64 O2 Sat by Pulse 98 98 97 Oximetry 05/19/21 05/19/21 05/19/21 03:00 03:28 03:31 Temperature 98.8 F Pulse Rate 85 80 Respiratory 18 20 Rate Blood Pressure 102/62 102/62 O2 Sat by Pulse 99 98 Oximetry 05/19/21 05/19/21 05/19/21 04:00 04:30 04:31 Temperature Pulse Rate 87 84 83 Respiratory 25 H 24 Rate Blood Pressure 118/68 118/68 O2 Sat by Pulse 98 98 Oximetry 05/19/21 05/19/21 05/19/21 05:01 06:00 07:00 Temperature 97.6 F Pulse Rate 83 81 Respiratory 17 24 Rate Blood Pressure 95/51 109/59 O2 Sat by Pulse 98 99 Oximetry 05/19/21 05/19/21 05/19/21 07:01 08:01 08:26 Temperature Pulse Rate 89 85 Respiratory 21 19 Rate Blood Pressure 146/74 138/66 O2 Sat by Pulse 97 99 100 Oximetry 05/19/21 05/19/21 09:01 11:58 Temperature 97.2 F L Pulse Rate 77 Respiratory 16 Rate Blood Pressure 88/51 O2 Sat by Pulse 98 Oximetry Constitutional: no acute distress, other (elderly female without increased respiratory effort at rest) Eyes: non-icteric ENT: oropharynx moist Neck: supple, no lymphadenopathy, other (large circumference) Effort: mildly labored Ascultation: Bilateral: clear, diminished breath sounds Percussion: Bilateral: not dull Cardiovascular: regular rate and rhythm Gastrointestinal: hypoactive bowel sounds, soft, non-tender, non-distended (protuberant) Integumentary: other (Stasis dermatitis.) Extremities: no cyanosis, edema (myxedema) Neurologic: non-focal exam (grossly), pupils equal and round, unable to assess Psychiatric: other (lethargic.) CBC and BMP: 05/20/21 04:17 05/20/21 04:17 ABG, PT/INR, D-dimer: ABG ABG pH 7.493 (7.320-7.450) H 05/14/21 11:40 POC ABG pCO2 32.3 mmHg (32.0-48.0) 05/14/21 11:40 POC ABG pO2 194.1 mmHg (83-108) H 05/14/21 11:40 POC ABG HCO3 24.2 05/14/21 11:40 ABG O2 Saturation 99.4 (0-100) 05/14/21 11:40 PT/INR, D-dimer PT 13.9 Sec. (12.2-14.9) 05/14/21 10:53 INR 0.96 (0.87-1.13) 05/14/21 10:53 Abnormal lab findings: Abnormal Labs 05/14/21 05/14/21 05/14/21 10:53 10:53 10:53 RBC 2.90 L Hgb 7.9 L Hct 24.1 L MCH 27 L RDW 19.6 H Plt Count 47 L Seg Neutrophils % Seg Neuts % (Manual) Lymphocytes % (Manual) Nucleated RBC % 1.0 H Seg Neutrophils # Lymphocytes # (Manual) ABG pH POC ABG pO2 ABG Hemoglobin ABG Oxyhemoglobin ABG Sodium ABG Potassium ABG Chloride ABG Glucose Sodium 154 H Potassium 3.3 L Chloride 109.0 H Carbon Dioxide BUN 54 H Creatinine 1.4 H Glucose 136 H POC Glucose Calcium 10.9 H Phosphorus Magnesium Ammonia Troponin T Total Protein 8.5 H Albumin Triglycerides LDL Cholesterol Direct TSH 100.000 H Free T4 0.10 L T3 (RAINA) Free T3 Index Arterial Blood Glucose Urine Creatinine Urine Total Protein Crossmatch 05/14/21 05/14/21 05/14/21 10:53 10:53 11:15 RBC Hgb Hct MCH RDW Plt Count Seg Neutrophils % Seg Neuts % (Manual) Lymphocytes % (Manual) Nucleated RBC % Seg Neutrophils # Lymphocytes # (Manual) ABG pH POC ABG pO2 ABG Hemoglobin ABG Oxyhemoglobin ABG Sodium ABG Potassium ABG Chloride ABG Glucose Sodium Potassium Chloride Carbon Dioxide BUN Creatinine Glucose POC Glucose 116 H Calcium Phosphorus Magnesium 2.80 H Ammonia Troponin T 0.128 H* Total Protein Albumin Triglycerides 190 H LDL Cholesterol Direct 40 L TSH Free T4 T3 (RAINA) Free T3 Index Arterial Blood Glucose Urine Creatinine Urine Total Protein Crossmatch 05/14/21 05/14/21 05/14/21 11:40 13:19 13:19 RBC Hgb Hct MCH RDW Plt Count Seg Neutrophils % Seg Neuts % (Manual) Lymphocytes % (Manual) Nucleated RBC % Seg Neutrophils # Lymphocytes # (Manual) ABG pH 7.493 H POC ABG pO2 194.1 H ABG Hemoglobin 7.3 L ABG Oxyhemoglobin 98.3 H ABG Sodium 151.0 H ABG Potassium 2.8 L ABG Chloride 111.0 H ABG Glucose 141 H Sodium Potassium Chloride Carbon Dioxide BUN Creatinine Glucose POC Glucose Calcium Phosphorus Magnesium Ammonia Troponin T Total Protein Albumin Triglycerides LDL Cholesterol Direct TSH Free T4 T3 (RAINA) <25 L Free T3 Index 0.8 L Arterial Blood Glucose 141 H Urine Creatinine Urine Total Protein Crossmatch 05/14/21 05/14/21 05/15/21 14:35 17:06 04:50 RBC 2.53 L Hgb 7.2 L Hct 21.0 L MCH RDW 19.6 H Plt Count 34 L Seg Neutrophils % 74.9 H Seg Neuts % (Manual) Lymphocytes % (Manual) Nucleated RBC % Seg Neutrophils # Lymphocytes # (Manual) ABG pH POC ABG pO2 ABG Hemoglobin ABG Oxyhemoglobin ABG Sodium ABG Potassium ABG Chloride ABG Glucose Sodium Potassium Chloride Carbon Dioxide BUN Creatinine Glucose POC Glucose Calcium Phosphorus Magnesium Ammonia Troponin T 0.121 H* Total Protein Albumin Triglycerides LDL Cholesterol Direct TSH Free T4 0.10 L T3 (RAINA) Free T3 Index Arterial Blood Glucose Urine Creatinine Urine Total Protein Crossmatch 05/15/21 05/15/21 05/16/21 04:50 16:30 04:00 RBC 2.13 L Hgb 5.9 L* Hct 17.8 L* MCH RDW 19.7 H Plt Count 24 L Seg Neutrophils % Seg Neuts % (Manual) Lymphocytes % (Manual) Nucleated RBC % Seg Neutrophils # Lymphocytes # (Manual) ABG pH POC ABG pO2 ABG Hemoglobin ABG Oxyhemoglobin ABG Sodium ABG Potassium ABG Chloride ABG Glucose Sodium 155 H Potassium Chloride 111.0 H Carbon Dioxide BUN 58 H Creatinine 1.9 H Glucose 127 H POC Glucose Calcium Phosphorus Magnesium Ammonia 20.0 L Troponin T Total Protein Albumin Triglycerides LDL Cholesterol Direct TSH Free T4 T3 (RAINA) Free T3 Index Arterial Blood Glucose Urine Creatinine Urine Total Protein Crossmatch 05/16/21 05/16/21 05/16/21 04:00 05:50 07:34 RBC Hgb Hct MCH RDW Plt Count Seg Neutrophils % Seg Neuts % (Manual) Lymphocytes % (Manual) Nucleated RBC % Seg Neutrophils # Lymphocytes # (Manual) ABG pH POC ABG pO2 ABG Hemoglobin ABG Oxyhemoglobin ABG Sodium ABG Potassium ABG Chloride ABG Glucose Sodium 150 H Potassium 2.8 L* D Chloride 110.0 H Carbon Dioxide BUN 61 H Creatinine 1.9 H Glucose 234 H POC Glucose 222 H Calcium Phosphorus Magnesium Ammonia Troponin T Total Protein Albumin 3.8 L Triglycerides LDL Cholesterol Direct TSH Free T4 T3 (RAINA) Free T3 Index Arterial Blood Glucose Urine Creatinine Urine Total Protein Crossmatch See Detail 05/16/21 05/16/21 05/16/21 13:02 15:35 17:11 RBC Hgb 8.9 L D Hct 27.7 L D MCH RDW Plt Count Seg Neutrophils % Seg Neuts % (Manual) Lymphocytes % (Manual) Nucleated RBC % Seg Neutrophils # Lymphocytes # (Manual) ABG pH POC ABG pO2 ABG Hemoglobin ABG Oxyhemoglobin ABG Sodium ABG Potassium ABG Chloride ABG Glucose Sodium Potassium Chloride Carbon Dioxide BUN Creatinine Glucose POC Glucose 238 H Calcium Phosphorus Magnesium Ammonia Troponin T Total Protein Albumin Triglycerides LDL Cholesterol Direct TSH Free T4 T3 (RAINA) Free T3 Index Arterial Blood Glucose Urine Creatinine 173.4 H Urine Total Protein 146 H Crossmatch 05/16/21 05/16/21 05/16/21 17:11 17:11 17:11 RBC Hgb Hct MCH RDW Plt Count Seg Neutrophils % Seg Neuts % (Manual) Lymphocytes % (Manual) Nucleated RBC % Seg Neutrophils # Lymphocytes # (Manual) ABG pH POC ABG pO2 ABG Hemoglobin ABG Oxyhemoglobin ABG Sodium ABG Potassium ABG Chloride ABG Glucose Sodium 148 H Potassium Chloride 110.6 H Carbon Dioxide 20 L 17 L BUN 58 H 60 H Creatinine 1.6 H 1.7 H Glucose 227 H 228 H POC Glucose Calcium Phosphorus Magnesium Ammonia Troponin T Total Protein Albumin Triglycerides LDL Cholesterol Direct TSH 43.740 H Free T4 T3 (RAINA) Free T3 Index Arterial Blood Glucose Urine Creatinine Urine Total Protein Crossmatch 05/17/21 05/17/21 05/17/21 01:54 04:08 06:01 RBC Hgb Hct MCH RDW Plt Count Seg Neutrophils % Seg Neuts % (Manual) Lymphocytes % (Manual) Nucleated RBC % Seg Neutrophils # Lymphocytes # (Manual) ABG pH POC ABG pO2 ABG Hemoglobin ABG Oxyhemoglobin ABG Sodium ABG Potassium ABG Chloride ABG Glucose Sodium Potassium 3.5 L Chloride 107.3 H Carbon Dioxide 20 L BUN 55 H Creatinine 1.5 H Glucose 209 H POC Glucose 170 H 191 H Calcium Phosphorus Magnesium Ammonia Troponin T Total Protein Albumin 3.6 L Triglycerides LDL Cholesterol Direct TSH Free T4 T3 (RAINA) Free T3 Index Arterial Blood Glucose Urine Creatinine Urine Total Protein Crossmatch 05/17/21 05/17/21 05/18/21 11:53 18:08 00:18 RBC Hgb Hct MCH RDW Plt Count Seg Neutrophils % Seg Neuts % (Manual) Lymphocytes % (Manual) Nucleated RBC % Seg Neutrophils # Lymphocytes # (Manual) ABG pH POC ABG pO2 ABG Hemoglobin ABG Oxyhemoglobin ABG Sodium ABG Potassium ABG Chloride ABG Glucose Sodium Potassium Chloride Carbon Dioxide BUN Creatinine Glucose POC Glucose 191 H 228 H 265 H Calcium Phosphorus Magnesium Ammonia Troponin T Total Protein Albumin Triglycerides LDL Cholesterol Direct TSH Free T4 T3 (RA[place]) Free T3 Index Arterial Blood Glucose Urine Creatinine Urine Total Protein Crossmatch 05/18/21 05/18/21 05/18/21 05:00 05:00 05:53 RBC 2.88 L Hgb 8.0 L Hct 24.6 L MCH RDW 17.7 H Plt Count 28 L Seg Neutrophils % 83.3 H Seg Neuts % (Manual) 30.0 L Lymphocytes % (Manual) 1.0 L Nucleated RBC % Seg Neutrophils # 8.7 H Lymphocytes # (Manual) 0.1 L ABG pH POC ABG pO2 ABG Hemoglobin ABG Oxyhemoglobin ABG Sodium ABG Potassium ABG Chloride ABG Glucose Sodium Potassium Chloride Carbon Dioxide 16 L BUN 56 H Creatinine 1.4 H Glucose 287 H POC Glucose 278 H Calcium Phosphorus 1.30 L Magnesium Ammonia Troponin T Total Protein Albumin Triglycerides LDL Cholesterol Direct TSH Free T4 T3 (RA[place]) Free T3 Index Arterial Blood Glucose Urine Creatinine Urine Total Protein Crossmatch 05/18/21 05/18/21 05/19/21 11:42 17:53 00:15 RBC Hgb Hct MCH RDW Plt Count Seg Neutrophils % Seg Neuts % (Manual) Lymphocytes % (Manual) Nucleated RBC % Seg Neutrophils # Lymphocytes # (Manual) ABG pH POC ABG pO2 ABG Hemoglobin ABG Oxyhemoglobin ABG Sodium ABG Potassium ABG Chloride ABG Glucose Sodium Potassium Chloride Carbon Dioxide BUN Creatinine Glucose POC Glucose 263 H 242 H 228 H Calcium Phosphorus Magnesium Ammonia Troponin T Total Protein Albumin Triglycerides LDL Cholesterol Direct TSH Free T4 T3 (RAINA) Free T3 Index Arterial Blood Glucose Urine Creatinine Urine Total Protein Crossmatch 05/19/21 05/19/21 05/19/21 04:00 05:57 08:03 RBC 2.70 L Hgb 7.5 L Hct 22.5 L MCH RDW 17.9 H Plt Count Seg Neutrophils % Seg Neuts % (Manual) Lymphocytes % (Manual) Nucleated RBC % Seg Neutrophils # Lymphocytes # (Manual) ABG pH POC ABG pO2 ABG Hemoglobin ABG Oxyhemoglobin ABG Sodium ABG Potassium ABG Chloride ABG Glucose Sodium Potassium 3.1 L Chloride Carbon Dioxide 20 L BUN 56 H Creatinine 1.3 H Glucose 213 H POC Glucose 204 H Calcium 8.2 L Phosphorus 1.40 L Magnesium Ammonia Troponin T Total Protein Albumin Triglycerides LDL Cholesterol Direct TSH Free T4 T3 (RA[place]) Free T3 Index Arterial Blood Glucose Urine Creatinine Urine Total Protein Crossmatch 05/19/21 05/19/21 05/19/21 08:03 08:03 11:37 RBC Hgb Hct MCH RDW Plt Count Seg Neutrophils % Seg Neuts % (Manual) Lymphocytes % (Manual) Nucleated RBC % Seg Neutrophils # Lymphocytes # (Manual) ABG pH POC ABG pO2 ABG Hemoglobin ABG Oxyhemoglobin ABG Sodium ABG Potassium ABG Chloride ABG Glucose Sodium Potassium Chloride Carbon Dioxide BUN Creatinine Glucose POC Glucose 201 H Calcium Phosphorus Magnesium Ammonia Troponin T Total Protein Albumin Triglycerides LDL Cholesterol Direct TSH 86.290 H Free T4 1.50 H T3 (RAINA) Free T3 Index Arterial Blood Glucose Urine Creatinine Urine Total Protein Crossmatch Allied health notes reviewed: nursing
--- NOTE | 2021-05-19 12:13 | Progress Note ---
Assessment and Plan Myxedema coma Management per primary team NSVT HTN NSTEMI suspect type 2 * EKG shows sinus rhythm rate of 72, nonspecific T abnormalities, no acute ischemic changes * Troponin is noted to be elevated in setting of myxedema coma Hypernatremia JOZEF * Nephrology following Thrombocytopenia Anemia * Management per primary team Plan: Per documentation patient is to be discharged on home hospice care. Cardiology will sign off Patient seen in conjunction with Dr. Soler who agreed with this plan of care. - Patient Problems (1) Acute kidney injury (JOZEF) with acute tubular necrosis (ATN) Current Visit: Yes Status: Acute (2) Hypernatremia Current Visit: Yes Status: Acute (3) Metabolic encephalopathy Current Visit: Yes Status: Acute (4) Myxedema coma Current Visit: Yes Status: Acute (5) Thrombocytopenia Current Visit: Yes Status: Acute (6) NSTEMI (non-ST elevated myocardial infarction) Current Visit: Yes Status: Acute (7) NSVT (nonsustained ventricular tachycardia) Current Visit: Yes Status: Acute (8) HTN (hypertension) Current Visit: Yes Status: Chronic Qualifiers: Hypertension type: primary hypertension Qualified Code(s): I10 - Essential (primary) hypertension (9) Vascular dementia Current Visit: Yes Status: Chronic Subjective Date of service: 05/19/21 Principal diagnosis: Myxedema coma; Hypothermia; Ac encephalopathy; JOZEF; Thrombocytopenia Interval history: Patient remains nonverbal Sinus 80s on monitor Objective Vital Signs Temp Pulse Resp BP Pulse Ox 05/19/21 11:58 97.2 F L 05/19/21 09:01 77 16 88/51 98 05/19/21 08:26 100 05/19/21 08:01 85 19 138/66 99 05/19/21 07:01 89 21 146/74 97 05/19/21 07:00 97.6 F 05/19/21 06:00 81 24 109/59 99 05/19/21 05:01 83 17 95/51 98 05/19/21 04:31 83 24 118/68 98 05/19/21 04:30 84 05/19/21 04:00 87 25 H 118/68 98 05/19/21 03:31 80 20 102/62 98 05/19/21 03:28 98.8 F 05/19/21 03:00 85 18 102/62 99 05/19/21 02:31 83 23 113/64 97 05/19/21 02:00 85 25 H 113/64 98 05/19/21 01:31 78 17 97/57 98 05/19/21 01:15 81 17 97/57 99 05/19/21 01:00 81 19 97/57 05/19/21 00:45 79 18 99/47 99 05/19/21 00:05 79 05/19/21 00:00 98.7 F 80 20 99/47 99 05/18/21 23:00 85 19 98/51 97 05/18/21 22:00 88 25 H 102/61 92 05/18/21 21:23 82 13 102/49 98 05/18/21 21:00 83 19 102/49 05/18/21 20:20 81 05/18/21 20:00 99.9 F H 90 15 103/63 96 05/18/21 19:00 93 H 25 H 97/57 97 05/18/21 18:00 89 25 H 102/42 96 05/18/21 17:30 87 30 H 88/41 99 05/18/21 17:00 90 24 88/41 97 05/18/21 16:30 86 24 94/41 98 05/18/21 16:00 98.9 F 91 H 26 H 94/41 97 05/18/21 15:30 83 21 101/39 98 05/18/21 15:00 79 21 101/39 97 05/18/21 14:30 84 24 94/42 99 05/18/21 14:00 79 27 H 94/42 97 05/18/21 13:30 98 H 25 H 87/43 100 05/18/21 13:00 83 29 H 87/43 98 05/18/21 12:30 78 30 H 96/41 99 - Physical Examination General: No Apparent Distress HEENT: Positive: Normocephaly Neck: Positive: neck supple, trachea midline. Negative: JVD/HJR Cardiac: Positive: Reg Rate and Rhythm Lungs: Positive: Decreased Breath Sounds Neuro: Positive: Other (unresponsive) Abdomen: Positive: Soft Skin: Negative: Rash Extremities: Present: lower extr. pulses. Absent: edema - Labs and Meds CBC 05/18/21 05/19/21 Range/Units 05:00 08:03 WBC 10.4 8.5 (4.5-11.0) K/mm3 RBC 2.88 L 2.70 L (3.65-5.03) M/mm3 Hgb 8.0 L 7.5 L (10.1-14.3) gm/dl Hct 24.6 L 22.5 L (30.3-42.9) % Plt Count 28 L (140-440) K/mm3 [place] # (Auto) 0.4 (0.0-0.8) K/mm3 Comprehensive Metabolic Panel 05/19/21 Range/Units 04:00 Sodium 139 (137-145) mmol/L Potassium 3.1 L (3.6-5.0) mmol/L Chloride 102.8 (98-107) mmol/L Carbon Dioxide 20 L (22-30) mmol/L BUN 56 H (7-17) mg/dL Creatinine 1.3 H (0.6-1.2) mg/dL Glucose 213 H (65-100) mg/dL Calcium 8.2 L (8.4-10.2) mg/dL - Imaging and Cardiology EKG: report reviewed, image reviewed Echo: report reviewed (05/16/2021 - EF 60-65%, mild diastolic dysfxn, mild LVH, trace AR, trace pericardial effusion) - Telemetry EKG Rhythm: Sinus Rhythm - EKG Sinus rhythms and dysrhythmias: sinus rhythm Repolarization changes or abnormalities: nonspecific abnormality, ST segment, and/or T wave, Q-T interval prolongation - Allied health notes Allied health notes reviewed: nursing
--- NOTE | 2021-05-19 15:03 | Progress Note ---
Assessment and Plan Assessment and plan: Assessment and plan: 70 YO Female with CVA with LHP, HTN, HLD, Lymphedema, Obesity Hypoventilation Syndrome, Hypothyroidism S/P Thyroidectomy, Vascular Dementia, Cerebral Athero sclerosis presents to ED for evaluation. Patient is stuporous with diminished cognition and is unable to provide history. Patient history taken from EMS staff, ED staff, as well as the patient's son who was made available by telephone for interview. As per son the patient has experienced increased confusion, increased weakness, and decreased oral intake over the past 10 days with persistent and worsening symptoms over the same timeframe. Patient was found to be more confused today making incomprehensible sounds. EMS was notified and upon arrival the patient was found to be in distress and subsequently transported to [facility] for further care and evaluation of the aforementioned symptoms. The patient was seen and evaluated in the emergency department. All lab and imaging studies reviewed. Patient found to have body core temperature of 90 F, blood pressure of 66/34, and heart rate of 54. Patient symptoms consistent with myxedema coma, as well as metabolic encephalopathy, and acute kidney injury. Patient initiated on IV Synthroid therapy and admitted to ICU due to increased risk of worsening symptoms. No reports of fever, chills, chest pain, palpitation, productive cough, skin rash, recent ill contact, or known exposure to COVID-19. Prior admission on 02/23/2021 reviewed. All medication listed at time of admission has been reconciled. Advanced care planning conducted in ED. Patient has diminished cognition but has a positive gag reflex and is currently able to protect her airway without difficulty at the time of my evaluation. Critical care team consulted. Patient seen and examined today, while BP and HR are improved along with Temperature, the patient remains stuporous, although opens eyes some. Will check ammonia level, Start on CPAP/BiPAP at night time. Adjust synthroid based on treatment protocol. She is maintaining her airway #Myxedema coma -Continue IV Synthroid therapy, IV fluid resuscitation -Ordering TSH and free T4 -Continue neurochecks, seizure precautions, and aspiration precaution -If no clinical improvement by tomorrow #Distributive shock-resolved -Likely in the setting of myxedema coma -Discontinuing home antihypertensives: Amlodipine 5 mg, clonidine, and hydralazine -Status post bolus of 2 L lactated ringer with little improvement in blood pressure -Initiating Levophed with map goal of >65. Should see improvement when antihypertensives are out of system. -We will continue to monitor #Metabolic encephalopathy -Likely secondary to myxedema coma -CT head Noncon negative. If encephalopathy continues after myxedema coma resolves, consider neurology consult and further metabolic work-up. #Hypernatremia-resolved -Sodium 144 -Status post lactated ringer administration on 05/15/2021. -Continue to follow #Acute kidney injury (JOZEF) with acute tubular necrosis (ATN)-improving -Baseline creatinine unknown -Creatinine 1.4 -We will continue to monitor with further fluid resuscitation #Obesity hypoventilation syndrome -We will likely need further evaluation upon discharge -Continue BiPAP at night #Anemia of chronic disease #Acute blood loss -Hemoglobin 8.9 -S/p transfusion of 2 units packed RBCs -Transfuse if hemoglobin <7 or patient becomes symptomatic #Hypokalemia-resolved -Potassium 3.5 -Aggressive repletion. Pending repeat BMP #Thrombocytopenia -Platelets 24 -Unknown etiology for thrombocytopenia. We will continue to monitor. Transfuse if platelets less than 20. #DVT prophylaxis -Continue SCDs of bilateral lower extremities; holding off on prophylactic anticoagulation in the setting of thrombocytopenia SCDs bilateral lower extremities while in bed, prophylactic anticoagulation #Advance care planning -Disease education conducted, care plan discussed, diagnoses discussed, prognosis discussed, patient is full code, patient family knowledge understanding agree with care plan, +30 minutes. #Social -Discussed with son (Wilfredo Sharma) about the current status of the patient and little to no improvement that is occurred since hospitalization. Son explained that prior to hospitalization the patient had agreed to home hospice; however, he would like a little more time before making a final decision given the acute clinical status. The son is the MPOA. If he decides to have the patient go hospice, he would prefer home hospice. The son would appreciate updates in order to determine how to move forward. Disposition Plan: Continue medical management Total Time Spent with Patient (Minutes): 40 History Interval history: No acute events overnight. Hospitalist Physical - Constitutional Vitals: Temp Pulse Resp BP Pulse Ox 97.2 F L 78 12 109/67 100 05/19/21 11:58 05/19/21 13:00 05/19/21 13:00 05/19/21 13:00 05/19/21 13:00 General appearance: Present: no acute distress, obese, other (altered mental status) - EENT Eyes: Present: PERRL, EOM intact ENT: hearing intact, clear oral mucosa, dentition normal, other (NG tube in place) - Neck Neck: Present: supple, normal ROM - Respiratory Respiratory effort: normal - Cardiovascular Rhythm: regular Heart Sounds: Present: S1 & S2 - Extremities Extremities: no ischemia, pulses intact, pulses symmetrical, No edema, normal color Peripheral Pulses: within normal limits - Abdominal General gastrointestinal: soft, non-tender, non-distended, normal bowel sounds - Integumentary Integumentary: Present: clear, warm, dry - Psychiatric Psychiatric: other (Unable to assess given medical condition) - Neurologic Neurologic: other (Unable to assess given medical condition) - Allied Health Allied health notes reviewed: nursing HEART Score - HEART Score Troponin: Troponin T 0.121 ng/mL (0.00-0.029) H* 05/14/21 14:35 Results - Labs CBC & Chem 7: 05/19/21 08:03 05/19/21 04:00 Labs: Laboratory Last Values WBC 8.5 K/mm3 (4.5-11.0) 05/19/21 08:03 RBC 2.70 M/mm3 (3.65-5.03) L 05/19/21 08:03 Hgb 7.5 gm/dl (10.1-14.3) L 05/19/21 08:03 Hct 22.5 % (30.3-42.9) L 05/19/21 08:03 MCV 84 fl (79-97) 05/19/21 08:03 MCH 28 pg (28-32) 05/19/21 08:03 MCHC 33 % (30-34) 05/19/21 08:03 RDW 17.9 % (13.2-15.2) H 05/19/21 08:03 Plt Count 28 K/mm3 (140-440) L 05/18/21 05:00 Lymph % (Auto) 18.4 % (13.4-35.0) 05/15/21 04:50 [place] % (Auto) 3.5 % (0.0-7.3) 05/18/21 05:00 Eos % (Auto) 0.3 % (0.0-4.3) 05/18/21 05:00 Baso % (Auto) 0.2 % (0.0-1.8) 05/15/21 04:50 Lymph # (Auto) 1.3 K/mm3 (1.2-5.4) 05/15/21 04:50 [place] # (Auto) 0.4 K/mm3 (0.0-0.8) 05/18/21 05:00 Eos # (Auto) 0.0 K/mm3 (0.0-0.4) 05/15/21 04:50 Baso # (Auto) 0.0 K/mm3 (0.0-0.1) 05/15/21 04:50 Add Manual Diff Complete 05/18/21 05:00 Total Counted 100 05/18/21 05:00 Seg Neutrophils % 83.3 % (40.0-70.0) H 05/18/21 05:00 Seg Neuts % (Manual) 30.0 % (40.0-70.0) L 05/18/21 05:00 Band Neutrophils % 20.0 % 05/18/21 05:00 Lymphocytes % (Manual) 1.0 % (13.4-35.0) L 05/18/21 05:00 Monocytes % (Manual) 7.0 % (0.0-7.3) 05/18/21 05:00 Eosinophils % (Manual) 1.0 % (0.0-4.3) 05/14/21 10:53 Basophils % (Manual) 1.0 % (0.0-1.8) 05/14/21 10:53 Myelocytes % 42.0 % 05/18/21 05:00 Nucleated RBC % Not Reportable 05/18/21 05:00 Seg Neutrophils # 8.7 K/mm3 (1.8-7.7) H 05/18/21 05:00 Seg Neutrophils # Man 3.1 K/mm3 (1.8-7.7) 05/18/21 05:00 Band Neutrophils # 2.1 K/mm3 05/18/21 05:00 Lymphocytes # (Manual) 0.1 K/mm3 (1.2-5.4) L 05/18/21 05:00 Abs React Lymphs (Man) 0.0 K/mm3 05/18/21 05:00 Monocytes # (Manual) 0.7 K/mm3 (0.0-0.8) 05/18/21 05:00 Eosinophils # (Manual) 0.0 K/mm3 (0.0-0.4) 05/18/21 05:00 Basophils # (Manual) 0.0 K/mm3 (0.0-0.1) 05/18/21 05:00 Metamyelocytes # 0.0 K/mm3 05/18/21 05:00 Myelocytes # 4.4 K/mm3 05/18/21 05:00 Promyelocytes # 0.0 K/mm3 05/18/21 05:00 Blast Cells # 0.0 K/mm3 05/18/21 05:00 WBC Morphology Not Reportable 05/18/21 05:00 Hypersegmented Neuts Not Reportable 05/18/21 05:00 Hyposegmented Neuts Not Reportable 05/18/21 05:00 Hypogranular Neuts Not Reportable 05/18/21 05:00 Smudge Cells Not Reportable 05/18/21 05:00 Toxic Granulation Not Reportable 05/18/21 05:00 Toxic Vacuolation Not Reportable 05/18/21 05:00 Dohle Bodies Not Reportable 05/18/21 05:00 Pelger-Huet Anomaly Not Reportable 05/18/21 05:00 Christiano Rods Not Reportable 05/18/21 05:00 Platelet Estimate Not Reportable 05/18/21 05:00 Clumped Platelets Not Reportable 05/18/21 05:00 Plt Clumps, EDTA Not Reportable 05/18/21 05:00 Large Platelets Not Reportable 05/18/21 05:00 Giant Platelets Not Reportable 05/18/21 05:00 Platelet Satelliting Not Reportable 05/18/21 05:00 Plt Morphology Comment Not Reportable 05/18/21 05:00 RBC Morphology Not Reportable 05/18/21 05:00 Dimorphic RBCs Not Reportable 05/18/21 05:00 Polychromasia Not Reportable 05/18/21 05:00 Hypochromasia Not Reportable 05/18/21 05:00 Poikilocytosis Not Reportable 05/18/21 05:00 Anisocytosis Not Reportable 05/18/21 05:00 Microcytosis Not Reportable 05/18/21 05:00 Macrocytosis Not Reportable 05/18/21 05:00 Spherocytes Not Reportable 05/18/21 05:00 Pappenheimer Bodies Not Reportable 05/18/21 05:00 Sickle Cells Not Reportable 05/18/21 05:00 Target Cells Not Reportable 05/18/21 05:00 Tear Drop Cells Not Reportable 05/18/21 05:00 Ovalocytes Not Reportable 05/18/21 05:00 Helmet Cells Not Reportable 05/18/21 05:00 [place] Bodies Not Reportable 05/18/21 05:00 [place] Rings Not Reportable 05/18/21 05:00 [place] Cells Not Reportable 05/18/21 05:00 Bite Cells Not Reportable 05/18/21 05:00 Crenated Cell Not Reportable 05/18/21 05:00 Elliptocytes Not Reportable 05/18/21 05:00 Acanthocytes (Spur) Not Reportable 05/18/21 05:00 Rouleaux Not Reportable 05/18/21 05:00 Hemoglobin C Crystals Not Reportable 05/18/21 05:00 Schistocytes Not Reportable 05/18/21 05:00 Malaria parasites Not Reportable 05/18/21 05:00 [place] Bodies Not Reportable 05/18/21 05:00 Hem Pathologist Commnt No 05/18/21 05:00 PT 13.9 Sec. (12.2-14.9) 05/14/21 10:53 INR 0.96 (0.87-1.13) 05/14/21 10:53 APTT 28.5 Sec. (24.2-36.6) 05/14/21 10:53 ABG pH 7.493 (7.320-7.450) H 05/14/21 11:40 POC ABG pCO2 32.3 mmHg (32.0-48.0) 05/14/21 11:40 POC ABG pO2 194.1 mmHg (83-108) H 05/14/21 11:40 POC ABG HCO3 24.2 05/14/21 11:40 ABG O2 Saturation 99.4 (0-100) 05/14/21 11:40 POC ABG Base Excess 1.0 05/14/21 11:40 ABG Hemoglobin 7.3 (12.0-17.5) L 05/14/21 11:40 ABG Oxyhemoglobin 98.3 (94-98) H 05/14/21 11:40 ABG Methemoglobin 0.3 (0.0-1.5) 05/14/21 11:40 ABG Sodium 151.0 mmol/L (136.0-145.0) H 05/14/21 11:40 ABG Potassium 2.8 mmol/L (3.40-4.50) L 05/14/21 11:40 ABG Chloride 111.0 mmol/L (98-107) H 05/14/21 11:40 ABG Glucose 141 mg/dL (65-95) H 05/14/21 11:40 Carboxyhemoglobin 0.8 (0.5-1.5) 05/14/21 11:40 FiO2 % 40.0 05/14/21 11:40 Sodium 139 mmol/L (137-145) 05/19/21 04:00 Potassium 3.1 mmol/L (3.6-5.0) L 05/19/21 04:00 Chloride 102.8 mmol/L (98-107) 05/19/21 04:00 Carbon Dioxide 20 mmol/L (22-30) L 05/19/21 04:00 Anion Gap 19 mmol/L 05/19/21 04:00 BUN 56 mg/dL (7-17) H 05/19/21 04:00 Creatinine 1.3 mg/dL (0.6-1.2) H 05/19/21 04:00 Estimated GFR 49 ml/min 05/19/21 04:00 BUN/Creatinine Ratio 43 % 05/19/21 04:00 Glucose 213 mg/dL (65-100) H 05/19/21 04:00 POC Glucose 201 mg/dL (70-105) H 05/19/21 11:37 Osmolality 324 Mosm/kg 05/17/21 04:08 Lactic Acid 1.40 mmol/L (0.7-2.0) 05/14/21 13:19 Calcium 8.2 mg/dL (8.4-10.2) L 05/19/21 04:00 Phosphorus 1.40 mg/dL (2.5-4.5) L 05/19/21 04:00 Magnesium 1.90 mg/dL (1.7-2.3) 05/19/21 04:00 Total Bilirubin 0.80 mg/dL (0.1-1.2) 05/17/21 04:08 AST 29 units/L (5-40) 05/17/21 04:08 ALT 19 units/L (7-56) 05/17/21 04:08 Alkaline Phosphatase 83 units/L (35-129) 05/17/21 04:08 Ammonia 20.0 umol/L (25-60) L 05/15/21 16:30 Total Creatine Kinase 103 units/L (30-135) 05/14/21 12:22 Troponin T 0.121 ng/mL (0.00-0.029) H* 05/14/21 14:35 Total Protein 6.8 g/dL (6.3-8.2) 05/17/21 04:08 Albumin 3.6 g/dL (3.9-5) L 05/17/21 04:08 Albumin/Globulin Ratio 1.1 % 05/17/21 04:08 Triglycerides 190 mg/dL (2-149) H 05/14/21 10:53 Cholesterol 139 mg/dL (50-199) 05/14/21 10:53 LDL Cholesterol Direct 40 mg/dL (50-130) L 05/14/21 10:53 HDL Cholesterol 55 mg/dL (40-59) 05/14/21 10:53 Cholesterol/HDL Ratio 2.52 % 05/14/21 10:53 TSH 86.290 mlU/mL (0.270-4.200) H 05/19/21 08:03 Free T4 1.50 ng/dL (0.76-1.46) H 05/19/21 08:03 T3 (RAINA) <25 ng/dL (76-181) L 05/14/21 13:19 Free T3 Index 0.8 pg/mL (2.3-4.2) L 05/14/21 13:19 Total Cortisol 32.0 mcg/dL () 05/14/21 13:19 Arterial Blood Glucose 141 mg/dL (65-95) H 05/14/21 11:40 Urine Color Yellow (Yellow) 05/14/21 Unknown Urine Turbidity Clear (Clear) 05/14/21 Unknown Urine pH 5.0 (5.0-7.0) 05/14/21 Unknown Ur Specific [place] 1.016 (1.003-1.030) 05/14/21 Unknown Urine Protein 100 mg/dl mg/dL (Negative) 05/14/21 Unknown Urine Glucose (UA) Neg mg/dL (Negative) 05/14/21 Unknown Urine Ketones Neg mg/dL (Negative) 05/14/21 Unknown Urine Blood Sm (Negative) 05/14/21 Unknown Urine Nitrite Neg (Negative) 05/14/21 Unknown Urine Bilirubin Neg (Negative) 05/14/21 Unknown Urine Urobilinogen 2.0 mg/dL (<2.0) 05/14/21 Unknown Ur Leukocyte Esterase Neg (Negative) 05/14/21 Unknown Urine WBC (Auto) 2.0 /HPF (0.0-6.0) 05/14/21 Unknown Urine RBC (Auto) 1.0 /HPF (0.0-6.0) 05/14/21 Unknown U Epithel Cells (Auto) 3.0 /HPF (0-13.0) 05/14/21 Unknown Urine Mucus Few /HPF 05/14/21 Unknown Urine Osmolality 455 Mosm/kg 05/16/21 15:35 Urine Creatinine 173.4 mg/dL (0.1-20.0) H 05/16/21 15:35 Urine Sodium 15 mmol/L 05/16/21 15:35 Urine Potassium 27.12 mmol/L 05/16/21 15:35 Urine Total Protein 146 mg/dL (5-11.8) H 05/16/21 15:35 Blood Type B NEGATIVE 05/16/21 05:50 Antibody Screen Negative 05/16/21 05:50 Crossmatch See Detail 05/16/21 05:50 Microbiology: Microbiology 05/14/21 10:53 Peripheral/Venous Blood Culture - Final NO GROWTH AFTER 5 DAYS 05/14/21 10:53 Peripheral/Venous Blood Culture - Final NO GROWTH AFTER 5 DAYS Awad/IV: Voiding Method Indwelling Catheter Active Medications - Current Medications Current Medications: Generic Name Dose Route Start Last Admin Trade Name Freq PRN Reason Stop Dose Admin Acetaminophen 650 mg 05/14/21 15:07 Acetaminophen 325 Mg Tab PO Q6H PRN Pain MILD(1-3)/Fever >100.5/CORTES Albuterol 2.5 mg 05/14/21 15:07 Albuterol 2.5 Mg/3 Ml Nebu IH Q3HRT PRN Shortness Of Breath Lipase/Protease/Amylase 1 each 05/16/21 10:23 05/17/21 04:20 Lipase 10,500/Protease 25,000/Amylase 43,750 (Units) Dr Arauz FEEDTUBE 1 each PRN PRN Administration For Clogged Feeding Tube Atorvastatin Calcium 40 mg 05/14/21 22:00 05/18/21 23:04 Atorvastatin 40 Mg Tab PO 40 mg QHS ALEX Administration Atropine Sulfate 1 mg 05/14/21 15:20 Atropine 1 Mg/Ml Vial IV ONCE PRN Bradycardia Dextrose 0 ml 05/16/21 05:34 Dextrose 50% In Water (25gm) 50 Ml Syringe IV Q30MIN PRN Hypoglycemia Protocol Hydromorphone HCl 0.5 mg 05/14/21 15:07 Hydromorphone 1 Mg/1 Ml Inj IV Q23H PRN Pain , Severe (7-10) Dextrose/Sodium Chloride 1,000 mls @ 100 mls/hr 05/14/21 18:00 05/19/21 09:24 D5ns 0.2% IV 100 mls/hr DIRECT ALEX Administration NORepinephrine/NS 8 MG-250 ML 8 mg in 250 mls @ 3.75 mls/hr 05/17/21 16:00 Norepinephrine/Ns 8 Mg-250 Ml (Double Conc) IV TITRATE ALEX Protocol 2 MCG/MIN Insulin Human Lispro 0 unit 05/16/21 06:00 05/19/21 12:29 Insulin Lispro 100 Unit/Ml SUB-Q 2 unit Q6HR ALEX Administration Protocol Levothyroxine Sodium 300 mcg 05/19/21 14:56 Levothyroxine 100 Mcg Inj IV DAILY@0600 ALEX Oxycodone/Acetaminophen 1 tab 05/14/21 15:07 Oxycodone /Acetaminophen 5-325mg Tab PO Q16H PRN Pain, Moderate (4-6) Polyethylene Glycol 17 gm 05/14/21 15:06 Polyethylene Glycol 3350 17 Gm Powder PO QDAY PRN Constipation Simple Syrup 15 ml 05/16/21 10:23 Simple Syrup 15 Ml FEEDTUBE PRN PRN Hypoglycemia Simple Syrup 30 ml 05/16/21 10:23 Simple Syrup 15 Ml FEEDTUBE PRN PRN Hypoglycemia Sodium Bicarbonate 325 mg 05/16/21 10:23 05/17/21 04:20 Sodium Bicarbonate 325 Mg Tab FEEDTUBE 325 mg PRN PRN Administration For Clogged Feeding Tube Sodium Chloride 10 ml 05/14/21 22:00 05/19/21 09:25 Sodium Chloride 0.9% 10 Ml Flush Syringe IV 10 ml BID ALEX Administration Sodium Chloride 10 ml 05/14/21 15:07 Sodium Chloride 0.9% 10 Ml Flush Syringe IV PRN PRN LINE FLUSH Sodium Phosphate 250 mg 05/19/21 10:00 05/19/21 13:43 K-Phos Neutral 250 Mg Tab PO 05/20/21 20:00 250 mg QID ALEX Administration Nutrition/Malnutrition Assess - Dietary Evaluation Nutrition/Malnutrition Findings: Nutrition Notes Start: 05/16/21 10:00 Freq: Status: Active Protocol: Document 05/19/21 11:05 GB (Rec: 05/19/21 11:14 GB [id number]) Nutrition Notes Initial or Follow up Reassessment Current Diagnosis Hypertension,Stroke Other Pertinent Diagnosis obesity hypovent syndrome, dementia Current Diet NPO, TF- Nepro@40ml/hr Labs/Tests 05/19: Ca 8.2, P 1.4, BUN 56, creatinine 1.3, glucose 287 Pertinent Medications D5/NaCl @100ml/hr (408kcal), KPhos/NaPhos, D5 (PRN), Norepenephrine/Ns 8 Mg 250 Height 5 ft 3 in Weight 114.3 kg [place] Body Weight (kg) 52.27 BMI 44.6 Weight change and time frame 05/14: 127.006kg 05/17: 114.3kg change of -12.706kg for -10% significance. Recommend reweigh to confirm weight loss . Weight Status Morbidly Obese Subjective/Other Information Per MD notes 05/18: noted possible home/hospice Last BM: 05/19 Percent of energy/protein needs met: EEN needs met 75% or greater with TF at goal rate. Burn Absent Trauma Absent GI Symptoms None Difficulty In Swallowing Food Allergy No Skin Integrity/Comment No complications reported Current % PO Other Minimum of two criteria No #1 Nutrition Diagnosis Swallowing difficulty,Altered nutrition-related laboratory values Comments: Feeding tube placed, diminished cognition, lethargic Etiology Change in behavior As Evidenced by Signs and Symptoms reported increased confusion/ weakness, decrease in po intake, altered renal related labs BUN/creatinine/glucose 05/19: on TF for 100% nutrition Diagnosis Progress(for reassessment Continues documentation) Is patient on ventilator? No Is Patient Ambulatory and/or Out of Bed No REE-([facility]-confined to bed) 1969.800 Kcal/Kg value to use for calculation 12 Approximate Energy Requirements Using 1372 kcal/Kg Calculation Used for Recommendations Kcal/kg Additional Notes Protein 0.6-0.8g/kg @ 127k-101g Fluid: 1 ml/kcal or per MD Nutrition Intervention Change Diet Order: Continue NPO Nutrition Support: nepro @ 40ml/hr flush @ 150ml/4hr Total fluids: TF at goal + flush = 1598ml Kcal 1,728 Protein (gm) 78 Carbohydrates (gm) 155 Fat (gm) 92 Fluid (mL) 698 Goal #1 TF started, tolerated, at goal by f/u (nepro @40ml/hr) 05/19: met, continues Follow-Up By: 05/24/21 Additional Comments f/u: TF tolerance, diet advancement - Attestation Statement I have reviewed and agreed w/ Malnutrition eval & tx plan: Yes
[2021-05-19 17:26] LABS: Band Neutrophils # (Manual) 0.6 K/mm3; Total Cells Counted 100
[2021-05-19 17:28] LABS: Platelet Estimate Consistent w Auto
[2021-05-19 18:45] LABS: Platelet Count 15 K/mm3 (140-440)
[2021-05-20] MEDS: INSULIN LISPRO 100 UNIT/ML SUB-Q SCH ×2 (00:10→05:10)
[2021-05-20] MEDS ORDERED: SODIUM CHLORIDE 0.9% 500 ML 500 ML IV ONE (03:01)
--- NOTE | 2021-05-20 03:06 | Hem/Onc Consultation ---
History of Present Illness - History of Present Illness heme consult requested for low plt count dx thrombocytopenia CPT 05392 telecart not available 70yo obese woman 250 lbs with presumed Obesity hypoventilation syndrome, demential per notes admitted for confusion, weakness. high TSH found-->receiving IV synthroid found to have low plt counts, trending lower 10-20 range no infection found hypotension found had nl plt count 02/[address] c/w dilated ventricles data reviewed below IMP: severe anemia and low plt count could be due to "shock bone marrow" could be due to infection, but no infection found severe hypothothyroidism could be the cause of abnormal blood counts doubt HIT doubt heme malignancy, and not a candidate for treatment even if heme malignancy were found REC: plt transfusions for plt count<20 labsd to include fibrinogen Previous Rx's Medication Instructions Recorded Last Taken Type Aspirin [Aspirin BABY CHEW TAB] 81 mg PO QDAY tab.chew 02/28/21 05/13/21 08:00 Rx AtorvaSTATin [Lipitor] 40 mg PO QHS #30 tablet 02/28/21 05/13/21 21:00 Rx NIFEdipine XL [Procardia Xl] 60 mg PO QDAY #30 tablet 02/28/21 05/13/21 08:00 Rx cloNIDine [Catapres] 0.2 mg PO Q12HR #60 tablet 02/28/21 05/13/21 19:00 Rx hydrALAZINE [Apresoline TAB] 100 mg PO TID #90 tab 02/28/21 05/13/21 18:00 Rx polyethylene glycoL 3350 [Miralax 17 gm PO QDAY PRN powd.pack 02/28/21 Unknown Rx 3350] Active Medications Acetaminophen (Acetaminophen 325 Mg Tab) 650 mg PO Q6H PRN PRN Reason: Pain MILD(1-3)/Fever >100.5/CORTES Albuterol (Albuterol 2.5 Mg/3 Ml Nebu) 2.5 mg IH Q3HRT PRN PRN Reason: Shortness Of Breath Lipase/Protease/Amylase (Lipase 10,500/Protease 25,000/Amylase 43,750 (Units) Dr Arauz) 1 each FEEDTUBE PRN PRN PRN Reason: For Clogged Feeding Tube Last Admin: 05/17/21 04:20 Dose: 1 each Documented by: Atorvastatin Calcium (Atorvastatin 40 Mg Tab) 40 mg PO QHS ALEX Last Admin: 05/19/21 22:10 Dose: 40 mg Documented by: Atropine Sulfate (Atropine 1 Mg/Ml Vial) 1 mg IV ONCE PRN PRN Reason: Bradycardia Dextrose (Dextrose 50% In Water (25gm) 50 Ml Syringe) 0 ml IV Q30MIN PRN; Protocol PRN Reason: Hypoglycemia Hydromorphone HCl (Hydromorphone 1 Mg/1 Ml Inj) 0.5 mg IV Q23H PRN PRN Reason: Pain , Severe (7-10) Dextrose/Sodium Chloride (D5ns 0.2%) 1,000 mls @ 100 mls/hr IV DIRECT ALEX Last Admin: 05/19/21 22:10 Dose: 100 mls/hr Documented by: NORepinephrine/NS 8 MG-250 ML (Norepinephrine/Ns 8 Mg-250 Ml (Double Conc)) 8 mg in 250 mls @ 3.75 mls/hr IV TITRATE ALEX; Protocol Insulin Human Lispro (Insulin Lispro 100 Unit/Ml) 0 unit SUB-Q Q6HR ALEX; Protocol Last Admin: 05/19/21 17:57 Dose: 2 unit Documented by: Levothyroxine Sodium (Levothyroxine 100 Mcg Inj) 300 mcg IV DAILY@0600 [facility] Laboratory Last Values WBC 8.5 K/mm3 (4.5-11.0) 05/19/21 08:03 Hct 22.5 % (30.3-42.9) L 05/19/21 08:03 MCV 84 fl (79-97) 05/19/21 08:03 Plt Count 15 K/mm3 (140-440) L* 05/19/21 08:03 Lymph % (Auto) 18.4 % (13.4-35.0) 05/15/21 04:50 Seg Neutrophils % 83.3 % (40.0-70.0) H 05/18/21 05:00 05/16/21 05:50 Crossmatch See Detail 05/16/21 05:50 . Past History Past Medical History: hypertension, hyperlipidemia, hypothyroidism, stroke Past Surgical History: thyroidectomy Social history: single. denies: smoking, alcohol abuse Family history: diabetes, hypertension Medications and Allergies Allergies Allergy/AdvReac Type Severity Reaction Status Date / Time No Known Allergies Allergy Verified 05/17/21 09:35 Home Medications Medication Instructions Recorded Confirmed Last Taken Type Aspirin [Aspirin BABY CHEW TAB] 81 mg PO QDAY tab.chew 02/28/21 05/14/21 05/13/21 08:00 Rx AtorvaSTATin [Lipitor] 40 mg PO QHS #30 tablet 02/28/21 05/14/21 05/13/21 21:00 Rx NIFEdipine XL [Procardia Xl] 60 mg PO QDAY #30 tablet 02/28/21 05/14/21 05/13/21 08:00 Rx cloNIDine [Catapres] 0.2 mg PO Q12HR #60 tablet 02/28/21 05/14/21 05/13/21 19:00 Rx hydrALAZINE [Apresoline TAB] 100 mg PO TID #90 tab 02/28/21 05/14/21 05/13/21 18:00 Rx polyethylene glycoL 3350 [Miralax 17 gm PO QDAY PRN powd.pack 02/28/21 Unknown Rx 3350] Active Meds: Active Medications Acetaminophen (Acetaminophen 325 Mg Tab) 650 mg PO Q6H PRN PRN Reason: Pain MILD(1-3)/Fever >100.5/CORTES Albuterol (Albuterol 2.5 Mg/3 Ml Nebu) 2.5 mg IH Q3HRT PRN PRN Reason: Shortness Of Breath Lipase/Protease/Amylase (Lipase 10,500/Protease 25,000/Amylase 43,750 (Units) Dr Arauz) 1 each FEEDTUBE PRN PRN PRN Reason: For Clogged Feeding Tube Last Admin: 05/17/21 04:20 Dose: 1 each Documented by: Atorvastatin Calcium (Atorvastatin 40 Mg Tab) 40 mg PO QHS ALEX Last Admin: 05/19/21 22:10 Dose: 40 mg Documented by: Atropine Sulfate (Atropine 1 Mg/Ml Vial) 1 mg IV ONCE PRN PRN Reason: Bradycardia Dextrose (Dextrose 50% In Water (25gm) 50 Ml Syringe) 0 ml IV Q30MIN PRN; Protocol PRN Reason: Hypoglycemia Hydromorphone HCl (Hydromorphone 1 Mg/1 Ml Inj) 0.5 mg IV Q23H PRN PRN Reason: Pain , Severe (7-10) Dextrose/Sodium Chloride (D5ns 0.2%) 1,000 mls @ 100 mls/hr IV DIRECT ALEX Last Admin: 05/19/21 22:10 Dose: 100 mls/hr Documented by: NORepinephrine/NS 8 MG-250 ML (Norepinephrine/Ns 8 Mg-250 Ml (Double Conc)) 8 mg in 250 mls @ 3.75 mls/hr IV TITRATE ALEX; Protocol Sodium Chloride (Nacl 0.9% 500 Ml) 500 mls @ 0 mls/hr IV ONCE ONE Stop: 05/20/21 03:02 Insulin Human Lispro (Insulin Lispro 100 Unit/Ml) 0 unit SUB-Q Q6HR [facility]; Protocol Last Admin: 05/19/21 17:57 Dose: 2 unit Documented by: Levothyroxine Sodium (Levothyroxine 100 Mcg Inj) 300 mcg IV DAILY@0600 [facility] Oxycodone/Acetaminophen (Oxycodone /Acetaminophen 5-325mg Tab) 1 tab PO Q16H PRN PRN Reason: Pain, Moderate (4-6) Polyethylene Glycol (Polyethylene Glycol 3350 17 Gm Powder) 17 gm PO QDAY PRN PRN Reason: Constipation Simple Syrup (Simple Syrup 15 Ml) 15 ml FEEDTUBE PRN PRN PRN Reason: Hypoglycemia Simple Syrup (Simple Syrup 15 Ml) 30 ml FEEDTUBE PRN PRN PRN Reason: Hypoglycemia Sodium Bicarbonate (Sodium Bicarbonate 325 Mg Tab) 325 mg FEEDTUBE PRN PRN PRN Reason: For Clogged Feeding Tube Last Admin: 05/17/21 04:20 Dose: 325 mg Documented by: Sodium Chloride (Sodium Chloride 0.9% 10 Ml Flush Syringe) 10 ml IV BID [facility] Last Admin: 05/19/21 22:10 Dose: 10 ml Documented by: Sodium Chloride (Sodium Chloride 0.9% 10 Ml Flush Syringe) 10 ml IV PRN PRN PRN Reason: LINE FLUSH Sodium Phosphate (K-Phos Neutral 250 Mg Tab) 250 mg PO QID [facility] Stop: 05/20/21 20:00 Last Admin: 05/19/21 22:10 Dose: 250 mg Documented by: Exam - Constitutional Vitals: Last Vital Signs Temp 96.5 F L 05/20/21 00:00 Pulse 64 05/19/21 22:00 Resp 14 05/19/21 22:00 BP 129/70 05/19/21 22:00 Pulse Ox 95 05/19/21 22:00 Results - Labs lab Results: Laboratory Results - last 24 hr 05/16/21 05/19/21 05/19/21 05:50 04:00 05:57 WBC RBC Hgb Hct MCV MCH MCHC RDW Plt Count Add Manual Diff Total Counted Seg Neuts % (Manual) Band Neutrophils % Lymphocytes % (Manual) Monocytes % (Manual) Nucleated RBC % Seg Neutrophils # Man Band Neutrophils # Lymphocytes # (Manual) Abs React Lymphs (Man) Monocytes # (Manual) Eosinophils # (Manual) Basophils # (Manual) Metamyelocytes # Myelocytes # Promyelocytes # Blast Cells # WBC Morphology Hypersegmented Neuts Hyposegmented Neuts Hypogranular Neuts Smudge Cells Toxic Granulation Toxic Vacuolation Dohle Bodies Pelger-Huet Anomaly Christiano Rods Platelet Estimate Clumped Platelets Plt Clumps, EDTA Large Platelets Giant Platelets Platelet Satelliting Plt Morphology Comment RBC Morphology Dimorphic RBCs Polychromasia Hypochromasia Poikilocytosis Anisocytosis Microcytosis Macrocytosis Spherocytes Pappenheimer Bodies Sickle Cells Target Cells Tear Drop Cells Ovalocytes Helmet Cells [place]al Bodies [place] Rings [place] Cells Bite Cells Crenated Cell Elliptocytes Acanthocytes (Spur) Rouleaux Hemoglobin C Crystals Schistocytes Malaria parasites Ruddy Bodies Hem Pathologist Commnt Sodium 139 Potassium 3.1 L Chloride 102.8 Carbon Dioxide 20 L Anion Gap 19 BUN 56 H Creatinine 1.3 H Estimated GFR 49 BUN/Creatinine Ratio 43 Glucose 213 H POC Glucose 204 H Calcium 8.2 L Phosphorus 1.40 L Magnesium 1.90 TSH Free T4 Crossmatch See Detail 05/19/21 05/19/21 05/19/21 08:03 08:03 08:03 WBC 8.5 RBC 2.70 L Hgb 7.5 L Hct 22.5 L MCV 84 MCH 28 MCHC 33 RDW 17.9 H Plt Count 15 L* Add Manual Diff Complete Total Counted 100 Seg Neuts % (Manual) 65.0 Band Neutrophils % 7.0 Lymphocytes % (Manual) 5.0 L Monocytes % (Manual) 23.0 H Nucleated RBC % Not Reportable Seg Neutrophils # Man 5.5 Band Neutrophils # 0.6 Lymphocytes # (Manual) 0.4 L Abs React Lymphs (Man) 0.0 Monocytes # (Manual) 2.0 H Eosinophils # (Manual) 0.0 Basophils # (Manual) 0.0 Metamyelocytes # 0.0 Myelocytes # 0.0 Promyelocytes # 0.0 Blast Cells # 0.0 WBC Morphology Not Reportable Hypersegmented Neuts Not Reportable Hyposegmented Neuts Not Reportable Hypogranular Neuts Not Reportable Smudge Cells Not Reportable Toxic Granulation Not Reportable Toxic Vacuolation Not Reportable Dohle Bodies Not Reportable Pelger-Huet Anomaly Not Reportable Christiano Rods Not Reportable Platelet Estimate Consistent w auto Clumped Platelets Not Reportable Plt Clumps, EDTA Not Reportable Large Platelets Not Reportable Giant Platelets Not Reportable Platelet Satelliting Not Reportable Plt Morphology Comment Not Reportable RBC Morphology Not Reportable Dimorphic RBCs Not Reportable Polychromasia Not Reportable Hypochromasia Not Reportable Poikilocytosis Not Reportable Anisocytosis Not Reportable Microcytosis Not Reportable Macrocytosis Not Reportable Spherocytes Not Reportable Pappenheimer Bodies Not Reportable Sickle Cells Not Reportable Target Cells Not Reportable Tear Drop Cells Not Reportable Ovalocytes Not Reportable Helmet Cells Not Reportable [place]al Bodies Not Reportable [place] Rings Not Reportable Kenneth Cells Not Reportable Bite Cells Not Reportable Crenated Cell Not Reportable Elliptocytes Not Reportable Acanthocytes (Spur) Not Reportable Rouleaux Not Reportable Hemoglobin C Crystals Not Reportable Schistocytes Not Reportable Malaria parasites Not Reportable Ruddy Bodies Not Reportable Hem Pathologist Commnt No Sodium Potassium Chloride Carbon Dioxide Anion Gap BUN Creatinine Estimated GFR BUN/Creatinine Ratio Glucose POC Glucose Calcium Phosphorus Magnesium TSH 86.290 H Free T4 1.50 H Crossmatch 05/19/21 05/19/21 05/19/21 11:37 17:27 23:33 WBC RBC Hgb Hct MCV MCH MCHC RDW Plt Count Add Manual Diff Total Counted Seg Neuts % (Manual) Band Neutrophils % Lymphocytes % (Manual) Monocytes % (Manual) Nucleated RBC % Seg Neutrophils # Man Band Neutrophils # Lymphocytes # (Manual) Abs React Lymphs (Man) Monocytes # (Manual) Eosinophils # (Manual) Basophils # (Manual) Metamyelocytes # Myelocytes # Promyelocytes # Blast Cells # WBC Morphology Hypersegmented Neuts Hyposegmented Neuts Hypogranular Neuts Smudge Cells Toxic Granulation Toxic Vacuolation Dohle Bodies Pelger-Huet Anomaly Christiano Rods Platelet Estimate Clumped Platelets Plt Clumps, EDTA Large Platelets Giant Platelets Platelet Satelliting Plt Morphology Comment RBC Morphology Dimorphic RBCs Polychromasia Hypochromasia Poikilocytosis Anisocytosis Microcytosis Macrocytosis Spherocytes Pappenheimer Bodies Sickle Cells Target Cells Tear Drop Cells Ovalocytes Helmet Cells [place]al Bodies [place] Rings Kenneth Cells Bite Cells Crenated Cell Elliptocytes Acanthocytes (Spur) Rouleaux Hemoglobin C Crystals Schistocytes Malaria parasites Ruddy Bodies Hem Pathologist Commnt Sodium Potassium Chloride Carbon Dioxide Anion Gap BUN Creatinine Estimated GFR BUN/Creatinine Ratio Glucose POC Glucose 201 H 220 H 176 H Calcium Phosphorus Magnesium TSH Free T4 Crossmatch
[2021-05-20 05:00] LABS: Hematocrit 21.4 % (30.3-42.9); Hemoglobin 7.3 gm/dl (10.1-14.3); Mean Corpuscular HGB Conc 34 % (30-34); Mean Corpuscular Volume 84 fl (79-97); Red Blood Count 2.57 M/mm3 (3.65-5.03); Red Cell Distribution Width 17.8 % (13.2-15.2)
[2021-05-20 05:07] LABS: Platelet Count 12 K/mm3 (140-440)
[2021-05-20 05:31] LABS: Calcium 8.8 mg/dL (8.4-10.2)
[2021-05-20] MEDS ORDERED: POTASSIUM CHLORIDE 20 MEQ PACKET FEEDTUBE SCH (06:00)
[2021-05-20] MEDS ORDERED: LEVOTHYROXINE 100 MCG INJ IV SCH (06:00)
[2021-05-20] MEDS ORDERED: POTASSIUM CHLORIDE 20 MEQ PACKET FEEDTUBE NR (06:35)
[2021-05-20 07:57] LABS: ABG Base Excess -2.2 mmol/L (-2.0-3.0); ABG HCO3 26.6 mmol/L (20.0-26.0); ABG Methemoglobin 0.4 % (0.0-1.5); ABG Oxygen Saturation 84.2 % (95.0-99.0); ABG PCO2 77.8 mm Hg; ABG PO2 56.2 mm Hg (80.0-90.0)
[2021-05-20 07:58] LABS: ABG PH 7.153 pH Units (7.350-7.450)
[2021-05-20 08:09] LABS: Band Neutrophils # (Manual) 0.2 K/mm3; Monocytes % (Manual) 3 % (0.0-7.3); Total Cells Counted 100
[2021-05-20] MEDS ORDERED: EPINEPHrine 1 MG/10 ML SYRINGE ONE (08:09)
[2021-05-20 08:11] LABS: Burr Cells Few; Poikilocytosis 1+
[2021-05-20 08:12] LABS: Platelet Estimate Appears Decreased
[2021-05-20 08:13] LABS: Hypochromasia 1+
[2021-05-20] MEDS ORDERED: SUCCINYLCHOLINE CHLORIDE 200 MG/10 ML INJ MDV ONE (08:17)
[2021-05-20] MEDS ORDERED: ETOMIDATE 20 MG/10 ML INJ IV ONE ×2 (08:17→08:23)
[2021-05-20] MEDS ORDERED: SUCCINYLCHOLINE CHLORIDE 200 MG/10 ML INJ MDV IV ONE (08:23)
[2021-05-20] MEDS ORDERED: SODIUM CHLORIDE 0.9% 1000 ML 1,000 ML ONE (08:31)
--- NOTE | 2021-05-20 08:39 | Event Note ---
Date: 05/20/21 I responded to a CODE BLUE called on this patient. The hospitalist service was at bedside supervising ACLS protocol. The patient was receiving bag valve ventilation. Shortly after I got to the room and the patient had ROSC but still required intubation. The patient's jaw was clamped down and at first she appeared to spontaneously open her eyes so RSI was necessary. The patient was given 20 mg of etomidate and 100 mg of succinylcholine. The patient had some bloody or frothy secretions at first, followed by expulsion of gastric content. I made an initial attempt with the glide scope to see the vocal cords but I was unsuccessful on a first pass attempt given the copious GI secretions and the patient transiently desaturated. We then got her oxygen saturation back up with bag valve ventilation. On the second attempt I was able to visualize the vocal cords and placed a 7.5 endotracheal tube through the cords to about 24 cm at the lips. The bulb was inflated with about 10 cc of air. There was initial condensation seen and good color change capnography. She does not appear to have any complications from the procedure. Breath sounds heard bilaterally. This appeared to be a successful intubation but the patient will have a confirmatory chest x-ray. At this point I return to the emergency department and left the hospitalist service for any post ROSC orders.
[2021-05-20] MEDS ORDERED: POTASSIUM CHLORIDE 10 MEQ 10 MEQ/100 ML BAG IV SCH (09:00)
[2021-05-20] MEDS ORDERED: SODIUM CHLORIDE 0.9% 500 ML 500 ML IV NR (09:00)
[2021-05-20] MEDS ORDERED: EPINEPHrine 1 MG/1 ML 16 MG in SODIUM CHLORIDE 0.9% 250ML 234 ML IV SCH (09:00)
--- NOTE | 2021-05-20 09:37 | XRay Report ---
CHEST 1 VIEW, 05/20/2021 8:18 AM CLINICAL INFORMATION/INDICATION: Shortness of breath. Hypoxia. Endotracheal tube placement COMPARISON: Chest radiograph, 05/14/2021 at 12:15 PM FINDINGS: SUPPORT DEVICES: There has been interval placement of endotracheal tube with tip entering the right m ainstem bronchus. HEART: There is stable enlargement of the cardiac silhouette. LUNGS/PLEURA: Diffuse faint bilateral pulmonary opacities have slightly increased since the previous study. No pneumothorax is visualized. ADDITIONAL FINDINGS: No additional acute findings. IMPRESSION: 1. Placement of endotracheal tube with tip entering the right mainstem bronchus. This finding was maritza led to Dr. Mcmahon at 8:31 PM Central time. 2. Slight interval increase of bilateral pulmonary opacities. CRITICAL RESULT: Time of Discovery (GENETICS PHYSICIAN/CDT): 8:27 AM Time of Communication (GENETICS PHYSICIAN/CDT): 8:31 AM Licensed Practitioner Receiving Report: Dr. Mcmahon Read-Back Performed: Yes. Signer Name: Perri Valera MD Signed: 05/20/2021 9:32 AM Workstation Name: [facility]
[2021-05-20] MEDS ORDERED: LORazepam 2 MG/ML VIAL IV PRN (09:45)
[2021-05-20] MEDS ORDERED: MORPHINE 2 MG/1 ML INJ IV PRN (09:45)
[2021-05-20] MEDS ORDERED: SCOPOLAMINE TRANSDERMAL PATCH 72 HR TD SCH ×2 (10:00)
[2021-05-20] MEDS ORDERED: fentaNYL 100 MCG/2 ML INJ IV PRN (10:00)
[2021-05-20] MEDS ORDERED: POTASSIUM CHLORIDE 20 MEQ PACKET FEEDTUBE ONE (10:00)
[2021-05-20] MEDS ORDERED: fentaNYL DRIP Premix 2,000 MCG/100 ML BAG IV SCH (10:00)
--- NOTE | 2021-05-20 11:41 | Death Summary ---
<MICHELLE LEUNG - Last Filed: 05/20/21 14:49> Summary - Providers Consults: 05/14/21 15:10 Consult to Physician [CONS] Routine Comment: Consulting Provider: RADHA BAKER Physician Instructions: Reason For Exam: myxedema coma 05/14/21 15:37 Consult to Physician [CONS] Routine Comment: Consulting Provider: DASIA COSTA Physician Instructions: Reason For Exam: nonsustained vtach 05/15/21 14:41 Consult to Physician [CONS] Routine Comment: Consulting Provider: LIBIA MEIER Physician Instructions: Reason For Exam: jozef 05/16/21 05:35 Consult to Dietitian/Nutrition [CONS] Routine Physician Instructions: Reason For Exam: Reason for Consult: Diet education 05/18/21 10:00 Consult to Wound/ET Nurse [CONS] Routine Reason For Exam: bilateral lower posterior buttocks. right groin. 05/19/21 19:25 Consult to Physician [CONS] Urgent Comment: Consulting Provider: JOSÉ MIGUEL TERRELL Physician Instructions: Reason For Exam: Thrombocytopenia Attending: BRANDY BAJWA MD - summary Date of admission: 05/14/21 15:10 Date of : 05/20/21 Significant findings: 70 YO Female with CVA with LHP, HTN, HLD, Lymphedema, Obesity Hypoventilation Syndrome, Hypothyroidism S/P Thyroidectomy, Vascular Dementia, Cerebral Atherosclerosis presents to ED for evaluation. Patient is stuporous with diminished cognition and is unable to provide history. Patient history taken from EMS staff, ED staff, as well as the patient's son who was made available by telephone for interview. As per son the patient has experienced increased confusion, increased weakness, and decreased oral intake over the past 10 days with persistent and worsening symptoms over the same timeframe. Patient was found to be more confused today making incomprehensible sounds. EMS was notified and upon arrival the patient was found to be in distress and subsequently transported to [facility] for further care and evaluation of the aforementioned symptoms. The patient was seen and evaluated in the emergency department. All lab and imaging studies reviewed. Patient found to have body core temperature of 90 F, blood pressure of 66/34, and heart rate of 54. Patient symptoms consistent with myxedema coma, as well as metabolic encephalopathy, and acute kidney injury. Patient initiated on IV Synthroid therapy and admitted to ICU due to increased risk of worsening symptoms. No reports of fever, chills, chest pain, palpitation, productive cough, skin rash, recent ill contact, or known exposure to COVID-19. Prior admission on 02/23/2021 reviewed. All medication listed at time of admission has been reconciled. Advanced care planning conducted in ED. Patient has diminished cognition but has a positive gag reflex and is currently able to protect her airway without difficulty at the time of my evaluation. Critical care team consulted. Patient was placed on IMCU. Patient's distributive shock and admission imbalances were treated. Patient is acute kidney injury was improving. Patient was started on thyroid replacement therapy with eventual improvement. This morning patient was found cardiopulmonary arrest with eventual achievement of ROSC. Patient was intubated and placed on mechanical ventilation. Family was contacted and decision was made to de-escalate care. Patient was pronounced at [address] Huntley. Family was informed. Myxedema coma s/p Distributive shock Metabolic encephalopathy Acute kidney injury (JOZEF) with acute tubular necrosis (ATN)-improving Obesity hypoventilation syndrome Anemia of chronic disease Acute blood loss Thrombocytopenia <BRANDY BAJWA - Last Filed: 05/20/21 15:26> Summary - Providers Date of service: 05/20/21 Consults: 05/14/21 15:10 Consult to Physician [CONS] Routine Comment: Consulting Provider: RADHA BAKER Physician Instructions: Reason For Exam: myxedema coma 05/14/21 15:37 Consult to Physician [CONS] Routine Comment: Consulting Provider: DASIA COSTA Physician Instructions: Reason For Exam: nonsustained vtach 05/15/21 14:41 Consult to Physician [CONS] Routine Comment: Consulting Provider: LIBIA MEIER Physician Instructions: Reason For Exam: jozef 05/16/21 05:35 Consult to Dietitian/Nutrition [CONS] Routine Physician Instructions: Reason For Exam: Reason for Consult: Diet education 05/18/21 10:00 Consult to Wound/ET Nurse [CONS] Routine Reason For Exam: bilateral lower posterior buttocks. right groin. 05/19/21 19:25 Consult to Physician [CONS] Urgent Comment: Consulting Provider: JOSÉ MIGUEL TERRELL Physician Instructions: Reason For Exam: Thrombocytopenia Attending: BRANDY BAJWA MD - summary Date of admission: 05/14/21 15:10 Reason for admission: Myxedema coma Significant findings: I agree with the aforementioned note listed above. The high probability of a clinically significant, sudden or life threatening deterioration of the [neuro, respiratory, cardiac, renal, endocrine] system(s) required my full and direct attention, intervention and personal management. The aggregate critical care time was [60] minutes. This time is in addition to time spent performing reported procedures but includes the following: [x] Data Review and interpretation [x] Patient assessment and monitoring of vital signs [x] Documentation [x] Medication orders and management Procedures/treatments rendered: Intubation with mechanical ventilation. Pertinent studies: Reviewed. Disposition: .
--- NOTE | 2021-05-20 11:42 | Death Note ---
Note Date of : 05/20/21 Time of : 11:26 Time Pronounced: :26
[2021-05-20 11:48] VITALS: BP 80/34
--- NOTE | 2021-05-20 14:46 | Event Note ---
Date: 05/20/21808 patient found in PEA and CPR initiated by nurse feeding. Patient given epinephrine with ROSC achieved at 0 815. Patient was intubated at [address] Lindsey, started on epinephrine drip and transported to ICU on mechanical ventilation. See code note for details
== END 2021-05-20 14:59 | DRG 80 ==
LOC: ED 10:13 → CC1 15:10 → IMCU 05-15 08:21 → CC1 05-20 08:58
PROVIDERS: ADMIT Internal Medicine; ATTEND Student in an Organized Health Care Education/Training Program
PROC: 4A033R1 Measurement of Arterial Saturation, Peripheral, Percutaneous Approach (ICD-10-PCS; 2021-05-14)
PROC: 06HY33Z Insertion of Infusion Device into Lower Vein, Percutaneous Approach (ICD-10-PCS; 2021-05-14)
PROC: 30233N1 Transfusion of Nonautologous Red Blood Cells into Peripheral Vein, Percutaneous Approach (ICD-10-PCS; 2021-05-16)
PROC: 5A1935Z Respiratory Ventilation, Less than 24 Consecutive Hours (ICD-10-PCS; principal; 2021-05-20)
PROC: 0BH17EZ Insertion of Endotracheal Airway into Trachea, Via Natural or Artificial Opening (ICD-10-PCS; 2021-05-20)
PROC: 5A09357 Assistance with Respiratory Ventilation, Less than 24 Consecutive Hours, Continuous Positive Airway Pressure (ICD-10-PCS; 2021-05-20)
PROC: 5A12012 Performance of Cardiac Output, Single, Manual (ICD-10-PCS; 2021-05-20)
DX: E03.5 Myxedema coma (principal); G93.41 Metabolic encephalopathy; N17.0 Acute kidney failure with tubular necrosis; E66.2 Morbid (severe) obesity with alveolar hypoventilation; E87.0 Hyperosmolality and hypernatremia; Z68.42 Body mass index [BMI] 45.0-49.9, adult; D62 Acute posthemorrhagic anemia; I47.1 Supraventricular tachycardia; R57.8 Other shock; I10 Essential (primary) hypertension; Z86.73 Personal history of transient ischemic attack (TIA), and cerebral infarction without residual deficits; Z79.82 Long term (current) use of aspirin; E86.0 Dehydration; D64.9 Anemia, unspecified; E87.6 Hypokalemia; D69.6 Thrombocytopenia, unspecified; E78.5 Hyperlipidemia, unspecified; F01.50 Vascular dementia, unspecified severity, without behavioral disturbance, psychotic disturbance, mood disturbance, and anxiety; Z83.3 Family history of diabetes mellitus; Z82.49 Family history of ischemic heart disease and other diseases of the circulatory system; D63.8 Anemia in other chronic diseases classified elsewhere; I95.9 Hypotension, unspecified; I46.9 Cardiac arrest, cause unspecified
CPT/HCPCS: 36415; 70450; 71045; 74018; 80048; 80053; 80061; 81001; 82140; 82271; 82533; 82550; 82570; 82803; 82805; 82962; 83735; 83930; 83935; 84100; 84133; 84156; 84300; 84439; 84443; 84480; 84481; 84484; 85007; 85014; 85018; 85025; 85027; 85610; 85730; 86850; 86900; 86901; 86920; 87040; 93005; 93306; 94002; 94003; G0378; J0171; J0330; J0461; J0610; J0692; J1815; J2060; J2270; J3010; J3370; J3480; J7030; J7040; J7050; J7120; P9016